=== PATIENT | female | born 1980 ===

== ENCOUNTER 2020-07-10 08:40 | Outpatient (REF) | payer MEDICAID, SELFPAY ==
--- NOTE | 2020-07-10 08:47 | MM_ITS ---
EXAMINATION: MM SCREENING DIGITAL BREAST TOMOSYNTHESIS, BILATERAL CLINICAL INFORMATION: Screening. Asymptomatic. Prior history bilateral reduction mammoplasty. The lifetime risk of breast cancer based on the Tyrer-Cuzick Model is 8%. COMPARISON: Mammography: 06/15/2017 (diagnostic baseline) TECHNIQUE: Digital breast tomosynthesis is performed in both the craniocaudal and mediolateral oblique views along with computer-aided detection (CAD). Synthesized 2D images are generated from the tomosynthesis. FINDINGS: There are scattered areas of fibroglandular density (ACR BI-RADS breast composition Category b). Parenchymal pattern is similar to prior exam. There is minor scarring consistent with prior history reduction mammoplasty. There is no interval mass or architectural abnormality or abnormal calcifications. The axilla and skin contours are unremarkable. MM/MM tomosynthesis screening BI IMPRESSION: No mammographic evidence of malignancy. ASSESSMENT: BI-RADS 2: Benign RECOMMENDATION: Routine annual mammography screening. This patient's information was entered into a reminder system with a target due date for their next mammogram.
== END 2020-07-10 08:41 | disposition home or self-care (01) ==
LOC: HO.MAMMO 08:40
PROVIDERS: PCP Internal Medicine; Visit Provider Internal Medicine
DX: Z12.31 Encounter for screening mammogram for malignant neoplasm of breast (principal)
CPT/HCPCS: 77063; 77067

== ENCOUNTER 2020-09-02 11:02 | Outpatient (REF) | payer MEDICAID, SELFPAY ==
[2020-09-03 11:07] LABS: BV Int Neg Control Negative (Negative); BV Int Pos Control Positive (Positive)
[2020-09-27 12:41] LABS: CT PCR NOT DETECTED (Not Detect.); NG PCR NOT DETECTED (Not Detect.)
== END 2020-09-02 11:03 | disposition home or self-care (01) ==
LOC: HO.LAB 11:02
PROVIDERS: Visit Provider Advanced Practice Midwife
DX: N95.1 Menopausal and female climacteric states (principal); Z20.2 Contact with and (suspected) exposure to infections with a predominantly sexual mode of transmission; R10.2 Pelvic and perineal pain; B37.3 Candidiasis of vulva and vagina
CPT/HCPCS: 81025; 87210; 87480; 87491; 87510; 87591; 87660; 99212

== ENCOUNTER 2020-09-03 12:13 | Outpatient (REF) | payer MEDICAID, SELFPAY ==
[2020-09-03 13:41] LABS: TSH reflex Free T4 1.77 mIU/mL (0.32-4.0)
[2020-09-04 18:02] LABS: Follicle Stimulating Hormone 99.8 mIU/mL
== END 2020-09-03 12:14 | disposition home or self-care (01) ==
LOC: HO.LAB 12:13
PROVIDERS: PCP Internal Medicine; Visit Provider Advanced Practice Midwife
DX: N95.1 Menopausal and female climacteric states (principal)
CPT/HCPCS: 83001; 84443

== ENCOUNTER 2020-09-25 11:03 | Outpatient (REF) | payer MEDICAID, SELFPAY ==
--- NOTE | 2020-09-25 11:07 | US_ITS ---
EXAMINATION:US pelvic complete, US transvaginal CLINICAL INFORMATION: Reason for Exam N95.1 - Menopausal and female climacteric states COMPARISON: No priors available. LMP: 06/04/2019 FINDINGS: UTERUS: The uterus is anteverted. Size: 7.2 x 3.2 x 4.6 cm. Uterine mass: There is no uterine mass. Cervix: There are nabothian cysts otherwise Grossly unremarkable. Endometrium: No ultrasound evidence of endometrial lesion. endometrial thickness measures 0.5 cm this is mildly thickened for postmenopausal patient. ADNEXA: Normal Right ovary: Normal in size. Left ovary: Normal in size. Doppler exam: Normal Doppler flow identified in both ovaries. FREE FLUID: Trace amount of free fluid. OTHER FINDINGS: None US/US transvaginal IMPRESSION: Endometrium is 5 mm, mildly thickened for postmenopausal patient. Follow-up recommended. Ultrasound otherwise normal.
--- NOTE | 2020-09-25 11:07 | US_ITS ---
EXAMINATION:US pelvic complete, US transvaginal CLINICAL INFORMATION: Reason for Exam N95.1 - Menopausal and female climacteric states COMPARISON: No priors available. LMP: 06/04/2019 FINDINGS: UTERUS: The uterus is anteverted. Size: 7.2 x 3.2 x 4.6 cm. Uterine mass: There is no uterine mass. Cervix: There are nabothian cysts otherwise Grossly unremarkable. Endometrium: No ultrasound evidence of endometrial lesion. endometrial thickness measures 0.5 cm this is mildly thickened for postmenopausal patient. ADNEXA: Normal Right ovary: Normal in size. Left ovary: Normal in size. Doppler exam: Normal Doppler flow identified in both ovaries. FREE FLUID: Trace amount of free fluid. OTHER FINDINGS: None US/US pelvic complete IMPRESSION: Endometrium is 5 mm, mildly thickened for postmenopausal patient. Follow-up recommended. Ultrasound otherwise normal.
== END 2020-09-25 11:04 | disposition home or self-care (01) ==
LOC: HO.US 11:03
PROVIDERS: PCP Internal Medicine; Visit Provider Advanced Practice Midwife
DX: N95.1 Menopausal and female climacteric states (principal); R10.2 Pelvic and perineal pain
CPT/HCPCS: 76830; 76856

== ENCOUNTER → 2020-10-09 10:41 | Outpatient (BNVA) | payer MEDICAID, SELFPAY | PROVIDERS: Visit Provider Advanced Practice Midwife | DX: N95.1 Menopausal and female climacteric states (principal) | CPT/HCPCS: 99212 ==

== ENCOUNTER 2020-10-22 10:00 | Outpatient (RCR) | payer MEDICAID, SELFPAY | END 2020-10-22 16:23 | disposition other institution (70) | LOC: HO.OT 10:00 | PROVIDERS: PCP Family Medicine; Visit Provider Family Medicine | DX: M79.641 Pain in right hand (principal) | CPT/HCPCS: 29125; 97018; 97035; 97110; 97165; 97760 ==

== ENCOUNTER 2020-10-22 10:51 | Outpatient (REF) | payer MEDICAID, SELFPAY ==
--- NOTE | 2020-10-22 10:55 | US_ITS ---
EXAMINATION: US PELVIS COMPLETE CLINICAL INFORMATION: Menopausal] female climacteric states. COMPARISON: None. TECHNIQUE: Transabdominal and transvaginal ultrasound the pelvis is performed. FINDINGS: The uterus is anteverted and anteflexed measuring 7.4 cm in length, 3.2 cm in AP and 3.6 cm in transverse dimension. There is a hyperechoic-appearing heterogeneous posterior fundal area with no focal mass visualized. Previously visualized fibroid on 06/04/2019 is not visualized at this time. There are several nabothian cysts seen in the cervix. Right ovary measures 2.7 x 1.4 x 1.1 cm and volume 2.2 mL. There is a dominant anechoic follicle visualized measuring 1.8 x 1.3 cm. The left ovary measures 1.9 x 0.7 x 1.6 cm and volume 1.1 mL. Previously it measured 2.2 x 1.4 x 1.3 cm. There is no free fluid in the cul-de-sac. US/US transvaginal IMPRESSION: No uterine fibroids seen at this time as is noted in 2019. There is a hyperechoic area in the posterior fundal uterus, likely changes secondary to impending menopause status. A dominant right ovarian follicle. Otherwise both ovaries are unremarkable. Small nabothian cysts seen in the cervix.
--- NOTE | 2020-10-22 10:55 | US_ITS ---
EXAMINATION: US PELVIS COMPLETE CLINICAL INFORMATION: Menopausal] female climacteric states. COMPARISON: None. TECHNIQUE: Transabdominal and transvaginal ultrasound the pelvis is performed. FINDINGS: The uterus is anteverted and anteflexed measuring 7.4 cm in length, 3.2 cm in AP and 3.6 cm in transverse dimension. There is a hyperechoic-appearing heterogeneous posterior fundal area with no focal mass visualized. Previously visualized fibroid on 06/04/2019 is not visualized at this time. There are several nabothian cysts seen in the cervix. Right ovary measures 2.7 x 1.4 x 1.1 cm and volume 2.2 mL. There is a dominant anechoic follicle visualized measuring 1.8 x 1.3 cm. The left ovary measures 1.9 x 0.7 x 1.6 cm and volume 1.1 mL. Previously it measured 2.2 x 1.4 x 1.3 cm. There is no free fluid in the cul-de-sac. US/US pelvic complete IMPRESSION: No uterine fibroids seen at this time as is noted in 2019. There is a hyperechoic area in the posterior fundal uterus, likely changes secondary to impending menopause status. A dominant right ovarian follicle. Otherwise both ovaries are unremarkable. Small nabothian cysts seen in the cervix.
== END 2020-10-22 10:52 | disposition home or self-care (01) ==
LOC: HO.US 10:51
PROVIDERS: Visit Provider Advanced Practice Midwife
DX: N95.1 Menopausal and female climacteric states (principal)
CPT/HCPCS: 76830; 76856

== ENCOUNTER → 2020-11-17 11:36 | Outpatient (BNVA) | payer MEDICAID, SELFPAY | PROVIDERS: Visit Provider Obstetrics & Gynecology ==

== ENCOUNTER 2020-12-01 11:24 | Outpatient (REF) | payer MEDICAID, SELFPAY | END 2020-12-01 11:25 | disposition home or self-care (01) | LOC: HO.LAB 11:24 | PROVIDERS: Visit Provider Internal Medicine | DX: Z20.822 Contact with and (suspected) exposure to COVID-19 (principal) | CPT/HCPCS: 36415; C9803; U0003; U0005 ==

== ENCOUNTER 2020-12-10 12:58 | Outpatient (REF) | payer MEDICAID, SELFPAY ==
[2020-12-10 14:58] LABS: Glucose Urine UA NEG (NEG); Leukocyte Esterase Urine NEG (NEG); Nitrite Urine NEG (NEG); PH 5.5 (5.0-8.0); Specific Gravity - Urine >= 1.030 (1.005-1.025); Urine Blood NEG (NEG); Urine Ketones 5 MG/DL (NEG); Urine Protein NEG (NEG-TRACE)
[2020-12-10 14:59] LABS: Appearance Urine HAZY; Color Urine YELLOW
[2020-12-14 11:46] LABS: HPV 16 RNA NOT DETECTED (NOT DETECTED); HPV mRNA E6/E7 rflx Detected (Not Detected)
== END 2020-12-10 12:59 | disposition home or self-care (01) ==
LOC: HO.LAB 12:58
PROVIDERS: Visit Provider Obstetrics & Gynecology
DX: Z01.419 Encounter for gynecological examination (general) (routine) without abnormal findings (principal); R10.2 Pelvic and perineal pain; N95.0 Postmenopausal bleeding; Z79.899 Other long term (current) drug therapy
CPT/HCPCS: 36415; 58100; 81003; 81025; 87624; 87625; 88141; 88142; 88305

== ENCOUNTER 2021-03-20 09:32 | Outpatient (REF) | payer MEDICAID, SELFPAY ==
--- NOTE | ~2021-03-20 | MR_ITS ---
EXAMINATION: MR BRAIN WITHOUT CONTRAST CLINICAL INFORMATION: Worsening headaches causing nocturnal awakening. COMPARISON: CT head 09/20/2019 TECHNIQUE: Routine unenhanced MRI of the brain. FINDINGS: The ventricles and sulci are normal in size and configuration. No focal parenchymal lesions of the brain are identified. No intracranial hemorrhage, tumors or acute infarcts are visualized. Susceptibility-weighted images reveal no evidence of acute or chronic intraparenchymal hemorrhage. The craniocervical junction and cerebellar tonsils are normal in configuration. No suspicious marrow abnormalities are visualized. Incidental note is made of minimal anterior endplate osteophytosis within the incidentally visualized cervical spine at the level of C5-C6. Normal flow-related signal intensity is identified in the major intracranial vessels and dural sinuses. The orbits and globes are normal in appearance. No significant mucosal thickening or retained secretions is noted within the paranasal sinuses, mastoid air cells and middle ear cavities. MR/MR head/brain wo con IMPRESSION: Normal unenhanced MRI of the brain.
== END 2021-03-20 09:33 | disposition home or self-care (01) ==
LOC: HO.MRI 09:32
PROVIDERS: PCP Internal Medicine; Visit Provider Internal Medicine
DX: R51.9 Headache, unspecified (principal)
CPT/HCPCS: 70551

== ENCOUNTER 2021-04-02 09:21 | Outpatient (REF) | payer MEDICAID, SELFPAY ==
[2021-04-02 16:10] LABS: CT PCR NOT DETECTED (Not Detect.); NG PCR NOT DETECTED (Not Detect.)
[2021-04-03 08:13] LABS: BV Int Neg Control Negative (Negative); BV Int Pos Control Positive (Positive)
== END 2021-04-02 09:22 | disposition home or self-care (01) ==
LOC: HO.LAB 09:21
PROVIDERS: PCP Internal Medicine; Visit Provider Advanced Practice Midwife
DX: N89.8 Other specified noninflammatory disorders of vagina (principal); Z20.2 Contact with and (suspected) exposure to infections with a predominantly sexual mode of transmission; Z79.899 Other long term (current) drug therapy; Z98.51 Tubal ligation status
CPT/HCPCS: 87480; 87491; 87510; 87591; 87660; 99212

== ENCOUNTER 2021-04-10 11:08 | Emergency (ER) | payer MEDICAID, SELFPAY ==
--- NOTE | 2021-04-10 | ECG_ITS ---
Test Reason : CHEST PAIN Blood Pressure : / mmHG Vent. Rate : 069 BPM Atrial Rate : 069 BPM P-R Int : 164 ms QRS Dur : 084 ms QT Int : 384 ms P-R-T Axes : 047 038 073 degrees QTc Int : 411 ms Normal sinus rhythm Nonspecific T wave abnormality Abnormal ECG When compared with ECG of 05-NOV-2013 18:40, No significant change was found Referred By: Generic ED Physician Electronically Signed By:HUONG SAMANO
--- NOTE | ~2021-04-10 | XR_ITS ---
EXAMINATION: XR LUMBOSACRAL SPINE CLINICAL INFORMATION: Pain COMPARISON: None TECHNIQUE: Three views of the lumbosacral spine. FINDINGS: There is mild curvature of the lumbar spine to the left. Bone alignment is otherwise normal. No fracture or dislocation is seen. Disc spaces are normal. Paraspinal soft tissues are normal. XR/XR lumbar spine 2-3V IMPRESSION: Unremarkable examination.
--- NOTE | ~2021-04-10 | XR_ITS ---
EXAMINATION: XR THORACIC SPINE CLINICAL INFORMATION: Back pain COMPARISON: None TECHNIQUE: 3 views of the thoracic spine were obtained. FINDINGS: There is mild curvature of the lower thoracic and upper lumbar spine to the left. Bone alignment is otherwise normal. No fracture or dislocation is seen. Disc spaces are normal. Paraspinal soft tissues are normal. XR/XR thoracic spine 3V IMPRESSION: Unremarkable examination.
[2021-04-10 12:57] VITALS: BP 141/76; PULSE 65; RESP 16; TEMP 37.2; O2SAT 99; BMI 35.5
[2021-04-10] MEDS: Ketorolac Tromethamine 15 MG/ML VIAL IM ×2 (13:24→13:26)
[2021-04-10 14:02] VITALS: BP 129/78; PULSE 63; RESP 16; TEMP 35.8; O2SAT 100
--- NOTE | 2021-04-10 14:25 | ED_ITS ---
HPI - Back Pain/Injury General Chief Complaint: Back Pain/Injury Stated Complaint: BACK PAIN Time Seen by Provider: 04/10/21 12:55 Source: patient Mode of arrival: ambulatory Limitations: no limitations History of Present Illness HPI Narrative: Patient presents ED for lower back pain for 3 days. Patient denies any flank pain, fever, chills, dysuria, hematuria any recent trauma. Patient states back pain is worse on movement. Patient denies any abdominal pain. To inspect pain radiating to neck and back down to low back pain. Patient denies any chest pain, shortness of breath, pleuritic chest pain, swelling of lower extremities, calf pain, coughing up blood, dizziness, or weakness. Related Data Home Medications Medication Instructions Recorded Confirmed acetaminophen 325 mg tablet 650 mg PO Q6H PRN 09/02/20 04/02/21 clonazepam 1 mg tablet 1 mg PO BID 09/02/20 04/02/21 naratriptan 2.5 mg tablet See Rx Instructions PO .COMPLEX 09/02/20 04/02/21 sertraline 100 mg tablet 100 mg PO DAILY 09/02/20 04/02/21 zolpidem 10 mg tablet 10 mg PO BEDTIME PRN 09/02/20 04/02/21 Previous Rx's Medication Instructions Recorded clotrimazole 1 % vaginal cream 1 appful VAGINAL BEDTIME 7 Days 09/02/20 #45 g medroxyprogesterone 10 mg tablet 10 mg PO DAILY #10 tab 09/02/20 metronidazole 0.75 % vaginal gel 1 appful VAGINAL BID 5 Days #70 g 04/02/21 cyclobenzaprine 10 mg PO TID PRN #18 tab 04/10/21 naproxen 500 mg PO BID PRN #20 tab 04/10/21 Allergies Allergy/AdvReac Type Severity Reaction Status Date / Time passion fruit [PASSION FRUIT] Allergy Intermediate HIVES Verified 04/02/21 09:29 passion fruit Allergy Unknown rash Verified 04/02/21 09:29 Review of Systems Review of Systems: Yes all other systems are reviewed and are negative Constitutional: Constitutional: Reports as per HPI and Reports no additional constitutional complaints Eyes: Eyes: Reports as per HPI and Reports no additional eye complaints ENT: Reports system reviewed and no additional complaints, except as documented and Reports as per HPI Cardiovascular: Cardiovascular: Reports as per HPI and Reports no additional cardiovascular complaints Respiratory: Respiratory: Reports as per HPI and Reports no additional respiratory complaints Gastrointestinal: Gastrointestinal: Reports as per HPI and Reports no additional gastrointestinal complaints Genitourinary: Genitourinary: Reports no additional female genitourinary complaints and Reports as per HPI Musculoskeletal: Musculoskeletal: Reports no additional musculoskeletal complaints and Reports as per HPI Neurologic: Reports system reviewed and no additional complaints, except as documented and Reports as per HPI Psychiatric: Psychiatric: Reports no additional psychiatric complaints and Reports as per HPI [facility] Past Medical History Medical History Anxiety Depressed Insomnia Migraine Pelvic pain Surgical History H/O bilateral breast reduction surgery Hx of tubal ligation Family History Family History Maternal Grandfather Stomach cancer Mother No problems noted. Mother Diabetes Social History Social History Alcohol intake: never Advance Directives: Yes Advance Directives Information Provided: No Advance Directives on File: No Patient : No Physical Exam Vital Signs: Vital Signs: Last Vital Signs Temp 97.9 F 04/10/21 14:55 Pulse 63 04/10/21 14:02 Resp 16 04/10/21 14:02 BP 129/78 04/10/21 14:02 Pulse Ox 100 04/10/21 14:02 Body Mass Index 35.5 Const: General: cooperative, healthy appearing, comfortable, no acute distress, well developed, alert, awake and Physically active HENMT: Head: Yes normal to inspection, Yes No palpable skull fracture present, Yes normocephalic, Yes atraumatic and No abrasion Eyes: General: appearance normal, both eyes and all related structures Neck: Neck: Yes normal visual inspection, Yes full ROM, Yes no lymphadenopathy, Yes no meningeal signs, Yes trachea midline, Yes supple and No tender Chest: Chest palpation & inspection: normal inspection of the chest and normal palpation of entire chest wall Resp: Effort & Inspection: normal respiratory effort and able to speak in complete sentences Auscultation: clear to auscultation bilaterally Cardio: Jugular venous distension: no JVD Heart sounds: S1 normal heart sound present and S2 normal heart sound present GI: Inspection: Yes normal to inspection and No abdominal wall ecchymosis Palpation (GI): Soft to palpation, not firm, nontender, no guarding and not rigid : General: No CVA tenderness and Yes no CVA tenderness Back/Spine/Pelvis: Other: Straight leg test is normal Back: no CVA tenderness, No CVA tenderness and back tenderness (Lower thoracic and lumbar) Skin: General skin exam: no rashes or lesions noted and elasticity normal Neuro: General: patient oriented x3, gait normal, no meningeal signs and CN's II-XI intact bilaterally Cranial nerves: Yes CN's II-XII intact bilaterally Extrem: Other: Bilateral shoulders negative for any swelling, erythema, tenderness, ecchymosis, or deformity. All extremities vascular/motor/neuro exam is intact. General: Yes normal to inspection and Yes full ROM Psych: Appearance: grossly normal, well kempt and not disheveled Course Course Course Narrative: Will send patient for x-rays. Reevaluation(s) Reevaluation #1: X-rays negative for fracture. Patient denies any history of IV drug use or HIV. Not suspecting epidural abscess. Patient denies any flank pain, dysuria, or hematuria. not suspecting kidney stone/pyelonephritis or UTI. not Suspecting any PE or any pulmonary etiology. Not suspecting any cardiac etiology. Time: 14:55 MDM - Back Pain/Injury MDM Narrative Medical decision making narrative: Muscular back pain Discharge Plan Discharge Clinical Impression: Back pain Patient Disposition: Home, Self-Care Instructions: Acute Low Back Pain (ED) Additional Instructions: Neck pain came back negative for any fractures. Return to the ED immediately for any worsening back pain, urinary/bowel incontinence, abdominal pain, flank pain, fever, chills, nausea, vomiting, chest pain, shortness of breath, swelling of extremities, calf pain, hematuria, neck stiffness, headache, or any other concerning symptoms. Have a muscular back pain. Prescriptions: New naproxen 500 mg tablet 500 mg PO BID PRN (Reason: pain) Qty: 20 RF: 0 cyclobenzaprine 10 mg tablet 10 mg PO TID PRN (Reason: muscle spasm) Qty: 18 RF: 0 No Action metronidazole [Metrogel Vaginal] 0.75 % gel 1 appful vaginal BID 5 Days Qty: 70 RF: 4 clonazepam [Klonopin] 1 mg tablet 1 mg PO BID RF: 0 zolpidem [Ambien] 10 mg tablet 10 mg PO BEDTIME PRNRF: 0 sertraline [Zoloft] 100 mg tablet 100 mg PO DAILY RF: 0 naratriptan [Amerge] 2.5 mg tablet See Rx Instructions PO .COMPLEX RF: 0 acetaminophen [Tylenol] 325 mg tablet 650 mg PO Q6H PRNRF: 0 clotrimazole 1 % cream 1 appful vaginal BEDTIME 7 Days Qty: 45 RF: 3 medroxyprogesterone [Provera] 10 mg tablet 10 mg PO DAILY Qty: 10 RF: 12 Referrals: Rosita Clark MD [Primary Care Provider] - 2 days (Muscular back pain) Print Language: Citizen [place]
[2021-04-10] MEDS: oxyCODONE HCl Immed Release 5 MG TABLET PO (14:26)
[2021-04-10 14:55] VITALS: TEMP 36.6
== END 2021-04-10 15:30 | disposition home or self-care (01) ==
PROVIDERS: Emergency Provider Emergency Medicine Emergency Medical Services; PCP Internal Medicine
DX: M54.5 Low back pain (principal); M54.6 Pain in thoracic spine; Z79.899 Other long term (current) drug therapy
CPT/HCPCS: 72072; 72100; 93005; 96372; 99284; J1885

== ENCOUNTER → 2021-05-18 11:58 | Outpatient (BNVA) | payer MEDICAID, SELFPAY | PROVIDERS: PCP Internal Medicine; Visit Provider Obstetrics & Gynecology | DX: Z78.0 Asymptomatic menopausal state (principal) ==

== ENCOUNTER 2021-07-20 10:57 | Outpatient (REF) | payer MEDICAID, SELFPAY ==
--- NOTE | ~2021-07-20 | MM_ITS ---
EXAMINATION: MM SCREENING DIGITAL BREAST TOMOSYNTHESIS, BILATERAL CLINICAL INFORMATION: Screening. Asymptomatic. Prior remote reduction mammoplasty, 1999. The lifetime risk of breast cancer based on the Tyrer-Cuzick Model is 8%. COMPARISON: Mammography: 07/10/2020, 06/15/2017 TECHNIQUE: Digital breast tomosynthesis is performed in both the craniocaudal and mediolateral oblique views along with computer-aided detection (CAD). Synthesized 2D images are generated from the tomosynthesis. FINDINGS: There are scattered areas of fibroglandular density (ACR BI-RADS breast composition Category b). Breast tissue composition borders on predominantly fatty. Background stromal markings are stable. There is no developing density or interval mass or architectural abnormality or abnormal calcifications. There is some minor stable scarring consistent with the remote reduction mammoplasty. MM/MM tomosynthesis screening BI IMPRESSION: No mammographic evidence of malignancy. ASSESSMENT: BI-RADS 2: Benign RECOMMENDATION: Routine annual mammography screening. This patient's information was entered into a reminder system with a target due date for their next mammogram.
== END 2021-07-20 10:58 | disposition home or self-care (01) ==
LOC: HO.MAMMO 10:57
PROVIDERS: Visit Provider Internal Medicine
DX: Z12.31 Encounter for screening mammogram for malignant neoplasm of breast (principal)
CPT/HCPCS: 77063; 77067

== ENCOUNTER 2021-08-27 14:00 | Outpatient (RCR) | payer MEDICAID, SELFPAY | END 2021-08-27 17:45 | disposition home or self-care (01) | LOC: HO.PT 14:00 | PROVIDERS: PCP Internal Medicine; Visit Provider Internal Medicine | DX: M54.9 Dorsalgia, unspecified (principal) | CPT/HCPCS: 97110; 97161; 97530 ==

== ENCOUNTER 2021-09-17 21:10 | Emergency (ER) | payer MEDICAID, SELFPAY ==
[2021-09-17 22:00] VITALS: BP 132/58; PULSE 81; RESP 16; TEMP 37.4; O2SAT 100; BMI 36.7
--- NOTE | 2021-09-18 01:38 | ED.HA ---
HPI - Headache General Chief Complaint: Headache Stated Complaint: migraine Time Seen by Provider: 09/18/21 01:36 Source: patient Limitations: no limitations History of Present Illness HPI Narrative: this is a 41 year female with history of migraine, depression, anxiety, who has had a migraine headache for about 3 days. The patient had been put on magnesium and aB vitamin for her migraines but states these have not worked. She has also tried Ibuprofen and acetaminophen. She has had nausea but no vomiting. She denies any neck stiffness. She feels like her vision is little bit blurred. The headache is frontal, constant. She denies any fever. She does have photophobia. She denies any numbness or weakness in her arms or legs or face. She notes she did have imaging of her brain in the past and was told she might have sinus problems. She states the headache is severe and does not feel like her typical migraine. Onset was gradual Related Data Home Medications Medication Instructions Recorded Confirmed acetaminophen 325 mg tablet 650 mg PO Q6H PRN 09/02/20 04/02/21 (Tylenol) clonazepam 1 mg tablet (Klonopin) 1 mg PO BID 09/02/20 04/02/21 naratriptan 2.5 mg tablet (Amerge) See Rx Instructions PO .COMPLEX 09/02/20 04/02/21 sertraline 100 mg tablet (Zoloft) 100 mg PO DAILY 09/02/20 04/02/21 zolpidem 10 mg tablet (Ambien) 10 mg PO BEDTIME PRN 09/02/20 04/02/21 Previous Rx's Medication Instructions Recorded clotrimazole 1 % vaginal cream 1 appful VAGINAL BEDTIME 7 Days 09/02/20 #45 g medroxyprogesterone 10 mg tablet 10 mg PO DAILY #10 tab 09/02/20 (Provera) metronidazole 0.75 % vaginal gel 1 appful VAGINAL BID 5 Days #70 g 04/02/21 (Metrogel Vaginal) cyclobenzaprine 10 mg tablet 10 mg PO TID PRN #18 tab 04/10/21 naproxen 500 mg tablet 500 mg PO BID PRN #20 tab 04/10/21 Allergies Allergy/AdvReac Type Severity Reaction Status Date / Time passion fruit [PASSION FRUIT] Allergy Intermediate HIVES Verified 04/02/21 09:29 passion fruit Allergy Unknown rash Verified 04/02/21 09:29 Review of Systems Review of Systems: Yes all other systems are reviewed and are negative Constitutional: Constitutional: Reports as per HPI, Denies fever(s) and Reports headache(s) Eyes: Eyes: Reports as per HPI and Reports blurry vision ENT: Reports system reviewed and no additional complaints, except as documented, Reports as per HPI, Reports headache(s), Denies nasal congestion, Denies nasal discharge and Denies sore throat Cardiovascular: Cardiovascular: Reports as per HPI, Denies chest pain and Denies dyspnea Respiratory: Respiratory: Reports as per HPI, Denies cough and Denies dyspnea Gastrointestinal: Gastrointestinal: Reports as per HPI, Denies abdominal pain, Denies diarrhea, Reports nausea and Denies vomiting Genitourinary: Genitourinary: Reports as per HPI, Reports hematuria, Reports urinary frequency and Reports dysuria Musculoskeletal: Musculoskeletal: Reports no additional musculoskeletal complaints and Denies numbness Integumentary/Breasts: Skin/Breast: Reports as per HPI and Denies rash Neurologic: Reports as per HPI, Reports headache(s), Denies focal weakness, Denies numbness and Denies Sensory deficit (Neuro) Psychiatric: Psychiatric: Reports no additional psychiatric complaints and Reports as per HPI Endocrine: Endocrine: Reports no additional endocrine complaints and Reports as per HPI Hematologic/Lymphatic: Hematologic/Lymphatic: Reports no additional hematologic/lymphatic complaints, Reports as per HPI and Reports other (No peripheral edema) [facility]LY [facility] Past Medical History Medical History Anxiety Depressed Insomnia Migraine Pelvic pain Surgical History H/O bilateral breast reduction surgery Hx of tubal ligation Family History Family History Maternal Grandfather Stomach cancer Mother No problems noted. Mother Diabetes Social History Social History Alcohol intake: never Advance Directives: No Patient : No Physical Exam Vital Signs: Vital Signs: Last Vital Signs Temp 99.4 F 09/17/21 22:00 Pulse 81 09/17/21 22:00 Resp 16 09/17/21 22:00 BP 132/58 L 09/17/21 22:00 Pulse Ox 100 12/30/21 22:00 BMI result Body Mass Index 36.7 Const: Other: patient tearful but not ill appearing, no distress General: cooperative, no acute distress and alert Orientation/consciousness: patient oriented x3 HENMT: Head: Yes normal to inspection Eyes: General: appearance normal, both eyes and all related structures Eyelids: Yes eyelids normal Conjunctivae: conjunctivae normal Pupils: Equal, round and reactive pupils present Neck: Neck: Yes normal visual inspection and Yes supple Chest: Chest palpation & inspection: normal inspection of the chest Resp: Effort & Inspection: normal respiratory effort Auscultation: clear to auscultation bilaterally Cardio: Rate: regular rate Rhythm: regular rhythm Heart sounds: S1 normal heart sound present, S2 normal heart sound present, no gallops, no murmurs and no rubs GI: Palpation (GI): Soft to palpation, nontender and Other GI palpation findings present (Non-distended) Auscultation: normal bowel sounds Skin: General skin exam: no rashes or lesions noted Neuro: General: patient oriented x3, no focal motor deficits and CN's II-XI intact bilaterally Cranial nerves: Yes Equal, round and reactive pupils present Cognition (Neuro): normal cognition Motor exam (neuro): 5/5 motor strength present throughout Sensory Exam: No Sensory deficit (Neuro) Extrem: General: Yes normal to inspection and Yes no pedal edema Psych: Appearance: grossly normal Affect: normal affect MDM - Headache MDM Narrative Medical decision making narrative: patient was treated with Toradol, Compazine, and Ativan had some relief of her headache, from a 10/10 down to an 8/10. The patient was subsequently given Dilaudid 0.5 mg IV and droperidol 1.25 mg IV and had further improvement, felt comfortable going home. Discharge Plan Discharge Clinical Impression: Migraine Patient Disposition: Home, Self-Care Instructions: Migraine Headache (ED) Additional Instructions: Follow-up with your primary care physician. Use naproxen to try to abort migraines once they start. Return for any new or worsened symptoms Prescriptions: Continued naproxen 500 mg tablet 500 mg PO BID PRN (Reason: pain) Qty: 20 RF: 0 No Action cyclobenzaprine 10 mg tablet 10 mg PO TID PRN (Reason: muscle spasm) Qty: 18 RF: 0 metronidazole [Metrogel Vaginal] 0.75 % gel 1 appful vaginal BID 5 Days Qty: 70 RF: 4 clonazepam [Klonopin] 1 mg tablet 1 mg PO BID RF: 0 zolpidem [Ambien] 10 mg tablet 10 mg PO BEDTIME PRNRF: 0 sertraline [Zoloft] 100 mg tablet 100 mg PO DAILY RF: 0 naratriptan [Amerge] 2.5 mg tablet See Rx Instructions PO .COMPLEX RF: 0 acetaminophen [Tylenol] 325 mg tablet 650 mg PO Q6H PRNRF: 0 clotrimazole 1 % cream 1 appful vaginal BEDTIME 7 Days Qty: 45 RF: 3 medroxyprogesterone [Provera] 10 mg tablet 10 mg PO DAILY Qty: 10 RF: 12
[2021-09-18] MEDS: Ketorolac Tromethamine 30 MG/ML VIAL 15 MG IVPUSH (01:57)
[2021-09-18] MEDS: Prochlorperazine Edisylate 10 MG/2 ML VIAL IVPUSH (02:00)
--- NOTE | 2021-09-18 02:06 | PC.NURSE ---
pt a&o, no sob or chest pain. Iv placed and pt medicated per Nov. pillow and warm blanket given.
[2021-09-18] MEDS: LORazepam 2 MG/ML VIAL 1 MG IVPUSH (02:09)
[2021-09-18] MEDS: HYDROmorphone HCl 0.5 MG/0.5 ML SYRINGE IVPUSH (03:38)
--- NOTE | 2021-09-18 03:48 | PC.NURSE ---
provider in to assess pt. medicated per mar.
[2021-09-18 04:11] VITALS: BP 122/57; PULSE 81; RESP 14; TEMP 36.5; O2SAT 95
== END 2021-09-18 04:41 | disposition home or self-care (01) ==
PROVIDERS: Emergency Provider Emergency Medicine; PCP Internal Medicine
DX: G43.909 Migraine, unspecified, not intractable, without status migrainosus (principal)
CPT/HCPCS: 96374; 96375; 99284; J1170; J1790; J1885; J2060

== ENCOUNTER → 2021-11-24 10:41 | Outpatient (REF) | payer MEDICAID, SELFPAY | LOC: HO.SL 10:41 | PROVIDERS: PCP Internal Medicine; Visit Provider Internal Medicine | DX: G47.33 Obstructive sleep apnea (adult) (pediatric) (principal) | CPT/HCPCS: 95806 ==

== ENCOUNTER 2022-02-26 09:09 | Outpatient (REF) | payer MEDICAID, SELFPAY ==
--- NOTE | ~2022-02-26 | FL_ITS ---
EXAMINATION: FL BARIUM SWALLOW CLINICAL INFORMATION: Dysphagia. COMPARISON: None. TECHNIQUE: Barium swallow examination is performed using fluoroscopic evaluation in addition to multiple fluoroscopic spot views. The patient is imaged both upright and prone and using both thick and thin sulfate along with effervescent granules. Fluoroscopy time: 1.1 minutes DAP: 1.951 Gy-cm2 Images: 52 FINDINGS: Following oral administration of thick barium, barium-coated turkey in upright view there is normal propagation of bolus from the oral cavity through the pharynx, esophagus into stomach without any evidence of obstruction, narrowing or stricture. The course, caliber and peristalsis of the esophagus is normal. There is mild ventral spurring at C5-C6 and C6-C7 disc levels slightly indenting the cervical esophagus but no obstruction seen. FL/FL barium swallow IMPRESSION: Unremarkable barium swallow except for mild ventral spondylosis at C5-C6 and C6-C7 disc level indenting the posterior cervical esophageal wall without obstruction.
== END 2022-02-26 09:10 | disposition home or self-care (01) ==
LOC: HO.XRAY 09:09
PROVIDERS: PCP Internal Medicine; Visit Provider Internal Medicine
DX: R13.10 Dysphagia, unspecified (principal)
CPT/HCPCS: 74220

== ENCOUNTER → 2022-03-02 09:03 | Outpatient (BNVA) | payer MEDICAID, SELFPAY | PROVIDERS: PCP Internal Medicine; Visit Provider Dietitian, Registered | DX: E66.9 Obesity, unspecified (principal); Z68.38 Body mass index [BMI] 38.0-38.9, adult; E78.00 Pure hypercholesterolemia, unspecified; Z71.3 Dietary counseling and surveillance | CPT/HCPCS: 97802 ==

== ENCOUNTER → 2022-04-15 13:39 | Outpatient (BNVA) | payer MEDICAID, SELFPAY | PROVIDERS: PCP Internal Medicine; Visit Provider Dietitian, Registered | DX: E66.9 Obesity, unspecified (principal); Z68.38 Body mass index [BMI] 38.0-38.9, adult; Z71.3 Dietary counseling and surveillance | CPT/HCPCS: 97803 ==

== ENCOUNTER → 2022-06-17 13:39 | Outpatient (BNVA) | payer MEDICAID, SELFPAY | PROVIDERS: PCP Internal Medicine; Visit Provider Dietitian, Registered | DX: E66.9 Obesity, unspecified (principal); Z68.37 Body mass index [BMI] 37.0-37.9, adult | CPT/HCPCS: 97803 ==

== ENCOUNTER 2022-06-22 14:00 | Outpatient (RCR) | payer MEDICAID, SELFPAY ==
[2022-03-31 13:05] VITALS: BP 110/59; PULSE 78; O2SAT 100
== END 2022-06-23 07:57 | disposition home or self-care (01) ==
LOC: HO.PT 14:00
PROVIDERS: PCP Internal Medicine; Visit Provider Psychiatry & Neurology Neurology
DX: R51.9 Headache, unspecified (principal); G89.29 Other chronic pain
CPT/HCPCS: 97110; 97112; 97140; 97161

== ENCOUNTER 2022-07-16 08:47 | Outpatient (REF) | payer MEDICAID, SELFPAY ==
--- NOTE | ~2022-07-16 | XR_ITS ---
EXAMINATION: XR CERVICAL SPINE CLINICAL INFORMATION: Cervicalgia COMPARISON: Radiographs cervical spine 11/16/2013 TECHNIQUE: Cervical spine is imaged in 7 views: AP, lateral, odontoid x2, Fuchs, and bilateral oblique. FINDINGS: Cervical vertebral bodies are normal in height and there is normal cervical lordosis. No cervical vertebral compression, spondylolisthesis, destructive process, or prevertebral soft tissue swelling. Odontoid is unremarkable. There are progressive degenerative disc changes at both C5-C6 and C6-C7 with disc narrowing and vertebral spurring. Borderline right foraminal spurring at C5-C6. No cervical rib. Lung apices clear. XR/XR cervical spine 4V IMPRESSION: 1. Progressive degenerative disc changes C5-C6 and C6-C7. 2. Borderline right foraminal spurring C5-C6.
== END 2022-07-16 08:48 | disposition home or self-care (01) ==
LOC: HO.XRAY 08:47
PROVIDERS: PCP Internal Medicine; Visit Provider Internal Medicine
DX: M54.2 Cervicalgia (principal)
CPT/HCPCS: 72050

== ENCOUNTER 2022-07-21 13:13 | Outpatient (REF) | payer MEDICAID, SELFPAY ==
--- NOTE | ~2022-07-21 | MM_ITS ---
EXAMINATION: MM SCREENING DIGITAL BREAST TOMOSYNTHESIS, BILATERAL CLINICAL INFORMATION: Screening. Asymptomatic. Prior reduction mammoplasty, 1999. COMPARISON: Mammography: 07/20/2021, 07/10/2020, 06/15/2017 TECHNIQUE: Digital breast tomosynthesis is performed in both the craniocaudal and mediolateral oblique views along with computer-aided detection (CAD). Synthesized 2D images are generated from the tomosynthesis. FINDINGS: The breasts are almost entirely fatty (ACR BI-RADS breast composition Category a). There are no significant masses, abnormal calcifications, or other abnormalities. Background stromal markings are similar to prior studies and there is no developing density or architectural abnormality. No significant changes. MM/MM tomosynthesis screening BI IMPRESSION: No mammographic evidence of malignancy. ASSESSMENT: BI-RADS 1: Negative RECOMMENDATION: Routine annual mammography screening. This patient's information was entered into a reminder system with a target due date for their next mammogram.
== END 2022-07-21 13:14 | disposition home or self-care (01) ==
LOC: HO.MAMMO 13:13
PROVIDERS: PCP Internal Medicine; Visit Provider Internal Medicine
DX: Z12.31 Encounter for screening mammogram for malignant neoplasm of breast (principal)
CPT/HCPCS: 77063; 77067

== ENCOUNTER 2022-09-22 13:07 | Emergency (ER) | payer MEDICAID, SELFPAY ==
--- NOTE | ~2022-09-22 | CT_ITS ---
Indication: Syncope EXAMINATION: CT brain, CT cervical spine. Axial imaging with coronal and sagittal reformatted images. Comparison previous dated 09/20/2019. This CT examination was performed using dose optimization techniques as appropriate, variously including the following: *Automated exposure control *Adjustment of mA and/or kV according to patient size (this includes techniques or standardized protocols for targeted exams where dose is matched to indication/reason for exam; i.e. extremities or head) *Use of iterative reconstruction technique. Radiation dose [address] brain; There is no midline shift. There is no mass effect. There is no hemorrhage. The basal cisterns appear patent. The posterior fossa is grossly within normal limits. There is no extra-axial collection. The gonzalez-white matter is within normal limits. Review of the bone windows does not demonstrate a suspicious bony finding. No fracture. Cervical spine; Reversal of the normal lordosis. This could be due to position or spasm. There is no fracture or dislocation. Some likely calcification which could be in the ligament posterior to C6-C7. Some early degenerative changes are also noted. CT/CT head/brain wo IV con IMPRESSION: Negative acute noncontrast CT of the brain. No fracture or dislocation cervical spine.
--- NOTE | ~2022-09-22 | CT_ITS ---
Indication: Syncope EXAMINATION: CT brain, CT cervical spine. Axial imaging with coronal and sagittal reformatted images. Comparison previous dated 09/20/2019. This CT examination was performed using dose optimization techniques as appropriate, variously including the following: *Automated exposure control *Adjustment of mA and/or kV according to patient size (this includes techniques or standardized protocols for targeted exams where dose is matched to indication/reason for exam; i.e. extremities or head) *Use of iterative reconstruction technique. Radiation dose [address] brain; There is no midline shift. There is no mass effect. There is no hemorrhage. The basal cisterns appear patent. The posterior fossa is grossly within normal limits. There is no extra-axial collection. The gonzalez-white matter is within normal limits. Review of the bone windows does not demonstrate a suspicious bony finding. No fracture. Cervical spine; Reversal of the normal lordosis. This could be due to position or spasm. There is no fracture or dislocation. Some likely calcification which could be in the ligament posterior to C6-C7. Some early degenerative changes are also noted. CT/CT cervical spine wo IV con IMPRESSION: Negative acute noncontrast CT of the brain. No fracture or dislocation cervical spine.
[2022-09-22 13:18] VITALS: BP 119/67; PULSE 75; RESP 16; TEMP 36.6; O2SAT 100; BMI 36.7
[2022-09-22 13:40] VITALS: BP 132/71; PULSE 89; RESP 18; O2SAT 99
--- NOTE | 2022-09-22 14:19 | ECG_ITS ---
Test Reason : Syncope Blood Pressure : / mmHG Vent. Rate : 083 BPM Atrial Rate : 083 BPM P-R Int : 160 ms QRS Dur : 084 ms QT Int : 322 ms P-R-T Axes : 041 013 067 degrees QTc Int : 378 ms Normal sinus rhythm Nonspecific T wave abnormality Abnormal ECG When compared with ECG of 10-APR-2021 12:10, No significant change was found Referred By: Jacinda Bonilla Electronically Signed By:HUONG SAMANO
--- NOTE | 2022-09-22 14:19 | ED_ITS ---
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 Patient states that she was grocery shopping and began to feel dizzy and ?flushed? without palpitations/headache but mild nausea which prompted her to go outside and take some deep breaths and she stated that she felt better afterwards and went back into the store and then ?I do not remember anything else?. At this point I asked the son what happened as he was present, the son states that she was getting something out of her purse and then open quotes fell backwards? and hit her head on the floor. A gentleman in the store came over and helped the patient. Patient states that when she woke up she felt nauseous, sweaty. Currently, she states that her head and neck her Related Data Home Medications Medication Instructions Recorded Confirmed acetaminophen 325 mg tablet 650 mg PO Q6H PRN 09/02/20 04/02/21 (Tylenol) clonazepam 1 mg tablet (Klonopin) 1 mg PO BID 09/02/20 04/02/21 naratriptan 2.5 mg tablet (Amerge) See Rx Instructions PO .COMPLEX 09/02/20 04/02/21 sertraline 100 mg tablet (Zoloft) 100 mg PO DAILY 09/02/20 04/02/21 zolpidem 10 mg tablet (Ambien) 10 mg PO BEDTIME PRN 09/02/20 04/02/21 Previous Rx's Medication Instructions Recorded clotrimazole 1 % vaginal cream 1 appful vaginal BEDTIME 7 days 09/02/20 #45 grams medroxyprogesterone 10 mg tablet 10 mg PO DAILY #10 tabs 09/02/20 (Provera) metronidazole 0.75 % (37.5 mg/5 1 appful vaginal BID 5 days #70 04/02/21 gram) vaginal gel (Metrogel grams Vaginal) cyclobenzaprine 10 mg tablet 10 mg PO TID PRN muscle spasm #18 04/10/21 tabs naproxen 500 mg tablet 500 mg PO BID PRN pain #20 tabs 04/10/21 Allergies Allergy/AdvReac Type Severity Reaction Status Date / Time passion fruit [PASSION FRUIT] Allergy Intermediate HIVES Verified 04/02/21 09:29 passion fruit Allergy Unknown rash Verified 04/02/21 09:29 Review of Systems Review of Systems: Pertinent positives and negatives as stated in HPI. [facility] Past Medical History Source: nursing notes reviewed Medical History Anxiety Depressed Insomnia Migraine Pelvic pain Surgical History H/O bilateral breast reduction surgery Hx of tubal ligation Family History Family History Maternal Grandfather Stomach cancer Mother No problems noted. Mother Diabetes Social History Social History Alcohol intake: never Patient Tobacco Use Status: Never used Tobacco Advance Directives: No Physical Exam Vital Signs: Vital Signs: Last Vital Signs Temp 97.8 F 09/22/22 13:18 Pulse 89 09/22/22 13:40 Resp 18 09/22/22 13:40 BP 132/71 09/22/22 13:40 Pulse Ox 99 09/22/22 13:40 O2 Del Method 09/22/22 13:40 BMI result Body Mass Index 36.7 VITAL SIGNS: Reviewed. GENERAL: Well developed, well nourished, in no acute distress. HEAD: Normocephalic/atraumatic EYES: PERRLA, EOMI EARS: Ext canals without abnormality OROPHARYNX: no oral lesions noted, posterior pharynx clear NECK: C-collar in place without midline cervical spine tenderness LUNGS: Normal breath sounds. No adventitious sounds or accessory muscle use. SpO2<99> CARDIOVASCULAR: Regular rate and rhythm without noted murmurs ABDOMEN: Soft, non-tender, non-distended with bowel sounds. MUSCULOSKELETAL: No tenderness, deformities, or effusions noted on gross inspection. EXTREMITIES: No cyanosis, clubbing or edema. SKIN: Inspection of the skin reveals no rashes NEUROLOGIC: Alert and oriented x 4. Strength and sensation to light touch were grossly intact x 4. Medical Decision Making Medical Decision Making MDM Narrative: 42-year-old female who presents via EMS with what sounds like a vasovagal syncopal episode. Patient denies any use of her Klonopin this morning. 1446: On my review and interpretation of the laboratory studies there is no evidence of acute infection or anemia, electrolytes appear to be grossly stable and no evidence of PAVEL, patient is not and does not have a UTI. Toxicology and viral testing is negative as well. Further supporting the likelihood that this syncopal episode is vasovagal in nature. PERC-negative. 1823: My interpretation is in agreement with radiology's impression imaging studies. After review of CT c-spine imaging that demonstrated no acute findings and exam was without midline tenderness on palpation or on ROM. No focal neurological deficits to suggest spinal cord injury Differential Diagnosis Differential Diagnoses: The differential diagnosis associated with the presentation includes I will rule out infection, anemia, arrhythmia. Lab Data [facility] Lab Attestation statement: I reviewed the patient's lab results. See the discussion above Result Diagrams: 09/22/22 14:46 09/22/22 14:46 Labs: Lab Results 09/22/22 09/22/22 09/22/22 Range/Units 14:37 14:37 14:46 WBC 8.1 (4.8-10.8) X10*3/uL RBC 4.69 (4.20-5.50) X10*6/uL Hgb 13.5 (12.0-16.0) g/dl Hct 41.3 (37.0-47.0) % MCV 88.1 (80.0-98.0) fL MCH 28.8 (27.0-33.0) pg MCHC 32.7 (31.0-35.0) g/dl RDW 11.8 (11.0-16.0) % Plt Count 225 (160-400) X10*3/uL MPV 10.6 (9.4-12.3) fL Immature Gran % (Auto) 0.5 H (0.0-0.4) % Neut % (Auto) 69.7 (45-73) % Lymph % (Auto) 23.7 (20-40) % [place] % (Auto) 5.2 (2-11) % Eos % (Auto) 0.4 (0-4) % Baso % (Auto) 0.5 (0-2) % Lymph # (Auto) 1.9 (1.2-4.9) X10*3/uL [place] # (Auto) 0.4 (0.1-1.2) X10*3/uL Eos # (Auto) 0.0 (0.0-0.4) X10*3/uL Baso # (Auto) 0.0 (0.0-0.2) X10*3/uL Abs Immat Gran (auto) 0.04 H (0.00-0.03) X10*3/uL Absolute Neuts (auto) 5.6 (2.0-8.3) x10*3/uL Absolute Nucleated RBC 0.000 (0.0-0.012) X10*3/uL Nucleated RBC % (auto) 0.0 (0.0-0.2) /100WBC Sodium (135-145) mmol/L Potassium (3.3-5.1) mmol/L Chloride (96-108) mmol/L Carbon Dioxide (22-29) mmol/L Anion Gap (12-20) BUN (9-16) mg/dL Creatinine (0.5-1.4) mg/dL Estim Creat Clear Calc Estimated GFR Random Glucose (60-115) mg/dL Calcium (8.4-10.2) mg/dL Total Bilirubin (0.0-1.0) mg/dL AST (5-31) U/L ALT (0-31) U/L Alkaline Phosphatase (39-117) U/L Total Protein (6.5-8.0) g/dL Albumin (3.5-5.0) g/dL Beta HCG, Quant mIU/mL Urine Color Urine Appearance Urine pH (5.0-9.0) Ur Specific [place] (1.005-1.025) Urine Protein (Neg-Trace) mg/dL Urine Glucose (UA) (Negative) mg/dL Urine Ketones (Negative) mg/dL Urine Blood (Negative) Urine Nitrite (Negative) Ur Leukocyte Esterase (Negative) Urine Opiates Screen (Not Detect) Urine Fentanyl Screen (Not Detect) Ur Barbiturates Screen (Not Detect) Ur Phencyclidine Scrn (Not Detect) Ur Amphetamines Screen (Not Detect) U Benzodiazepines Scrn (Not Detect) Urine Cocaine Screen (Not Detect) U Marijuana (THC) Screen (Not Detect) COVID-19 (DIVINE) Negative (Negative) COVID-19 Clin Com See Note Influenza Type A (LIN) Negative (Negative) Influenza Type B (LIN) Negative (Negative) Influenza A & B Note See Note 09/22/22 09/22/22 09/22/22 Range/Units 14:46 16:54 16:54 WBC (4.8-10.8) X10*3/uL RBC (4.20-5.50) X10*6/uL Hgb (12.0-16.0) g/dl Hct (37.0-47.0) % MCV (80.0-98.0) fL MCH (27.0-33.0) pg MCHC (31.0-35.0) g/dl RDW (11.0-16.0) % Plt Count (160-400) X10*3/uL MPV (9.4-12.3) fL Immature Gran % (Auto) (0.0-0.4) % Neut % (Auto) (45-73) % Lymph % (Auto) (20-40) % [place] % (Auto) (2-11) % Eos % (Auto) (0-4) % Baso % (Auto) (0-2) % Lymph # (Auto) (1.2-4.9) X10*3/uL [place] # (Auto) (0.1-1.2) X10*3/uL Eos # (Auto) (0.0-0.4) X10*3/uL Baso # (Auto) (0.0-0.2) X10*3/uL Abs Immat Gran (auto) (0.00-0.03) X10*3/uL Absolute Neuts (auto) (2.0-8.3) x10*3/uL Absolute Nucleated RBC (0.0-0.012) X10*3/uL Nucleated RBC % (auto) (0.0-0.2) /100WBC Sodium 139 (135-145) mmol/L Potassium 4.8 (3.3-5.1) mmol/L Chloride 110 H (96-108) mmol/L Carbon Dioxide 21 L (22-29) mmol/L Anion Gap 13 (12-20) BUN 15 (9-16) mg/dL Creatinine 0.74 (0.5-1.4) mg/dL Estim Creat Clear Calc 92.1 Estimated GFR > 60 Random Glucose 117 H (60-115) mg/dL Calcium 9.3 (8.4-10.2) mg/dL Total Bilirubin 0.3 (0.0-1.0) mg/dL AST 22 (5-31) U/L ALT 16 (0-31) U/L Alkaline Phosphatase 83 (39-117) U/L Total Protein 7.1 (6.5-8.0) g/dL Albumin 4.2 (3.5-5.0) g/dL Beta HCG, Quant < 2 mIU/mL Urine Color Yellow Urine Appearance Clear Urine pH 5.5 (5.0-9.0) Ur Specific [place] 1.010 (1.005-1.025) Urine Protein Negative (Neg-Trace) mg/dL Urine Glucose (UA) Negative (Negative) mg/dL Urine Ketones Negative (Negative) mg/dL Urine Blood Negative (Negative) Urine Nitrite Negative (Negative) Ur Leukocyte Esterase Negative (Negative) Urine Opiates Screen Not Detected (Not Detect) Urine Fentanyl Screen Not Detected (Not Detect) Ur Barbiturates Screen Not Detected (Not Detect) Ur Phencyclidine Scrn Not Detected (Not Detect) Ur Amphetamines Screen Not Detected (Not Detect) U Benzodiazepines Scrn Not Detected (Not Detect) Urine Cocaine Screen Not Detected (Not Detect) U Marijuana (THC) Screen Not Detected (Not Detect) COVID-19 (DIVINE) (Negative) COVID-19 Clin Com Influenza Type A (LIN) (Negative) Influenza Type B (LIN) (Negative) Influenza A & B Note Independent Interpretation I performed an independent interpretation of an: EKG Interpretation: Normal sinus rhythm, HR-83, no STEMI, DE/QRS/QTC is within normal limits. Radiology Impression Radiologist Impression: My interpretation is in agreement with radiology's impression of the imaging studies. External Record Review External record reviewed: Outpatient record and Prior outpatient labs Discharge Plan Discharge Clinical Impression: Syncope, vasovagal Patient Disposition: Home, Self-Care Instructions: Syncope (ED) Additional Instructions: 1. Reanudar parece que carbone tenido un episodio de desmayo que a veces puede kulwinder sido si no carbone comido o no carbone bebido lo suficiente cecy el d?a, a veces puede ser de naturaleza emocional. Sin embargo, [place] evaluaci?n es negativa en kathleen momento. 2. Reanude joselito medicamentos caseros seg?n lo prescrito. 3. Recomendar que realice un seguimiento con [place] proveedor de atenci?n primaria en los pr?ximos 1 a 2 d?as para cuauhtemoc reevaluaci?n y un manejo ambulatorio adicional. Regrese a la lior de emergencias si los s?ntomas empeoran. 1. Resume it appears that you have had a ?fainting episode? which can sometimes have been if you have not eaten or may be have not had enough to drink throughout the day, sometimes it can be emotional in nature. However, your w orkup is negative at this time. 2. Resume your home medications as prescribed. 3. Recommend that you follow-up with your primary care provider in the next 1-2 days for re-evaluation and further outpatient management. Return to the ER for any worsening symptoms. Prescriptions: No Action naproxen 500 mg tablet 500 mg PO BID PRN (Reason: pain) Qty: 20 0RF cyclobenzaprine 10 mg tablet 10 mg PO TID PRN (Reason: muscle spasm) Qty: 18 0RF Rx Instructions: Side effect of drowsiness. Do not take at work or while driving. metronidazole [Metrogel Vaginal] 0.75 % gel 1 appful vaginal BID 5 Days Qty: 70 4RF clonazepam [Klonopin] 1 mg tablet 1 mg PO BID zolpidem [Ambien] 10 mg tablet 10 mg PO BEDTIME PRN sertraline [Zoloft] 100 mg tablet 100 mg PO DAILY naratriptan [Amerge] 2.5 mg tablet See Rx Instructions PO .COMPLEX Rx Instructions: take 1 tab at onset of headache; if no relief may repeat 1 tab after at least 4 hrs; max = 2 tabs/24 hrs PO acetaminophen [Tylenol] 325 mg tablet 650 mg PO Q6H PRN clotrimazole 1 % cream 1 appful vaginal BEDTIME 7 Days Qty: 45 3RF medroxyprogesterone [Provera] 10 mg tablet 10 mg PO DAILY Qty: 10 12RF Rx Instructions: take prn for missed menses Referrals: [facility] [Primary Care Provider] - Print Language: Tajik
[2022-09-22 14:52] LABS: MANUAL DIFF FLAG NO
[2022-09-22 14:55] LABS: Basophils Percent Auto 0.5 % (0-2); Eosinophils Percent Auto 0.4 % (0-4); Hematocrit 41.3 % (37.0-47.0); Hemoglobin 13.5 g/dl (12.0-16.0); Imm Gran Abs Auto 0.04 X10*3/uL (0.00-0.03); Imm Gran Pct Auto 0.5 % (0.0-0.4); Lymphocytes Absolute Auto 1.9 X10*3/uL (1.2-4.9); Lymphocytes Percent Auto 23.7 % (20-40); Mean Corpuscular HGB Conc 32.7 g/dl (31.0-35.0); Mean Corpuscular Hemoglobin 28.8 pg (27.0-33.0); Mean Corpuscular Volume 88.1 fL (80.0-98.0); Mean Platelet Volume 10.6 fL (9.4-12.3); Monocytes Absolute Auto 0.4 X10*3/uL (0.1-1.2); Monocytes Percent Auto 5.2 % (2-11); Neutrophils Absolute Auto 5.6 x10*3/uL (2.0-8.3); Neutrophils Percent Auto 69.7 % (45-73); Platelet Count 225 X10*3/uL (160-400); Red Blood Count 4.69 X10*6/uL (4.20-5.50); Red Cell Distribution Width 11.8 % (11.0-16.0); White Blood Count 8.1 X10*3/uL (4.8-10.8)
[2022-09-22 15:05] LABS: COVID-19 Test Negative (Negative); IDNOW Serial# BCCEAD1C
[2022-09-22 15:08] LABS: IDNOW Serial# 16C4AD1C; Influenza A Negative (Negative); Influenza B2 Negative (Negative)
[2022-09-22 15:11] LABS: Alanine Aminotransferase 16 U/L (0-31); Albumin Level 4.2 g/dL (3.5-5.0); Alkaline Phosphatase 83 U/L (39-117); Anion Gap 13 (12-20); Aspartate Amino Transferase 22 U/L (5-31); Bilirubin Total 0.3 mg/dL (0.0-1.0); Blood Urea Nitrogen 15 mg/dL (9-16); Calcium 9.3 mg/dL (8.4-10.2); Carbon Dioxide 21 mmol/L (22-29); Chloride 110 mmol/L (96-108); Creatinine Clr Calc Pharmacy 92.1; Estimated Glomerular Filt Rate > 60; Glucose Random 117 mg/dL (60-115); Potassium 4.8 mmol/L (3.3-5.1); Sodium 139 mmol/L (135-145); Total Protein 7.1 g/dL (6.5-8.0)
[2022-09-22 15:17] LABS: HCG Quantitative < 2 mIU/mL
[2022-09-22 17:06] LABS: Appearance Urine Clear; Color Urine Yellow; Glucose Urine UA Negative (Negative); Leukocyte Esterase Urine Negative (Negative); Nitrite Urine Negative (Negative); PH 5.5 (5.0-9.0); Urine Blood Negative (Negative); Urine Ketones Negative (Negative); Urine Protein Negative (Neg-Trace)
[2022-09-22 17:24] LABS: Amphetamine Screen Urine Not Detected (Not Detect); Barbiturates, Urine Not Detected (Not Detect); Benzodiazepines Screen Urine Not Detected (Not Detect); Cannabinoid Screen Urine Not Detected (Not Detect); Cocaine Screen Urine Not Detected (Not Detect); Fentanyl, urine Not Detected (Not Detect); Opiate Screen Urine Not Detected (Not Detect); Phencyclidine Screen Urine Not Detected (Not Detect)
[2022-09-22] MEDS: Acetaminophen 325 MG TABLET 975 MG PO (19:01)
[2022-09-22] MEDS: Ibuprofen 400 MG TABLET PO (19:01)
== END 2022-09-22 19:08 | disposition home or self-care (01) ==
PROVIDERS: Emergency Provider Student in an Organized Health Care Education/Training Program
DX: R55 Syncope and collapse (principal); Z20.822 Contact with and (suspected) exposure to COVID-19; E66.9 Obesity, unspecified; Z68.36 Body mass index [BMI] 36.0-36.9, adult; Z79.899 Other long term (current) drug therapy
CPT/HCPCS: 70450; 72125; 80053; 80307; 81003; 84702; 85025; 87502; 87635; 93005; 99284; 99285

== ENCOUNTER 2022-10-05 07:56 | Outpatient (REF) | payer MEDICAID, SELFPAY ==
--- NOTE | ~2022-10-05 | XR_ITS ---
EXAMINATION: XR cervical spine 5V CLINICAL INFORMATION: Pain COMPARISON: None TECHNIQUE: 5 views of the cervical spine were obtained. FINDINGS: The cervical spine is visualized to the level of C7 on the lateral view. Vertebral body alignment is maintained. Vertebral body heights are maintained. Lateral masses of C1 are well aligned on C2. Visualized portion of the dens is intact. Mild degenerative disc disease at C5/C6, manifested by disc space narrowing and osteophytosis. Bilateral neuroforamina appear patent. No prevertebral soft tissue swelling. XR/XR cervical spine 5V IMPRESSION: Mild spondylosis of the cervical spine, as above detailed. No significant spondylolisthesis.
== END 2022-10-05 07:57 | disposition home or self-care (01) ==
LOC: HO.XRAY 07:56
PROVIDERS: PCP Registered Nurse; Visit Provider Registered Nurse
DX: M54.2 Cervicalgia (principal)
CPT/HCPCS: 72050

== ENCOUNTER → 2022-10-12 12:19 | Outpatient (BNVA) | payer MEDICAID, SELFPAY | PROVIDERS: PCP Registered Nurse; Visit Provider Dietitian, Registered | DX: E66.9 Obesity, unspecified (principal); Z68.37 Body mass index [BMI] 37.0-37.9, adult; Z71.3 Dietary counseling and surveillance | CPT/HCPCS: 97803 ==

== ENCOUNTER 2022-11-23 12:19 | Outpatient (REF) | payer MEDICAID, SELFPAY ==
--- NOTE | ~2022-11-23 | XR_ITS ---
EXAMINATION: XR HAND, RIGHT CLINICAL INFORMATION: Status post fall, pain. Prior right third finger COMPARISON: None TECHNIQUE: PA, lateral, and oblique views of the right hand. FINDINGS: The bones and soft tissues are normal. No fracture. Alignment is anatomic. Joint spaces are maintained. No erosions or soft tissue calcifications. XR/XR hand RT min 3V IMPRESSION: Unremarkable right hand.
== END 2022-11-23 12:20 | disposition home or self-care (01) ==
LOC: HO.XRAY 12:19
PROVIDERS: PCP Registered Nurse; Visit Provider Registered Nurse
DX: M79.644 Pain in right finger(s) (principal)
CPT/HCPCS: 73130

== ENCOUNTER → 2022-12-15 09:13 | Outpatient (BNVA) | payer MEDICAID, SELFPAY | PROVIDERS: PCP Registered Nurse; Referring Provider Registered Nurse; Visit Provider Internal Medicine Cardiovascular Disease | DX: R55 Syncope and collapse (principal) | CPT/HCPCS: 99202 ==

== ENCOUNTER → 2022-12-22 08:34 | Outpatient (REF) | payer MEDICAID, SELFPAY ==
--- NOTE | 2022-12-22 08:37 | HM_ITS ---
* Total monitoring time 2 days. * Underlying rhythm is sinus. Average ventricular rate 76/Min. Range 56 to 143/Min. * Very rare PACs with minimal burden. * No significant pauses or AV blocks. * No patient markers or events in diary. MTDD
--- NOTE | 2022-12-22 08:37 | CA_ITS ---
Transthoracic Echocardiogram Patient (Last, First, Middle): Laura Velázquez P Gender: Female Date of : 1980 Age: 42 Procedure Date: 12/22/2022 Procedure Type: Transthoracic Echocardiogram Location: OP Height: 149.86 cm Weight: 85.28 kg BSA: 1.80 m2 Heart Rate: bpm BP: 118 / 70 mmHg Senior Devops Engineer: TO Referring MD: Cale Pena MD Field Application Engineer: Cale Pena MD Symptoms: R55 - Syncope and collapse Study Quality: Fair ECG Rhythm: Sinus Conclusions: - 1. Low normal LV systolic function with LVEF of 50-55% 2. Normal cardiac valvular Dopplers 3. Normal RV systolic pressure 4. No gross pericardial effusion Findings Left Ventricle Normal left ventricular cavity size. There is normal left ventricular wall thickness. The left ventricular systolic function is low normal. The visually estimated ejection fraction is between 50-55%. Spectral Doppler is indicative of a normal filling pattern. Peak GLS is -14.7%, which is reduced. Right Ventricle Normal right ventricular cavity size and systolic function. Atria Both atria are normal in size. There is no evidence of interatrial shunt. Aortic Valve Normal aortic valve structure and function. There is no aortic valve stenosis. There is no aortic valve regurgitation. Mitral Valve Normal mitral valve structure and function. There is trace mitral valve regurgitation. There is no mitral valve stenosis. Pulmonic Valve The pulmonic valve is likely normal. There is trace pulmonic valve regurgitation. Tricuspid Valve Normal tricuspid valve structure. There is trace tricuspid valve regurgitation. The right ventricular systolic pressure is normal. The right ventricular systolic pressure is 15 mmHg. Normal right atrial pressure. There is no evidence of pulmonary hypertension. Great Vessels All visible segments of the aorta are normal in size. The pulmonary artery was not well visualized. Venous The inferior vena cava is normal in size and collapses greater than 50% with inspiration. Pericardium/Pleural There is no evidence of pericardial effusion. Prior Study Comparison No prior study available for comparison. Measurements 2D Linear Measurements IVSd: 0.95 0.6-0.9/0.6-1.0 cm LVIDd: 4.43 3.9-5.3/4.2-5.9 cm LVIDd Index: 2.46 2.4-3.2/2.2-3.1 cm/m2 LVIDs: 3.15 2.0-3.6 cm LVPWd: 0.81 0.7-1.1 cm LA Diam: 3.00 2.7-3.8/3.0-4.0 cm LAIDs Index: 1.67 1.5-2.3 cm/m2 LV Mass: 155.29 67-162/88-224 g LV Mass Index: 86.27 43-95/49-115 g/m2 LVOT Diam: 2.10 3.0+(-)1.3 cm 2D Systolic Function EF 4C: 47.50 >55% EF 2C: 54.50 >55% EF BiP: 51.40 >55% Mitral Valve MV Pk E: 0.58 MV PK A: 0.38 MV Decel Time: 199.00 E/A: 1.50 E'Lateral: 11.10 E'Medial: 7.83 E/E' Med: 7.40 E/E' Lat: 5.30 PHT: 58.00 MVA PHT: 3.79 Decel [place]: 2.93 Aortic Valve AoV Pk Mendoza: 1.15 AoV Mn Mendoza: 0.82 AoV VTI: 0.22 AoV Pk Grad: 5.00 Aov Mn Grad: 3.00 RAUL Cont.VTI: 2.51 LVOT LVOT Pk Mendoza: 0.80 LVOT Mn Mendoza: 0.59 LVOT VTI: 0.16 LVOT Pk Grad: 3.00 LVOT Mn Grad: 1.00 LVOT Diam: 2.10 LVOT Area: 3.46 Diastolic Function MV Pk E: 0.58 MV Pk A: 0.38 E/A: 1.50 E'Medial: 7.83 E/E' Med: 7.40 E' Laterial: 11.10 E/E' Lat: 5.30 Right Ventricle TAPSE (mm): 18.10 TVS' Emndoza: 10.40 Tricuspid Valve TR Pk Mendoza: 1.70 TR Pk Grad: 12.00 RA Press: 3.00 RVSP: 15.00 Great Vessels Aorta Sinus of Valsalva: 3.03 2.0-3.[address] [place]: 2.53 1.7-3.4 cm Ao Asc: 2.80 2.1-3.4 cm Ao Arch: 2.40 Updated in Other Vendor System with Status of Final Cale Pena MD electronically signed on 12/23/2022 2:50:25 PM with status of Final
== END ==
LOC: HO.CARD 08:34
PROVIDERS: PCP Registered Nurse; Visit Provider Internal Medicine Cardiovascular Disease
DX: R55 Syncope and collapse (principal)
CPT/HCPCS: 93225; 93306; 93356

== ENCOUNTER → 2023-01-17 11:21 | Outpatient (BNVA) | payer MEDICAID, SELFPAY | PROVIDERS: PCP Registered Nurse; Visit Provider Dietitian, Registered | DX: E66.9 Obesity, unspecified (principal); Z68.37 Body mass index [BMI] 37.0-37.9, adult | CPT/HCPCS: 97803 ==

== ENCOUNTER → 2023-01-28 13:39 | Outpatient (BNVA) | payer MEDICAID, SELFPAY | PROVIDERS: PCP Registered Nurse; Visit Provider Nurse Practitioner Family | DX: R55 Syncope and collapse (principal) | CPT/HCPCS: 99212 ==

== ENCOUNTER 2023-04-08 10:49 | Outpatient (RCR) | payer MEDICAID, SELFPAY | END 2023-05-09 09:07 | disposition home or self-care (01) | LOC: HO.PT 10:49 | PROVIDERS: PCP Registered Nurse; Visit Provider Psychiatry & Neurology Neurology | DX: M54.9 Dorsalgia, unspecified (principal) | CPT/HCPCS: 97161; 97530 ==

== ENCOUNTER 2023-04-14 11:43 | Outpatient (REF) | payer MEDICAID, SELFPAY ==
[2023-04-15 02:41] LABS: CT PCR NOT DETECTED (Not Detect.); NG PCR NOT DETECTED (Not Detect.)
[2023-04-15 07:46] LABS: Syphilis Screen Nonreactive (Nonreactive)
[2023-04-15 13:21] LABS: BV Int Neg Control Negative (Negative); BV Int Pos Control Positive (Positive)
[2023-04-16 13:28] LABS: HIV RNA PCR Qn Copies NOT DETECTED copies/mL (NOT DETECTED); HIV RNA PCR Qn Log Copies NOT DETECTED (NOT DETECTED)
[2023-04-16 20:14] LABS: HCV Log PCR <1.18 NOT DETECTED Log IU/mL (NOT DETECTED); HepC Viral Load <15 NOT DETECTED IU/mL (NOT DETECTED)
== END 2023-04-14 11:44 | disposition home or self-care (01) ==
LOC: HO.HHCL 11:43
PROVIDERS: Visit Provider Registered Nurse
DX: Z11.3 Encounter for screening for infections with a predominantly sexual mode of transmission (principal); N94.9 Unspecified condition associated with female genital organs and menstrual cycle
CPT/HCPCS: 0353U; 36415; 86780; 87480; 87510; 87522; 87536; 87660

== ENCOUNTER 2023-04-20 12:44 | Outpatient (AMB) | payer MEDICAID, SELFPAY ==
[2023-04-20 13:02] VITALS: BMI 38.5
--- NOTE | 2023-04-20 13:02 | A.OFFVIS_ITS ---
Intake VS Expanded 04/20/23 13:02 Height 4 ft 11 in Weight 190 lb 11.198 oz BMI 38.5 Intake Visit Reasons: obesity Allergies passion fruit [PASSION FRUIT] Allergy (Intermediate, Verified 01/28/23 13:55) Hives, Rash HPI Nutrition Presentation Details Pt presents for MNT for obesity. Pt reports PCP is Bertha Jacinto , ASSOCIATE SPA DIRECTOR Pt reports increasing in snacks with salt to prevent syncope symptoms. Reports doing well thus far, however noticing weight gain. physical activity:limited to prevent syncope sx Most Recent Diabetes Results: No Data to Display PFSH Medical History Anxiety Depressed Insomnia Migraine Pelvic pain Surgical History H/O bilateral breast reduction surgery Hx of tubal ligation Family History Maternal Grandfather Stomach cancer Mother No problems noted. Mother Diabetes Social History Alcohol intake: never Patient Tobacco Use Status: Never used Tobacco Female Reproductive History Menstrual Age of Menarche: 11 Assessment & Plan Assessment & Plan (1) Obesity (BMI 30-39.9): Comment: and elevated cholesterol LDL 145 mg/dl Chol 219 mg/dl Code(s): E66.9 - Obesity, unspecified Plan: Educate Pt on 1400- 1600 mike meal plan ? Pt's set goal (Date: 03/02/22 ): have 3 scheduled meals a day at follow up (Date: 04/15/22 ): met 25% , follow up (06/17/22 - met 50% Used wt : 84 kg Est kcal as per MSJ: 1688-250 = 1438 (40% carb, 30% fat/prot) Est fluid needs: 2100 ml/d (25 ml/kg bw) Rec fiber: increase to 8-10 g per day and gradually increase to 25 g/d or as tolerated Rec Na: < 2000 mg /d Educate patient on: (R= Reviewed, V = verbalizes understanding N/R= Needs review N/A= not applicable) * Food sources of carbohydrates and serving adequate serving sizes : R, V * Difference between complex carbohydrates and simple carbohydrates, role of fiber: R , V * Differences between fats (MUFA/PUFA/saturated fats, trans fats) and food sourc es of various fats: R, V * Food sources of sodium and salt and healthy modifications for heart health and kidney health: R * Vitamins and minerals: R * How to interpret food labels: R (serving/calories/sodium) * Healthy Plate method concept: R V * Physical activity: benefits and precaution: R Patient Instructions: Work on having small frequent meals throughout the day Compare calories per serving and amount of sodium (snack on 1 low fat string cheese and kiwi vs chips for lower calorie options )- see list of options keep hydrated Coding Level of Care Code Nutr Indiv Subseq (72695) Diagnoses Obesity (BMI 30-39.9) E66.9 Time Spent (min) 20
== END 2023-04-20 13:48 | disposition home or self-care (01) ==
PROVIDERS: PCP Registered Nurse; Visit Provider Dietitian, Registered
DX: E66.9 Obesity, unspecified (principal)

== ENCOUNTER → 2023-04-20 12:44 | Outpatient (BNVA) | payer MEDICAID, SELFPAY | PROVIDERS: Visit Provider Dietitian, Registered | DX: E66.9 Obesity, unspecified (principal); Z68.38 Body mass index [BMI] 38.0-38.9, adult | CPT/HCPCS: 97803 ==

== ENCOUNTER 2023-05-31 14:10 | Outpatient (REF) | payer MEDICAID, SELFPAY ==
[2023-05-31 16:31] LABS: Alanine Aminotransferase 14 U/L (0-31); Albumin Level 4.3 g/dL (3.5-5.0); Alkaline Phosphatase 84 U/L (39-117); Aspartate Amino Transferase 22 U/L (5-31); Bilirubin Direct 0.1 mg/dL (0.0-0.5); Bilirubin Total 0.4 mg/dL (0.0-1.0); Lipase 36 U/L (8-78); Total Protein 7.7 g/dL (6.5-8.0)
[2023-05-31 16:47] LABS: TSH reflex Free T4 0.96 uIU/mL (0.32-4.0)
[2023-06-02 15:04] LABS: Transglutaminase Ab IgG <1.0 U/mL; Transglutaminase IgA <1.0 U/mL
[2023-06-03 13:44] LABS: H Pylori Breath Test Negative (Negative)
== END 2023-05-31 14:11 | disposition home or self-care (01) ==
LOC: HO.LAB 14:10
PROVIDERS: PCP Registered Nurse; Visit Provider Nurse Practitioner Family
DX: R10.9 Unspecified abdominal pain (principal); R13.12 Dysphagia, oropharyngeal phase; K21.9 Gastro-esophageal reflux disease without esophagitis; K59.01 Slow transit constipation
CPT/HCPCS: 36415; 80076; 83013; 83690; 84443; 86364; 99212

== ENCOUNTER 2023-05-31 14:10 | Outpatient (AMB) | payer MEDICAID, SELFPAY ==
--- NOTE | 2023-05-31 14:12 | A.OFFVIS_ITS ---
Intake Vital Signs 05/31/23 14:17 Height 4 ft 11 in Weight 187 lb 6.287 oz BMI 37.8 BP 131/74 Blood Pressure Location Lt brachial Position Sitting Pulse 72 Intake Visit Reasons: Dysphagia/GERD Intake Note: Laura presents in the office as a new patient dysphagia and GERD. CC: She states that she is having issues with her swallowing, acid reflux at times. Sometimes she will have constipation and diarrhea. Director Of Group Sales Required: Yes Director Of Group Sales Name: [id number] Irasema Allergies passion fruit [PASSION FRUIT] Allergy (Intermediate, Verified 05/31/23 14:18) Hives, Rash HPI Dysphagia/GERD HPI Details 43-year-old female with past medical his tory obesity, depression, insomnia, and anxiety is here today for initial consultation. Patient will send to us for several different GI complaints. Patient reports to have trouble swallowing solids and liquids. Trouble swallowing, feeling like there is something stuck in her throat. Patient reports postprandial epigastric discomfort with dyspepsia. Patient reports that she is not moving her bowels every day. When she has bowel movements she does not feel like she empties completely. Patient denies any nausea or vomiting. Patient denies any abdominal pain or discomfort except for epigastric pain and burning postprandially. Patient denies any diarrhea. Patient reports that her symptoms been going on for the past few months. [facility] Medical History Pelvic pain Migraine Insomnia Anxiety Depressed Surgical History Hx of tubal ligation H/O bilateral breast reduction surgery Family History Maternal Grandfather Stomach cancer Mother No problems noted. Mother Diabetes Social History Alcohol intake: never Patient Tobacco Use Status: Never used Tobacco Female Reproductive History Menstrual Age of Menarche: 11 Review of Systems Const Denies weight gain and Denies weight loss ENT Reports no additional complaints, Reports dysphagia and Denies odynophagia Card Reports no additional complaints Resp Reports no additional complaints GI Denies abdominal pain, Denies belching, Denies melena, Reports bloating, Reports constipation, Reports dysphagia, Denies excessive flatus, Denies dyspepsia, Reports heartburn, Denies diarrhea, Reports loose stools, Denies nausea, Denies odynophagia and Denies vomiting Reports no additional complaints Musc Reports no additional complaints Neuro Reports no additional complaints Psych Reports no additional complaints Endo Reports no additional complaints Physical Exam Vital Signs: Last Vital Signs Pulse 72 05/31/23 14:17 BP 131/74 05/31/23 14:17 BMI result Body Mass Index 37.8 Const General: healthy appearing, no acute distress and well developed Nutritional Appearance: obese Orientation/consciousness: patient oriented x3 HEENT Head: Yes normal to inspection, Yes normocephalic and Yes atraumatic Face and sinus: Yes normal facial exam Mouth: Normal oral and palatal mucosa present Throat: Yes posterior oropharynx normal, Yes tonsils normal and Yes uvula midline Eyes General: appearance normal, both eyes and all related structures Neck Neck: Yes normal visual inspection, Yes full ROM and Yes trachea midline Thyroid: diffusely enlarged, nontender and no warm Resp Effort & Inspection: normal respiratory effort, able to speak in complete sentences, no tracheal deviation and symmetric chest movement Auscultation: clear to auscultation bilaterally Cardio Rate: regular rate Heart sounds: S1 normal heart sound present and S2 normal heart sound present GI Inspection: Yes normal to inspection, No distended and Yes obesity Palpation (GI): Soft to palpation, not firm, nontender and No hepatosplenomegaly present Auscultation: normal bowel sounds General: Yes no CVA tenderness Back/Spine/Pelvis Back: no CVA tenderness Skin General skin exam: elasticity normal, turgor normal and dry skin Neuro General: patient oriented x3 Psych Appearance: grossly normal Mental Status: mental status grossly normal Assessment & Plan Assessment & Plan (1) Dysphagia: Code(s): R13.10 - Dysphagia, unspecified Qualifiers: Dysphagia type: oropharyngeal phase Qualified Code(s): R13.12 - Dysphagia, oropharyngeal phase Plan: Patient reports dysphagia. Will send her for soft tissue neck x-ray. Enlarged thyroid, ? Goiter seen. Will check thyroid studies well. Patient will be sent for barium swallow. I will start her on pantoprazole daily. Patient was encouraged to avoid dietary triggers and late night snacking. Staying upright for minimum 3 hours after meals discussed with patient. (2) GERD (gastroesophageal reflux disease): Code(s): K21.9 - Gastro-esophageal reflux disease without esophagitis Qualifiers: Esophagitis presence: esophagitis presence not specified Qualified Code(s): K21.9 - Gastro-esophageal reflux disease without esophagitis Plan: Patient will be started on pantoprazole. Will do H pylori study today, will treat empirically if positive. Patient will be sent for upper endoscopy in the near future. Will check transglutaminase to rule out celiac, lipase, liver panel. (3) Constipation: Code(s): K59.00 - Constipation, unspecified Qualifiers: Constipation type: slow transit constipation Qualified Code(s): K59.01 - Slow transit constipation Plan: Patient reports constipation. Will send her script for Senokot. Patient was also encouraged to increase fluid intake and activity to promote better bowel motility. I will see patient in 5 weeks, sooner on as needed basis. Patient is agreeable to this plan and verbalizes understanding of instructions. She was given the opportunity to ask questions and all questions answered. Thank you for allowing me to participate in her care Orders: Orders H Pylori Breath Test 05/31/23 Lipase 05/31/23 R10.9 - Unspecified abdominal pain TSH reflex Free T4 05/31/23 K59.00 - Constipation, unspecified Transglutaminase Ab IgG 05/31/23 R10.9 - Unspecified abdominal pain Transglutaminase IgA 05/31/23 R10.9 - Unspecified abdominal pain XR soft tissue neck 06/02/23 R13.10 - Dysphagia, unspecified Liver Panel 05/31/23 R10.9 - Unspecified abdominal pain Medications: New pantoprazole take one tablet half an hour before breakfast 40 mg PO DAILY 30 tabs 2RF K21.9 - Gastro-esophageal reflux disease without esophagitis sennosides (Natural Senna Laxative) 17.2 mg (2 x 8.6 mg) PO BEDTIME 60 tabs 3RF constipation K59.00 - Constipation, unspecified Coding Level of Care Code New Pt Level 4 (55032) Diagnoses Oropharyngeal dysphagia R13.12 Dysphagia type: oropharyngeal phase Gastroesophageal reflux disease, unspecified whether esophagitis present K21.9 Esophagitis presence: esophagitis presence not specified Slow transit constipation K59.01 Constipation type: slow transit constipation Time Spent (min) 45 Comment 30 minutes spent with patient and additional 15 minutes spent reviewing her records
[2023-05-31 14:17] VITALS: BP 131/74; PULSE 72; BMI 37.8
== END 2023-05-31 15:47 | disposition home or self-care (01) ==
PROVIDERS: PCP Registered Nurse; Visit Provider Nurse Practitioner Family
DX: R13.12 Dysphagia, oropharyngeal phase (principal); K21.9 Gastro-esophageal reflux disease without esophagitis; K59.01 Slow transit constipation
CPT/HCPCS: 99204

== ENCOUNTER 2023-06-02 12:38 | Outpatient (REF) | payer MEDICAID, SELFPAY ==
--- NOTE | ~2023-06-02 | XR_ITS ---
EXAMINATION: XR SOFT TISSUE NECK CLINICAL INDICATION: Dysphagia, solids get stuck COMPARISON: None available. TECHNIQUE: 2 views of the soft tissue neck were obtained. FINDINGS: Degenerative changes in the imaged cervical spine with moderate loss of disc space height and hypertrophic change at C5-C6 and C6-C7. No radiopaque foreign body appreciated. XR/XR soft tissue neck IMPRESSION: Degenerative changes in the imaged cervical spine notable at C5-C6 and C6-C7. No radiopaque foreign body appreciated. Additional imaging with CT scan or MRI should be considered for better visualization as these modalities are much more sensitive for detection of foreign body, soft tissue anomalies or other pathology.
== END 2023-06-02 12:39 | disposition home or self-care (01) ==
LOC: HO.XRAY 12:38
PROVIDERS: PCP Registered Nurse; Visit Provider Nurse Practitioner Family
DX: R13.10 Dysphagia, unspecified (principal)
CPT/HCPCS: 70360

== ENCOUNTER 2023-07-06 13:09 | Outpatient (AMB) | payer MEDICAID, SELFPAY ==
--- NOTE | 2023-07-06 13:15 | MHC.OFFVIS ---
Intake Vital Signs 07/06/23 13:16 Height 4 ft 11 in Weight 182 lb BMI 36.8 BP 126/74 Blood Pressure Location Lt brachial Position Sitting Pulse 74 Intake Visit Reasons: 5 week f/u Intake Note: Patient 2 weeks follow up Patient cc: acid reflex on and off, diarrhea, and denies any other GI issues. Industrial Safety And Health Specialist Required: Yes Accompanied by: Self / Same As Patient Allergies passion fruit [PASSION FRUIT] Allergy (Intermediate, Verified 07/06/23 13:14) Hives, Rash HPI 5 week f/u HPI Details LAST VISIT: Dysphagia Patient reports dysphagia. Will send her for soft tissue neck x-ray. Enlarged thyroid, ? Goiter seen. Will check thyroid studies well. Patient will be sent for barium swallow. I will start her on pantoprazole daily. Patient was encouraged to avoid dietary triggers and late night snacking. Staying upright for minimum 3 hours after meals discussed with patient. GERD (gastroesophageal reflux disease) Patient will be started on pantoprazole. Will do H pylori study today, will treat empirically if positive. Patient will be sent for upper endoscopy in the near future. Will check transglutaminase to rule out celiac, lipase, liver panel. Constipation Patient reports constipation. Will send her script for Senokot. Patient was also encouraged to increase fluid intake and activity to promote better bowel motility. I will see patient in 5 weeks, sooner on as needed basis. Patient is agreeable to this plan and verbalizes understanding of instructions. She was given the opportunity to ask questions and all questions answered. TODAY'S VISIT Patient is here today for follow-up and to discuss lab results. Patient had normal liver enzymes. Normal transglutaminase, normal lipase. H pylori negative. Patient reports that she has been feeling much better since she started taking pantoprazole in the morning. Patient tries to avoid dietary triggers. Patient denies eating late at night. Denies dyspepsia, dysphagia or odynophagia. Patient also reports that she is taking Senokot every night and she is moving her bowels better. Patient denies abdominal pain, cramping or bloating. Patient denies melena, hematochezia, unintentional weight loss or ribbon like stools. ? PFSH Medical History Pelvic pain Migraine Insomnia Anxiety Depressed Surgical History Hx of tubal ligation H/O bilateral breast reduction surgery Family History Maternal Grandfather Stomach cancer Mother No problems noted. Mother Diabetes Social History Alcohol intake: never Patient Tobacco Use Status: Never used Tobacco Female Reproductive History Menstrual Age of Menarche: 11 Physical Exam Vital Signs: Last Vital Signs Pulse 74 07/06/23 13:16 BP 126/74 07/06/23 13:16 BMI result Body Mass Index 36.8 Const General: healthy appearing, no acute distress and well developed Nutritional Appearance: obese Orientation/consciousness: patient oriented x3 HEENT Head: Yes normal to inspection, Yes normocephalic and Yes atraumatic Face and sinus: Yes normal facial exam Mouth: Normal oral and palatal mucosa present Throat: Yes posterior oropharynx normal, Yes tonsils normal and Yes uvula midline Eyes General: appearance normal, both eyes and all related structures Neck Neck: Yes normal visual inspection, Yes full ROM and Yes trachea midline Thyroid: Thyroid normal Resp Effort & Inspection: normal respiratory effort, able to speak in complete sentences, no tracheal deviation and symmetric chest movement Auscultation: clear to auscultation bilaterally Cardio Rate: regular rate Heart sounds: S1 normal heart sound present and S2 normal heart sound present GI Inspection: Yes normal to inspection, No distended and Yes obesity Palpation (GI): Soft to palpation, not firm, nontender and No hepatosplenomegaly present Auscultation: normal bowel sounds General: Yes no CVA tenderness Back/Spine/Pelvis Back: no CVA tenderness Skin General skin exam: elasticity normal, turgor normal and dry skin Neuro General: patient oriented x3 Psych Appearance: grossly normal Mental Status: mental status grossly normal Speech and movement: Normal speech and movement present Assessment & Plan Assessment & Plan (1) Dysphagia: Code(s): R13.10 - Dysphagia, unspecified Qualifiers: Dysphagia type: pharyngoesophageal phase Qualified Code(s): R13.14 - Dysphagia, pharyngoesophageal phase (2) GERD (gastroesophageal reflux disease): Code(s): K21.9 - Gastro-esophageal reflux disease without esophagitis Qualifiers: Esophagitis presence: esophagitis presence not specified Qualified Code(s): K21.9 - Gastro-esophageal reflux disease without esophagitis (3) Constipation: Code(s): K59.00 - Constipation, unspecified Qualifiers: Constipation type: slow transit constipation Qualified Code(s): K59.01 - Slow transit constipation Plan Patient will continue current treatment with pantoprazole. Avoid dietary triggers in late night snacking. Staying upright for minimum 3 hours after meals discussed with patient. Patient can take Senokot daily. Patient was encouraged to increase fluid intake and activity to promote better bowel motility. I will see her in 3 months, sooner on as needed basis. Patient is agreeable to this plan and verbalizes understanding of instructions. She was given the opportunity to ask questions and all questions answered. Thank you for allowing to participate in her care Medications: Refilled sennosides (Natural Senna Laxative) 17.2 mg (2 x 8.6 mg) PO BEDTIME 60 tabs 3RF constipation K59.00 - Constipation, unspecified pantoprazole take one tablet half an hour before breakfast 40 mg PO DAILY 90 tabs 1RF K21.9 - Gastro-esophageal reflux disease without esophagitis Coding Level of Care Code Est Pt Level 3 (31832) Diagnoses Pharyngoesophageal dysphagia R13.14 Dysphagia type: pharyngoesophageal phase Gastroesophageal reflux disease, unspecified whether esophagitis present K21.9 Esophagitis presence: esophagitis presence not specified Slow transit constipation K59.01 Constipation type: slow transit constipation Time Spent (min) 25 Comment 15 minutes spent with patient and additional 10 minutes spent reviewing her records
[2023-07-06 13:16] VITALS: BP 126/74; PULSE 74; BMI 36.8
== END 2023-07-06 14:11 | disposition home or self-care (01) ==
PROVIDERS: PCP Registered Nurse; Visit Provider Nurse Practitioner Family
DX: R13.14 Dysphagia, pharyngoesophageal phase (principal); K21.9 Gastro-esophageal reflux disease without esophagitis; K59.01 Slow transit constipation
CPT/HCPCS: 99213

== ENCOUNTER → 2023-07-06 13:09 | Outpatient (BNVA) | payer MEDICAID, SELFPAY | PROVIDERS: PCP Registered Nurse; Visit Provider Nurse Practitioner Family | DX: K21.9 Gastro-esophageal reflux disease without esophagitis (principal); K59.01 Slow transit constipation; R13.14 Dysphagia, pharyngoesophageal phase | CPT/HCPCS: 99212 ==

== ENCOUNTER 2023-07-27 13:15 | Outpatient (REF) | payer MEDICAID, SELFPAY ==
--- NOTE | ~2023-07-27 | MM_ITS ---
EXAMINATION: MM SCREENING DIGITAL BREAST TOMOSYNTHESIS, BILATERAL CLINICAL INFORMATION: Screening. Asymptomatic. COMPARISON: Mammography: This study is compared with prior exams dating back to 2017. TECHNIQUE: Digital breast tomosynthesis is performed in both the craniocaudal and mediolateral oblique views along with computer-aided detection (CAD). Synthesized 2D images are generated from the tomosynthesis. FINDINGS: The breasts are almost entirely fatty (ACR BI-RADS breast composition Category a). There are no significant masses, abnormal calcifications, or other abnormalities. MM/MM tomosynthesis screening BI IMPRESSION: No mammographic evidence of malignancy. ASSESSMENT: BI-RADS BI-RADS 1 - Negative RECOMMENDATION: Routine annual mammography screening. 1 year F/U This examination should not preclude the clinical evaluation of a suspicious palpable abnormality. This patient's information was entered into a reminder system with a target due date for their next mammogram.
== END 2023-07-27 13:16 | disposition home or self-care (01) ==
LOC: HO.MAMMO 13:15
PROVIDERS: PCP Registered Nurse; Visit Provider Internal Medicine
DX: Z12.31 Encounter for screening mammogram for malignant neoplasm of breast (principal)
CPT/HCPCS: 77063; 77067

== ENCOUNTER → 2023-07-27 13:15 | Outpatient (BNV) | payer MEDICAID, SELFPAY | PROVIDERS: PCP Registered Nurse; Visit Provider Radiology Diagnostic Radiology | DX: Z12.31 Encounter for screening mammogram for malignant neoplasm of breast (principal) | CPT/HCPCS: 77063; 77067 ==

== ENCOUNTER 2023-08-02 14:07 | Outpatient (AMB) | payer MEDICAID, SELFPAY ==
--- NOTE | 2023-08-02 14:14 | A.OFFVIS_ITS ---
Intake Vital Signs 08/02/23 14:15 Height 4 ft 11 in Weight 187 lb 6.287 oz BMI 37.8 BP 120/80 Blood Pressure Location Lt brachial Position Sitting Pulse 84 Intake Visit Reasons: 6 month follow up Intake Note: 6 month follow-up c/o quick stabbing pain lasting a second most days General Superintendent Required: Yes General Superintendent Name: Janina leo Allergies passion fruit [PASSION FRUIT] Allergy (Intermediate, Verified 07/06/23 13:14) Hives, Rash Medication List - Last Reconciled 08/02/23 by Cale Pena MD acetaminophen (Tylenol) 650 mg PO Q6H PRN clonazepam (Klonopin) 1 mg PO BID cyclobenzaprine 10 mg PO TID PRN ibuprofen 800 mg PO TID PRN pantoprazole 40 mg PO DAILY sennosides (Natural Senna Laxative) 17.2 mg (2 x 8.6 mg) PO BEDTIME sertraline (Zoloft) 100 mg PO DAILY zolpidem (Ambien) 10 mg PO BEDTIME PRN HPI HPI Comments History of Present Illness Details Laura was advised a 6 month follow-up. History was obtained with help of teaching supervisor. She continues to episodes of lightheadedness. However today she says these episode even happen while she is lying down. She has not had any syncopal episodes. Workup so far in the past has been benign. Including head-up tilt-table test within normal limits with no evidence of vasovagal tendency. Holter and echo have been within normal limits. PFSH Medical History Pelvic pain Migraine Insomnia Anxiety Depressed Surgical History Hx of tubal ligation H/O bilateral breast reduction surgery Family History Maternal Grandfather Stomach cancer Mother No problems noted. Mother Diabetes Social History Alcohol intake: never Patient Tobacco Use Status: Never used Tobacco Female Reproductive History Menstrual Age of Menarche: 11 Review of Systems Const Denies chills, Denies fatigue, Denies fever(s), Denies frequent falls, Denies weakness, Denies weight gain and Denies weight loss ENT Denies dizziness Card Denies chest pain, Denies leg edema, Denies lightheadedness, Denies palpitations, Denies dyspnea, Denies dyspnea on exertion, Denies orthopnea and Denies other (loss of consciousness) Resp Denies cough, Denies dyspnea and Denies dyspnea on exertion GI Denies hematochezia and Denies change in stool character Musc Denies abnormal gait, Denies muscle weakness, Denies numbness, Denies radiating pain into limb and Denies tingling Neuro Denies abnormal gait, Denies dizziness, Denies frequent falls, Denies numbness, Denies tingling and Denies weakness Endo Denies fatigue and Denies palpitations Physical Exam Vital Signs: Last Vital Signs Pulse 84 08/02/23 14:15 BP 120/80 08/02/23 14:15 BMI result Body Mass Index 37.8 Const General: cooperative, healthy appearing, comfortable and no acute distress Orientation/consciousness: patient oriented x3 Neck Neck: Yes normal visual inspection and Yes no JVD Resp Effort & Inspection: normal respiratory effort Auscultation: clear to auscultation bilaterally, no crackles, no rales, no rhonchi and no wheezes Cardio Jugular venous distension: no JVD Rate: regular rate Rhythm: regular rhythm Heart sounds: S1 normal heart sound present, S2 normal heart sound present, no gallops, no murmurs and no rubs GI Inspection: Yes normal to inspection Neuro General: patient oriented x3 Extrem General: Yes normal to inspection and No no pedal edema Psych Appearance: grossly normal Mental Status: mental status grossly normal Speech and movement: Normal speech and movement present Assessment & Plan Assessment & Plan (1) Lightheadedness: Code(s): R42 - Dizziness and giddiness Plan: Patient with very atypical symptoms lightheadedness including when she is lying down. This is unlikely to be cardiac in origin. Her echocardiogram showed normal structure of the heart. Holter monitor was unremarkable for any arrhythmias and head-up tilt-table test showed no vasovagal tendencies. At this point time advised to increase her fluid and salt intake and maintain it. Unclear as to the cause of lightheadedness while lying down. Should pursue further workup through your office and consider neural workup. Will follow up in the clinic if need be. Coding Level of Care Code Est Pt Level 3 (37372) Diagnoses Lightheadedness R42
[2023-08-02 14:15] VITALS: BP 120/80; PULSE 84; BMI 37.8
== END 2023-08-02 14:31 | disposition home or self-care (01) ==
PROVIDERS: Visit Provider Internal Medicine Cardiovascular Disease
DX: R42 Dizziness and giddiness (principal)
CPT/HCPCS: 99213

== ENCOUNTER → 2023-08-02 14:07 | Outpatient (BNVA) | payer MEDICAID, SELFPAY | PROVIDERS: Visit Provider Internal Medicine Cardiovascular Disease | DX: R42 Dizziness and giddiness (principal) | CPT/HCPCS: 99212 ==

== ENCOUNTER 2023-11-11 10:03 | Outpatient (REF) | payer MEDICAID, SELFPAY ==
[2023-11-11 11:25] LABS: MANUAL DIFF FLAG NO
[2023-11-11 11:46] LABS: Basophils Absolute Auto 0.1 X10*3/uL (0.0-0.2); Basophils Percent Auto 0.9 % (0-2); Eosinophils Absolute Auto 0.1 X10*3/uL (0.0-0.4); Eosinophils Percent Auto 1.5 % (0-4); Hematocrit 38.8 % (37.0-47.0); Hemoglobin 12.5 g/dl (12.0-16.0); Imm Gran Abs Auto 0.01 X10*3/uL (0.00-0.03); Imm Gran Pct Auto 0.2 % (0.0-0.4); Lymphocytes Absolute Auto 2.4 X10*3/uL (1.2-4.9); Mean Corpuscular HGB Conc 32.2 g/dl (31.0-35.0); Mean Corpuscular Hemoglobin 29.2 pg (27.0-33.0); Mean Corpuscular Volume 90.7 fL (80.0-98.0); Mean Platelet Volume 11.2 fL (9.4-12.3); Monocytes Absolute Auto 0.4 X10*3/uL (0.1-1.2); Monocytes Percent Auto 7.7 % (2-11); Neutrophils Absolute Auto 2.4 x10*3/uL (2.0-8.3); Neutrophils Percent Auto 44.7 % (45-73); Platelet Count 224 X10*3/uL (160-400); Red Blood Count 4.28 X10*6/uL (4.20-5.50); White Blood Count 5.3 X10*3/uL (4.8-10.8)
[2023-11-11 12:10] LABS: Alanine Aminotransferase 14 U/L (0-31); Albumin Level 3.8 g/dL (3.5-5.0); Alkaline Phosphatase 81 U/L (39-117); Anion Gap 15 (12-20); Aspartate Amino Transferase 24 U/L (5-31); Bilirubin Total 0.2 mg/dL (0.0-1.0); Blood Urea Nitrogen 14 mg/dL (9-16); Calcium 9.1 mg/dL (8.4-10.2); Carbon Dioxide 22 mmol/L (22-29); Chloride 111 mmol/L (96-108); Estimated Glomerular Filt Rate > 60; Glucose Random 95 mg/dL (60-115); Potassium 4.4 mmol/L (3.3-5.1); Sodium 144 mmol/L (135-145); Total Protein 7.1 g/dL (6.5-8.0)
[2023-11-11 12:11] LABS: HCG Quantitative < 2 mIU/mL; Thyroid Stimulating Hormone 1.29 uIU/mL (0.32-4.0)
== END 2023-11-11 10:04 | disposition home or self-care (01) ==
LOC: HO.HHCL 10:03
PROVIDERS: Visit Provider Student in an Organized Health Care Education/Training Program
DX: R55 Syncope and collapse (principal)
CPT/HCPCS: 36415; 80053; 84443; 84702; 85025

== ENCOUNTER 2024-01-19 15:15 | Outpatient (REF) | payer MEDICAID, SELFPAY | END 2024-01-19 15:16 | disposition home or self-care (01) | LOC: HO.SH 15:15 | PROVIDERS: PCP Registered Nurse; Visit Provider Registered Nurse | DX: Z01.118 Encounter for examination of ears and hearing with other abnormal findings (principal); H93.293 Other abnormal auditory perceptions, bilateral | CPT/HCPCS: 92550; 92557 ==

== ENCOUNTER 2024-01-31 10:17 | Outpatient (AMB) | payer MEDICAID, SELFPAY ==
--- NOTE | 2024-01-31 10:18 | A.OFFVIS_ITS ---
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 States she has swelling, itchiness and pain. Occasional cramps when walking. Accompanied by: Self / Same As Patient Allergies passion fruit [PASSION FRUIT] Allergy (Intermediate, Verified 01/31/24 10:21) Hives, Rash [facility] referral for VV: Details: Pleasant 43-year-old female patient presents for painful varicose veins. Complaints include pain over varicosities, swelling of lower extremities, cramping, fatigue, and heaviness of the lower extremities. 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 It is noted more so in left leg. Patient denies any previous venous surgery or injections. Patient denies any history of DVT/ PE. Patient denies any history of phlebitis. Trial of compression includes - [id number] They now present for vascular evaluation regarding their varicose veins. [facility] Medical History Pelvic pain Migraine Insomnia Anxiety Depressed Surgical History Hx of tubal ligation H/O bilateral breast reduction surgery Family History Maternal Grandfather Stomach cancer Mother No problems noted. Mother Diabetes Social History Alcohol intake: never Patient Tobacco Use Status: Never used Tobacco Female Reproductive History Menstrual Age of Menarche: 11 Review of Systems Const Reports as per HPI ENT Reports no additional complaints Card Denies chest pain, Denies chest pain at rest and Denies chest pain with activity Resp Denies chest congestion and Denies cough GI Reports no additional complaints Musc Details: pain over varicosities, aching of lower extremities, swelling, cramping, heaviness and tiredness, itching Denies abnormal gait Skin/Breast Reports pruritus and Denies wounds Neuro Reports no additional complaints and Denies abnormal gait Psych Denies no additional complaints Physical Exam Const General: cooperative, healthy appearing and comfortable Orientation/consciousness: oriented to person, oriented to place and oriented to time Neck Carotids: no bruits Chest Chest palpation & inspection: normal inspection of the chest and normal palpation of entire chest wall Resp Effort & Inspection: normal respiratory effort and able to speak in complete sentences Cardio Rate: regular rate Heart sounds: S1 normal heart sound present and S2 normal heart sound present Peripheral pulses: Peripheral pulses 2+ throughout GI Inspection: Yes normal to inspection Skin Other: +2 edema, large rope-like varicosities greater than 4 mm CEAP Classification C4 - skin color changes Ep - Etiology Primary As - superficial veins P - reflux General skin exam: dry skin Neuro General: oriented to person, oriented to place and oriented to time Extrem Right lower extremity: full ROM, normal capillary refill and edema Left lower extremity: full ROM, normal capillary refill and edema Psych Mental Status: mental status grossly normal Assessment & Plan Assessment & Plan (1) Varicose veins of right lower extremity with inflammation: Code(s): I83.11 - Varicose veins of right lower extremity with inflammation Category: Medical Plan: In short, the patient has evidence of venous insufficiency. I have discussed the pathophysiology with the patient. In addition I have provided informational material regarding venous disease to the patient. We have discussed conservative measures including compression, elevation, and exercise. I have also provided a handout regarding appropriate use of compression stockings and where to purchase good compression stockings as well. I have taken the liberty of ordering venous insufficiency testing with the patient. They will follow up with me after testing. The patient had an opportunity to ask questions regarding the treatment plan. All questions were answered. Imaging studies, laboratory studies and physical exam results were discussed and reviewed in detail. No major barriers to understanding were identified. The patient expressed understanding and agreement with the above treatment plan. The patient is aware they should contact our office by phone for worsening of the current condition or the fahad earance of new symptoms. Thank you for allowing me to participate in the vascular care of this patient. If you have any questions or concerns regarding the treatment for the above condition please do not hesitate to contact me. The office telephone contact is [phone]. This note is constructed using voice recognition software. While every effort has been made to ensure accuracy, electrician third errors may have been included. Thank you for allowing me to participate in the care of your patient. Yours sincerely, Archie Reyes MD, FACS, R.P.V.I. Orders: Orders US venous duplex LE BI 1 Week I83.11 - Varicose veins of right lower extremity with inflammation Coding Level of Care Code New Pt Level 4 (72091) Diagnoses Varicose veins of right lower extremity with inflammation I83.11
== END 2024-01-31 10:43 | disposition home or self-care (01) ==
PROVIDERS: PCP Registered Nurse; Referring Provider Registered Nurse; Visit Provider Surgery Vascular Surgery
DX: I83.11 Varicose veins of right lower extremity with inflammation (principal)
CPT/HCPCS: 99203

== ENCOUNTER → 2024-01-31 10:17 | Outpatient (BNVA) | payer MEDICAID, SELFPAY | PROVIDERS: PCP Registered Nurse; Visit Provider Surgery Vascular Surgery | DX: I83.11 Varicose veins of right lower extremity with inflammation (principal) | CPT/HCPCS: 99202 ==

== ENCOUNTER 2024-02-14 12:54 | Outpatient (REF) | payer MEDICAID, SELFPAY ==
--- NOTE | ~2024-02-14 | US_ITS ---
EXAMINATION: US LOWER EXTREMITY VENOUS (REFLUX EXAM), BILATERAL CLINICAL INDICATION: Chronic venous insufficiency with lower extremity varicose veins with inflammation COMPARISON: None. TECHNIQUE: Color flow triplex imaging and compression Doppler was performed to evaluate both the deep and the superficial systems bilaterally. To evaluate the superficial system, the examination was performed in the upright position. Color-flow Doppler ultrasound and compression ultrasound were utilized. In addition, maneuvers were utilized to demonstrate reflux. FINDINGS: 1. DEEP VENOUS ULTRASOUND OF THE RIGHT LOWER EXTREMITY: Common Femoral Vein: Compressible, normal respiratory variation and augmented flow. Femoral Vein: Compressible, normal color flow and augmentation. Popliteal Vein: Compressible, normal augmentation. Deep Reflux: There is no evidence of reflux in the deep system in either the common femoral vein, superficial femoral or the popliteal vein. There is no evidence of a Vogel's cyst. 2. SUPERFICIAL ULTRASOUND WITH DOPPLER OF RIGHT LOWER EXTREMITY: GREAT SAPHENOUS VEIN: Saphenofemoral Junction: 1.1 cm; Reflux: 0 ms Proximal Thigh: 0.7 cm; Reflux: 0 ms Mid Thigh: 0.4 cm; Reflux: 0 ms Above Knee: 0.4 cm; Reflux: 0 ms At Knee: 0.6 cm; Reflux: 0 ms Below Knee: 0.2 cm; Reflux: 0 ms Mid Calf: 0.1 cm; Reflux: 0 ms Ankle: 0.1 cm; Reflux: 0 ms DUPLICATED MEDIAL GREAT SAPHENOUS VEIN: Diameter: None imaged Reflux: NA DUPLICATED LATERAL GREAT SAPHENOUS VEIN: Diameter: 0.2 cm Reflux: None SMALL SAPHENOUS VEIN: Saphenopopliteal Junction: Not well visualized Proximal: 0.1 cm; Reflux: 0 ms Distal: 0.2 cm; Reflux: 0 ms VEIN OF GIACOMINI: Size: NA Reflux: NA PERFORATORS: Location: None significant Size: NA Reflux: NA VARICOSITIES: Location: Medial proximal calf Size: 0.3 cm Reflux: None 3. DEEP VENOUS ULTRASOUND OF THE LEFT LOWER EXTREMITY: Common Femoral Vein: Compressible, normal respiratory variation and augmented flow. Femoral Vein: Compressible, normal color flow and augmentation. Popliteal Vein: Compressible, normal augmentation. Deep Reflux: There is no evidence of reflux in the deep system in either the common femoral vein, superficial femoral or the popliteal vein. There is no evidence of a Vogel's cyst. 4. SUPERFICIAL ULTRASOUND WITH DOPPLER OF LEFT LOWER EXTREMITY: GREAT SAPHENOUS VEIN: Saphenofemoral Junction: 0.9 cm; Reflux: 0 ms Proximal Thigh: 0.4 cm; Reflux: 0 ms Mid Thigh: 0.2 cm; Reflux: 0 ms Above Knee: 0.4 cm; Reflux: 0 ms At Knee: 0.4 cm; Reflux: 0 ms Below Knee: 0.2 cm; Reflux: 1212 ms Mid Calf: 0.1 cm; Reflux: 2108 ms Ankle: 0.2 cm; Reflux: 1408 ms DUPLICATED MEDIAL GREAT SAPHENOUS VEIN: Diameter: None imaged Reflux: NA DUPLICATED LATERAL GREAT SAPHENOUS VEIN: Diameter: 0.4 cm Reflux: None SMALL SAPHENOUS VEIN: Saphenopopliteal Junction: 0.4 cm; Reflux: 0 ms Mid: 0.1 cm; Reflux: 0 ms Distal: 0.2 cm; Reflux: 0 ms VEIN OF GIACOMINI: Size: NA Reflux: NA PERFORATORS: Location: None significant Size: NA Reflux: NA VARICOSITIES: Location: Medial proximal thigh and medial proximal calf off the great saphenous vein Size: 0.3 cm Reflux: None US/US venous duplex LE BI IMPRESSION: Right: No significant venous insufficiency or reflux in the great saphenous vein or small saphenous vein. There are small varicose veins in the medial proximal calf without significant reflux Left: Focal segmental areas of reflux within the great saphenous vein within the calf which is otherwise normal in size. Small varicose veins in the medial proximal thigh and medial proximal calf without significant reflux
== END 2024-02-14 12:55 | disposition home or self-care (01) ==
LOC: HO.US 12:54
PROVIDERS: PCP Registered Nurse; Visit Provider Surgery Vascular Surgery
DX: I83.11 Varicose veins of right lower extremity with inflammation (principal)
CPT/HCPCS: 93970

== ENCOUNTER 2024-03-23 09:44 | Outpatient (REF) | payer MEDICAID, SELFPAY ==
[2024-03-23 14:40] LABS: HCG Quantitative < 2 mIU/mL
[2024-03-24 03:55] LABS: HIV AB/AG Nonreactive (Nonreactive); HIV Num 1 0.07 S/CO (0.00-0.99)
[2024-03-26 06:44] LABS: HCV Log PCR <1.18 NOT DETECTED Log IU/mL (NOT DETECTED); HepC Viral Load <15 NOT DETECTED IU/mL (NOT DETECTED)
[2024-03-26 10:07] LABS: RPR Rapid Plasma Reagin NON-REACTIVE (NON-REACTIVE)
== END 2024-03-23 09:45 | disposition home or self-care (01) ==
LOC: HO.CHCLDS 09:44
PROVIDERS: Visit Provider Registered Nurse
DX: Z11.3 Encounter for screening for infections with a predominantly sexual mode of transmission (principal)
CPT/HCPCS: 36415; 84702; 86592; 87389; 87522

== ENCOUNTER 2024-03-28 10:49 | Outpatient (REF) | payer MEDICAID, SELFPAY | END 2024-03-28 10:50 | disposition home or self-care (01) | LOC: HO.HHCL 10:49 | PROVIDERS: Visit Provider Registered Nurse | DX: Z13.89 Encounter for screening for other disorder (principal) ==

== ENCOUNTER 2024-03-30 09:05 | Outpatient (REF) | payer MEDICAID, SELFPAY ==
[2024-03-30 14:41] LABS: CT PCR NOT DETECTED (Not Detect.); NG PCR NOT DETECTED (Not Detect.)
== END 2024-03-30 09:06 | disposition home or self-care (01) ==
LOC: HO.HHCL 09:05
PROVIDERS: Visit Provider Registered Nurse
DX: Z11.3 Encounter for screening for infections with a predominantly sexual mode of transmission (principal)
CPT/HCPCS: 87491; 87591

== ENCOUNTER 2024-05-08 09:10 | Outpatient (AMB) | payer MEDICAID, SELFPAY ==
--- NOTE | 2024-05-08 09:11 | MHC.OFFVIS ---
Vital Signs 05/08/24 09:16 Height 4 ft 11 in Weight 185 lb BMI 37.4 BP 118/84 Blood Pressure Location Rt brachial Position Sitting Intake Visit Reasons: Follow Up 02/13 [facility] Intake Note: Pt presents to the office today for a follow up [facility] 02/13. Pt states she still has itching in her legs and has pain especially after walking longer periods of time. Allergies passion fruit [PASSION FRUIT] Allergy (Intermediate, Verified 05/08/24 09:13) Hives, Rash HPI HPI Follow Up 02/13 [facility]: Details: Very pleasant 44-year-old female presents for follow-up regarding venous insufficiency. She reports pain and discomfort more so behind the knee. It has been affecting her activity. She now presents for follow-up with venous insufficiency testing. PFSH Medical History Pelvic pain Migraine Insomnia Anxiety Depressed Surgical History Hx of tubal ligation H/O bilateral breast reduction surgery Family History Maternal Grandfather Stomach cancer Mother No problems noted. Mother Diabetes Social History Alcohol intake: never Patient Tobacco Use Status: Never used Tobacco Female Reproductive History Menstrual Age of Menarche: 11 Review of Systems Const All systems reviewed & are unremarkable except as noted in HPI and below Reports no additional complaints ENT Reports Normal hearing present Card Denies chest pain, Denies chest pain at rest, Denies chest pain with activity and Denies pedal edema Resp Denies cough GI Denies abdominal pain Musc Denies abnormal gait, Denies muscle cramps and Denies radiating pain into limb Skin/Breast Denies skin ulcer and Denies wounds Neuro Reports Normal hearing present and Denies abnormal gait Psych Reports no additional complaints Physical Exam Vital Signs: Last Vital Signs BP 118/84 05/08/24 09:16 BMI result Body Mass Index 37.4 Const General: cooperative, healthy appearing and comfortable Orientation/consciousness: oriented to person, oriented to place and oriented to time HEENT Head: Yes normal to inspection Neck Neck: Yes normal visual inspection Carotids: no bruits Chest Chest palpation & inspection: normal inspection of the chest Resp Effort & Inspection: normal respiratory effort and able to speak in complete sentences Auscultation: clear to auscultation bilaterally, no crackles, no rales, no rhonchi and no wheezes Cardio Rate: regular rate Rhythm: regular rhythm Heart sounds: S1 normal heart sound present and S2 normal heart sound present Bruits: no carotid bruits Peripheral pulses: Peripheral pulses 2+ throughout GI Inspection: Yes normal to inspection Skin Wounds: no wounds Hair: normal Neuro General: oriented to person, oriented to place and oriented to time Cranial nerves: Yes CN's II-XII intact bilaterally and Yes Normal hearing present Cognition (Neuro): normal cognition Motor exam (neuro): 5/5 motor strength present throughout Extrem Other: venous exam: No significant superficial varicosities or spider telangiectasias, minimal edema General: No clubbing, No cyanosis and No edema Psych Appearance: grossly normal Mental Status: mental status grossly normal Speech and movement: Normal speech and movement present Results Reviewed Results Reviewed: Brief summary of venous insufficiency testing is as follows: right great saphenous vein: negative right small saphenous vein: negative right accessory vein: none present left great saphenous vein: negative left small saphenous vein: negative left accessory vein: none present Please note there is no evidence of any venous aneurysms or significant tortuosity Assessment & Plan Assessment & Plan (1) Varicose veins of right lower extremity with inflammation: Code(s): I83.11 - Varicose veins of right lower extremity with inflammation Category: Medical Plan: In short patient has as no significant venous insufficiency. I do believe that the pain is more musculoskeletal in nature and this was discussed in detail with the patient. We did discuss routine conservative measures including compression elevation and exercise. She will follow up with us on an as-needed basis. Thank you for allowing us to assist in her care. Coding Level of Care Code Est Pt Level 4 (38809) Diagnoses Varicose veins of right lower extremity with inflammation I83.11
[2024-05-08 09:16] VITALS: BP 118/84; BMI 37.4
== END 2024-05-08 09:39 | disposition home or self-care (01) ==
PROVIDERS: PCP Registered Nurse; Visit Provider Surgery Vascular Surgery
DX: I83.11 Varicose veins of right lower extremity with inflammation (principal)
CPT/HCPCS: 99213

== ENCOUNTER → 2024-05-08 09:10 | Outpatient (BNVA) | payer MEDICAID, SELFPAY | PROVIDERS: PCP Registered Nurse; Visit Provider Surgery Vascular Surgery | DX: I83.11 Varicose veins of right lower extremity with inflammation (principal) | CPT/HCPCS: 99212 ==

== ENCOUNTER 2024-05-24 09:27 | Outpatient (REF) | payer MEDICAID, SELFPAY ==
[2024-05-24 11:35] LABS: Basophils Absolute Auto 0.1 X10*3/uL (0.0-0.2); Basophils Percent Auto 0.9 % (0-2); Eosinophils Absolute Auto 0.1 X10*3/uL (0.0-0.4); Eosinophils Percent Auto 1.5 % (0-4); Hematocrit 38.2 % (37.0-47.0); Hemoglobin 12.6 g/dl (12.0-16.0); Imm Gran Abs Auto 0.01 X10*3/uL (0.00-0.03); Imm Gran Pct Auto 0.1 % (0.0-0.4); Lymphocytes Absolute Auto 4.2 X10*3/uL (1.2-4.9); Lymphocytes Percent Auto 61.8 % (20-40); MANUAL DIFF FLAG SCAN; Mean Corpuscular Hemoglobin 29.1 pg (27.0-33.0); Mean Corpuscular Volume 88.2 fL (80.0-98.0); Mean Platelet Volume 11.3 fL (9.4-12.3); Monocytes Absolute Auto 0.5 X10*3/uL (0.1-1.2); Monocytes Percent Auto 6.8 % (2-11); Neutrophils Percent Auto 28.9 % (45-73); Platelet Count 249 X10*3/uL (160-400); Red Blood Count 4.33 X10*6/uL (4.20-5.50); Red Cell Distribution Width 12.2 % (11.0-16.0); SCAN SMEAR FLAG 1; White Blood Count 6.8 X10*3/uL (4.8-10.8)
[2024-05-24 11:59] LABS: Rheumatoid Factor < 13.0 IU/mL (<15.0); SLIDE REVIEW VERIFIED
[2024-05-24 12:13] LABS: Erythrocyte Sedimentation Rate 7 MM/HR (0-20)
[2024-05-24 12:16] LABS: Alanine Aminotransferase 14 U/L (0-31); Alkaline Phosphatase 71 U/L (39-117); Anion Gap 13 (12-20); Aspartate Amino Transferase 18 U/L (5-31); Bilirubin Total 0.4 mg/dL (0.0-1.0); Blood Urea Nitrogen 15 mg/dL (9-16); C Reactive Protein 0.33 mg/dL (< or = 0.50); Calcium 9.4 mg/dL (8.4-10.2); Carbon Dioxide 22 mmol/L (22-29); Chloride 109 mmol/L (96-108); Cholesterol 187 mg/dL (<200); Estimated Glomerular Filt Rate > 60; Glucose Random 90 mg/dL (60-115); HDL Cholesterol 41 mg/dL (>40); LDL Cholesterol Calculated 124 mg/dL (<100); Potassium 3.6 mmol/L (3.3-5.1); Sodium 140 mmol/L (135-145); TSH reflex Free T4 2.06 uIU/mL (0.32-4.0); Total Protein 7.1 g/dL (6.5-8.0); Triglycerides 113 mg/dL (<150); Vitamin D 25-OH Total 81.4 ng/mL (>30)
[2024-05-24 12:17] LABS: Estimated Average Glucose 103 mg/dL; Hemoglobin A1c % 5.2 % (<6.0)
[2024-05-30 10:38] LABS: Anti Nuclear Antibody Screen NEGATIVE (NEGATIVE)
== END 2024-05-24 09:28 | disposition home or self-care (01) ==
LOC: HO.HHCL 09:27
PROVIDERS: Visit Provider Registered Nurse
DX: Z00.00 Encounter for general adult medical examination without abnormal findings (principal); R52 Pain, unspecified
CPT/HCPCS: 36415; 80053; 80061; 82306; 83036; 84443; 85025; 85652; 86038; 86140; 86431

== ENCOUNTER 2024-06-03 07:41 | Emergency (ER) | payer MEDICAID, SELFPAY ==
--- NOTE | ~2024-06-03 | XR_ITS ---
EXAMINATION: XR SHOULDER, RIGHT CLINICAL INFORMATION: Pain. Poor range of motion. COMPARISON: None available. TECHNIQUE: Three views of the right shoulder. FINDINGS: Visualized portions of the proximal humerus demonstrate no fracture. Humeral head demonstrates good articulation with the glenoid fossa. No significant degenerative changes of the shoulder. Visualized ribs and lung parenchyma are unremarkable. XR/XR shoulder RT min 2V IMPRESSION: Unremarkable radiographs of the right shoulder. Electronically signed by: Naawf Brandt MD 06/03/2024 08:19 AM EDT
[2024-06-03 07:47] VITALS: BP 143/71; PULSE 83; RESP 16; TEMP 36.8; O2SAT 100; BMI 38.4
--- NOTE | 2024-06-03 08:24 | ED.EXTPRO ---
HPI - Extremity Problem General Chief complaint: Extremity Injury, Upper Stated complaint: r arm pain Time Seen by Provider: 06/03/24 08:20 Source: patient Mode of arrival: ambulatory Limitations: no limitations History of Present Illness ED Provider: Esteban Mcnulty PA-C HPI Narrative: 44-year-old Japanese speaking right hand dominant female with history of migraines, depression, anxiety who presents to the ER for evaluation right shoulder pain that started 2 days ago and has been progressing since. She states that it started the day after her physical therapist gave her a massage in the area. She denies any specific injury or falls. She has been going to PT for her ?mandible. She states she woke up on Tuesday with intermittent pains in the right shoulder, it has progressed to constant pain in the right shoulder that radiates down the entire arm. It is worse with movement, pain is mostly in the back of the right shoulder. She denies any repetitive movements that she can think of. She denies any numbness or tingling but she feels that arm is weaker due to pain and limited range of motion. She reports intermittent pain in the left shoulder as well but not as bad as the right. She denies any chest pain, abdominal pain. She has mild neck pain but denies any neck injury. No head aches. She has taken Tylenol with minimal relief MD Complaint: extremity pain Onset (ago): day(s) Pain Consistency: constant Location: right and upper extremity Severity scale (1-10): 9 Quality: stabbing and aching Radiation: distal Relieving factors: nothing Exacerbating factors: range of motion and palpation Associated symptoms: denies other symptoms Related Data Home Medications ?Medication ?Instructions ?Recorded ?Confirmed acetaminophen 325 mg tablet 650 mg PO Q6H PRN 09/02/20 08/02/23 (Tylenol) clonazepam 1 mg tablet (Klonopin) 1 mg PO BID 09/02/20 08/02/23 sertraline 100 mg tablet (Zoloft) 100 mg PO DAILY 09/02/20 08/02/23 zolpidem 10 mg tablet (Ambien) 10 mg PO BEDTIME PRN 09/02/20 08/02/23 ibuprofen 800 mg tablet 800 mg PO TID PRN heartburn 12/15/22 08/02/23 Previous Rx's ?Medication ?Instructions ?Recorded cyclobenzaprine 10 mg tablet 10 mg PO TID PRN muscle spasm #18 04/10/ tabs pantoprazole 40 mg tablet,delayed 40 mg PO DAILY #90 tabs 07/06/23 release sennosides 8.6 mg tablet (Natural 17.2 mg (2 x 8.6 mg) PO BEDTIME 09/29/23 Senna Laxative) constipation #60 tabs cyclobenzaprine 10 mg tablet 10 mg PO TID PRN muscle spasm #10 06/03/24 tabs lidocaine 5 % topical patch 1 patch topical DAILY #15 ea 06/03/24 naproxen 500 mg tablet,delayed 500 mg PO BID PRN pain #20 tabs 06/03/24 release Allergies Allergy/AdvReac Type Severity Reaction Status Date / Time passion fruit [PASSION FRUIT] Allergy Intermediate Hives, Rash Verified 06/03/24 07:50 Review of Systems Review of Systems: Yes all other systems are reviewed and are negative [facility] Past Medical History Medical History Pelvic pain Migraine Insomnia Anxiety Depressed Surgical History Hx of tubal ligation H/O bilateral breast reduction surgery Family History Family History Maternal Grandfather Stomach cancer Mother No problems noted. Mother Diabetes Social History Social History Alcohol intake: never Patient Tobacco Use Status: Never used Tobacco Do you have a plan to hurt others: No Plan Physical Exam Vital Signs: Vital Signs: Last Vital Signs Temp 98.6 F 06/03/24 08:45 Pulse 80 06/03/24 08:45 Resp 12 06/03/24 08:45 BP 120/67 06/03/24 08:45 Pulse Ox 100 06/03/24 08:45 O2 Del Method Room Air 06/03/24 08:45 BMI result Body Mass Index 38.4 Appearance: Alert. Oriented X3. No acute distress. HEENT: normal inspection Neck: Normal inspection, no midline tenderness. Normal range of motion. Some pain with left lateral rotation CVS: Normal heart rate and rhythm. Pulses normal. Respiratory: No respiratory distress. Skin: Skin warm and dry. Normal skin color. Normal skin turgor. No rashes. Extremities: Normal inspection of bilateral upper extremities. Right arm held in flexion and adduction. Tenderness of the posterior shoulder. Limited passive and active range of motion of the shoulder due to pain. Positive empty can test. Normal passive range of motion of the right elbow and wrist. Neuro: Oriented X 3. No motor deficit. No sensory deficit. Medications Administered Discontinued Medications Generic Name Dose Route Start Last Admin Trade Name Ranulfo PRN Reason Stop Dose Admin Ketorolac Tromethamine 30 mg 06/03/24 08:45 06/03/24 09:05 Ketorolac Tromethamine 30 Mg/Ml Vial IM 06/03/24 08:46 30 mg ONCE ONE Administration Lidocaine 1 patch 06/03/24 08:47 06/03/24 09:04 Lidocaine 4 % Patch Adh..Patch TRANSDERMA 06/03/24 08:48 1 patch ONCE ONE Administration Protocol Oxycodone HCl 5 mg 06/03/24 08:45 06/03/24 09:04 Oxycodone Hcl Immed Release 5 Mg Tablet PO 06/03/24 08:46 5 mg ONCE ONE Administration Medical Decision Making Medical Decision Making MDM Narrative: 44 yo female presenting with right shoulder pain, limited ROM for the last 2 days. Pain started intermittent and is now constant. Start him the posterior right shoulder and radiates down the entire right arm. Worse with movement and palpation. Limited range of motion on examination. Her x-ray today is normal. Pain was worse after a massage in the area from her physical therapist, she may have a tendinopathy. Will plan to start her on NSAIDs, short course of muscle relaxer and have her follow-up with her PCP, ortho if pain persists. Low clinical suspicion for any gallbladder disease or cardiac etiology. At this time she is stable for discharge home with symptomatic treatment and outpatient follow-up. Differential Diagnosis Differential Diagnoses: The differential diagnosis associated with the presentation includes Rotator cuff injury, shoulder strain/sprain, AC joint separation, bursitis, tendinopathy, cervical radiculopathy Independent Interpretation I performed an independent interpretation of an: Plain X-Ray Interpretation: No acute fracture or dislocation, no significant soft tissue swelling, agrees radiology read Radiology Impression Discussion of test interpretation with radiology: I have reviewed the radiologist's reading. Radiologist Impression: XR/XR shoulder RT min 2V IMPRESSION: Unremarkable radiographs of the right shoulder. External Record Review External record reviewed: Outpatient record, Prior outpatient labs and Prior outpatient radiology Prescription Management I considered prescription management with: Pain Medication Critical Care Time Critical Care Time Critical Care Time: No Discharge Plan Discharge Clinical Impression: Acute pain of right shoulder Patient Disposition: Home, Self-Care Instructions: Shoulder Pain (ED) Additional Instructions: Your x-ray today was normal. Use ice several times per day for the next 48 hours. Take the prescribed medications as directed. Follow up with Orthopedics next week if you have ongoing pain. If you develop new or worsening symptoms call 911 or come back to the ER for further evaluation. Prescriptions: New naproxen 500 mg tablet,delayed release (DR/EC) 500 mg PO BID PRN (Reason: pain) Qty: 20 0RF cyclobenzaprine 10 mg tablet 10 mg PO TID PRN (Reason: muscle spasm) Qty: 10 0RF lidocaine 5 % adhesive patch,medicated 1 patch topical DAILY Qty: 15 0RF Rx Instructions: leave on most painful area for up to 12 hrs No Action sennosides [Natural Senna Laxative] 8.6 mg tablet 17.2 mg PO BEDTIME Qty: 60 3RF cyclobenzaprine 10 mg tablet 10 mg PO TID PRN (Reason: muscle spasm) Qty: 18 0RF Rx Instructions: Side effect of drowsiness. Do not take at work or while driving. clonazepam [Klonopin] 1 mg tablet 1 mg PO BID zolpidem [Ambien] 10 mg tablet 10 mg PO BEDTIME PRN sertraline [Zoloft] 100 mg tablet 100 mg PO DAILY acetaminophen [Tylenol] 325 mg tablet 650 mg PO Q6H PRN ibuprofen 800 mg tablet 800 mg PO TID PRN (Reason: heartburn) pantoprazole 40 mg tablet,delayed release (DR/EC) 40 mg PO DAILY Qty: 90 1RF Rx Instructions: take one tablet half an hour before breakfast Referrals: [facility] [Provider Group] (right shoulder pain) Print Language: Japanese
[2024-06-03 08:45] VITALS: BP 120/67; PULSE 80; RESP 12; TEMP 37; O2SAT 100
[2024-06-03] MEDS: Lidocaine 4 % Patch ADH..PATCH 1 PATCH TRANSDERMA (09:04)
[2024-06-03] MEDS: oxyCODONE HCl Immed Release 5 MG TABLET PO (09:04)
[2024-06-03] MEDS: Ketorolac Tromethamine 30 MG/ML VIAL IM (09:05)
[2024-06-03 09:37] VITALS: BP 120/67; PULSE 80; RESP 12; TEMP 37; O2SAT 100
--- OUTSIDE RECORDS SUMMARY | 2024-06-03 09:44 | XMS_ITS | Continuity of Care Document ---
Author Organization [facility] Address Unknown Care Team Providers Care Electric Motor Repairer Name Role Phone Rosita Clark MD Primary Care Physician [phone] Encounter [facility] Date(s): 07/23/21 - 08/22/21 [facility]
--- OUTSIDE RECORDS SUMMARY | 2024-06-03 09:44 | XMS_ITS | Continuity of Care Document ---
Author Organization [facility] Address Unknown Care Team Providers Care Scrap Metal Processing Worker Name Role Phone Rosita Clark MD Primary Care Physician Encounter [facility] AC[facility] R [id number] Date(s): 01/28/22 - 02/27/22 [facility] Attending Physician: Ranjit Howell Admitting Physician: Ranjit Howell Referring Physician: Ranjit Howell Medications clonazePAM 1 mg oral tablet TAKE 1 TABLET BY MOUTH TWICE DAILY Start Date: 09/02/21 Status: Ordered magnesium oxide 400 mg oral tablet TAKE 1 TABLET BY MOUTH EVERY DAY Start Date: 09/02/21 Status: Ordered magnesium oxide 400 mg oral tablet TAKE 1 TABLET BY MOUTH EVERY DAY Start Date: 09/02/21 Status: Ordered medroxyPROGESTERone 10 mg oral tablet TAKE 1 TABLET BY MOUTH EVERY DAY NEEDED FOR la perdida de menstruacion Start Date: 09/02/21 Status: Ordered sertraline 100 mg oral tablet TAKE 2 TABLETS BY MOUTH EVERY MORNING Start Date: 09/02/21 Status: Ordered Vitamin B2 100 mg oral tablet TAKE 4 TABLETS BY MOUTH EVERY DAY Start Date: 09/02/21 Status: Ordered zolpidem 10 mg oral tablet TAKE 1 TABLET BY MOUTH AT BEDTIME Start Date: 09/02/21 Status: Ordered
--- OUTSIDE RECORDS SUMMARY | 2024-06-03 09:44 | XMS_ITS | Continuity of Care Document ---
Author Organization [facility] Address Unknown Care Team Providers Care Manager Trading Name Role Phone Rosita Clark MD Primary Care Physician [phone] [id number] Attending Physician: Richard Vargas MD Admitting Physician: Richard Vargas MD Referring Physician: Rosita Clark MD Medications clonazePAM 1 mg oral tablet TAKE [...]
--- OUTSIDE RECORDS SUMMARY | 2024-06-03 09:44 | XMS_ITS | Continuity of Care Document ---
Author Organization [facility] Address Unknown Care Team Providers Care Business Area Manager Name Role Phone Rosita Clark MD [facility] Physician [id number] - [facility]27/22 [facility] Attending Physician: Azar Arellano Admitting Physician: Azra Arellano Referring Physician: Rosita Clark MD Medications clonazePAM [...]
--- OUTSIDE RECORDS SUMMARY | 2024-06-03 09:44 | XMS_ITS | Continuity of Care Document ---
Author Organization [facility] Address Unknown Care Team Providers Care Bridal Stylist Sales Consultant Name Role Phone Eduardo SANTANA, Rosita Primary Care Physician [place] [facility] [place] 04/23/21 - 08/21/21 [facility] Attending Physician: Richard Vargas MD Admitting Physician: Richard Vargas MD Referring Physician: Rosita Clark MD
--- OUTSIDE RECORDS SUMMARY | 2024-06-03 09:44 | XMS_ITS | Continuity of Care Document ---
Author Organization [facility] Address Unknown Care Team Providers Care Car Top Bolter Name Role Phone Rosita Clark MD Primary Care Physician [place] [facility] [place] [id number] Date(s): 12/22/21 - 01/21/22 [facility] Medications clonazePAM 1 mg oral tablet TAKE [...]
--- OUTSIDE RECORDS SUMMARY | 2024-06-03 09:44 | XMS_ITS | Continuity of Care Document ---
Author Organization [facility] Address Unknown Care Team Providers Care Bottle Sorter Name Role Phone Eduardo SANTANA, Rosita Primary Care Physician Encounter [facility] [place] Date(s): 06/01/21 - 08/21/21 [facility] Attending Physician: Richard Vargas MD Admitting Physician: Richard Vargas MD Referring Physician: Rosita Clark MD
--- OUTSIDE RECORDS SUMMARY | 2024-06-03 09:44 | XMS_ITS | Continuity of Care Document ---
Author Organization [facility] Address Unknown Care Team Providers Care Liquor Clerk Name Role Phone Rosita Clark MD Primary Care Physician [phone] [id number] Date(s): 09/21/21 - 10/21/21 [facility] Medications clonazePAM 1 mg oral tablet [...]
--- OUTSIDE RECORDS SUMMARY | 2024-06-03 09:44 | XMS_ITS | Continuity of Care Document ---
Author Organization [facility] Address Unknown Care Team Providers Care Inventory Control Specialist Name Role Phone Rosita Clark MD Primary Care Phys[id number] Date(s[facility] 11/06/21 - 12/06/21 [facility] Medications clonazePAM 1 mg oral [...]
== END 2024-06-03 10:00 | disposition home or self-care (01) ==
PROVIDERS: Emergency Provider Emergency Medicine
DX: M25.511 Pain in right shoulder (principal); M79.601 Pain in right arm; Z79.899 Other long term (current) drug therapy
CPT/HCPCS: 73030; 96372; 99283; 99284; J1885

== ENCOUNTER 2024-08-03 13:37 | Outpatient (REF) | payer MEDICAID, SELFPAY ==
--- NOTE | ~2024-08-03 | MM_ITS ---
EXAMINATION: MM SCREENING DIGITAL BREAST TOMOSYNTHESIS, BILATERAL CLINICAL INFORMATION: Screening. Asymptomatic. COMPARISON: Mammography: Comparison is made with available priors TECHNIQUE: Digital breast mammography with tomosynthesis is performed in both the craniocaudal and mediolateral oblique views along with computer-aided detection (CAD). FINDINGS: There are scattered areas of fibroglandular density (ACR BI-RADS breast composition Category b). There are no significant masses, abnormal calcifications, or other abnormalities. MM/MM tomosynthesis screening BI IMPRESSION: No mammographic evidence of malignancy. ASSESSMENT: BI-RADS BI-RADS 1 - Negative RECOMMENDATION: Routine annual mammography screening. 1 year F/U This examination should not preclude the clinical evaluation of a suspicious palpable abnormality. This patient's information was entered into a reminder system with a target due date for their next mammogram. Electronically signed by: Dianne Lockwood DO 08/14/2024 10:57 AM ROSALIND
== END 2024-08-03 13:38 | disposition home or self-care (01) ==
LOC: HO.MAMMO 13:37
PROVIDERS: PCP Registered Nurse; Visit Provider Registered Nurse
DX: Z12.31 Encounter for screening mammogram for malignant neoplasm of breast (principal)
CPT/HCPCS: 77063; 77067

== ENCOUNTER → 2024-08-03 14:00 | Outpatient (BNV) | payer MEDICAID, SELFPAY | PROVIDERS: PCP Registered Nurse; Visit Provider Internal Medicine | DX: Z12.31 Encounter for screening mammogram for malignant neoplasm of breast (principal) | CPT/HCPCS: 77063; 77067 ==

== ENCOUNTER 2024-09-19 12:32 | Emergency (ER) | payer MEDICAID, SELFPAY ==
[2024-09-19 12:51] VITALS: BP 133/77; PULSE 86; RESP 18; TEMP 36.8; O2SAT 100; BMI 38.6
--- NOTE | 2024-09-19 12:51 | ED.GENADULT ---
HPI - General Adult General Chief complaint: General Medical Stated complaint: high blood pressure Time Seen by Provider: 09/19/24 14:39 Source: patient, RN notes reviewed, old records reviewed and slitter cut off operator Mode of arrival: ambulatory Limitations: language barrier History of Present Illness ED Provider: Jennifer HPI narrative: Patient is a 44-year-old Cameroonian-speaking female with history of migraines, insomnia, depression and anxiety presenting to the emergency department with complaint of headache, lightheadedness, nausea, vomiting and chills/body aches since this morning. States her headache feels different from her typical migraines. Took her blood pressure at home and noted that it was elevated. Denies chest pain or palpitations. Denies recent falls or other trauma. Took Tylenol which did improve headache some. Denies blurred vision, double vision or other visual changes. Denies diarrhea, constipation, abdominal pain, hematemesis. MD complaint: headache, chills, nausea and vomiting Onset (ago): hour(s) Related Data Home Medications ?Medication ?Instructions ?Recorded ?Confirmed acetaminophen 325 mg tablet 650 mg PO Q6H PRN 09/02/20 08/02/23 (Tylenol) clonazepam 1 mg tablet (Klonopin) 1 mg PO BID 09/02/20 08/02/23 sertraline 100 mg tablet (Zoloft) 100 mg PO DAILY 09/02/20 08/02/23 zolpidem 10 mg tablet (Ambien) 10 mg PO BEDTIME PRN 09/02/20 08/02/23 ibuprofen 800 mg tablet 800 mg PO TID PRN heartburn 12/15/22 08/02/23 Previous Rx's ?Medication ?Instructions ?Recorded cyclobenzaprine 10 mg tablet 10 mg PO TID PRN muscle spasm #18 04/10/21 tabs cyclobenzaprine 10 mg tablet 10 mg PO TID PRN muscle spasm #10 06/03/24 tabs lidocaine 5 % topical patch 1 patch topical DAILY #15 ea 06/03/24 naproxen 500 mg tablet,delayed 500 mg PO BID PRN pain #20 tabs 06/03/24 release sennosides 8.6 mg tablet (Natural 17.2 mg (2 x 8.6 mg) PO BEDTIME 07/03/24 Senna Laxative) constipation #60 tabs pantoprazole 40 mg tablet,delayed 40 mg PO DAILY #90 tabs 08/06/24 release ondansetron 4 mg disintegrating 4 mg PO Q8H PRN nausea and 09/19/24 tablet vomiting #10 tabs Allergies Allergy/AdvReac Type Severity Reaction Status Date / Time passion fruit [PASSION FRUIT] Allergy Intermediate Hives, Rash Verified 09/19/24 12:55 Review of Systems Review of Systems: As per HPI Yes all other systems are reviewed and are negative Constitutional: Constitutional: Reports as per HPI [facility] Past Medical History Medical History Pelvic pain Migraine Insomnia Anxiety Depressed Surgical History Hx of tubal ligation H/O bilateral breast reduction surgery Family History Family History Maternal Grandfather Stomach cancer Mother No problems noted. Mother Diabetes Social History Social History Alcohol intake: never Patient Tobacco Use Status: Never used Tobacco Smoked in Last 30 Days: No Use of substances other than those prescribed or required for medical reasons: No Advance Directives: No Advance Directives Information Provided: No Advance Directives on File: No Do you have a plan to hurt others: No Plan Physical Exam ED Vital Signs: Vital Signs - 24 hr 09/19/24 12:51 09/19/24 16:41 09/19/24 17:00 Temperature 98.2 F 98 F Pulse Rate 86 104 H 115 H Respiratory Rate 18 20 20 Blood Pressure 133/77 118/63 126/67 Pulse Oximetry 100 100 100 Oxygen Delivery Method Room Air Room Air Room Air BMI result Body Mass Index 38.6 Vital signs have been reviewed and appear to be correct. Blood pressure normal. Heart rate normal. Respiratory rate normal. Temperature normal. Oxygen saturation normal. Const General: cooperative, healthy appearing and no acute distress Orientation/consciousness: oriented to person, oriented to place, oriented to time and patient oriented x3 Limitations: no limitations HENMT Head: Yes normocephalic and Yes atraumatic Ears: external ears normal General nose exam: Normal external nose present Face and sinus: Yes face symmetric Mouth: oropharynx normal and moist mucous membranes Throat: Yes uvula midline Eyes Pupils: Equal, round and reactive pupils present Neck Neck: Yes normal visual inspection and Yes supple Resp Effort & Inspection: normal respiratory effort and able to speak in complete sentences Auscultation: clear to auscultation bilaterally Cardio Rate: regular rate Rhythm: regular rhythm Heart sounds: S1 normal heart sound present and S2 normal heart sound present GI Palpation (GI): Soft to palpation and nontender Auscultation: normoactive bowel sounds General: Yes no CVA tenderness Back/Spine/Pelvis Back: no CVA tenderness Skin General skin exam: elasticity normal and turgor normal Neuro General: oriented to person, oriented to place, oriented to time, patient oriented x3, moves all extremities, no focal motor deficits and CN's II-XI intact bilaterally Cranial nerves: Yes Equal, round and reactive pupils present Cognition (Neuro): normal cognition Extrem General: Yes full ROM, Yes no pedal edema and Yes no calf tenderness Psych Mental Status: mental status grossly normal Affect: normal affect Thought process: Normal thought process present Course Course Course Narrative: RME, this is a rapid medical exam performed by Jon Torres please refer to primary provider for complete H&P- 44 year old female presents for evaluation of headache, dizziness, nausea and vomiting. She checked her blood pressure today and it was 138/85. She does have high blood pressure. Plan for labs, EKG for the dizziness and viral swabs. Medications Administered Discontinued Medications Generic Name Dose Route Start Last Admin Trade Name Kikoq PRN Reason Stop Dose Admin Diphenhydramine HCl 25 mg 09/19/24 16:01 09/19/24 16:27 Diphenhydramine Hcl 50 Mg/Ml Vial IVPUSH 09/19/24 16:02 25 mg ONCE ONE Administration Sodium Chloride 1,000 mls @ 999 mls/hr 09/19/24 16:15 09/19/24 16:30 Ns IV 09/19/24 17:15 999 mls/hr .Q1H1M LUIS FELIPE Administration Ketorolac Tromethamine 15 mg 09/19/24 16:01 09/19/24 16:27 Ketorolac Tromethamine 15 Mg/Ml Vial IVPUSH 09/19/24 16:02 15 mg ONCE ONE Administration Metoclopramide HCl 10 mg 09/19/24 16:01 09/19/24 16:27 Metoclopramide Hcl 10 Mg/2 Ml Vial IVPUSH 09/19/24 16:02 10 mg ONCE ONE Administration Medical Decision Making Medical Decision Making [facility] Narrative: Patient is a 44-year-old Cameroonian-speaking female with history of migraines, insomnia, depression and anxiety presenting to the emergency department with complaint of headache, lightheadedness, nausea, vomiting and chills/body aches since this morning. On exam patient is awake, A+Ox3, VS WNL, afebrile, normal neurological exam without focal deficits, physical exam findings as above. Given reported symptoms and physical exam findings, initial differential includes but is not limited to viral illness, covid, flu, RSV, gastritis, electrolyte abnormality, migraine, tension headache. Labs notable for no leukocytosis, no anemia, no significant electrolyte abnormalities, negative HCG. Viral serology negative. Urinalysis notable for moderate leukocytes, negative nitrites, trace bacteria, 3-5 epithelials, likely contamination. Patient currently rating headache at 3/10, she is not hypertensive here, no red flag findings concerning for ICH/SAH, acute glaucoma, carotid artery dissection, CO poisoning, encephalitis, meningitis, preeclampsia, pseudotumor, temporal arteritis/giant cell arteritis. Will treat with IV fluids, reglan, benadryl, toradol. Patient reports feeling anxious after reglan, discussed that this is a known adverse effect of this medication. Patient able to complete IV fluids and reports improvement in anxiety as well as resolution of headache. Feel patient is stable for discharge home, patient is in agreement with this. Will send prescription for Zofran. Instructed patient follow-up with PCP. Return precautions discussed at bedside. Patient verbalized understanding of and agreement with plan. Differential Diagnosis Differential Diagnoses: The differential diagnosis associated with the presentation includes As per [facility] Lab Data [facility] Lab Attestation statement: I reviewed the patient's lab results. as per [facility] 09/19/24 13:17 09/19/24 13:17 Labs: Lab Results 09/19/24 09/19/24 09/19/24 Range/Units 13:17 16:31 16:56 WBC 6.8 (4.8-10.8) X10*3/uL RBC 4.47 (4.20-5.50) X10*6/uL Hgb 13.0 (12.0-16.0) g/dl Hct 38.7 (37.0-47.0) % MCV 86.6 (80.0-98.0) fL MCH 29.1 (27.0-33.0) pg MCHC 33.6 (31.0-35.0) g/dl RDW 12.1 (11.0-16.0) % Plt Count 228 (160-400) X10*3/uL MPV 10.5 (9.4-12.3) fL Immature Gran % (Auto) 0.3 (0.0-0.4) % Neut % (Auto) 47.0 (45-73) % Lymph % (Auto) 44.0 H (20-40) % Bowman % (Auto) 6.8 (2-11) % Eos % (Auto) 1.2 (0-4) % Baso % (Auto) 0.7 (0-2) % Lymph # (Auto) 3.0 (1.2-4.9) X10*3/uL Bowman # (Auto) 0.5 (0.1-1.2) X10*3/uL Eos # (Auto) 0.1 (0.0-0.4) X10*3/uL Baso # (Auto) 0.1 (0.0-0.2) X10*3/uL Abs Immat Gran (auto) 0.02 (0.00-0.03) X10*3/uL Absolute Neuts (auto) 3.2 (2.0-8.3) x10*3/uL Absolute Nucleated RBC 0.000 (0.0-0.012) X10*3/uL Nucleated RBC % (auto) 0.0 (0.0-0.2) /100WBC Sodium 142 (135-145) mmol/L Potassium 4.2 (3.3-5.1) mmol/L Chloride 110 H (96-108) mmol/L Carbon Dioxide 23 (22-29) mmol/L Anion Gap 13 (12-20) BUN 14 (9-16) mg/dL Creatinine 0.75 (0.5-1.4) mg/dL Estim Creat Clear Calc 91.5 Estimated GFR > 60 POC Glucose 90 (60-115) mg/dL Random Glucose 106 (60-115) mg/dL Calcium 8.8 D (8.4-10.2) mg/dL Total Bilirubin 0.4 (0.0-1.0) mg/dL AST 28 (5-31) U/L ALT 19 (0-31) U/L Alkaline Phosphatase 72 (39-117) U/L Total Protein 7.1 (6.5-8.0) g/dL Albumin 3.9 (3.5-5.0) g/dL Lipase 29 (8-78) U/L Beta HCG, Quant < 2 mIU/mL Urine Color Yellow Urine Appearance Clear Urine pH 7.5 (5.0-9.0) Ur Specific Admire <= 1.005 (1.005-1.025) Urine Protein Negative (Neg-Trace) mg/dL Urine Glucose (UA) Negative (Negative) mg/dL Urine Ketones Negative (Negative) mg/dL Urine Blood Negative (Negative) Urine Nitrite Negative (Negative) Ur Leukocyte Esterase Moderate (2+) H (Negative) Urine RBC 0-2 (0-2) /HPF Urine WBC 6-10 (0-5) /HPF Ur Squamous Epith Cells 3-5 (0-2) /HPF Urine Bacteria Trace (None Seen) Hyaline Casts 0-2 (0-2) /LPF Influenza Type A (PCR) NEGATIVE (Negative) Influenza Type B (PCR) NEGATIVE (Negative) RSV RNA Qual (PCR) NEGATIVE (Negative) SARS-CoV-2 RNA (RT-PCR) NEGATIVE (Negative) External Record Review External record reviewed: Inpatient record, Office record and Outpatient record Prescription Management I considered prescription management with: Other Discharge Plan Discharge Clinical Impression: Headache, Nausea & vomiting Patient Disposition: Home, Self-Care Instructions: Acute Headache (DC), Acute Nausea and Vomiting (ED) Additional Instructions: You were evaluated in the emergency department today for headache, nausea and vomiting. Your labs and urinalysis were normal. You tested negative for flu, Covid, and RSV. Your symptoms are likely due to a viral infection. Be sure to get adequate rest and adequate fluid intake. You are being prescribed ondansetron for nausea which you can take every 8 hours as needed. Follow-up with your primary care provider. You can take Tylenol or ibuprofen as needed for fever or discomfort. Return to the emergency department with new or concerning symptoms. Prescriptions: New ondansetron 4 mg tablet,disintegrating 4 mg PO Q8H PRN (Reason: nausea and vomiting) Qty: 10 0RF No Action sennosides [Natural Senna Laxative] 8.6 mg tablet 17.2 mg PO BEDTIME Qty: 60 3RF pantoprazole 40 mg tablet,delayed release (DR/EC) 40 mg PO DAILY Qty: 90 1RF Rx Instructions: take one tablet half an hour before breakfast cyclobenzaprine 10 mg tablet 10 mg PO TID PRN (Reason: muscle spasm) Qty: 18 0RF Rx Instructions: Side effect of drowsiness. Do not take at work or while driving. naproxen 500 mg tablet,delayed release (DR/EC) 500 mg PO BID PRN (Reason: pain) Qty: 20 0RF cyclobenzaprine 10 mg tablet 10 mg PO TID PRN (Reason: muscle spasm) Qty: 10 0RF lidocaine 5 % adhesive patch,medicated 1 patch topical DAILY Qty: 15 0RF Rx Instructions: leave on most painful area for up to 12 hrs clonazepam [Klonopin] 1 mg tablet 1 mg PO BID zolpidem [Ambien] 10 mg tablet 10 mg PO BEDTIME PRN sertraline [Zoloft] 100 mg tablet 100 mg PO DAILY acetaminophen [Tylenol] 325 mg tablet 650 mg PO Q6H PRN ibuprofen 800 mg tablet 800 mg PO TID PRN (Reason: heartburn) Print Language: Cameroonian
--- NOTE | 2024-09-19 12:52 | ECG_ITS ---
Test Reason : SOB Blood Pressure : / mmHG Vent. Rate : 079 BPM Atrial Rate : 079 BPM P-R Int : 154 ms QRS Dur : 086 ms QT Int : 382 ms P-R-T Axes : -12 019 059 degrees QTc Int : 438 ms Normal sinus rhythm Nonspecific T wave abnormality Abnormal ECG When compared to the previous EKG of No significant changes seen Referred By: King Torres Electronically Signed By:GOOD CALABRESE MD
[2024-09-19 13:25] LABS: Basophils Absolute Auto 0.1 X10*3/uL (0.0-0.2); Basophils Percent Auto 0.7 % (0-2); Eosinophils Absolute Auto 0.1 X10*3/uL (0.0-0.4); Eosinophils Percent Auto 1.2 % (0-4); Hematocrit 38.7 % (37.0-47.0); Imm Gran Abs Auto 0.02 X10*3/uL (0.00-0.03); Imm Gran Pct Auto 0.3 % (0.0-0.4); MANUAL DIFF FLAG NO; Mean Corpuscular HGB Conc 33.6 g/dl (31.0-35.0); Mean Corpuscular Hemoglobin 29.1 pg (27.0-33.0); Mean Corpuscular Volume 86.6 fL (80.0-98.0); Mean Platelet Volume 10.5 fL (9.4-12.3); Monocytes Absolute Auto 0.5 X10*3/uL (0.1-1.2); Monocytes Percent Auto 6.8 % (2-11); Neutrophils Absolute Auto 3.2 x10*3/uL (2.0-8.3); Platelet Count 228 X10*3/uL (160-400); Red Blood Count 4.47 X10*6/uL (4.20-5.50); Red Cell Distribution Width 12.1 % (11.0-16.0); White Blood Count 6.8 X10*3/uL (4.8-10.8)
[2024-09-19 13:48] LABS: Alanine Aminotransferase 19 U/L (0-31); Albumin Level 3.9 g/dL (3.5-5.0); Alkaline Phosphatase 72 U/L (39-117); Anion Gap 13 (12-20); Aspartate Amino Transferase 28 U/L (5-31); Bilirubin Total 0.4 mg/dL (0.0-1.0); Blood Urea Nitrogen 14 mg/dL (9-16); Calcium 8.8 mg/dL (8.4-10.2); Carbon Dioxide 23 mmol/L (22-29); Chloride 110 mmol/L (96-108); Creatinine Clr Calc Pharmacy 91.5; Estimated Glomerular Filt Rate > 60; Glucose Random 106 mg/dL (60-115); HCG Quantitative < 2 mIU/mL; Lipase 29 U/L (8-78); Potassium 4.2 mmol/L (3.3-5.1); Sodium 142 mmol/L (135-145); Total Protein 7.1 g/dL (6.5-8.0)
[2024-09-19 14:01] LABS: Influenza A PCR NEGATIVE (Negative); Influenza B PCR NEGATIVE (Negative); Resp Syncy Virus RNA Qual PCR NEGATIVE (Negative); SARS COV2 PCR INHOUSE NEGATIVE (Negative)
[2024-09-19] MEDS: Metoclopramide HCl 10 MG/2 ML VIAL IVPUSH (16:27)
[2024-09-19] MEDS: Ketorolac Tromethamine 15 MG/ML VIAL IVPUSH (16:27)
[2024-09-19] MEDS: diphenhydrAMINE HCL 50 MG/ML VIAL 25 MG IVPUSH (16:27)
[2024-09-19] MEDS: 0.9 % Sodium Chloride 1,000 ML 999 ML IV (16:30)
--- NOTE | 2024-09-19 16:35 | PC.NURSE ---
Pt has steady gait and reports improvement in headache and dizziness. No vomiting. unlabored resp.
[2024-09-19 16:41] VITALS: BP 118/63; PULSE 104; RESP 20; TEMP 36.6; O2SAT 100
[2024-09-19 16:41] LABS: Appearance Urine Clear; Color Urine Yellow; Glucose Urine UA Negative (Negative); Leukocyte Esterase Urine Moderate (2+) (Negative); Nitrite Urine Negative (Negative); PH 7.5 (5.0-9.0); Specific Gravity - Urine <= 1.005 (1.005-1.025); UMIC TRIGGER UACC YES; Urine Blood Negative (Negative); Urine Ketones Negative (Negative); Urine Protein Negative (Neg-Trace)
[2024-09-19 16:52] LABS: Bacteria Urine Trace (None Seen); Hyaline Casts Urine 0-2 /LPF (0-2); RBC Urine 0-2 /HPF (0-2); UACC Culture Trigger YES
--- NOTE | 2024-09-19 16:56 | PC.NURSE ---
Pt reports feeling ill (nausea, shaky) after reglan administered. Reglan was in 50cc bag and administered slowly. Skin PWD> axox3. attempted to get out of bed and felt weak and sat down cross legged on floor. Assisted to bed and able to bear weight. Provider aware.
[2024-09-19 17:00] VITALS: BP 126/67; PULSE 115; RESP 20; O2SAT 100
[2024-09-19 17:00] LABS: Glucose, Whole Blood 90 mg/dL (60-115)
--- NOTE | 2024-09-19 17:31 | PC.NURSE ---
ambulatory to/from BR and less shaky.
[2024-09-19 18:16] VITALS: BP 126/67; PULSE 104; RESP 20; TEMP 36.8; O2SAT 100
== END 2024-09-19 18:16 | disposition home or self-care (01) ==
PROVIDERS: Physician Assistant; Emergency Provider Emergency Medicine
DX: R51.9 Headache, unspecified (principal); R11.2 Nausea with vomiting, unspecified; R68.83 Chills (without fever); Z03.818 Encounter for observation for suspected exposure to other biological agents ruled out
CPT/HCPCS: 0241U; 36415; 80053; 81001; 82947; 83690; 84702; 85025; 87086; 93005; 96374; 96375; 99284; 99285; J1200; J1885; J2765

== ENCOUNTER → 2024-09-19 12:52 | Outpatient (BNV) | payer MEDICAID, SELFPAY | PROVIDERS: Emergency Provider Emergency Medicine; Visit Provider Internal Medicine Cardiovascular Disease | DX: R94.31 Abnormal electrocardiogram [ECG] [EKG] (principal) | CPT/HCPCS: 93010 ==

== ENCOUNTER 2025-01-22 10:08 | Outpatient (REF) | payer MEDICAID, SELFPAY ==
--- NOTE | 2025-01-22 10:12 | EMG_ITS ---
Bilateral median and ulnar motor and sensory studies were performed. Bilateral radial sensory studies were performed. Bilateral median and lateral antecubital brachial sensory studies were performed and paraspinal muscles were tested with a needle. 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 MD USHA Rangel/MARY KAY / [phone]
--- OUTSIDE RECORDS SUMMARY | 2025-01-22 11:36 | XMS_ITS | Encounter Summary ---
Author Organization [employer] [facility] Address [address] [place] [address] Care Team Providers Care Seating Upholsterer Name Role Phone Rosita Clark MD Primary Care Provider Bertha Shetty Primary Care Provider [phone] Eugenio Rudolph MD Unavailable Cale Pena MD Unavailable Josseline Gan Unavailable Archie Reyes MD Unavailable Encounter Details Date Type Department Care Team (Latest Contact Info) Description 08/22/2019 Abstract [facility] CONVERSIONS Dental, Provider, DDS Social History Tobacco Use Types Packs/Day Years Used Date Smoking Tobacco: Never Assessed Comments Unknown Sex and Gender Information Value Date Recorded Sex Assigned at Female 07/19/2022 10:15 AM EDT Legal Sex Female 10:15 AM EDT Gender Identity Female 07/19/2022 10:15 AM EDT Sexual Orientation Straight 07/19/2022 10 :15 AM EDT documented as of this encounter Plan of Treatment Upcoming Encounters Date Type Department Care Team ( st Contact Info) Description 03/19/2025 9:30 AM EDT Office Visit [facility] CHC MED & PEDS [address] [place], [place] [phone] Suzie Rubin MD [address] [place], [place] [phone] 04/03/2025 11:15 AM EDT Office Visit [facility] MEDICINE [address] [place] [address] Bertha Jacinto FNP [address] [place], [place] [phone] 05/16/2025 10:00 AM EDT Office Visit [facility] ADULT DENTAL [address] [place] [address] Clau Aquino documented as of this encounter Visit Diagnoses Not on filedocumented in this encounter Care Teams Seating Upholsterer Relationship Specialty Start Date End Date Rosita Clark MD PCP - General Family Medicine 07/31/19 08/08/22 Bertha Jacinto FNP [address] [place] [address] PCP - General Family Medicine 09/28/22 Eugenio Rudolph MD [address] [place] [address], [address] [place] [address] Neurology 09/30/24 Cale Pena MD [address] [place] [address] Cardiology 09/30/24 Josseline Gan [address] [place] [address] Gastroenterology 09/30/24 Archie Reyes MD [address] [place] [address] Vascular Surgery 09/30/24 documented as of this encounter
--- OUTSIDE RECORDS SUMMARY | 2025-01-22 11:36 | XMS_ITS | Encounter Summary ---
Author Organization [facility] [facility] Address [address] 7t [place] [address] Care Team Providers Care Avionics Systems Repairer Name Role Phone Bertha Jacinto Primary Care Provider Eugenio Rudolph MD Unavailable [phone] Cale Pena MD Unavailable Josseline Gan Unavailable Archie Reyes MD Unavailable Reason for Visit * Reason Onset Date Comments PT1 11/17/2022 Encounter Details Date Type Department Care Team (Late st Contact Info) Description 11/17/2022 Telephone [facility] MEDICINE [address] [place] [address] Bertha Jacinto FNP [address] [place], [place] [phone] PT1 Social History Tobacco Use Types Packs/Day Years Used Date Smoking Tobacco: Never Smokeless Tobacco: Never Alcohol Use Standard Drinks/Week Comments Never 0 (1 standard drink = 0.6 oz pur e alcohol) Comments Unknown Sex and Gender Information Value Date Recorded Sex Assigned at Female 07/19/2022 10:15 AM EDT Legal Sex Female 10:15 AM EDT Gender Identity Female 07/19/2022 10:15 AM EDT Sexual Orientation Straight 07/19/2022 10 :15 AM EDT COVID-19 Exposure Response Date Recorded In the last 10 days, have yo u been in contact with someone who was confirmed or suspected to have Coronavirus/COVID-19? No / Unsure 11/09/2022 3:01 PM EST documented as of this encounter Miscellaneous Notes * Telephone Encounter - Edward Miller - 01/06/2023 2:32 PM EDT Tc from pt requesting to Renew PT1 order that expires on January [address] [place] [address], [id number]. Pt Is also requesting status on PT1 orders previously sent. Pt would like to request some PT1 forms: PT1 Name of facility: Specialty: Heart Appt Location: [address] [place] [address] Date: 01/20/2023 Time: 1:00 pm fax: n/a Phone: n/a wheelchair: n/a Gasoline Tractor Operator: n/a PT1 Name of facility: Specialty: Location: [address] [place] [address] Date: January 17, 2023 Time: 11:30 am fax: n/a Phone: n/a wheelchair: n/a Gasoline Tractor Operator: n/a PT1 Name of facility: [facility] Specialty: Future Appt Location: [address] [place] [address] Date: n/a Time: n/a fax: n/a Phone: n/a wheelchair: n/a Gasoline Tractor Operator: n/a For all future appt in all three locations. Please contact pt at [phone] Bolivian Speaker * Telephone Encounter - Catarino Shine - 12/20/2022 3:48 PM EDT TC from pt asking for update on PT1 to see if application was submitted for [address] [address] Specialty: X ray Gasoline Tractor Operator: n/a *pt stated contacted insurance and they advised to contact pcp office . * Telephone Encounter - Anahi Marie - 12/16/2022 3:21 PM EDT Tc from pt requesting a PT1 [address] [address] Specialty: cardiogram Time: 9 am Date: 11/21/22 Gasoline Tractor Operator: n/a If any information needed please contact pt at [phone] Patient requested this adress since 11/17/22 * Telephone Encounter - Edward Miller - 11/17/2022 3:38 PM EST Tc from pt requesting a PT1 [facility] [address] [place] [address] Specialty: X ray Time: 1:30 pm Date: 11/18/2022 Gasoline Tractor Operator: n/a If any information needed please contact pt at [phone] documented in this encounter Plan of Treatment Upcoming Encounters Date Type Department Care Team ([facility] st Contact Info) Description 03/19/2025 9:30 AM EDT Office Visit [facility] MED & PEDS [address] [place] [address] Suzie Rubin MD [address] [place] [address] 04/03/2025 11:15 AM EDT Office Visit [facility] MEDICINE [address] [place] [address] Bertha Jacinto FNP 505 [place] [address] 05/16/2025 10:00 AM EDT Office Visit [facility] ADULT DENTAL [address] [place] [address] Clau Aquino documented as of this encounter Visit Diagnoses Not on filedocumented in this encounter Care Teams Avionics Systems Repairer Relationship Specialty Start Date End Date Bertha Jacinto FNP [address] [place] [address] PCP - General Family Medicine 09/28/22 Eugenio Rudolph MD [address] [place] [address], [address] [place] [address] Neurology 09/30/24 Cale Pena MD [address] 3rd [place] [address] Cardiology 09/30/24 Josseline Gan [address] 3rd [place] [address] Gastroenterology 09/30/24 Archie Reyes MD [address] [place] [address] Vascular Surgery 09/30/24 documented as of this encounter
--- OUTSIDE RECORDS SUMMARY | 2025-01-22 11:36 | XMS_ITS | Encounter Summary ---
Author Organization [employer] [facility] Address [address] 7t [place] [address] Care Team Providers Care Delinquency Prevention Social Worker Name Role Phone Bertha Jacinto Primary Care Provider Eugenio Rudolph MD Unavailable [phone] Cale Pena MD Unavailable Josseline Gan Unavailable Archie Reyes MD Unavailable Reason for Visit * Reason Onset Date Comments PT1 01/13/2023 Encounter Details Date Type Department Care Team (Late st Contact Info) Description 01/13/2023 Telephone [facility] MEDICINE [address] [place] [address] Bertha Jacinto FNP [address] [place], [place] [phone] PT1 Social History Tobacco Use Types Packs/Day Years Used Date Smoking Tobacco: Never Smokeless Tobacco: Never Alcohol Use Standard Drinks/Week Comments Never 0 (1 standard drink = 0.6 oz pur e alcohol) Depression Answer Date Recorded Patient Health Questionnaire-9 Score 0 01/10/2023 Depression Answer Date Recorded Patient Health Questionnaire-2 Score 0 01/10/2023 Comments Unknown Sex and Gender Information Value [...] suspected to have Coronavirus/COVID-19? No / Unsure 01/10/2023 9:02 AM EDT documented as of this encounter Miscellaneous Notes * Telephone Encounter - Elizabeth Black - 02/22/2023 11:02 AM EDT PT1 submitted and approved on 02/16/2023. Good through 02/17/2024 * Telephone Encounter - Edward Miller - 01/13/2023 1:12 PM EDT Tc from pt requesting a PT1 PT1 Name of facility: [facility] Specialty: MRI Location: [address] [place] [address] Date: n/a Time: n/a fax: n/a Phone: n/a wheelchair: n/a Sql Server Architect: n/a All future appts documented in this encounter Plan of Treatment Upcoming Encounters Date Type Department Care Team (Late st Contact Info) Description 03/19/2025 9:30 AM EDT Office Visit [facility] MED & PEDS [address] [place] [address] Suzie Rubin MD 505 [place] [address] 04/03/2025 11:15 AM EDT Office Visit [facility] MEDICINE [address] [place] [address] Bertha Jacinto FNP [address] [place] [address] 05/16/2025 10:00 AM EDT Office Visit [facility] ADULT DENTAL [address] [place] [address] Clau Aquino documented as of this encounter Visit Diagnoses Not on filedocumented in this encounter Additional Health Concerns Assessment Noted Time PHQ-9 Depression Total Score: 0 01/11/20 9:12 AM EDT documented as of this encounter Care Teams Delinquency Prevention Social Worker Relationship Specialty Start Date End Date Bertha Jacinto FNP [address] [place] [address] PCP - General Family Medicine 09/28/22 Eugenio Rudolph MD [address] [place] [address], [address] [place] [address] Neurology 09/30/24 Cale Pena MD [address] 3rd [place] [address] Cardiology 09/30/24 Josseline Gan [address] [place] [address] Gastroenterology 09/30/24 Archie Reyes MD [address] [place] [address] Vascular Surgery 09/30/24 documented as of this encounter
--- OUTSIDE RECORDS SUMMARY | 2025-01-22 11:36 | XMS_ITS | Encounter Summary ---
Author Organization [facility] Address [address] 7t [place] [address] Care Team Providers Care Public Health Aide Name Role Phone Bertha Jacinto Primary Care Provider [phone] Eugenio Rudolph MD Unavailable Cale Pena MD Unavailable Josseline Gan Unavailable Archie Reyes MD Unavailable Encounter Details Date Type Department Care Team (Latest Contact Info) Description 08/16/2022 Abstract [facility] CON[facility] Dental, Provider, DDS Social [...] Description 03/19/2025 9:30 AM EDT Office Visit [facility] MED & PEDS 505 [place], [place] [phone] Suzie Rubin MD 505 [place], [place] [phone] 04/03/2025 11:15 AM EDT Office Visit [facility] MEDICINE [address] [place], [place] [phone] Bertha Jacinto FNP 505 [place], [place] [phone] 05/16/2025 10:00 AM EDT Office Visit [facility] ADULT DENTAL [address] [place] [address] Clau Aquino documented as of this encounter Visit Diagnoses Not on filedocumented in this encounter Care Teams Public Health Aide Relationship Specialty Start Date End Date Bertha Jacinto FNP [address] [place] [address] PCP - General Family Medicine 09/28/22 Eugenio Rudolph MD [address] [place] [address], [address] [place] [address] Neurology 09/30/24 Cale Pena MD [address] 3rd [place] [address] Cardiology 09/30/24 Josseline Gan [address] 3rd [place] [address] Gastroenterology 09/30/24 Archie Reyes MD [address] [place] [address] Vascular Surgery 09/30/24 documented as of this encounter
--- OUTSIDE RECORDS SUMMARY | 2025-01-22 11:36 | XMS_ITS | Encounter Summary ---
Author Organization [facility] Address [address] 7t [place] [address] Care Team Providers Care Jewelry Sales Representative Name Role Phone Rosita Clark MD Primary Care Provider Bertha Shetty Primary Care Provider [phone] Eugenio Rudolph MD Unavailable [phone] Cale Pena MD Unavailable Josseline Gan Unavailable Archie Reyes MD Unavailable Encounter Details Date Type Department Care Team (Latest Contact Info) Description 04/15/2021 Abstract [facility] CONVERSIONS Dental, Provider, DDS Social [...] Description 03/19/2025 9:30 AM EDT Office Visit [facility] CHC MED & PEDS [address] [place], [place] [phone] Suzie Rubin MD [address] [place], [place] [phone] 04/03/2025 11:15 AM EDT Office Visit [facility] MEDICINE [address] [place], [place] [phone] Bertha Jacinto FNP [address] [place], [place] [phone] 05/16/2025 10:00 AM EDT Office Visit [facility] ADULT DENTAL [address] [place] [address] Clau Aquino documented as of this encounter Visit Diagnoses Not on filedocumented in this encounter Care Teams Jewelry Sales Representative Relationship Specialty Start Date End Date Rosita Clark MD PCP - General Family Medicine 07/31/19 08/08/22 Bertha Jacinto FNP [address] [place] [address] PCP - General Family Medicine 09/28/22 Eugenio Rudolph MD [address] [place] [address], [address] [place] [address] Neurology 09/30/24 Cale Pena MD [address] 3rd [place] [address] Cardiology 09/30/24 Josseline Gan [address] 3rd [place] [address] Gastroenterology 09/30/24 Archie Reyes MD [address] [place] [address] Vascular Surgery 09/30/24 documented as of this encounter
--- OUTSIDE RECORDS SUMMARY | 2025-01-22 11:36 | XMS_ITS | Encounter Summary ---
Author Organization [employer] [facility] Address [address] 7t [place] [address] Care Team Providers Care Crab Fisher Name Role Phone Bertha Jacinto Primary Care Provider [phone] Eugenio Rudolph MD Unavailable [phone] Cale Pena MD Unavailable Josseline Gan Unavailable Archie Reyes MD Unavailable Reason for Visit * Reason Onset Date Comments PT1 11/12/2022 Encounter Details Date Type Department Care Team (Late st Contact Info) Description 11/12/2022 Telephone [facility] MEDICINE [address] [place] [address] Bertha Jacinto FNP [address] [place], [place] [phone] PT1 Social History Tobacco Use Types Packs/Day [...] * Telephone Encounter - Elizabeth Black - 02/15/2023 12:10 PM EDT PT1 submitted and approved for [facility]. Approved through 01/11/2024 * Telephone Encounter - Edward Miller - 11/12/2022 3:06 PM EST Tc from pt requesting a PT1 [address] [address] Specialty: X ray Time: 8:00 am Date: 11/15/2022 Cabinet Installer: n/a If any information needed please contact pt at [phone] documented in this encounter Plan of Treatment Upcoming Encounters Date Type Department Care Team ([facility] st Contact Info) Description 03/19/2025 9:30 AM EDT Office Visit [facility] CHC MED & PEDS [address] [place] [address] Suzie Rubin MD 505 [place] [address] 04/03/2025 11:15 AM EDT Office Visit [facility] MEDICINE [address] [place] [address] Bertha Jacinto FNP [address] [place] [address] 05/16/2025 10:00 AM EDT Office Visit [facility] ADULT DENTAL [address] [place] [address] Clau Aquino documented as of this encounter Visit Diagnoses Not on filedocumented in this encounter Care Teams Crab Fisher Relationship Specialty Start Date End Date Bertha Jacinto FNP [address] [place] [address] PCP - General Family Medicine 09/28/22 Eugenio Rudolph MD [address] [place] [address], [address] [place] [address] Neurology 09/30/24 Cale Pena MD [address] 3rd [place] [address] Cardiology 09/30/24 Josseline Gan [address] 3rd [place] [address] Gastroenterology 09/30/24 Archie Reyes MD [address] [place] [address] Vascular Surgery 09/30/24 documented as of this encounter
--- OUTSIDE RECORDS SUMMARY | 2025-01-22 11:36 | XMS_ITS | Encounter Summary ---
Author Organization [employer] Address [address] 7t [place] [address] Care Team Providers Care Supervisor Pairing And Inspecting Name Role Phone Bertha Jacinto Primary Care Provider Eugenio Rudolph MD Unavailable Cale Pena MD Unavailable Josseline Gan Unavailable Archie Reyes MD Unavailable Reason for Visit * Reason Onset Date Comments PT1 12/17/2022 Encounter Details Date Type Department Care Team (Late st Contact Info) Description 12/17/2022 Telephone [facility] MEDICINE [address] [place] [address] Bertha Jacinto FNP [address] [place], [place] [phone] PT1 Social History Tobacco Use Types Packs/Day [...] Telephone Encounter - Elizabeth Black - 02/22/2023 10:54 AM EDT Patient will recieve approval / denial letter via mail. PT-1 Request [id number] [address] [place] [address] * Telephone Encounter - Kalli Eden - 12/17/2022 2:24 PM EDT Tc from pt requesting a PT1 for Location:[address] [place] [address] [facility] Date&Time: 12/23/22 @ 1:45pm Loan Adviser: no No wheel chair or cane documented in this encounter Plan of Treatment Upcoming Encounters Date Type Department Care Team (Late st Contact Info) Description 03/19/2025 9:30 AM EDT Office Visit [facility] CHC MED & PEDS [address] [place] [address] Suzie Rubin MD [address] [place] [address] 04/03/2025 11:15 AM EDT Office Visit [facility] MEDICINE [address] [place] [address] Bertha Jacinto FNP [address] [place] [address] 05/16/2025 10:00 AM EDT Office Visit [facility] ADULT DENTAL [address] [place] [address] Clau Aquino documented as of this encounter Visit Diagnoses Not on filedocumented in this encounter Care Teams Supervisor Pairing And Inspecting Relationship Specialty Start Date End Date Bertha Jacinto FNP [address] [place] [address] PCP - General Family Medicine 09/28/22 Eugenio Rudolph MD [address], [address] [place] [address] Neurology 09/30/24 Cale Pena MD [address] 3rd [place] [address] Cardiology 09/30/24 Josseline Gan [address] 3rd [place] [address] Gastroenterology 09/30/24 Archie Reyes MD [address] [place] [address] Vascular Surgery 09/30/24 documented as of this encounter
--- OUTSIDE RECORDS SUMMARY | 2025-01-22 11:37 | XMS_ITS | Clinical Summary ---
Author Organization [employer] Address [address] [place] [address] Care Team Providers Care Scada Engineer Name Role Phone Bertha Jacinto Primary Care Provider [phone] Eugenio Rudolph MD Unavailable Cale Pena MD Unavailable Josseline Gan Unavailable Archie Reyes MD Unavailable Allergies Active Allergy Reactions Criticality Noted Date Comments Passion Fruit Flavoring Agen t (Non-Screening) Hives Medium 04/14/2023 Medications * This document contains information received from the source organization and may not represent a complete record from that organization. clonazePAM (KlonoPIN) 1 MG tablet Take 1 tablet by mouth every 12 (twelve) hours. 09/02/20 21 Active zolpidem (Ambien) 10 MG tablet Take 10 mg by mouth at bedtime. 09/09/20 22 Active sertraline (Zoloft) 100 MG tablet TAKE 2 TABLETS BY MOUTH ONCE DAILY IN THE MORNING 09/09/20 22 Active hydrocortisone 1 % lotion Apply topically 2 times daily. Use for up to 1 week. 60 g 1 12/12/19 24 Active amitriptyline (Elavil) 10 MG tablet TAKE 1 TABLET BY MOUTH AT BEDTIME NEEDED. MAY INCREASE BY 1 TABLET EVERY WEEK DIRECTED UP TO 4 TABLETS AT BEDTIME 12/21/19 24 Active lidocaine (Lidoderm) 5 % patchIndicatio ns:Acute bilateral thoracic back pain Apply 1 patch topically Once per day. Remove & discard patch within 12 hours or as directed by MD. 30 patch 3 04/16/20 24 Active pantoprazole (ProtoNix) 40 MG EC tabletIndicati ons:Gastroesop hageal reflux disease without esophagitis TAKE 1 TABLET BY MOUTH 1/2 HOUR BEFORE BREAKFAST Active Multiple Vitamin (multivitamin) tabletIndicati ons:Encounter for routine history and physical examination of adult,[facility] re maintenance Take 1 tablet by mouth Once per day. OTC Active fluticasone (Flonase) 50 MCG/ACT nasal spray Administer 1-2 sprays into each nostril Once per day. 16 g 3 05/18/20 24 Active Ketotifen Fumarate 0.035 % solution Administer 1 drop into affected eye(s) if needed in the morning and at bedtime (eye redness, itching). 10 mL 06/15/20 24 Active acetaminophen (Tylenol) 500 MG tablet Take 2 tablets (1,000 mg) by mouth every 6 (six) hours if needed for mild pain. 30 tablet 06/15/20 24 Active ibuprofen 800 MG tabletIndicati ons:Pain TAKE 1 TABLET BY MOUTH THREE TIMES DAILY NEEDED FOR PAIN OR FEVER OR FOR HEADACHE 90 tablet 2 06/27/20 24 Active senna (Senokot) 8.6 MG tablet TAKE 2 TABLETS BY MOUTH AT BEDTIME FOR CONSTIPATION 120 tablet 1 10/10/19 25 Active hydrOXYzine pamoate (Vistaril) 25 MG capsule TAKE 1 CAPSULE BY MOUTH EVERY TWELVE HOURS NEEDED FOR ANXIETY 30 capsule 1 12/06/19 25 Active clotrimazole (Lotrimin) 1 % creamIndicatio ns:Tinea pedis of right foot Apply topically 2 times daily for 28 days. 30 g 1 01/03/20 25 2024 Active hydrocortisone 2.5 % creamIndicatio ns:Pruritic rash Apply pea sized amount to skin bid for 1 week 15 g 01/03/20 25 Active cyclobenzaprin e (Flexeril) 10 MG tabletIndicati ons:Muscle spasm TAKE 1 TABLET BY MOUTH THREE TIMES DAILY IN THE MORNING, AT NOON, AND AT BEDTIME NEEDED FOR MUSCLE SPASMS 45 tablet 01/05/20 25 Active cyclobenzaprin e (Flexeril) 10 MG tabletIndicati ons:Muscle spasm TAKE 1 TABLET BY MOUTH THREE TIMES DAILY IN THE MORNING, AT NOON, AND AT BEDTIME NEEDED FOR MUSCLE SPASMS 45 tablet 10/09/19 25 2024 Discontinued propranolol (Inderal) 10 MG tablet Take 1 tablet (10 mg) by mouth Once daily as needed (stressful event). Take 30-60 minutes before stressful event. 30 tablet 3 11/22/19 25 2024 Discontinued(S pam effects) Active Problems Problem Noted Date Diagnosed Date Severe anxiety 11/21/2024 Assessment & Plan (01/03/2025 8:46 AM EDT): During IBH Consult Laura presenting with excessive worry/anxiety, difficulty controlling worry, anxiety/worry associated to restlessness and/or feeling keyed-up/On edge , easily fatigued , difficulty concentrating and/or mind going blank , irritability, muscle tension , and sleep disturbance difficulty falling asleep and difficulty staying asleep , Fear , and sense of dread , Recurrent panic attacks (abrupt surge of intese cary or discomfort that reaches peak within minutes and during which time the following occur (4 or more) palpitations, sweating, trembling/shaking, sensation of shortness of breath/smothering, Chest pain/discomfort, nausea/abdominal distress, dizzy/unsteady/light-headed/faint, Chills/heat sensation, numbness/tingling, fear of losing control, fear of dying ; for a period of 18+ mo, for most or all symptoms in the context of unable to identify significant stressors. Patient reports sxs are present mostly everyday. She reported practicing coping skills discussed during last appointment. She is connected with psychiatrist services with [facility]. Medication helps manage sxs. Chronic pain is associated with anxiety mood due to experiencing fibromyalgia sxs. Pt is also worried about her housing situation. She will be referred to to assist with resources and housing opening in the area. Assessment & Plan (11/22/2024 7:52 PM EST): Continue following with N-therapist and psych prescriber BE completed following appointment today Start propranolol 10 mg 30 to 60 minutes before stress inducing event. Reviewed med safety and side effects Assessment & Plan (11/21/2024 11:57 AM EST): During IBH Consult Celeste presenting with excessive worry/anxiety, difficulty controlling worry, anxiety/worry associated to restlessness and/or feeling keyed-up/On edge , easily fatigued , difficulty concentrating and/or mind going blank , irritability, muscle tension , and sleep disturbance difficulty falling asleep, Fear , and sense of dread and Recurrent panic attacks (abrupt surge of intese cary or discomfort that reaches peak within minutes and during which time the following occur (4 or more) palpitations, sweating, trembling/shaking, sensation of shortness of breath/smothering, Chest pain/discomfort, nausea/abdominal distress, dizzy/unsteady/light-headed/faint, Chills/heat sensation, numbness/tingling, fear of losing control, fear of dying; for a period of 6-12 mo, for most or all symptoms in the context of unable to identify significant stressors. Patient reports sxs are present mostly everyday. Her anxiety/panic symptoms lead to ER visits. Medical providers ruled out: medical conditions. Presentation of sxs have no specific trigger associated with. Pt has current services with [facility] - therapy sessions biweekly and psychiatrist every three months-. We explored different coping strategies and practiced them during today's session. clinician provided active/reflective listening. Reviewed and assessed for risk, current stressors and protective factors using open-ended questions. Pt will continue current services with [facility]. clinician will provide additional support during her next medical appointment to assess on intervention. Pt agreed with plan. Panic attacks 11/21/2024 Assessment & Plan (11/21/2024 11:57 AM EST): During IBH Consult Celeste presenting with excessive worry/anxiety, difficulty controlling worry, anxiety/worry associated to restlessness and/or feeling keyed-up/On edge , easily fatigued , difficulty concentrating and/or mind going blank , irritability, muscle tension , and sleep disturbance difficulty falling asleep, Fear , and sense of dread and Recurrent panic attacks (abrupt surge of intese cary or discomfort that reaches peak within minutes and during which time the following occur (4 or more) palpitations, sweating, trembling/shaking, sensation of shortness of breath/smothering, Chest pain/discomfort, nausea/abdominal distress, dizzy/unsteady/light-headed/faint, Chills/heat sensation, numbness/tingling, fear of losing control, fear of dying; for a period of 6-12 mo, for most or all symptoms in the context of unable to identify significant stressors. Patient reports sxs are present mostly everyday. Her anxiety/panic symptoms lead to ER visits. Medical providers ruled out: medical conditions. Presentation of sxs have no specific trigger associated with. Pt has current services with [facility] - therapy sessions biweekly and psychiatrist every three months-. We explored different coping strategies and practiced them during today's session. clinician provided active/reflective listening. Reviewed and assessed for risk, current stressors and protective factors using open-ended questions. Pt will continue current services with [facility]. clinician will provide additional support during her next medical appointment to assess on intervention. Pt agreed with plan. Atypical chest pain 10/30/2024 Fibromyalgia 06/18/2024 Assessment & Plan (01/04/2025 8:23 PM EDT): Generalized aches and pains of body - bilateral upper and lower extremities as well as torso. Onset: > 1 year Associated with fatigue KATRIN, RF, ESR, CRP - normal May 2024. H/H and TSH WNL May 2024. Following with Rx amitriptyline through Neuro Encouraged to continue with holistic approach to care Assessment & Plan (06/24/2024 7:08 PM EDT): Generalized aches and pains of body - bilateral upper and lower extremities as well as torso. Onset: > 1 year Associated with fatigue KATRIN, RF, ESR, CRP - normal May 2024. H/H and TSH WNL May 2024. Following with Rx amitriptyline through Neuro Reviewed diagnosis and generalized approach to tx including pharmacologic and lifestyle interventions. May consider [facility] acupuncture clinic. 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 Reyes) in January 2024. Symptomatic with swelling, discomfort, and itching - 02/14/24: US venous bilateral demonstrated Right: small varicose veins in the medial proximal calf without significant reflux. Left: Focal segmental areas of reflux within the great saphenous vein within the calf which is otherwise normal in size. Small varicose veins in the medial proximal thigh and medial proximal calf without significant reflux - DME rx for compression socks generated December 2023 - 05/08/24: [facility] Vascular - Dr. Reyes. Results after venous testing: pt has no significant venous insufficiency. Suspected MSK in nature. Follow up PRN. Assessment & Plan (03/23/2024 5:48 AM EDT): - Consult with Vascular (Dr. Reyes) in January 2024. Symptomatic with swelling, discomfort, and itching - 02/14/24: US venous bilateral demonstrated Right: small varicose veins in the medial proximal calf without significant reflux. Left: Focal segmental areas of reflux within the great saphenous vein within the calf which is otherwise normal in size. Small varicose veins in the medial proximal thigh and medial proximal calf without significant reflux - DME rx for compression socks generated December 2023 Healthcare maintenance 05/12/2023 Overview (01/04/2025): Pap: NILM, HPV POS 12/10/20 at [facility] [employer]. Mammo: BIRADS 1 on 08/03/24 Colonoscopy: routine screening starting at 45 y/o Last PE: 05/18/24 OPH: CEE 11/29/24 at [facility] Assessment & Plan (05/19/2023 4:08 PM EDT): Pap: positive high rish HPV 12/07 at [facility] [place] [employer]. Reports recent screening - possibly Dr. Aquino at [facility] that was normal. Records requested. Mammo: BIRADS 1 in Jul 2022 Colonoscopy: routine screening starting at 45 y/o Vaccines: eligible for COVID bivalent booster History of syncope 10/30/2022 Overview (03/25/2024): Three syncopal episodes in the past few years - suspected vasovagal syncope (Sep 2022, last Oct 2023) Pt denied any chest pain, difficulty breathing, palpitations, hx low blood sugar/diabetes, hx of hypotension TSH, BMP, A1C, Vit D unremarkable Sep 2022 Continue following with Neurology: [facility] Neurology for history of NGUYEN. Continue following with Cardiology TTE 12/2022 low normal LV systolic function w EF 50-55 % ,normal valves Holter 48 hours 12/2022 : No relevant cardiac findings From cardiology note obtained from 07/2023 Pt did have a Tilt test done reported as well as normal and advised pt hydration Audiology eval WNL 01/19/24 - normal hearing and excellent speech discrimination bilaterally ED precautions reviewed Assessment & Plan (03/25/2024 6:15 PM EDT): PAIN MEDICINE PHYSICIAN eval pending Assessment & Plan (12/20/2023 11:20 AM EDT): PAIN MEDICINE PHYSICIAN eval pending Dizziness 10/05/2022 Overview (12/20/2023): -Check BP at home when episodes occur, encouraged to move slowly when changing from seated to standing position -Encouraged adequate water intake -Previously referred to PT for vestibular rehab Assessment & Plan (09/30/2024 5:59 PM EST): - Symptom onset prior to ED visit, currently resolved - Follow up precautions reviewed Assessment & Plan (12/20/2023 11:21 AM EDT): Denies any noted changes in hearing, but interested in eval through audiology for further eval, will place. 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 Reports following with [facility] for OBGYN care, request most recent notes Assessment & Plan (05/19/2023 4:06 PM EDT): -Following with [place] [facility]. Request most recent records of pap and [employer] visit Mild intermittent asthma 01/24/2017 Assessment & Plan (05/21/2024 10:41 AM EDT): -Cont albuterol PRN -Well controlled Migraine 03/14/2014 Overview (03/25/2024): Continue following with [facility] Neurology - Dr. Rudolph Rx for Nurtec sent through Neuro on Jun 2023, pt reports not approved by insurance Cont amitriptyline 10mg daily Previous med trials: divalproex Plan for potential botox if current medication not therapeutic. Assessment & Plan (05/19/2023 4:08 PM EDT): ?? Continue following with [facility] Neurology ?? Reports recently initiated new medication, unsure of name. Plan for potential botox if current medication not therapeutic. Assessment & Plan (01/23/2023 10:13 AM EDT): ?? Continue following with [facility] Neu[facility] ?? Reports recently initiated new medication, unsure of name. Plan for potential botox if current medication not therapeutic. Allergic rhinitis 08/30/2013 Overview (05/19/2023): ?? Continues with flonase PRN Mixed anxiety and depressive disorder 08/30/2013 Assessment & Plan (11/22/2024 7:54 PM EST): Continue following with psych - med management through Dr. Martins Continues with sertraline, zolpidem, and clonazepam through their office Denies SI/HI/thoughts of self harm Assessment & Plan (06/24/2024 7:06 PM EDT): Continue following with psych - med management through Dr. Martins Continues with sertraline, zolpidem, and clonazepam through their office Denies SI/HI/thoughts of self harm Assessment & Plan (05/21/2024 10:27 AM EDT): Continue following with psych - med management through Dr. Martins Continues with sertraline, zolpidem, and clonazepam through their office Denies SI/HI/thoughts of self harm Assessment & Plan (05/19/2023 4:10 PM EDT): ?? Continue following with psych - med management through Dr. Martins ?? Continues with sertraline, zolpidem, and clonazepam through their office ?? Denies SI/HI/thoughts of self harm Resolved Problems Problem Noted Date Diagnosed Date Resolved Date Viral URI 10/30/2024 11/21/2024 Syncope 11/10/2023 12/20/2023 Assessment & Plan (11/10/2023 5:20 AM EST): Pt on zolpidem ,sertraline ,clonazepam ,cyclobenzaprine prn no taking in last week .Denies to be taking any new meds,denies hx of seizures,denies any previous associated resp,CV nor neurologic complaints prior event Today her capillary glucose 109 , orthostatic VS are neg -EKG NST,HR 67 QTC 426, intra atrial conduction delay -request today records of neurology and angle furnaceman to [place] to check already workup performed for previous syncope ( would need to check if had EEG, MIMI, Tilt test) -check CBC,chem,TSH -f w PCP in 2 to 3 weeks to f symptoms and labs -warm compresses back and tylenol prn -may need compression stockings if neg workup -advised pt to change slowly from positions ,keep hydrated -alarm signs and symptoms advised Obesity (BMI 30-39.9) 01/24/20172023 Assessment & Plan (05/19/2023 4:05 PM EDT): ?? Encouraged healthy food consumption and routine physical activity Encounters * This document contains information received from the source organization and may not represent a complete record from that organization. Date Type Department Care Team Description 01/04/2025 Refill [facility] [address] [place] [address] Bertha Jacinto FNP Muscle spasm 01/02/2025 9:45 AM EDT Office Visit [facility] [address] [place] [phone] Bertha Jacinto FNP Pain of left upper extremity (Primary Dx); Healthcare maintenance; Fibromyalgia; Left forearm pain; Numbness and tingling of both upper extremities; Tinea pedis of right foot; Pruritic rash; Dysphagia, unspecified type 01/02/2025 Travel 01/01/2025 Telephone [facility] [address] [place] [address] Bertha Jacinto FNP Chart Prep 12/05/2024 Telephone [facility] [address] [place] [phone] Bertha Jacinto FNP pt1 12/05/2024 Refill [facility] [address] [place] [phone] Rosi Mariscal FNP 11/30/2024 Population Health Risk Score [facility] () Department [address] [place] [phone] Provider, Population Health Generic 11/21/2024 10:00 AM EST Office Visit [facility] [address] [place] [phone] Bertha Jacinto FNP Dizziness (Primary Dx); Mixed anxiety and depressive disorder; Skin tag; Severe anxiety; Left forearm pain 11/21/2024 Travel 11/19/2024 Telephone [facility] [address] [place] [address] Vamshi Sands MA Chart Prep 11/15/2024 11:00 AM EST Office Visit [facility] AD[facility] DENTAL [address] [place] [phone] Clau Aquino Normal oral exam (Primary Dx); Dental calculus; Dental plaque 11/13/2024 Patient Outreach [facility] [address] [place] [address] Bertha Jacinto FNP Pre-visit Planning (SDOH Screening negative and Tobacco screening negative) 11/06/2024 Telephone [facility] [address] [place] [phone] Bertha Jacinto FNP Nurse Triage 10/31/2024 Telephone [facility] [address] [place] [phone] Bertha Jacinto FNP Nurse Triage 10/30/2024 3:00 PM EST Office Visit [facility] [address] [place] [address] [phone] Whit Hinojosa MD Atypical chest pain (Primary Dx); Viral URI; Mixed anxiety and depressive disorder 10/30/2024 Telephone [facility] [address] [place] [address] [phone] Bertha Jacinto FNP Nurse Triage from Last 3 Months Immunizations Name Administration Dates Next Due Hep B, Adolescent or Pediatric 07/12/1996,1995,12/29/1995 Hep B, adult 05/24/2008 INFLUENZA INJECTABLE QUADRIV ALANT CCIIV4 MDCK Multi-dose vial 08/08/2019 Influenza Injectable Quadriv alant Preservative Free IIV4 MDCK 07/26/2023,07/30/2022 Influenza injectable quadriv alent IIV4 with preservative 07/11/2018,06/02/2015 Influenza injectable quadriv alent preservative free 07/18/2021,09/06/2020,06/20/2017 Influenza, IIV3, injectable 07/30/2014,1 ,07/13/2007,10/12,07/02/2005,07/10/2002,07/11/2001 Influenza, Split (incl. gerardo fied surface antigen) 07/10/2013 Pneumococcal Conjugate PCV 20 03/23/2024 Pneumococcal Polysaccharide PPSV23 07/28/2010 Rubella 03/18/2003 TD (adult), 2 Lf tetanus tox oid, preservative free, adsorbed 04/07/2006,03/19/1993 Tdap 03/23/2024,03/14/2014 Family History Medical History Relation Name Comments Stomach cancer Maternal Grandfather Stomach cancer Maternal Grandmother Diabetes Mother Hyperlipidemia Mother Migraines Mother Relation Name Status Comments Father Maternal Grandfather Maternal Grandmother Mother Social History Tobacco Use Types Packs/Day Years Used Date Smoking Tobacco: Never Passive Smoke Exposure: Never Smokeless Tobacco: Never Tobacco Cessation:Counseling Given: Not Answered Alcohol Use Standard Drinks/Week Comments Never 0 (1 standard drink = 0.6 oz pur e alcohol) Alcohol Answer Date Recorded Frequency of Alcohol Consumption Not on file 05/18/2024 Average Number of Drinks Not on file 024 Frequency of Binge Drinking Not on file 04/21 Score 0 05/18/2024 Depression Answer Date Recorded Patient Health Questionnaire-9 Score 9 11/21/2024 Patient Health Questionnaire-9 Score 9 11/21/2024 Last PHQ-9: Questionnaire Data Not on file 0 11/21/2024 Housing Stability Answer Date Recorded What is your housing situation today? I have luis pina 05/18/[address] you li ve. Do you have problems with any of the following? None of the above 05/18/2024 Food Insecurity Answer Date Recorded Within the past 12 months, y ou worried that your food would run out before you got money to buy more: Never True 03/23/2024 Within the past 12 months,th e food you bought just didn't last and you didn't have enough money to get more: Never True 01/2024 Transportation Answer Date Recorded In the past 12 months, has l ack of transportation kept you from medical appts, meetings, work or from getting things needed for daily living? No 03/23/2024 Utilities Answer Date Recorded In the past 12 months, has t he electric, gas, oil or water company threatened to shut off services in your home? No 03/23/2024 Depression Answer Date Recorded Patient Health Questionnaire-2 Score 2 11/21/2024 Internet Access Answer Date Recorded Internet Access Q1 Yes 05/18/2024 Internet Access Q2 Not on file 05/18/2024 Comments Unknown Sex and Gender Information Value Date Recorded Sex Assigned at Female 07/19/2022 10:15 AM EDT Legal Sex Female 10:15 AM EDT Gender Identity Female 07/19/2022 10:15 AM EDT Sexual Orientation Straight 07/19/2022 10 :15 AM EDT Last Filed Vital Signs Vital Sign Reading Time Taken Comments Blood Pressure 133/77 01/02/2025 9:44 AM EDT Pulse 91 01/02/2025 9:44 AM EDT Temperature 36.1 ??C (96.9 ??F) 01/02/2025 9:44 AM ED T Respiratory Rate 18 01/02/2025 9:44 AM EDT Oxygen Saturation 98% 01/02/2025 9:44 AM EDT Inhaled Oxygen Concentration - - Weight 88.7 kg (195 lb 8 oz) 01/02/2025 9:44 AM EDT Height 149.9 cm (4' 11 ) 01/02/2025 9:44 AM EDT Body Mass Index 39.49 01/02/2025 9:44 AM EDT Plan of Treatment Upcoming Encounters Date Type Department Care Team (Late st Contact Info) Description 03/19/2025 9:30 AM EDT Office Visit [facility] [address] [place] [address] Suzie Rubin MD [address] [place] [address] 04/03/2025 11:15 AM EDT Office Visit [facility] [address] [place] [address] Bertha Jacinto FNP [address] [place], [place] [phone] 05/16/2025 10:00 AM EDT Office Visit [facility] AD[facility] DENT[facility] [address] [place] [address] Clau Aquino Health Maintenance Due Date Last Done Comments Family Planning (PISQ) 1995 Pap Smear 2001 Dental Oral Exam 05/16/2025 11/15/2024, , 04/13/2021, Additional history exists Dental Prophylaxis 05/16/2025 11/15/2024, 1 10/16/2021, 11/16/2021, Additional history exists Alcohol/Substance Use Screening 05/18/2025 05/18/2024 COVID-19 Vaccine ( season) 2025 02/02/2021, 12/31/2020 Postponed from 05/20/2024 (Patient Refused) Mammogram 08/03/2025 08/03/2024, 04/2023, 07/21/2022, Additional history exists SDOH Screening 11/13/2025 11/13/2024 Dental X-Ray: Bitewings 11/16/2025 11/15/19 25, 08/16/2022, 04/13/2021, Additional history exists Depression Screening 11/21/2025 11/21/2024, 11/22/19 Cervical Cancer Screening 12/10/2025 HPV/Cotest 12/10/2025 12/10/2020, 12/10/2020 Tobacco Screening 01/02/2026 01/02/2025 Dental X-Ray: Full Mouth 11/16/2027 025, 05/01/2024, 04/13/2021, Additional history exists Zoster Vaccines (1 of 2) 2030 DTaP/Tdap/Td Vaccines (4 - Td or Tdap) 03/23/2034 03/23/2024, 03/14/2014, 04/07/2006, Additional history exists RSV Patients and Patients Aged 60 years or older (1 - 1-dose 75+ series) 2055 Hepatitis B Vaccines Completed 05/24/2008, 07/12/1996, 01/30/1996, Additional history exists HIV Screening Completed 03/23/2024, 04/14/2023 Hepatitis C Screening Completed 03/23/2024, 023 Pneumococcal Vaccine: Pediatrics (0 to 5 Years) and At-Risk Patients (6 to 49) Years) Completed 03/23/2024, 07/28/2010 Influenza Vaccine Completed 07/05/2024, , 07/30/2022, Additional history exists HIB Vaccines Aged Out No longer eligi ble based on patient's age to complete this topic HPV Vaccines Aged Out No longer eligi ble based on patient's age to complete this topic Hepatitis A Vaccines Aged Out No long er eligible based on patient's age to complete this topic IPV Vaccines Aged Out No longer eligi ble based on patient's age to complete this topic Meningococcal Vaccine Aged Out No ayde soila eligible based on patient's age to complete this topic RSV under 20 months Aged Out No longe r eligible based on patient's age to complete this topic Rotavirus Vaccines Aged Out No longer eligible based on patient's age to complete this topic Procedures Procedure Name Priority Date/Time Associated Diagnosis Comments ORAL HYGIENE INSTRUCTIONS Routine 11/15/2024 11:00 AM EST Dental calculus Dental plaque INTRAORAL - COMPLETE SERIES OF RADIOGRAPHIC IMAGES Routine 11/15/2024 11:00 AM EST CASE PRESENTATION, DETAILED AND EXTENSIVE TREATMENT PLANNING Routine 11/15/2024 11:00 AM EST PROPHYLAXIS - ADULT Routine 11/15/2024 1 1:00 AM EST Dental calculus Dental plaque PERIODIC ORAL EVALUATION - ESTABLISHED PATIENT Routine 11/15/2024 11:00 AM EST POCT RAPID COVID ANTIGEN Routine 10/30/2024 2:20 PM EST Viral URI BI MAMMOGRAM SCREENING TOMOSYNTHESIS BILATERAL Routine 08/03/2024 1:41 PM EST HEPATITIS C VIRAL RNA, QUANTITATIVE, REAL-TIME PCR Routine 03/23/2024 9:51 AM EDT Screening examination for STI HIV 1/2 ANTIGEN/ANTIBODY, FOURTH GENERATION W/RFL Routine 03/23/2024 9:51 AM EDT Screening examination for STI ZZZ HISTORICAL HPV E6/E7 RFLX ARYAN 16 18/45 Routine 12/10/2020 1:49 PM EDT from Last 3 Months or Most Recently Relevant to Health Maintenance Results * POCT Rapid COVID Ag (10/30/2024 2:20 PM EST) Rapid COVID Ag Negative Swab 10/30/2024 2:20 PM EST Whit Hinojosa MD POINT OF CARE TEST ENTER/EDIT OR DERABLES Final Result * BI Mammogram Screening Tomosynthesis Bilateral (08/03/2024 1:41 PM EST) Anatomical Region Laterality Modality Breast Bilateral Mammography 08/03/2024 1:41 PM EST Narrative 08/14/2024 11:01 AM EST ? [facility] ? [address] ?[place], [place] [address] ? Mammography Report ? Signed ? Patient: Eber Rivera,Laura P ?MR ?? #: [id number] ? : 1980 ?Acct:[id number] ? Age/Sex: 44 / F ?ADM Date: 08/03/24 ? Loc: HO.MAMMO ? Attending Dr: Bertha Jacinto SALES PROJECT COORDINATOR ? Ordering Physician: Bertha Jacinto SALES PROJECT COORDINATOR ?Results: 1Negat ?? andrey ? Date of Service: 08/03/24 ?Follow Up: 1 Year From Orig ?? inal Mammogram ? Procedure(s): MM tomosynthesis screening BI ?? Accession Number(s): [id number] ? cc: Bertha Jacinto SALES PROJECT COORDINATOR ? EXAMINATION: ?? MM SCREENING DIGITAL BREAST TOMOSYNTHESIS, BILATERAL ? CLINICAL INFORMATION: ? Screening. Asymptomatic. ? COMPARISON: ?? Mammography: Comparison is made with available priors ? TECHNIQUE: ?? Digital breast mammography with tomosynthesis is performed in both the ?? craniocaudal and mediolateral oblique views along with computer-aided ?? detection (CAD). ? FINDINGS: ?? There are scattered areas of fibroglandular density (ACR BI-RADS breast ?? composition Category b). ? There are no significant masses, abnormal calcifications, or other ?? abnormalities. ? MM/MM tomosynthesis screening BI ?? IMPRESSION: ?? No mammographic evidence of malignancy. ? ASSESSMENT: ? BI-RADS BI-RADS 1 - Negative ? RECOMMENDATION: ?? Routine annual mammography screening. ? 1 year F/U ? This examination should not preclude the clinical evaluation of a ?? suspicious palpable abnormality. ? This patient's information was entered into a reminder system with a ?? target due date for their next mammogram. ? Electronically signed by: ??Dianne Lockwood DO ??08/14/2024 10:57 AM EST ? Dictated By: ?Dianne Lockwood DO ? Signed By: ?<Electronically signed by Dianne Lockwood, DO in OV> ? 08/14/24 1057 ? DD/ 1341 ? TD/TT: 08/03/24 1355 ? Finisher Fine Diamond Dies: ? Procedure Note Celeste, Image - 08/14/2024 [facility] [address] [place] [address] Mammography Report Signed Patient: Laura Clay PMR #: [id number] : 1980Acct:[id number] Age/Sex: 44 / FADM Date: 08/03/24 Loc: HO.MAMMO Attending Dr: Bertha Jacinto SALES PROJECT COORDINATOR Ordering Physician: Bertha Jacinto FNPResults: 1Negat andrey Date of Service: 08/03/24Follow Up: 1 Year From Orig inal Mammogram Procedure(s): MM tomosynthesis screening BI Accession Number(s): [id number] cc: Bertha Jacinto SALES PROJECT COORDINATOR EXAMINATION: MM SCREENING DIGITAL BREAST TOMOSYNTHESIS, BILATERAL CLINICAL INFORMATION: Screening. Asymptomatic. COMPARISON: Mammography: Comparison is made with available priors TECHNIQUE: Digital breast mammography with tomosynthesis is performed in both the craniocaudal and mediolateral oblique views along with computer-aided detection (CAD). FINDINGS: There are scattered areas of fibroglandular density (ACR BI-RADS breast composition Category b). There are no significant masses, abnormal calcifications, or other abnormalities. MM/MM tomosynthesis screening BI IMPRESSION: No mammographic evidence of malignancy. ASSESSMENT: BI-RADS BI-RADS 1 - Negative RECOMMENDATION: Routine annual mammography screening. 1 year F/U This examination should not preclude the clinical evaluation of a suspicious palpable abnormality. This patient's information was entered into a reminder system with a target due date for their next mammogram. Electronically signed by: Dianne Lockwood DO 08/14/2024 10:57 AM EST Dictated By: Dianne Lockwood DO Signed By: <Electronically signed by Dianne Lockwood DO in OV> 08/14/24 1057 DD/ 1341 TD/TT: 08/03/24 1355 Finisher Fine Diamond Dies: us Berhta [facility] IMG BI PROCEDURES Final Result * Hepatitis C Viral RNA, Quantitative, Real-Time PCR (03/23/2024 9:51 AM EDT) Hepatitis C Viral Load <15 NOT DETECTED NOT DETECTED IU/mL [facility] HCV Log PCR <1.18 NOT DETECTED NOT DETECTED Log IU/mL [facility] Comment:For additional infor mation, please refer tohttp://education.HauteLook/faq/BBH54p0(This link is being provided for informational/educational purposes only.)THIS TEST WAS PERFORMED AT:[facility] [place] [phone] VELAZCO MD Blood 03/23/2024 9:51 AM EDT 03/23/2024 2:07 PM EDT us Bertha [facility] LAB BLOOD ORDERABLES Final Res ult [facility] [address] [place] [phone] * HIV-1/2 Antigen and Antibodies, Fourth Generation, with Reflexes (03/23/2024 9:51 AM EDT) Pathologist [facility] HIV AB/AG Nonreactive Nonreactive [facility] Comment:HIV-1 p24 Ag and/or HIV-1/HIV-2 Ab not detected.A test result that is nonreactive does not exclude thepossibility of exposure to or infection with HIV-1 and/orHIV-2. Nonreactive results in this assay for individualswith prior exposure to HIV-1 and/or HIV-2 may be due toantigen and antibody levels that are below the limit ofdetection of this assay.The [employer] HIV Ag/Ab Combo assay result andsupplemental assay results should be interpreted inconjunction with the patient's clinical presentation,history and other laboratory results. If the results areinconsistent with clinical evidence, additional testing issuggested to confirm the result. Blood Venous blood specimen / Unknown 03/23/2024 9:51 AM EDT 03/23/2024 2:07 PM EDT us Bertha Jacinto [facility] BLOOD ORDERABLES Final Res ult [facility] [address] [place] [phone] * (ABNORMAL) HPV E6/E7 RFLX ARYAN 16 18/45 (12/10/2020 1:49 PM EDT) [facility] [place] HPV 16 RNA NOT DETECTED NOT DETECTED [facility] HPV 18/45 RNA NOT DETECTED NOT DETECTED [facility] Comment: Methodology: Tapper Hand Mediated Amplification The analytical performance characteristics of this assay have been determined by [employer]. The modifications have not been cleared or approved by the FDA. This assay has been validated pursuant to the CLIA regulations and is used for clinical purposes. THIS TEST WAS PERFORMED AT: [facility] [address] [facility] [address] [place], [place] ??[phone] MART VELAZCO MD HPV mRNA E6/E7 rflx Detected(A) Not Detected [facility] Comment: Methodology: Tapper Hand-Mediated Amplification This assay detects E6/E7 viral messenger RNA (mRNA) from 14 high-risk HPV types (16,18,31,33,35,39,45,51,52,56,58,59,66,68). The analytical performance characteristics of this assay have been determined by [employer]. The modifications have not been cleared or approved by the FDA. This assay has been validated pursuant to the CLIA regulations and is used for clinical purposes. For additional information, please refer to http://education.HauteLook/faq/EUK131c3 (This link if provided for information/ educational purposes only.) THIS TEST WAS PERFORMED AT: [facility] [address] [place] [address] [address] [place], [place] ??[phone] MART VELAZCO MD 12/10/2020 1:49 PM EDT Jonnathan Holley MD HISTORICAL/NON ORDERABLE LABS Fi nal Result [facility] [address] from Last 3 Months or Most Recently Relevant to Health Maintenance [facility] ADULT Care Teams Scada Engineer Relationship Specialty Start Date End Date Bertha Jacinto FNP [address] [place] [phone] PCP - General Family Medicine 09/28/22 Eugenio Rudolph MD [address] [place] [address], [address] [place] [address] Neurology 09/30/24 Cale Pena MD [address] 3rd [place] [address] Cardiology 09/30/24 Josseline Gan [address] 3rd [place] [address] Gastroenterology 09/30/24 Archie Reyes MD [address] [place] [address] Vascular Surgery 09/30/24
--- OUTSIDE RECORDS SUMMARY | 2025-01-22 11:37 | XMS_ITS | Encounter Summary ---
Author Organization [employer] Address [address] 7[address] [place] [address] Care Team Providers Care Software Licensing Executive Name Role Phone Bertha Jacinto Primary Care Provider [phone] Eugenio Rudolph MD Unavailable [phone] Cale Pena MD Unavailable Josseline Gan Unavailable Archie Reyes MD Unavailable Encounter Details Date Type Department Care Team (Late st Contact Info) Description 02/06/2024 Telephone [facility] P[facility] [address] [place], [place] [phone] Bertha Jacinto FNP [address] [place], [place] [phone] Social History Tobacco Use Types Packs/Day Years Used Date Smoking Tobacco: Never Passive Smoke Exposure: Never Smokeless Tobacco: Never Alcohol Use Standard Drinks/Week Comments Never 0 (1 standard drink = 0.6 oz pur e alcohol) Depression Answer Date Recorded Patient Health Questionnaire-9 Score 0 01/10/2023 Housing Stability Answer Date Recorded What is your housing situation today? I have luiscandice pina 07/06/[address] you li ve. Do you have problems with any of the following? None of the above 07/06/2023 Food Insecurity Answer Date Recorded Within the past 12 months, y ou worried that your food would run out before you got money to buy more: Never True 07/06/2023 Within the past 12 months,th e food you bought just didn't last and you didn't have enough money to get more: Never True Transportation Answer Date Recorded In the past 12 months, has l ack of transportation kept you from medical appts, meetings, work or from getting things needed for daily living? No 07/06/2023 Utilities Answer Date Recorded In the past 12 months, has t he electric, gas, oil or water company threatened to shut off services in your home? No 07/06/2023 Depression Answer Date Recorded Patient Health Questionnaire-2 Score 0 01/10/2023 Comments Unknown Sex and Gender Information Value Date Recorded Sex Assigned at Female 07/19/2022 10:15 AM EDT Legal Sex Female 10:15 AM EDT Gender Identity Female 07/19/2022 10:15 AM EDT Sexual Orientation Straight 07/19/2022 10 :15 AM EDT documented as of this encounter Miscellaneous Notes * Telephone Encounter - Kalli Eden - 02/06/2024 10:02 AM EDT documented in this encounter Plan of Treatment Upcoming Encounters Date Type Department Care Team (Late st Contact Info) Description 03/19/2025 9:30 AM EDT Office Visit [facility] MED & PEDS [address] [place] [address] Suzie Rubin MD [address] [place] [address] 04/03/2025 11:15 AM EDT Office Visit [facility] MEDICINE [address] [place] [address] Bertha Jacinto FNP [address] [place] [address] 05/16/2025 10:00 AM EDT Office Visit [facility] ADULT DENTAL [address] [place] [address] Clau Aquino documented as of this encounter Visit Diagnoses Not on filedocumented in this encounter Additional Health Concerns Assessment Noted Time PHQ-9 Depression Total Score: 0 01/11/20 23 9:12 AM EDT documented as of this encounter Care Teams Software Licensing Executive Relationship Specialty Start Date End Date Bertha Jacinto FNP [address] [place] [address] PCP - General Family Medicine 09/28/22 Eugenio Rudolph MD [address] [place] [address], [address] [place] [address] Neurology 09/30/24 Cale Pena MD [address] [place] [address] Cardiology 09/30/24 Josseline Gan [address] 3rd [place] [address] Gastroenterology 09/30/24 Archie Reyes MD [address] [place] [address] Vascular Surgery 09/30/24 documented as of this encounter
--- OUTSIDE RECORDS SUMMARY | 2025-01-22 11:37 | XMS_ITS | Encounter Summary ---
Author Organization [employer] [facility] Address [address] [place] [address] Care Team Providers Care Bullet Casting Operator Name Role Phone Bertha Jacinto Primary Care Provider Eugenio Rudolph MD Unavailable [phone] Cale Pena MD Unavailable Josseline Gan Unavailable Archie Reyes MD Unavailable Reason for Visit * Reason Onset Date Comments PT-1 12/28/2023 Encounter Details Date Type Department Care Team (Late st Contact Info) Description 12/28/2023 Telephone [facility] MEDICINE [address] [place] [address] Bertha Jacinto FNP [address] [place], [place] [phone] PT-1 Social History Tobacco Use Types Packs/Day Years Used Date Smoking Tobacco: Never Passive Smoke Exposure: Never Smokeless Tobacco: Never Alcohol Use Standard Drinks/Week Comments Never 0 (1 standard drink = 0.6 oz pur e alcohol) Depression Answer Date Recorded Patient Health Questionnaire-9 Score 0 01/10/2023 Housing Stability Answer Date Recorded What is your housing situation today? I have luis yovani 07/06/[address] you li [...] encounter Miscellaneous Notes * Telephone Encounter - Iris Newell - 12/28/2023 11:52 AM EDT PT-1 submitted for patient. They will receive a letter of approval or denial in the mail. * Telephone Encounter - Giacomo Bird - 12/28/2023 11:43 AM EDT Patient calling requesting PT1 Home Address verified: Y/N: Yes Provider name [facility] facility name[facility] Address: [address] [place] [address] Escort needed: no Do you have a wheelchair: Y/N: No If yes- Manual or electric: No Visits: 6 documented in this encounter Plan of Treatment Upcoming Encounters Date Type Department Care Team (Late st Contact Info) Description 03/19/2025 9:30 AM EDT Office Visit [facility] PEDS [address] [place], [place] [phone] Suzie Rubin MD [address] [place] [address] 04/03/2025 11:15 AM EDT Office Visit [facility] MEDICINE [address] [place], [place] [phone] Bertha Jacinto FNP [address] [place] [address] 05/16/2025 10:00 AM EDT Office Visit [facility] ADULT DENTAL [address] [place] [address] Aquino Clau documented as of this encounter Visit Diagnoses Not on filedocumented in this encounter Additional Health Concerns Assessment Noted Time PHQ-9 Depression Total Score: 0 01/11/20 23 9:12 AM EDT documented as of this encounter Care Teams Bullet Casting Operator Relationship Specialty Start Date End Date Bertha Jacinto FNP [address] [place] [address] PCP - General Family Medicine 09/28/22 Eugenio Rudolph MD [address] [place] [address], [address] [place] [address] Neurology 09/30/24 Cale Pena MD [address]rd [place] [address] Cardiology 09/30/24 Josseline Gan [address]rd [place] [address] Gastroenterology 09/30/24 Archie Reyes MD [address] [place] [address] Vascular Surgery 09/30/24 documented as of this encounter
--- OUTSIDE RECORDS SUMMARY | 2025-01-22 11:37 | XMS_ITS | Data Portability ---
Author Organization [place] - [facility], Allergy Address [address] [place] [address] Care Team Providers Care Prosthetics Assistant Name Role Phone REEMA LY Referring Provider Assessment Encounter Date Assessment Date Assessment LastModified by Organization Details LastModified Time 04/17/2024 04/17/2024 Patient presents with non-pulsatile tinnitus. We reviewed that unfortunately there is no known medical nor surgical cure. I have recommended the use of hearing protection as needed. They should also use masking techniques with background noises that modulate to decrease perception of non-pulsatile tinnitus. Other therapies to improve tolerance of tinnitus were reviewed, to include biofeedback, sound retraining, and cognitive behavioral therapy. We discussed that high stress, low sleep and high caffeine intake can also be contributing factors. A brochure was provided to patient to read at home. Reassured patient that problems in the inner ear do not cause syncope. The ears are healthy and hearing is normal. Neurologic and vestibular exam is also normal. [email or web address] Not available 04/17/2024 17:15:52 Plan of Treatment Reminders Order Date Submit Date Provider Last Modified By Organization Details Last Modified Time Details Appointments None record ed. Lab None record ed. Referral None record ed. Procedures None record ed. Surgeries None record ed. Imaging None record ed. Medication Orders None record ed. Patient TargetsNo targets recorded. Patient InstructionsNo instructions recorded. Reason for Referral None Reported. Results Created Date Observation Date Name Description Value Unit Range Abnormal Flag Note LastModifiedBy Organization Detail LastModifiedTime 04/18/20 24 audio gram No observ ation record ed. [email or web address] Not Available 2023 15:54:54 05/09/20 24 01/13/2023 imagi ng/di agnos tic resul t No observ ation record ed. [email or web address] Not Available 17:18:20 05/09/20 24 01/13/2023 imagi ng/di agnos tic resul t No observ ation record ed. [email or web address] Not Available 17:18:23 05/09/20 24 02/26/2022 imagi ng/di agnos tic resul t No observ ation record ed. [email or web address] Not Available 17:18:26 Result Notes None recorded. Problems Name Problem SNOMED Code Status Onset Date Resolution Date Notes Provider Name and Address Organization Details Recorded Time Gastroeso phageal reflux disease without esophagit is 368469605 Active 2021 Gastro-e sophagea l reflux disease without esophagi tis; Note: Date Diagnose d: 08/05/20 22 3:13 PM (K21.9) Not Available [facility] 4 02:21:12 Respirato ry finding 509950287 Active 2022 Feeling of foreign body in throat; Note: Date Diagnose d: 02/17/2023 1:06 PM (R09.89) Not Available [facility] 4 02:21:09 Cardiovas cular finding 107586568 Active 2022 Feeling of foreign body in throat; Note: Date Diagnose d: 02/17/2023 1:06 PM (R09.89) Not Available [facility] 4 02:21:10 Dysphagia 78404089 Active 2021 Other dysphagi a; Note: Date Diagnose d: 08/05/20 22 2:51 PM (R13.19) Not Available [facility] 4 02:21:00 Bilateral tinnitus 387472355931 2 Active 2023 JACE DELGADO MA, CCC-A [address] [facility],[place] [address], [place], [address] , [place] - [facility] 4 14:54:40 Dizziness 602446561 Active 2023 ALONDRA ROBERSON PA-C [address] [facility],[place] [address], [place], [address] , [facility] - [facility] 15:25:46 Syncope 940667314 Active 2023 ALONDRA ROBERSON PA-C [address] [facility],[place] [address], [facility] [place], [phone] , [place] - [facility] 17:14:19 Problem Notes None recorded. Procedures Surgical History Date Name Laterality Status Provider Name and Address Organization Details Recorded Time 04/17/2024 Air & Speech Audio with Tymps - 58360, 89623 & 15073 completed JACE DELGADO MA, CCC-A [address] [facility] [address], [place], [address], [facility] - [facility] 04/17/2024 14:54:26 Imaging Results Imaging Date Name Status LastModified by Organiz ation Details LastModified Time 04/18/2024 audiogram completed [email or web address] Information no t available 04/18/2024 15:54:54 01/13/2023 imaging/diagno stic result completed Information not available 05/09/2024 17:18:20 01/13/2023 imaging/diagno stic result completed Information not available 05/09/2024 17:18:23 02/26/2022 imaging/diagno stic result completed Information not available 05/09/2024 17:18:26 Procedure Notes None recorded. Medical Equipment None Reported. Allergies No known drug allergies Medications Name Sig Start Date Stop Date Status Note LastModified by Organization Details LastModified Time cyclobenza serafin 10 mg tablet TAKE 1 TABLET BY MOUTH THREE TIMES DAILY NEEDED FOR MUSCLE SPASMS active Not Available Not Available No t Available ibuprofen 800 mg tablet TAKE 1 TABLET BY MOUTH THREE TIMES DAILY NEEDED FOR PAIN OR FEVER OR FOR HEADACHE active Not Available Not Available No t Available senna 8.6 mg tablet TAKE 2 TABLETS BY MOUTH EVERY DAY AT BEDTIME NEEDED FOR CONSTIPAT ION active Not Available Not Available No t Available hydrocorti sone 1 % lotion APPLY TOPICALLY TO THE AFFECTED AREA(S) TWICE DAILY DIRECTED FOR 7 DAYS active Not Available Not Available No t Available sertraline 100 mg tablet TAKE 2 TABLETS BY MOUTH EVERY MORNING active Not Available Not Available No t Available clonazepam 1 mg tablet TAKE 1 TABLET BY MOUTH TWICE DAILY DIRECTED active Not Available Not Available No t Available omeprazole 40 mg capsule,de layed release Take 1 capsule once a day 2021 active Medicatio n ID: [id number] Du ration Value: 30 Brand Name: omeprazol e Send Method: E-Prescri bed Subs Allowed: subs OK Specia l Instructi on: TAKE ONE CAPSULE BY MOUTH ONCE A DAY 30 MINUTES BEFORE BREAKFAST Medicati onGeneric Name: omeprazol e Not Available Not Available Not Available acetaminop hen 500 mg tablet TAKE 2 TABLETS BY MOUTH EVERY 6 HOURS NEEDED FOR MILD PAIN active Not Available Not Available No t Available amitriptyl ine 10 mg tablet TAKE 1 TABLET BY MOUTH AT BEDTIME NEEDED. MAY INCREASE BY 1 TABLET EVERY WEEK DIRECTED UP TO 4 TABLETS AT BEDTIME active Not Available Not Available No t Available pantoprazo le 40 mg tablet,del ayed release TAKE 1 TABLET BY MOUTH 1/2 HOUR BEFORE BREAKFAST active Not Available Not Available No t Available zolpidem 10 mg tablet TAKE 1 TABLET BY MOUTH AT BEDTIME active Not Available Not Available No t Available metronidaz ole 0.75 % topical gel APPLY TOPICALLY TO NOSE TWICE DAILY DIRECTED active Not Available Not Available No t Available omeprazole 20 mg tablet,del ayed release by mouth active Medicatio n ID: [id number] Pr escribed By Name: EARL Fregoso Name: omeprazol e Send Method: E-Prescri bed Subs Allowed: subs OK Specia l Instructi on: Take 1 tablet by mouth every day before breakfast Medicati onGeneric Name: omeprazol e Not Available Not Available Not Available Vitals Date Recorded Body height Body mass index (BMI) Body weight Provider Name and Address Organization Details Last Updated DateTime 04/17/2024 149.86 cm 37.4 kg/m2 87279.59 g Nancy Crain [place] - [facility] 04/17/2024 15:09:56 Social History None recorded. Functional Status None recorded. Mental Status None recorded. Family History Nothing Reported. Medical History No medical history recorded. Gynecological HistoryNo gynecological history recorded. Obstetrics History GPAL:G 0 P 0 0 0 0 Past Encounters Encounter ID Performer Location Encounter Start Date Encounter Closed Date Diagnosis/Indication Diagnosis SNOMED-CT Code Diagnosis ICD10 Code Diagnosis Note [id number] ALNODRA ROBERSON PA-C [facility] [address] [place] [address] 04/17/2024 14:18:29 04/17/2024 15:33:05 Bilateral tinnitus 2168414174 102 H93.13 Audiologic al evaluation results:Ri ght ear:{{Norm al* Normal through 2 kHz Mild M oderate Mo derately-s evere Katia re Profoun d}} {{hearing* sloping to a mild slopi ng to a moderate s loping to moderately severe slo ping to severe slo ping to profound f lat high frequency low frequency mid frequency cookie bite benson curve}} {{with* se nsorineura l hearing loss with condu ctive hearing loss with mixed hearing loss with}} {{excellen t* good fa ir poor no measurable }} word recognitio n.Left ear:{{Norm al* Normal through 2 kHz Mild M oderate Mo derately-s evere Katia re Profoun d}} {{hearing* sloping to a mild slopi ng to a moderate s loping to moderately severe slo ping to severe slo ping to profound f lat high frequency low frequency mid frequency cookie bite benson curve}} {{with* se nsorineura l hearing loss with condu ctive hearing loss with mixed hearing loss with}} {{excellen t* good fa ir poor no measurable }} word recognitio n. Tympanomet ry:Right Ear:{{Type A* Type As Type Ad Type C Type C, shallow & rounded Ty pe B Type B with large volume Cou ld not maintain a hermetic seal}}Left Ear:{{Type A* Type As Type Ad Type C Type C, shallow & rounded Ty pe B Type B with large volume Cou ld not maintain a hermetic seal}} Dizziness 908508061 R42 Syncope 350015181 R55 Health Concerns Section Related Observation LastModified by Organization Detai ls LastModified Time None Recorded Concern Status LastModified by Organization Details LastModified Time None Recorded Advance Directives Directive None Recorded Payers Encounter Date Sequence Insurance Name Policy Number Policy Rosen Covered Member ID Rosen Member ID Guarantor Name 04/17/2024 1 [place] [facility] Laura Velázquez [id number] Laura Velázquez Notes Date Note Type Note Provider Name and Address Organization Details Recorded Time 04/17/2024 text/html 44 year old marilin benz presents for evaluation of the ears and hearing. Has had tinnitus for a long time, bilateral, non-pulsatile. Getting worse over time. Sometimes the ears seem blocked, feels like they need to pop. Auto insufflation helps briefly. Unsure if she had recurrent otitis or ear surgeries as a child. She feels that her hearing is good though she has been told that she speaks loudly. Never any otorrhea. History of allergies with pollen in the spring. Takes flonase. Had two episodes of syncope and PCP has asked her to have ENT evaluation to see if that was the cause. There was no prodrome. Both were when she was overheated. She does still have some dizziness every day described as unsteadiness or it feels like the world is moving but not spinning. She was told to track her blood pressure and eat more salt, wear compression stockings, and drink more water. JADA GUAMAN MD [address] [place] [address], [phone], [facility] - [facility] 04/18/2024 07:51:43 OBGyn Episode No OBEpisode recorded.
--- OUTSIDE RECORDS SUMMARY | 2025-01-22 11:37 | XMS_ITS | Encounter Summary ---
Author Organization [employer] Address [address] [place] [address] Care Team Providers Care Carton And Can Supply Supervisor Name Role Phone Bertha Jacinto Primary Care Provider [phone] Eugenio Rudolph MD Unavailable [phone] Cale Pena MD Unavailable Josseline Gan Unavailable Archie Reyes MD Unavailable Encounter Details Date Type Department Care Team (Late st Contact Info) Description 03/28/2024 Orders Only [facility] MED & PEDS [address] [place], [place] [phone] Bertha Jacinto FNP [address] [place], [place] [phone] Social History Tobacco Use Types Packs/Day Years Used Date Smoking Tobacco: Never Passive Smoke Exposure: Never Smokeless Tobacco: Never Alcohol Use Standard Drinks/Week Comments Never 0 (1 standard drink = 0.6 oz pur e alcohol) Depression Answer Date Recorded Patient Health Questionnaire-9 Score 0 01/10/2023 Housing Stability Answer Date Recorded What is your housing situation today? I have luiscandice pina 03/23/[address] you li ve. Do you have problems with any of the following? Water leaks 03/23/2024 Food Insecurity Answer Date Recorded Within the [...] Description 03/19/2025 9:30 AM EDT Office Visit [facility] MED & PEDS [address] [place] [address] Suzie Rubin MD 505 [place] [address] 04/03/2025 11:15 AM EDT Office Visit [facility] MEDICINE [address] [place] [address] Bertha Jacinto FNP [address] [place] [address] 05/16/2025 10:00 AM EDT Office Visit [facility] ADULT DENTAL [address] [place] [address] Clau Aquino documented as of this encounter Visit Diagnoses Not on filedocumented in this encounter Additional Health Concerns Assessment Noted Time PHQ-9 Depression Total Score: 0 01/11/20 23 9:12 AM EDT documented as of this encounter Care Teams Carton And Can Supply Supervisor Relationship Specialty Start Date End Date Bertha Jacinto FNP [address] [place] [address] PCP - General Family Medicine 09/28/22 Eugenio Rudolph MD [address] [place] [address], [address] [place] [address] Neurology 09/30/24 Cale Pena MD [address]rd [place] [address] Cardiology 09/30/24 Josseline Gan [address]rd [place] [address] Gastroenterology 09/30/24 Archie Reyes MD [address] [place] [address] Vascular Surgery 09/30/24 documented as of this encounter
--- OUTSIDE RECORDS SUMMARY | 2025-01-22 11:37 | XMS_ITS | Encounter Summary ---
Author Organization [employer] Address [address] [place] [address] Care Team Providers Care Turf Sales Person Name Role Phone Bertha Jacinto Primary Care Provider Eugenio Rudolph MD Unavailable [phone] Cale Pena MD Unavailable Josseline Gan Unavailable Archie Reyes MD Unavailable Reason for Visit * Reason Onset Date Comments PT1 07/08/2023 Encounter Details Date Type Department Care Team (Late st Contact Info) Description 07/08/2023 Telephone [facility] MEDICINE [address] [place] [address] Bertha Jacinto FNP [address] [place], [place] [phone] PT1 Social History Tobacco Use Types Packs/Day [...] enough money to get more: Never True 10/ Transportation Answer Date Recorded In the past [...] * Telephone Encounter - Iris Newell - 07/08/2023 12:53 PM EDT PT-1 submitted for patient. They will receive a letter of approval or denial in the mail. * Telephone Encounter - Yocasta Dinh - 07/08/2023 11:54 AM EDT Tc from pt requesting renewal on two PT1 Date: n/a Time: n/a Visits: n/a Address: [address] [facility] Facility: [facility] Wheel Chair: no Steam Setter Needed: no Date: 08/10 Time: 10:30 AM Visits: n/a Address: [address] [facility] Facility: [facility] primary care Wheel Chair: no Steam Setter Needed: no Pick-up location confirmed: [address] [place] [address] documented in this encounter Plan of Treatment Upcoming Encounters Date Type Department Care Team ([facility] [address] Contact Info) Description 03/19/2025 9:30 AM EDT Office Visit [facility] CHC MED & PEDS [address] [place] [address] Suzie Rubin MD 505 [place] [address] 04/03/2025 11:15 AM EDT Office Visit [facility] MEDICINE [address] [place] [address] Bertha Jacinto FNP 505 [place] [address] 05/16/2025 10:00 AM EDT Office Visit [facility] ADULT DENTAL [address] [place] [address] Clau Aquino documented as of this encounter Visit Diagnoses Not on filedocumented in this encounter Additional Health Concerns Assessment Noted Time PHQ-9 Depression Total Score: 0 01/11/20 23 9:12 AM EDT documented as of this encounter Care Teams Turf Sales Person Relationship Specialty Start Date End Date Bertha Jacinto FNP [address] [place] [address] PCP - General Family Medicine 09/28/22 Eugenio Rudolph MD [address] [place] [address], [address] [place] [address] Neurology 09/30/24 Cale Pena MD [address]rd [place] [address] Cardiology 09/30/24 Josseline Gan [address] [place] [address] Gastroenterology 09/30/24 Archie Reyes MD [address] [place] [address] Vascular Surgery 09/30/24 documented as of this encounter
--- OUTSIDE RECORDS SUMMARY | 2025-01-22 11:37 | XMS_ITS | Encounter Summary ---
Author Organization [employer] [facility] Address [address] [place] [address] Care Team Providers Care Pulping Machine Operator Name Role Phone Bertha Jacinto Primary Care Provider Eugenio Rudolph MD Unavailable [phone] Cale Pena MD Unavailable Josseline Gan Unavailable Archie Reyes MD Unavailable Reason for Visit * Reason Onset Date Comments PT-1 10/18/2023 Encounter Details Date Type Department Care Team (Late st Contact Info) Description 10/18/2023 Telephone [facility] MEDICINE [address] [place] [address] Bertha Jacinto FNP [address] [place], [place] [phone] PT-1 Social History Tobacco Use Types Packs/Day [...] encounter Miscellaneous Notes * Telephone Encounter - Jovanna Larry - 10/20/2023 9:26 AM EST PT 1 [address] [place] [address] no specialty provided in message nor for [address] [place] [address] * Telephone Encounter - Jovanna Larry - 10/20/2023 9:21 AM EST Trailer Mechanic Name Practice Name Trailer Mechanic Address Trailer Mechan[facility] Trailer Mechanic [facility] Treatment Type Status Expiration [facility] [address] [place] [id number] [id number] Approved 02/17/2024 isn't due yet [address] [place] [address] PT 1 Initiated * Telephone Encounter - Giacomo Bird - 10/18/2023 2:10 PM EST PT1 needed Date: N/A Time: N/A Visits: 6 Address: [address] [place] [address] Facility: [facility] Wheel Chair: no Shipping Inspector Needed: no PT1 needed Date: N/A Time: N/A Visits: 6 Address: [address] [place] [address] Facility: [facility] Wheel Chair: no Shipping Inspector Needed: no PT1 needed Date: N/A Time: N/A Visits: 6 Address: [address] [place] [address] Facility: [facility] Wheel Chair: no Shipping Inspector Needed: no documented in this encounter Plan of Treatment Upcoming Encounters Date Type Department Care Team (Late st Contact Info) Description 03/19/2025 9:30 AM EDT Office Visit [facility] CHC MED & PEDS [address] [place] [address] Suzie Rubin MD 505 [place] [address] 04/03/2025 11:15 AM EDT Office Visit [facility] MEDICINE [address] [place] [address] Bertha Jacinto FNP 505 [place] [address] 05/16/2025 10:00 AM EDT Office Visit [facility] ADULT DENTAL [address] [place] [address] Clau Aquino documented as of this encounter Visit Diagnoses Not on filedocumented in this encounter Additional Health Concerns Assessment Noted Time PHQ-9 Depression Total Score: 0 01/11/20 23 9:12 AM EDT documented as of this encounter Care Teams Pulping Machine Operator Relationship Specialty Start Date End Date Bertha Jacinto FNP [address] [place] [address] PCP - General Family Medicine 09/28/22 Eugenio Rudolph MD [address] [place] [address], [address] [place] [address] Neurology 09/30/24 Cale Pena MD [address] [place] [address] Cardiology 09/30/24 Josseline Gan [address] [place] [address] [place] [address] Gastroenterology 09/30/24 Archie Reyes MD [address] [place] [address] Vascular Surgery 09/30/24 documented as of this encounter
--- OUTSIDE RECORDS SUMMARY | 2025-01-22 11:37 | XMS_ITS | Encounter Summary ---
Author Organization [facility] Address [address] [place] [address] Care Team Providers Care Dipper Clock And Watch Hands Name Role Phone Bertha Jacinto Primary Care Provider [phone] Eugenio Rudolph MD Unavailable Cale Pena MD Unavailable Josseline Gan Unavailable Archie Reyes MD Unavailable Reason for Visit * Reason Onset Date Comments PT1 06/24/2023 Encounter Details Date Type Department Care Team (Late st Contact Info) Description 06/24/2023 Telephone [facility] MEDICINE [address] [place] [address] Bertha Jacinto FNP [address] [place], [place] [phone] PT1 Social History Tobacco Use Types Packs/Day [...] Miscellaneous Notes * Telephone Encounter - Iris Colon - 06/28/2023 12:09 PM EDT PT-1 submitted for patient. They will receive a letter of approval or denial in the mail. 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) # visits: n/a permaculture designer: no Wheelchair: no documented in this encounter Plan of Treatment Upcoming Encounters Date Type Department Care Team ([facility] st Contact Info) Description 03/19/2025 9:30 AM EDT Office Visit [facility] CHC MED & PEDS [address] [place] [address] Suzie Rubin MD [address] [place] [address] 04/03/2025 11:15 AM EDT Office Visit [facility] MEDICINE [address] [place] [address] Bertha Jacinto FNP [address] [place] [address] 05/16/2025 10:00 AM EDT Office Visit [facility] ADULT DENTAL [address] [place] [address] Clau Aquino documented as of this encounter Visit Diagnoses Not on filedocumented in this encounter Additional Health Concerns Assessment Noted Time PHQ-9 Depression Total Score: 0 01/11/20 23 9:12 AM EDT documented as of this encounter Care Teams Dipper Clock And Watch Hands Relationship Specialty Start Date End Date Bertha Jacinto FNP [address] [place] [address] PCP - General Family Medicine 09/28/22 Eugenio Rudolph MD [address] [place] [address], [address] [place] [address] Neurology 09/30/24 Cale Pena MD [address]rd [place] [address] Cardiology 09/30/24 Josseline Gan [address] 3rd [place] [address] Gastroenterology 09/30/24 Archie Reyes MD [address] [place] [address] Vascular Surgery 09/30/24 documented as of this encounter
--- OUTSIDE RECORDS SUMMARY | 2025-01-22 11:37 | XMS_ITS | Encounter Summary ---
Author Organization [employer] [facility] Address [address] 7t [place] [address] Care Team Providers Care Clerk Entry Level Name Role Phone Bertha Jacinto Primary Care Provider [phone] Eugenio Rudolph MD Unavailable [phone] Cale Pena MD Unavailable Josseline Gan Unavailable Archie Reyes MD Unavailable Reason for Visit * Reason Onset Date Comments PT-1 10/19/2024 Encounter Details Date Type Department Care Team (Late st Contact Info) Description 10/19/2024 Telephone [facility] MEDICINE [address] [place] [address] Bertha Jacinto FNP [address] [place], [place] [phone] PT-1 Social History Tobacco Use Types Packs/Day [...] Answer Date Recorded Patient Health Questionnaire-9 Score 7 05/18/2024 Patient Health Questionnaire-9 Score 7 05/18/2024 Last PHQ-9: Questionnaire Data Not on file 0 05/18/2024 Housing Stability Answer Date Recorded What is [...] Date Recorded Patient Health Questionnaire-2 Score 2 05/18/2024 Internet Access Answer Date Recorded Internet Access [...] encounter Miscellaneous Notes * Telephone Encounter - Kerwin Mancilla - 10/19/2024 1:07 PM EST Patient calling requesting PT1 Home Address verified: Y/N: Yes Provider name or facility name: [address] [address] Escort needed: Y/N: No Do you have a wheelchair: Y/N: No If yes- Manual or electric: N/A Visits: (amount of visits) ( x monthly, weekly, daily) 2 times a month documented in this encounter Plan of Treatment Upcoming Encounters Date Type Department Care Team ([facility] st Contact Info) Description 03/19/2025 9:30 AM EDT Office Visit [facility] CHC MED & PEDS [address] [place] [address] Suzie Rubin MD [address] [place], [place] [phone] 04/03/2025 11:15 AM EDT Office Visit [facility] MEDICINE [address] [place] [address] Bertha Jacinto FNP 505 [place], [place] [phone] 05/16/2025 10:00 AM EDT Office Visit [facility] ADULT DENTAL [address] [place] [address] Clau Aquino documented as of this encounter Visit Diagnoses Not on filedocumented in this encounter Additional Health Concerns Assessment Noted Time PHQ-9 Depression Total Score: 7 05/18/20 24 3:50 PM EDT documented as of this encounter Care Teams Clerk Entry Level Relationship Specialty Start Date End Date Bertha Jacinto FNP [address] [place] [address] PCP - General Family Medicine 09/28/22 Eugenio Rudolph MD [address] [place] [address], [address] [place] [address] Neurology 09/30/24 Cale Pena MD [address] [place] [address] Cardiology 09/30/24 Josseline Gan [address] 3rd [place] [address] Gastroenterology 09/30/24 Archie Reyes MD [address] [place] [address] Vascular Surgery 09/30/24 documented as of this encounter
--- OUTSIDE RECORDS SUMMARY | 2025-01-22 11:37 | XMS_ITS | Encounter Summary ---
Author Organization [employer] [facility] Address [address] 7[address] [place] [address] Care Team Providers Care Budget Engineer Name Role Phone Bertha Jacinto Primary Care Provider Eugenio Rudolph MD Unavailable [phone] Cale Pena MD Unavailable Josseline Gan Unavailable Archie Reyes MD Unavailable Reason for Visit * Reason Onset Date Comments PT1 06/07/2024 Encounter Details Date Type Department Care Team ([facility] st Contact Info) Description 06/07/2024 Telephone [facility] MED & PEDS [address] [place], [place] [phone] Bertha Jacinto FNP [address] [place], [place] [phone] PT1 Social History Tobacco Use Types Packs/Day [...] * Telephone Encounter - Kalli Eden - 06/07/2024 9:14 AM EDT Patient calling requesting PT1 Home Address verified: Y/N: Yes Provider name or facility name: Dr. Kong BAILON Facility Address: [address] [place] [address] Escort needed: Y/N: No Do you have a wheelchair: Y/N: No If yes- Manual or electric: Visits: 1-2 a month documented in this encounter Plan of Treatment Upcoming Encounters Date Type Department Care Team (Late st Contact Info) Description 03/19/2025 9:30 AM EDT Office Visit [facility] CHC MED & PEDS [address] [place] [address] Suzie Rubin MD 505 [place] [address] 04/03/2025 11:15 AM EDT Office Visit [facility] MEDICINE [address] [place] [address] Bertha Jacinto FNP [address] [place] [address] 05/16/2025 10:00 AM EDT Office Visit [facility] ADULT DENTAL [address] [place] [address] Clau Aquino documented as of this encounter Visit Diagnoses Not on filedocumented in this encounter Additional Health Concerns Assessment Noted Time PHQ-9 Depression Total Score: 7 05/18/20 24 3:50 PM EDT documented as of this encounter Care Teams Budget Engineer Relationship Specialty Start Date End Date Bertha Jacinto FNP [address] [place] [address] PCP - General Family Medicine 09/28/22 Eugenio Rudolph MD [address] [place] [address], [address] [place] [address] Neurology 09/30/24 Cale Pena MD [address] [place] [address] Cardiology 09/30/24 Josseline Gan [address] [place] [address] Gastroenterology 09/30/24 Archie Reyes MD [address] [place] [address] Vascular Surgery 09/30/24 documented as of this encounter
--- OUTSIDE RECORDS SUMMARY | 2025-01-22 11:37 | XMS_ITS | Encounter Summary ---
Author Organization [facility] Address [address] 7t [place] [address] Care Team Providers Care Supervisor Shuttle Preparation Name Role Phone Bertha Jacinto Primary Care Provider Eugenio Rudolph MD Unavailable Cale Pena MD Unavailable Josseline Gan Unavailable Archie Reyes MD Unavailable Encounter Details Date Type Department Care Team (Late Contact Info) Description 05/25/2023 Abstract [facility] MEDICINE [address] [place] [address] Bertha Jacinto FNP 505 [place] [address] Social History Tobacco Use Types Packs/Day Years [...] Upcoming Encounters Date Type Department Care Team ([facility] Contact Info) Description 03/19/2025 9:30 AM EDT Office Visit [facility] CHC MED & PEDS 505 [place] [address] Suzie Rubin MD 505 [place] [address] 04/03/2025 11:15 AM EDT Office Visit [facility] MEDICINE [address] [place] [address] Bertha Jacinto FNP [address] [place], [place] [phone] 05/16/2025 10:00 AM EDT Office Visit [facility] ADULT DENTAL [address] [place] [address] Clau Aquino documented as of this encounter Visit Diagnoses Not on filedocumented in this encounter Additional Health Concerns Assessment Noted Time PHQ-9 Depression Total Score: 0 01/11/20 9:12 AM EDT documented as of this encounter Care Teams Supervisor Shuttle Preparation Relationship Specialty Start Date End Date Bertha Jacinto FNP [address] [place] [address] PCP - General Family Medicine 09/28/22 Eugenio Rudolph MD [address] [place] [address], [address] [place] [address] Neurology 09/30/24 Cale Pena MD [address] 3rd [place] [address] Cardiology 09/30/24 Josseline Gan [address] [place] [address] Gastroenterology 09/30/24 Archie Reyes MD [address] [place] [address] Vascular Surgery 09/30/24 documented as of this encounter
--- OUTSIDE RECORDS SUMMARY | 2025-01-22 11:37 | XMS_ITS | Encounter Summary ---
Author Organization [employer] [facility] Address [address] [place] [address] Care Team Providers Care Java Lead Developer Name Role Phone Bertha Jacinto Primary Care Provider [phone] Eugenio Rudolph MD Unavailable [phone] Cale Pena MD Unavailable Josseline Gan Unavailable Archie Reyes MD Unavailable Encounter Details Date Type Department Care Team ([facility] Contact Info) Description 10/06/2022 Telephone [facility] MEDICINE [address] [place] [address] Bertha Jacinto FNP [address] [place] [address] Social History Tobacco Use Types Packs/Day Years [...] suspected to have Coronavirus/COVID-19? No / Unsure 09/28/2022 1:58 PM EST documented as of this encounter Plan of Treatment Upcoming Encounters Date Type Department Care Team ([facility] Contact Info) Description 03/19/2025 9:30 AM EDT Office Visit [facility] CHC MED & PEDS [address] [place] [address] Suzie Rubin MD 505 [place] [address] 04/03/2025 11:15 AM EDT Office Visit [facility] MEDICINE [address] [place] [address] Bertha Jacinto FNP 505 [place], [place] [phone] 05/16/2025 10:00 AM EDT Office Visit [facility] ADULT DENTAL [address] [place] [address] Clau Aquino documented as of this encounter Visit Diagnoses Not on filedocumented in this encounter Care Teams Java Lead Developer Relationship Specialty Start Date End Date Bertha Jacinto FNP [address] [place] [address] PCP - General Family Medicine 09/28/22 Eugenio Rudolph MD [address] [place] [address], [address] [place] [address] Neurology 09/30/24 Cale Pena MD [address] 3rd [place] [address] Cardiology 09/30/24 Josseline Gan [address] 3rd [place] [address] Gastroenterology 09/30/24 Archie Reyes MD [address] [place] [address] Vascular Surgery 09/30/24 documented as of this encounter
--- OUTSIDE RECORDS SUMMARY | 2025-01-22 11:37 | XMS_ITS | Encounter Summary ---
Author Organization [employer] [facility] Address [address] 7t [place] [address] Care Team Providers Care Firer Locomotive Crane Name Role Phone Bertha Jacinto Primary Care Provider [phone] Eugenio Rudolph MD Unavailable [phone] Cael Pena MD Unavailable Josseline Gan Unavailable Archie Reyes MD Unavailable Reason for Visit * Reason Onset Date Comments PT-1 10/19/2024 Encounter Details Date Type Department Care Team (Late st Contact Info) Description 10/19/2024 Telephone [facility] MEDICINE [address] [place] [address] Bertha Jacinto FNP [address] [place], [place] [phone] PT-1 Social History Tobacco Use Types Packs/Day [...] Telephone Encounter - Kerwin Mancilla - 10/19/2024 1:01 PM EST Patient calling requesting PT1 Home Address verified: Y/N: Yes Provider name or facility name: [address] [place] [address] Escort needed: Y/N: No Do you have a wheelchair: Y/N: No If yes- Manual or electric: N/A Visits: (amount of visits) ( x monthly, weekly, daily) Once a month documented in this encounter Plan of Treatment Upcoming Encounters Date Type Department Care Team ([facility] st Contact Info) Description 03/19/2025 9:30 AM EDT Office Visit [facility] CHC MED & PEDS [address] [place] [address] Suzie Rubin MD 505 [place], [place] [phone] 04/03/2025 11:15 AM EDT Office Visit [facility] MEDICINE 230 [place] [address] Bertha Jacitno FNP 505 [place], [place] [phone] 05/16/2025 10:00 AM EDT Office Visit [facility] ADULT DENTAL 230 [place] [address] Clau Aquino documented as of this encounter Visit Diagnoses Not on filedocumented in this encounter Additional Health Concerns Assessment Noted Time PHQ-9 Depression Total Score: 7 05/18/20 24 3:50 PM EDT documented as of this encounter Care Teams Firer Locomotive Crane Relationship Specialty Start Date End Date Bertha Jacinto FNP [address] [place] [address] PCP - General Family Medicine 09/28/22 Eugenio Rudolph MD [address] [place] [address], [address] [place] [address] Neurology 09/30/24 Cale Pena MD [address] 3rd [place] [address] Cardiology 09/30/24 Josseline Gan [address] 3rd [place] [address] Gastroenterology 09/30/24 Archie Reyes MD [address] [place] [address] Vascular Surgery 09/30/24 documented as of this encounter
--- OUTSIDE RECORDS SUMMARY | 2025-01-22 11:37 | XMS_ITS | Encounter Summary ---
Author Organization [facility] Address [address] 7t [place] [address] Care Team Providers Care Delicatessen Store Manager Name Role Phone Bertha Jacinto Primary Care Provider [phone] Eugenio Rudolph MD Unavailable [phone] Cale Pena MD Unavailable Josseline Gan Unavailable Archie Reyes MD Unavailable Reason for Visit * Reason Onset Date Comments PT1 12/26/2023 Encounter Details Date Type Department Care Team (Late st Contact Info) Description 12/26/2023 Telephone [facility] MEDICINE [address] [place] [address] Bertha Jacinto FNP [address] [place], [place] [phone] PT1 Social History Tobacco Use Types Packs/Day [...] * Telephone Encounter - Iris Newell - 12/27/2023 11:49 AM EDT PT-1 submitted for patient. They will receive a letter of approval or denial in the mail. * Telephone Encounter - Ermelinda Juarez - 12/26/2023 9:49 AM EDT Patient calling requesting PT1 Home Address verified: Y/N: Yes Provider name or facility name: [facility] Facility Address: [address] [address] Escort needed: Y/N: No Do you have a wheelchair: Y/N: No If yes- Manual or electric: n/a Visits: n/a Patient calling requesting PT1 Home Address verified: Y/N: Yes Provider name or facility name: [facility] Facility Address: [address] [address] Escort needed: Y/N: No Do you have a wheelchair: Y/N: No If yes- Manual or electric: n/a Visits: n/a documented in this encounter Plan of Treatment Upcoming Encounters Date Type Department Care Team (Late st Contact Info) Description 03/19/2025 9:30 AM EDT Office Visit [facility] CHC MED & PEDS 505 [place] [address] Suzie Rubin MD 505 [place] [address] 04/03/2025 11:15 AM EDT Office Visit [facility] MEDICINE [address] [place] [address] Bertha Jacinto FNP 505 [place] [address] 05/16/2025 10:00 AM EDT Office Visit [facility] ADULT DENTAL [address] [place] [address] Clau Aquino documented as of this encounter Visit Diagnoses Not on filedocumented in this encounter Additional Health Concerns Assessment Noted Time PHQ-9 Depression Total Score: 0 01/11/20 23 9:12 AM EDT documented as of this encounter Care Teams Delicatessen Store Manager Relationship Specialty Start Date End Date Bertha Jacinto FNP [address] [place] [address] PCP - General Family Medicine 09/28/22 Eugenio Rudolph MD [address] [place] [address], [facility] [address] [place] [address] Neurology 09/30/24 Cale Pena MD [address] 3rd [place] [address] Cardiology 09/30/24 Josseline Gan [address] 3rd [place] [address] Gastroenterology 09/30/24 Archie Reyes MD [address] [place] [address] Vascular Surgery 09/30/24 documented as of this encounter
== END 2025-01-22 10:09 | disposition home or self-care (01) ==
LOC: HO.NEURO 10:08
PROVIDERS: PCP Registered Nurse; Visit Provider Registered Nurse
DX: M79.602 Pain in left arm (principal)
CPT/HCPCS: 95886; 95913

== ENCOUNTER 2025-03-25 10:02 | Outpatient (RCR) | payer MEDICAID, SELFPAY ==
--- NOTE | 2025-02-13 09:55 | MHC.OT.EP ---
[address] [phone] Occupational Therapy Plan of Care Patient Name: Laura Rivera Date of Evaluation: 02/13/25 Diagnosis: Forearm Pain Pain Location: Left wrist radiating up to shoulder, feels like shock or current Occurs at rest or with some activities Reports sensitivity with wearing watch over left wrist Pain Score: 8 Pain Scale Used: Numeric (0 - 10) Aggravating Factors: Alleviating Factors: Rubbing/massaging, ice or heat compresses, Motrin Assessment: 44 yo female referred to OT with left forearm pain, radiating up to arm, starting about two months ago. EMG shows mild bilateral median neuropathy at carpal tunnel. She has completed course of OT several years ago for B/L hand pain and did well at that time. On assessment today, she reports pain and numbness/tingling at nighttime and other unspecified times during the day. She is unable to lift and hold heavier objects and has difficulty w/ gripping and fine motor tasks. She has weak strength B/L'ly and postive Tinel's over carpal tunnel bilaterally, otherwise negative for provocative testing of tendinopathy. We will continue outpatient hand therapy services for treatment of B/L early carpal tunnel syndrome as well as overall conditioning for functional strength and daily activities. Frequency and Duration: The patient will be seen 2x/wk for 4 weeks Short Term Goals: Ind w/ HEP Ind w/ nighttime orthosis wear Progress to strengthening program Delivery Driver/Customer Service Goals: Pain free hands at rest Pt to report ease w/ light bimanual tasks Pt to report ease w/ sleping through the night QuickDASH score <50 pts Good follow through w/ joint protection Treatment Plan: Therapeutic Exercise Therapeutic Activity Home Exercise Program Splinting Neuro Re-ed Patient Education Edema Control ADL Training Ultrasound Paraffin Fluidotherapy MHP Cold Packs Joint Mobilization Soft Tissue Mobilization Kinesiotaping Nighttime orthoses Electronically Signed By: SILVINO Pappas/L CHT Please Sign and return to therapist. Thank you once again for your referral.
--- NOTE | 2025-04-11 13:53 | MHC.OT.DC ---
[address] [phone] F: [phone] Occupational Therapy Discharge Note Patient Name: Laura Rocha Eber Rivera Provider: JUSTIN Paulson Diagnosis: Forearm Pain Date of Surgery: Date of Evaluation: 02/13/25 Date of Discharge: Treatments to Date: 8 Cancellations to Date: No Shows to Date: Discharge Status: Independent with HEP Recommend MD Follow-up Discharge Summary: Laura was referred to OT w/ forearm pain. She has good follow through w/ orthoses wear at nighttime but denies improvement and relief w/ wear. Pt reports good follow through with home exercises, but unable to progress to strengthening due to persistent fatigue and pain. She will continue home program and progress as able, advised to follow up with ortho or rheumatology if no improvements made over the next 1-2 months w/ exercises and modifications at home. Electronically Signed By: Talia Pearl OTR/L CHT Please Sign and return to therapist, thank you for your referral.
== END 2025-04-11 13:53 | disposition home or self-care (01) ==
LOC: HO.OT 10:02
PROVIDERS: PCP Registered Nurse; Visit Provider Registered Nurse
DX: M79.632 Pain in left forearm (principal)
CPT/HCPCS: 29125; 97110; 97140; 97165; 97760

== ENCOUNTER 2025-04-09 14:21 | Outpatient (AMB) | payer MEDICAID, SELFPAY ==
--- NOTE | 2025-04-09 14:25 | MHC.OFFVIS ---
Vital Signs 04/09/25 14:34 Height 4 ft 11 in Weight 193 lb BMI 39.0 BP 104/66 Blood Pressure Location Rt brachial Position Sitting Pulse 92 Pulse Source Pulse Oximeter Pulse Oximetry (%) 96 Oxygen Delivery Method Room Air Intake Visit Reasons: ERIC w/ 2022 for CIC. Eval for GERD Intake Note: Est pt for eval of GERD. Hx of CIC. CC; C.O. dysphagia and mild esophageal irritation. Pt states that her GERD/Heartburn seems to be controlled but frequently has issues with food getting stuck. Mobile Sales Expert Required: Yes Mobile Sales Expert Services: Mobile Sales Expert Present Mobile Sales Expert Name: Bro ([id number]) + [facility] Information Interpreted: clinical only Accompanied by: Self / Same As Patient Allergies passion fruit (PASSION FRUIT) Allergy (Intermediate, Verified 04/09/25 14:25) Hives, Rash HPI HPI ERIC w/ 2022 for CIC. Eval for GERD: Details: LAST VISIT Dysphagia GERD (gastroesophageal reflux disease) Constipation Plan Patient will continue current treatment with pantoprazole. Avoid dietary triggers in late night snacking. Staying upright for minimum 3 hours after meals discussed with patient. Patient can take Senokot daily. Patient was encouraged to increase fluid intake and activity to promote better bowel motility. I will see her in 3 months, sooner on as needed basis. Patient is agreeable to this plan and verbalizes understanding of instructions. She was given the opportunity to ask questions and all questions answered. ? Thank you for allowing to participate in her care Refilled sennosides (Natural Senna Laxative) 17.2 mg (2 x 8.6 mg) PO BEDTIME 60 tabs 3RF constipation K59.00 pantoprazole take one tablet half an hour before breakfast 40 mg PO DAILY 90 tabs 1RF K21.9 TODAY'S VISIT: Patient is here today for requested visit. Patient was last seen in June of 2023. Patient reports that she has been experiencing worsening upper GI symptoms. Patient reports that she does not necessarily feels the reflux, however she feels like all the food is being stuck in the upper part of her esophagus. Patient reports that it happens with both solid and liquids. Patient feels like the pantoprazole is not working for her. She is moving her bowels using Senokot as needed. Patient denies dyspepsia or odynophagia. Denies melena, hematochezia, unintentional weight loss or ribbon like stools. Patient reports that she is not following any specific diet. [facility] Medical History Pelvic pain Migraine Insomnia Anxiety Depressed Surgical History Hx of tubal ligation H/O bilateral breast reduction surgery Family History Maternal Grandfather Stomach cancer Mother No problems noted. Mother Diabetes Social History Alcohol intake: never Patient Tobacco Use Status: Never used Tobacco Female Reproductive History Menstrual Age of Menarche: 11 Review of Systems Const Denies weight gain and Denies weight loss ENT Reports no additional complaints, Reports dysphagia and Denies odynophagia Card Reports no additional complaints Resp Reports no additional complaints GI Denies abdominal pain, Denies belching, Denies melena, Denies bloating, Denies change in bowel habits, Reports dysphagia, Denies excessive flatus, Denies dyspepsia, Denies heartburn, Denies diarrhea, Denies loose stools, Denies nausea, Denies odynophagia and Denies vomiting Reports no additional complaints Musc Reports no additional complaints Neuro Reports no additional complaints Psych Reports no additional complaints Endo Reports no additional complaints Physical Exam Vital Signs: Last Vital Signs Pulse 92 04/09/25 14:34 BP 104/66 04/09/25 14:34 Pulse Ox 96 04/09/25 14:34 Oxygen Delivery Method Room Air 04/09/25 14:34 BMI result Body Mass Index 39.0 Const General: healthy appearing, no acute distress and well developed Nutritional Appearance: well nourished Orientation/consciousness: patient oriented x3 Resp Effort & Inspection: normal respiratory effort, able to speak in complete sentences, no tracheal deviation and symmetric chest movement Auscultation: clear to auscultation bilaterally Cardio Rate: regular rate Heart sounds: S1 normal heart sound present and S2 normal heart sound present GI Inspection: Yes normal to inspection and No distended Palpation (GI): Soft to palpation, not firm, nontender and No hepatosplenomegaly present Auscultation: normal bowel sounds General: Yes no CVA tenderness Back/Spine/Pelvis Back: no CVA tenderness Skin General skin exam: elasticity normal, turgor normal and dry skin Neuro General: patient oriented x3 Psych Appearance: grossly normal Mental Status: mental status grossly normal Speech and movement: Normal speech and movement present Assessment & Plan Assessment & Plan (1) Dysphagia: Code(s): R13.10 - Dysphagia, unspecified Qualifiers: Dysphagia type: pharyngoesophageal phase Qualified Code(s): R13.14 - Dysphagia, pharyngoesophageal phase (2) Gastroesophageal reflux disease: Code(s): K21.9 - Gastro-esophageal reflux disease without esophagitis Qualifiers: Esophagitis presence: esophagitis presence not specified Qualified Code(s): K21.9 - Gastro-esophageal reflux disease without esophagitis (3) Constipation: Code(s): K59.00 - Constipation, unspecified Qualifiers: Constipation type: slow transit constipation Qualified Code(s): K59.01 - Slow transit constipation Plan Patient will stop pantoprazole and start Nexium in the morning. Avoid dietary triggers and late night snacking. Staying upright for minimum 3 hours after meals discussed with patient. Patient was encouraged to eat more often and smaller meals. Will send her for upper GI with barium swallow. Patient will return in 3 months. She is also due to go for colonoscopy. Patient agrees to go for colonoscopy will send her for endoscopy at the same time. She is agreeable to current plan of care and verbalizes understanding of instructions. She was given the opportunity to ask questions and all questions answered. Thank you for allowing me to participate in her care Orders: Orders [place] upper GI w Ba Swallow Today K21.9 - Gastro-esophageal reflux disease without esophagitis Medications: New esomeprazole magnesium (Nexium) 40 mg PO DAILY 30 caps 3RF K21.9 - Gastro-esophageal reflux disease without esophagitis Discontinued pantoprazole Discontinued Reason: Doctor's Order 40 mg PO QAM 90 tabs 1RF K21.9 - Gastro-esophageal reflux disease without esophagitis Coding Level of Care Code Est Pt Level 3 (63719) Diagnoses Pharyngoesophageal dysphagia R13.14 Dysphagia type: pharyngoesophageal phase Gastroesophageal reflux disease, unspecified whether esophagitis present K21.9 Esophagitis presence: esophagitis presence not specified Slow transit constipation K59.01 Constipation type: slow transit constipation Time Spent (min) 30 Comment 20 minutes spent with patient and additional 10 minutes spent reviewing her records
[2025-04-09 14:34] VITALS: BP 104/66; PULSE 92; O2SAT 96; BMI 39.0
--- OUTSIDE RECORDS SUMMARY | 2025-04-09 15:35 | XMS_ITS | Data Portability ---
Author Organization [place] - [facility], Allergy Address [address] [address] Care Team Providers Care Dissolver Operator Name Role Phone REEMA LY Referring Provider [...] Flag Note LastModifiedBy Organization Detail LastModifiedTime 04/18/20 audio gram No observ ation record ed. [...] Gastroeso phageal reflux disease without esophagit is 369202933 Active 2021 Gastro-e sophagea l reflux disease without esophagi tis; Note: Date Diagnose d: 08/05/20 22 3:13 PM (K21.9) Not Available [facility] 4 02:21:12 Dysphagia 41323544 Active 2021 Other dysphagi a; Note: Date Diagnose d: 08/05/20 22 2:51 PM (R13.19) Not Available [facility] 4 02:21:00 Respirato ry finding 151580994 Active 2022 Feeling of foreign body in throat; Note: Date Diagnose d: 02/17/2023 1:06 PM (R09.89) Not [facility] 4 02:21:09 Cardiovas cular finding 940698051 Active 2022 Feeling of foreign body in throat; Note: Date Diagnose d: 02/17/2023 1:06 PM (R09.89) Not [facility] 4 02:21:10 Bilateral tinnitus 712928930959 2 Active 2023 JACE DELGADO [place], CCC-A [address] [facility],[place] [address], [place], [address] , [facility] - [facility] 4 14:54:40 Dizziness 544319325 Active 2023 ALONDRA ROBERSON PA-C [address] [place] [address],[place] [address], [place], [address] , [facility] - [facility] [place] 4 15:25:46 Syncope 324581145 Active 2023 ALONDRA ROBERSON PA-C [address] [facility],[place] [address], [place], [address] , [facility] - [facility] 4 17:14:19 Problem Notes None recorded. Procedures Surgical History Date Name Laterality Status Provider Name and Address Organization Details Recorded Time 04/17/2024 Air & Speech Audio with Tymps - 55193, 50986 & 38469 completed JACE DELGADO MA, CCC-A [facility] 100, [place], [address], [facility] - [facility] 04/17/2024 14:54:26 Imaging Results None recorded. Procedure Notes None recorded. Medical Equipment None [...] a day 2021 active Medicatio n ID: [id number] Du ration Value: 30 Brand Name: omeprazol [...] release by mouth active Medicatio n ID: [id number] Pr escribed By Name: EARL Fregoso Name: [...] Updated DateTime 04/17/2024 149.86 cm 37.4 kg/m2 07841.59 g Nancy Crain [place] - [facility] 04/17/2024 15:09:56 Social History None recorded. Functional Status None recorded. Mental Status None recorded. Family History Nothing Reported. Medical History No medical history recorded. Gynecological HistoryNo gynecological history recorded. Obstetrics History GPAL:G 0 P 0 0 0 0 Past Encounters Encounter ID Performer Location Encounter Start Date Encounter Closed Date Diagnosis/Indication Diagnosis SNOMED-CT Code Diagnosis ICD10 Code Diagnosis Note [id number] ALONDRA ROBERSON PA-C [facility] [address] [address] 04/17/2024 14:18:29 04/17/2024 15:33:05 Bilateral tinnitus 6882821018 102 H93.13 Audiologic al evaluation results:Ri ght ear:Normal hearing with excellent word recognitio n.Left ear:Normal hearing with excellent word recognitio n. Tympanomet ry:Right Ear:Type ALeft Ear:Type A Dizziness 854044922 R42 Syncope 234424450 R55 Health Concerns Section Related Observation LastModified by Organization Detai ls LastModified Time None Recorded Concern Status LastModified by Organization Details LastModified Time None Recorded Advance Directives Directive None Recorded Payers Insurance Date Sequence Insurance Name Policy Number Policy Rosen Covered Member ID Rosen Member ID Guarantor Name 04/20/2024 1 [place] [facility] Laura Velázquez [id number] Laura Velázquez Notes Date Note Type Note [...] and drink more water. JADA GUAMAN MD [address] [place] [address], [phone], [place] - [facility] 04/18/2024 07:51:43 OBGyn Episode No OBEpisode recorded.
--- OUTSIDE RECORDS SUMMARY | 2025-04-09 15:35 | XMS_ITS | Encounter Summary ---
Author Organization [employer] Address [address] [facility] 7t [place] [address] Care Team Providers Care Ticket Broker Name Role Phone Bertha Jacinto Primary Care Provider [phone] Eugenio Rudolph MD Unavailable Cale Pena MD Unavailable Josseline Gan Unavailable Archie Reyes MD Unavailable Reason for Visit * Reason Onset Date Comments Home Care Services 04/04/2025 I called the patient, regarding a PCP order form for AFC services, from [facility]. I reached a voicemail, and left a message asking her to return my call at ext [phone]. Encounter Details Date Type Department Care Team (Late st Contact Info) Description 04/04/2025 Telephone [facility] MEDICINE [address] [place] [address] Bertha Jacinto FNP [address] [place], [place] [id number] Home Care Services (I called the patient, regarding a PCP order form for AFC services, from [facility]. I reached a voicemail, and left a message asking her to return my call at ext [phone].) Social History Tobacco Use Types Packs/Day Years [...] encounter Miscellaneous Notes * Telephone Encounter - Maxwell Ortiz - 04/04/2025 11:27 AM EDT Tc from pt retuning call. * Telephone Encounter - Jeanette Mancilla MA - 04/04/2025 9:21 AM EDT I called the patient, regarding a PCP order form for AFC services, from [facility]. I reached a voicemail, and left a message asking her to return my call at ext [phone]. documented in this encounter Plan of Treatment Upcoming Encounters Date Type Department Care Team (Late st Contact Info) Description 04/10/2025 10:45 AM EDT Office Visit [facility] MEDICINE [address] [place] [address] Bertha Jacinto FNP [address] [place] [address] 04/23/2025 10:15 AM EDT Office Visit [facility] CHC MED & PEDS 505 [place] [address] Suzie Rubin MD 505 [place] [address] 05/16/2025 10:00 AM EDT Office Visit [facility] ADULT DENTAL [address] [place] [address] Kenia Clau 05/22/2025 9:15 AM EDT Office Visit [facility] MEDICINE [address] [place] [address] Bertha Jacinto FNP [address] [place] [address] documented as of this encounter Visit Diagnoses Not on filedocumented in this encounter Additional Health Concerns Assessment Noted Time PHQ-9 Depression Total Score: 9 11/22/19 25 11:43 AM EST documented as of this encounter Care Teams Ticket Broker Relationship Specialty Start Date End Date Bertha Jacinto FNP [address] [place] [address] PCP - General Family Medicine 09/28/22 Eugenio Rudolph MD [address] [place] [address], [address] [place] [address] Neurology 09/30/24 Cale Pena MD [address] [place] [address] Cardiology 09/30/24 oJsseline Gan [address]rd [place] [address] Gastroenterology 09/30/24 Archie Reyes MD [address] [place] [address] Vascular Surgery 09/30/24 documented as of this encounter
== END 2025-04-09 15:03 | disposition home or self-care (01) ==
LOC: HO.HGI 14:22
PROVIDERS: PCP Registered Nurse; Visit Provider Nurse Practitioner Family
DX: R13.14 Dysphagia, pharyngoesophageal phase (principal); K21.9 Gastro-esophageal reflux disease without esophagitis; K59.01 Slow transit constipation
CPT/HCPCS: 99213

== ENCOUNTER → 2025-04-09 14:21 | Outpatient (BNVA) | payer MEDICAID, SELFPAY | PROVIDERS: PCP Registered Nurse; Visit Provider Nurse Practitioner Family | DX: R13.14 Dysphagia, pharyngoesophageal phase (principal); K21.9 Gastro-esophageal reflux disease without esophagitis; K59.01 Slow transit constipation | CPT/HCPCS: 99212 ==

== ENCOUNTER 2025-06-19 08:40 | Outpatient (AMB) | payer MEDICAID, SELFPAY ==
--- NOTE | 2025-06-19 08:47 | A.OFFVIS_ITS ---
Vital Signs 06/19/25 08:56 Height 4 ft 11 in Weight 186 lb BMI 37.6 BP 128/92 H Blood Pressure Location Lt brachial Position Sitting Respiration 16 Pulse 95 Pulse Oximetry (%) 97 Intake Visit Reasons: ENP: Hx of syncope/Migraines Manager Solar Required: Yes Manager Solar Services: Manager Solar Present Manager Solar Name: [id number] Information Interpreted: non-clinical & clinical Allergies passion fruit (PASSION FRUIT) Allergy (Intermediate, Verified 06/19/25 08:58) Hives, Rash Medication List - Last Reconciled 06/19/25 by Susanna Lorenzana CNP clonazepam (Klonopin) 1 mg PO BID cyclobenzaprine 10 mg PO TID PRN fluticasone propionate 50 mcg/actuation 1 - 2 sprays intranasal DAILY lidocaine 5% 1 patch topical DAILY ondansetron 4 mg PO Q8H PRN rimegepant (Nurtec ODT) 75 mg PO Q OTHER DAY 30 days sennosides (Natural Senna Laxative) 17.2 mg (2 x 8.6 mg) PO BEDTIME sertraline (Zoloft) 100 mg PO DAILY sumatriptan succinate take 1 tab at onset of headache; if no relief may repeat 1 tab after at least 2 hrs; max = 4 tabs/24 hr PO zolpidem (Ambien) 10 mg PO BEDTIME PRN HPI Comments Details: kevin is a 45-year-old female patient with a past medical history of anxiety and syncope who is being referred to the clinic today for headaches. It appears that she does have a history of dizziness and syncopal episodes as well. It appears that primary care has started her on amitriptyline 10 mg nightly and sumatriptan 25 mg for acute therapy. The patient today tells me that she has had migraine for many years. She started to experience dizziness episodes and syncope about 2 years ago. She was previously followed by in [place] but was referred here after his senior living. She was initially treated with oral therapies such as topiramate and more recently was started on the amitriptylien but she feels that these therapies after some time became ineffective and gave her some adverse effects. Currently, she is experiencing about 4-5 migraine days per week but some weeks can be worse than others. Each migraine episode can last hours up to a couple of days. She has associated light and sound sensitivity as well as nausea and dizziness. Her pain location can vary including the temporal, frontal, and occipital areas. Her pain is often throbbing and pulsating but more recently is felt as a burning sensation which is new for her. Palpation to the area makes the burning sensation worse. The burning is primarily to the occipital areas. Her dizziness is occurring sporadically. She can have dizzy episodes daily but is not having frequent syncopal episodes. She had a syncopal episode for the first time about 2 years ago in the store and went to the ER where she was told that she had synope . About 1 year ago she fell at home and had a beif loc for only seconds. This occurred after standing quickly. She has not had any firther syncopal episodes that she is aware of. She has not had further episodes of syncope becuase she rests when she has an episode of dizziness. Her symptoms tend to be worse in the summer when it is very hot. Headache characteristics: Time of onset: >10 years Location:Variable Radiation:No Positional component:No Character:Throbbing and burning pain Severity:Can reach 10/10 Duration:Hours up to a couple of days Frequency:4-5 days per week Acute aggravating factors:Light and sound Acute relieving factors:Dark and quiet Associated symptoms:Light and sound sensitivity, nausea, and dizziness Aura:Sensation of eye heaviness and blurred vision Headache triggers:Light and noise Relation to menses: No. Has very irregular periods. Other related background information: Sleep:Takes ambien for sleep. With ambien feels that she is sleeping better but some nights can still wake up every hour. She does not believe that she snores. Hydration:About 5 bottles per day Caffeine intake:Drinks coffee rarely. Not every day Alcohol intake:None Substance use:None Tobacco use:None Last eye exam: Within the last year Last dental visit:Within the last year. Denies clenching and grinding History of head injury:No Family planning considerations:No plans to become Past medication/therapy trials: Topiramate- No longer helping. No currently taking Amitriptyline 10mg still taking with only some benefit Sumatriptan 25mg- Slightly helpful Physical therapy-Some benefit Prior workup: 09/2022 EXAMINATION: CT brain, CT cervical spine. Axial imaging with coronal and sagittal reformatted images. Comparison previous dated 09/20/2019. This CT examination was performed using dose optimization techniques as appropriate, variously including the following: *Automated exposure control *Adjustment of mA and/or kV according to patient size (this includes techniques or standardized protocols for targeted exams where dose is matched to indication/reason for exam; i.e. extremities or head) *Use of iterative reconstruction technique. Radiation dose [address] brain; There is no midline shift. There is no mass effect. There is no hemorrhage. The basal cisterns appear patent. The posterior fossa is grossly within normal limits. There is no extra-axial collection. The gonzalez-white matter is within normal limits. Review of the bone windows does not demonstrate a suspicious bony finding. No fracture. Cervical spine; Reversal of the normal lordosis. This could be due to position or spasm. There is no fracture or dislocation. Some likely calcification which could be in the ligament posterior to C6-C7. Some early degenerative changes are also noted. CT/CT head/brain wo IV con IMPRESSION: Negative acute noncontrast CT of the brain. No fracture or dislocation cervical spine. [facility] Medical History Pelvic pain Migraine Insomnia Anxiety Depressed Surgical History Hx of tubal ligation H/O bilateral breast reduction surgery Family History Maternal Grandfather Stomach cancer Mother No problems noted. Mother Diabetes Social History Alcohol intake: never Patient Tobacco Use Status: Never used Tobacco Female Reproductive History Menstrual Age of Menarche: 11 Review of Systems Const All systems reviewed & are unremarkable except as noted in HPI and below Physical Exam Vital Signs: Last Vital Signs Pulse 95 06/19/25 08:56 Resp 16 06/19/25 08:56 BP 128/92 H 06/19/25 08:56 Pulse Ox 97 06/19/25 08:56 BMI result Body Mass Index 37.6 Const General: cooperative, healthy appearing, comfortable and no acute distress Nutritional Appearance: well nourished Orientation/consciousness: patient oriented x3 Limitations: no limitations HEENT Head: Yes normal to inspection and Yes normocephalic Eyes General: appearance normal, both eyes and all related structures Visual Smith: normal visual smith by confrontation Alignment and Position: alignment normal Periorbital: periorbital findings normal Eyelids: Yes eyelids normal Conjunctivae: conjunctivae normal Sclerae: sclerae normal Neck Neck: Yes normal visual inspection and Yes full ROM Back/Spine/Pelvis Other: L>R upper trapezius trigger points and overall tight trapezius muscles bilaterally Neuro General: patient oriented x3, tone normal and deep tendon reflexes 2+ bilaterally Cranial nerves: Yes CN's II-XII intact bilaterally and Yes Facial sensation intact/muscles of mastication intact Cognition (Neuro): normal cognition Gait exam (Neuro): Normal gait present Motor exam (neuro): 5/5 motor strength present throughout and no tremor noted Sensory Exam: double simultaneous stimulation for sensation normal Romberg Test: Negative Pupils: Normal pupillary reactivity/response: bilateral Psych Appearance: grossly normal Mental Status: mental status grossly normal Speech and movement: Normal speech and movement present and Clear speech present Affect: normal affect Attitude: cooperative Thought process: Normal thought process present Thought content: Normal thought content present Insight: Good insight present (Psych) Judgement: Good judgement present (Psych) Assessment & Plan Assessment & Plan (1) Chronic migraine without aura without status migrainosus, not intractable: Code(s): G43.709 - Chronic migraine without aura, not intractable, without status migrainosus Category: Medical (2) Trigger point of shoulder region: Code(s): M25.519 - Pain in unspecified shoulder Category: Medical (3) Myofascial pain: Code(s): M79.18 - Myalgia, other site Category: Medical Plan kevin is a 45-year-old female patient with a past medical history of anxiety and syncope who is being referred to the clinic today for headaches. Headaches are consistent with migraine but likely with a component of chronic tension-type given her exam which was normal aside from L>R trigger points of the shoulder region. She has tried amitriptyline at low dose without any significant benefit. I am hesitant to increase the dose given her concurrent use of higher dose sertraline. She has also not had any benefit with topiramate in the past. I am hesitant to try antihypertensive medications given her reports of syncope especially in hot weather and she has had some documented borderline low blood pressures. I think reasonably, we should start with an anti CGRP therapy. I did review the options with her in depth. She unfortunately has a strong aversion to needles and in the past has had worsening of her dizziness with needle sticks in the past. I am recommending we try an oral preventive GEPANT for migraine prevention. Sumatriptan has worked somewhat in the past for acute therapy and therefore I will increase dose from 25 mg to 50 mg for better efficacy. In the meantime, she was advised to apply heat and massage to her trapezius areas to loosen the muscles in that area. Her dizziness reports are consistent with likely orthostasis/low blood pressure possibly related to getting up quickly and extreme heat. I have advised her to increase her hydration and salt intake and to avoid extreme temperatures. We will start there and if these episodes continue we can investigate further. -Increase hydration and salt intake. Avoid extreme temperatures -Heat and massage at home -Start trial of nurtec 75mg [id number] -Increase sumatriptan to 50mg for acute therapy -Follow-up in 2 months or sooner if needed Medications: New rimegepant (Nurtec ODT) 75 mg PO Q OTHER DAY 15 tabs 5RF 30 days sumatriptan succinate take 1 tab at onset of headache; if no relief may repeat 1 tab after at least 2 hrs; max = 4 tabs/24 hr PO 14 tabs 3RF Coding Level of Care Code New Pt Level 4 (11072) Diagnoses Chronic migraine without aura without status migrainosus, not intractable G43.709 Trigger point of shoulder region M25.519 Myofascial pain M79.18
[2025-06-19 08:56] VITALS: BP 128/92; PULSE 95; RESP 16; O2SAT 97; BMI 37.6
--- OUTSIDE RECORDS SUMMARY | 2025-06-19 09:13 | XMS_ITS | Encounter Summary ---
Author Organization [employer] [facility] Address [address] [place] [address] 7 [place] [address] Care Team Providers Care Pathologist Name Role Phone Rosita Clark MD Primary Care Provider Bertha Shetty Primary Care Provider Eugenio Rudolph MD Unavailable [phone] Cale Pena MD Unavailable Josseline Gan Unavailable Archie Reyes MD Unavailable Encounter Details Date Type Department Care Team (Latest Contact Info) Description 08/22/2019 Abstract [facility] CONVERSIONS Dental, Provider, DDS Social [...] Care Team (Late st Contact Info) Description 07/09/2025 11:00 AM EDT Office Visit [facility] CHC MED & PEDS [address] [place], [place] [phone] Suzie Rubin MD [address] [place], [place] [phone] 11/28/2025 8:00 AM EDT Office Visit [facility] ADULT DENTAL [address] [place] [address] Clau Aquino documented as of this encounter Visit Diagnoses Not on filedocumented in this encounter Care Teams Pathologist Relationship Specialty Start Date End Date Rosita Clark MD PCP - General Family Medicine 07/31/19 08/08/22 Bertha Jacinto FNP [address] [place] [address] PCP - General Family Medicine 09/28/22 Eugenio Rudolph MD [address] [place] [address], [address] [place] [address] Neurology 09/30/24 Cale Pena MD [address] 3rd [place] [address] Cardiology 09/30/24 Josseline Gan [address] [place] [address] Gastroenterology 09/30/24 Archie Reyes MD [address] [place] [address] Vascular Surgery 09/30/24 documented as of this encounter
--- OUTSIDE RECORDS SUMMARY | 2025-06-19 09:13 | XMS_ITS | Encounter Summary ---
Author Organization [employer] [facility] Address [address] [facility] [address] 7[address] [place] [address] Care Team Providers Care Slab Stripper Name Role Phone Bertha Jacinto Primary Care Provider Eugenio Rudolph MD Unavailable [phone] Cale Pena MD Unavailable Josseline Gan Unavailable Archie Reyes MD Unavailable Reason for Visit * Reason Onset Date Comments PT1 01/13/2023 Encounter Details Date Type Department Care Team (Late st Contact Info) Description 01/13/2023 Telephone [facility] MEDICINE [address] [place] [address] Bertha Jacinto FNP [address] [place], [place] [phone] PT1 Social History Tobacco Use Types Packs/Day [...] requesting a PT1 PT1 Name of facility: [facility] Specialty: MRI Location: [address] [place] [address] Date: n/a Time: n/a fax: n/a Phone: n/a wheelchair: n/a Telecom Engineer: n/a All future appts documented in this encounter Plan of Treatment Upcoming Encounters Date Type Department Care Team (Late st Contact Info) Description 07/09/2025 11:00 AM EDT Office Visit [facility] CHC MED & PEDS [address] [place] [address] Suzie Rubin MD [address] [place] [address] 11/28/2025 8:00 AM EDT Office Visit [facility] ADULT DENTAL [address] [place] [address] Clau Aquino documented as of this encounter Visit Diagnoses Not on filedocumented in this encounter Additional Health Concerns Assessment Noted Time PHQ-9 Depression Total Score: 0 01/11/20 23 9:12 AM EDT documented as of this encounter Care Teams Slab Stripper Relationship Specialty Start Date End Date Bertha Jacinto FNP [address] [place] [address] PCP - General Family Medicine 09/28/22 Eugenio Rudolph MD [address] [place] [address], [address] [place] [address] Neurology 09/30/24 Cale Pena MD [address] 3rd [place] [address] Cardiology 09/30/24 Josseline Gan [address] 3rd [place] [address] Gastroenterology 09/30/24 Archie Reyes MD [address] [place] [address] Vascular Surgery 09/30/24 documented as of this encounter
--- OUTSIDE RECORDS SUMMARY | 2025-06-19 09:13 | XMS_ITS | Clinical Summary ---
Author Organization [employer] Address [address] [place] [address] Care Team Providers Care Slasher Name Role Phone Bertha Jacinto Primary Care Provider [phone] Eugenio Rudolph MD Unavailable [phone] Cale Pena MD Unavailable Josseline Gan [...] 4 TABLETS AT BEDTIME 12/21/19 24 Active Multiple Vitamin (multivitamin) tabletIndicatio ns:Encounter for routine history and physical examination of adult,Healthcar e maintenance Take 1 tablet by mouth Once per day. OTC Active Ketotifen Fumarate 0.035 % solution Administer 1 drop into affected eye(s) if needed in the morning and at bedtime (eye redness, itching). 10 mL 06/15/20 24 Active acetaminophen (Tylenol) 500 MG tablet Take 2 tablets (1,000 mg) by mouth every 6 (six) hours if needed for mild pain. 30 tablet 06/15/20 24 Active hydrOXYzine pamoate (Vistaril) 25 MG capsule TAKE 1 CAPSULE BY MOUTH EVERY TWELVE HOURS NEEDED FOR ANXIETY 30 capsule 1 12/06/19 25 Active hydrocortisone 2.5 % creamIndication s:Pruritic rash Apply pea sized amount to skin bid for 1 week 15 g 01/03/20 25 Active fluticasone (Flonase) 50 MCG/ACT nasal spray INSTILL 1-2 SPRAYS IN EACH NOSTRIL ONCE DAILY 48 g 11 01/31/20 25 Active ibuprofen 800 MG tabletIndicatio ns:Pain TAKE 1 TABLET BY MOUTH THREE TIMES DAILY NEEDED FOR PAIN OR FEVER OR HEADACHE 90 tablet 2 02/29/20 25 Active lidocaine (Lidoderm) 5 % patchIndication s:Acute bilateral thoracic back pain APPLY 1 PATCH TOPICALLY TO SKIN, LEAVE ON FOR 12 HOURS AND OFF FOR 12 HOURS DIRECTED 30 patch 3 02/29/20 25 Active cyclobenzaprine (Flexeril) 10 MG tabletIndicatio ns:Muscle spasm TAKE 1 TABLET BY MOUTH THREE TIMES DAILY IN THE MORNING, AT NOON, AND AT BEDTIME NEEDED FOR MUSCLE SPASMS 45 tablet 1 03/11/20 25 Active Clotrimazole Anti-Fungal 1 % creamIndication s:Tinea pedis of right foot APPLY TOPICALLY AFFECTED AREA(S) TWICE DAILY FOR 28 DAYS 30 g 1 03/25/20 25 Active senna (Senokot) 8.6 MG tablet TAKE 2 TABLETS BY MOUTH EVERY DAY AT BEDTIME NEEDED FOR CONSTIPATION 180 tablet 1 04/29/20 25 Active SUMAtriptan (Imitrex) 25 MG tabletIndicatio ns:Migraine without status migrainosus, not intractable, unspecified migraine type Take 1 tablet (25 mg) by mouth 1 (one) time if needed for migraine for up to 9 doses. May repeat dose once in 2 hours if no relief. Do not exceed 2 doses in 24 hours. Take with ibuprofen and lie down for 30 mins after taking 9 tablet 05/01/20 25 Active esomeprazole (NexIUM) [address] capsule Take 1 capsule by mouth Once per day. 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 Assessment & Plan (04/11/2025 10:02 AM EDT): - Completed OT with noted improvement. Continues with exercises at home. Using wrist splints at night PRN. Encouraged to cont with symptomatic management. Discussed Ortho referral for further tx options, but she declines at this time. Well managed with current therapy. Severe anxiety 11/21/2024 Assessment & Plan (01/03/2025 [...] She is connected with psychiatrist services with [facility]. Medication helps manage sxs. Chronic pain is associated with anxiety mood due to experiencing fibromyalgia sxs. Pt is also worried about her housing situation. She will be referred to to assist with resources and housing opening in the area. Assessment & Plan (11/22/2024 7:52 PM EST): Continue following with [facility]-therapist and psych prescriber BE completed following appointment [...] associated with. Pt has current services with [facility] - therapy sessions biweekly and psychiatrist every three months-. We explored different coping strategies and practiced them during today's session. clinician provided active/reflective listening. Reviewed and assessed for risk, current stressors and protective factors using open-ended questions. Pt will continue current services with [facility]. clinician will provide additional support during her next medical appointment to assess on intervention. Pt agreed with plan. Panic attacks 11/21/2024 Assessment & Plan (04/11/2025 11:01 AM EDT): During IBH Consult Laura presenting with Recurrent panic attacks (abrupt surge of intese cary or discomfort that reaches peak within minutes and during which time the following occur (4 or more) palpitations, sweating, trembling/shaking, sensation of shortness of breath/smothering, Chest pain/discomfort, nausea/abdominal distress, dizzy/unsteady/light-headed/faint, Chills/heat sensation, fear of dying; for a period of 18+ mo, for most or all symptoms in the context of unable to identify significant stressors. Pt reported continue experiencing sxs described above. Pt associates increase of sxs with her medical condition and lack of [employer] services. She does have MH services with [facility]: Therapy with Yudi and psychiatry with Dr. Martins. Per pt, her medication is helping. She does cope by doing deep breathing exercises, listening to music and yoga. Assessment & Plan (11/21/2024 11:57 AM EST): [...] associated with. Pt has current services with [facility] - therapy sessions biweekly and psychiatrist every three months-. We explored different coping strategies and practiced them during today's session. clinician provided active/reflective listening. Reviewed and assessed for risk, current stressors and protective factors using open-ended questions. Pt will continue current services with [facility]. clinician will provide additional support during her next medical appointment to assess on intervention. Pt agreed with plan. Fibromyalgia 06/18/2024 Assessment & Plan (01/04/2025 8:23 [...] including pharmacologic and lifestyle interventions. May consider [facility] acupuncture clinic. TMJ syndrome 05/01/2024 Assessment & Plan (05/21/2024 [...] medial proximal calf without significant reflux - [facility] rx for compression socks generated December 2023 - 05/08/24: [facility] Vascular - Dr. Reyes. [...] generated December 2023 Healthcare maintenance 05/12/2023 Overview (05/23/2025): Pap: NILM, HPV POS 12/10/20 at [facility] JAVA SUPPORT ENGINEER. Now following with [facility] - Dr Aquino & Lissy Mammo: BIRADS 1 on 08/03/24 Colonoscopy: routine screening starting at 45 y/o - has upcoming appt with [facility] GI Jun 2025 Last PE: 05/22/25 OPH: CEE 11/29/24 at [facility] Assessment & Plan (05/23/2025 9:20 AM EDT): - Encouraged to follow up with [employer] SU[employer]INEER for routine cervical CA screening and JAVA SUPPORT ENGINEER exam - Encouraged to discuss colonoscopy screening during upcoming appt with [facility] GI - Added lipid and A1c to pending labs Assessment & Plan (05/19/2023 4:08 PM EDT): Pap: positive high rish HPV 12/07 at [facility] JAVA SUPPORT ENGINEER. Reports recent screening - possibly Dr. Aquino at [facility] that was normal. Records requested. Mammo: [...] unremarkable Sep 2022 Continue following with Neurology: [facility] Neurology for history of NGUYEN. Continue [...] bilaterally ED precautions reviewed Assessment & Plan (05/23/2025 9:16 AM EDT): [employer]ATOR hours approved for 7h/week [facility]. She will consider if open to idea of person from agency coming to perform those hours. Assessment & Plan (04/11/2025 10:04 AM EDT): [employer] S[employer] COORDINATOR eval pending, message sent to Forms team to see if they may be able to assist/provide insight. Assessment & Plan (03/25/2024 6:15 PM EDT): [employer]ATOR eval pending Assessment & Plan (12/20/2023 11:20 AM EDT): [employer]ATOR eval pending Dizziness 10/05/2022 Overview (12/20/2023): -Check BP at home when episodes occur, encouraged to move slowly when changing from seated to standing position -Encouraged adequate water intake -Previously referred to PT for vestibular rehab Assessment & Plan (05/23/2025 9:16 AM EDT): - Included in updated referral to Neurology Assessment & Plan (09/30/2024 5:59 PM EST): [...] reflux disease without esophagi tis 08/05/2022 Overview (04/11/2025): -Following with [facility] GI - KAYKAY Hinojosao - March 2025-switched from pantoprazole to Nexium. 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 Reports following with [facility] for OBGYN care, request most recent notes Assessment & Plan (05/19/2023 4:06 PM EDT): -Following with [facility]. Request most recent records of pap and JAVA SUPPORT ENGINEER visit Mild intermittent asthma 01/24/2017 Assessment & Plan (05/23/2025 9:15 AM EDT): -Cont albuterol PRN -Well controlled Assessment & Plan (05/21/2024 10:41 AM EDT): -Cont albuterol PRN -Well controlled Migraine 03/14/2014 Overview (05/23/2025): Previously following with [facility] - Dr. Rudolph Rx for [facility] [place] sent through Neuro on Jun 2023, pt reports not approved by insurance Cont amitriptyline 10mg daily Previous med trials: divalproex Plan for potential botox if current medication not therapeutic. Assessment & Plan (05/23/2025 9:20 AM EDT): Referral to new Neurology placed 05/22/25 Assessment & Plan (05/19/2023 4:08 PM EDT): Continue following with [facility] Reports recently initiated new medication, unsure of name. Plan for potential botox if current medication not therapeutic. Assessment & Plan (01/23/2023 10:13 AM EDT): Continue following with [facility] Neurology Reports recently initiated new medication, unsure of name. Plan for potential botox if current medication not therapeutic. Allergic rhinitis 08/30/2013 Overview (05/19/2023): Continues with carla CASONN Mixed anxiety and depressive disorder 08/30/2013 Assessment & Plan (05/23/2025 9:20 AM EDT): Continue following with psych - med management through Dr. Martins Following with therapist - Yudi Parekh through [facility] Continues with sertraline, zolpidem, and clonazepam through their office Denies SI/HI/thoughts of self harm Assessment & Plan (04/11/2025 10:01 AM EDT): Continue following with psych - med management through Dr. Martins Following with therapist - Yudi frank [facility] Continues with sertraline, zolpidem, and clonazepam through their office Denies SI/HI/thoughts of self harm Assessment & Plan (11/22/2024 7:54 PM EST): [...] Assessment & Plan (05/19/2023 4:10 PM EDT): Continue following with psych - med management through Dr. Martins Continues with sertraline, zolpidem, and clonazepam through their office Denies SI/HI/thoughts of self harm Resolved Problems Problem Noted Date Diagnosed Date Resolved Date Excessive attrition of teeth 05/16/2025 05/21/2025 Dental calculus 05/16/2025 05/21/2025 Missing teeth, acquired 05/16/2025 09/0 10/2024 Gingival recession, localized 05/16/2025 05/21/2025 Atypical chest pain 10/30/2024 05/23/20 25 Viral URI 10/30/2024 11/21/2024 BMI 39.0-39.9,adult 05/21/2024 05/21/20 25 Syncope 11/10/2023 12/20/2023 Assessment & Plan (11/10/2023 [...] delay -request today records of neurology and fabrication supervisor to [place] to check already workup performed for previous [...] Assessment & Plan (05/19/2023 4:05 PM EDT): Encouraged healthy food consumption and routine physical activity Encounters * This document contains information received from the source organization and may not represent a complete record from that organization. Date Type Department Care Team Description 05/29/2025 Patient Outreach [facility] [address] [place] [address] Bertha Jacinto FNP Care Coordination (CHW outreach for SDOH PT-1 and food needs-referral completed /) 05/29/2025 Telephone [facility] [address] [place] [address] Bertha Jacinto FNP pt1 05/24/2025 Telephone [facility] [address] [place] [address] Bertha Jacinto FNP Referral 05/22/2025 9:15 AM EDT Office Visit [address] [address] Bertha Jacinto FNP Encounter for routine history and physical examination of adult (Primary Dx); Healthcare maintenance; Gastroesophageal reflux disease without esophagitis; History of syncope; Mild intermittent asthma without complication; Dietary counseling; Exercise counseling; Dizziness; Mixed anxiety and depressive disorder; Migraine without status migrainosus, not intractable, unspecified migraine type 05/22/2025 Telephone [facility] [address] [place] [address] Bertha Jacinto FNP Referral 05/22/2025 Travel 05/21/[address] [address] Bertha Jacinto FNP CHART PREP 05/16/2025 10:00 AM EDT Office Visit [facility] [address] [place] [phone] Clau Aquino Excessive attrition of teeth (Primary Dx); Dental plaque; Missing teeth, acquired; Dental calculus; Gingival recession, localized 05/15/2025 Patient Outreach [address] [address] Bertha Jacinto FNP Care Coordination (CHW outreach for SDOH PT-1 and food needs-referral completed /) 05/15/[address] [address] Bertha Jacinto FNP PT 1 add visit 05/15/2025 Patient Outreach [facility] [address] [place] [address] Bertha Jacinto FNP Pre-visit Planning (SDOH was already completed) 05/07/2025 11:30 AM EDT Office Visit [facility] [address] [place] [address] Suzie Rubin MD Skin tag (Primary Dx) 05/07/2025 Travel 05/01/2025 9:45 AM EDT Office Visit [facility] [address] [place] [phone] Joyce Goldstein NP Migraine without status migrainosus, not intractable, unspecified migraine type (Primary Dx); Elevated blood pressure reading 05/01/2025 Travel 04/30/[address] [address] Nelsy Falcon [place] CHARTPREP 04/29/[address] [address] Cecy Montes De Oca RN Triage 04/28/2025 Refill [facility] [address] [place], [place] [phone] Bertha Jacinto FNP 04/23/2025 10:15 AM EDT Office Visit [facility] [address] [place] [address] Suzie Rubin MD Skin tag (Primary Dx) 04/23/2025 Travel 04/16/[address] [address] Bertha Jacinto FNP Home Care Services (I called the patient, regarding a PCP order form for AFC services, from [facility]. I informed her that her PCP feels that AFC is not appropriate at this time, but she may qualify for [employer] CO[employer]ATOR services. She stated that [facility] had already approved her for 7 hours, through [facility], and her son will be her curb worker. I informed her that I will relay the information to the forms nurse, and will contact her again with any questions. She verbalized understanding.) 04/11/2025 11:00 AM EDT Office Visit [facility] [address] [place] [phone] Zeyad Hernandez MD Dizziness (Primary Dx) 04/11/2025 Travel 04/10/2025 10:45 AM EDT Office Visit [facility] [address] [place] [phone] Bertha Jacinto FNP Bilateral carpal tunnel syndrome (Primary Dx); Gastroesophageal reflux disease without esophagitis; Mixed anxiety and depressive disorder; History of syncope; Elevated blood pressure reading 04/10/2025 Travel 04/09/2025 Telephone [facility] [address] [place] [phone] Bertha Jacinto FNP CHART PREP 04/04/[address] [address] Bertha Jacinto FNP Home Care Services (I called the patient, regarding a PCP order form for AFC services, from [facility]. I reached a voicemail, and left a message asking her to return my call at ext [phone].) 04/02/[address] [address] Bertha Jacinto FNP CHART PREP 03/22/[address] [address] Bertha Jacinto FNP Tinea pedis of right foot 03/19/2025 9:30 AM EDT Office Visit [facility] [address], [place] [phone] Suzie Rubin MD Skin tag (Primary Dx) 03/19/2025 Travel from Last 3 Months Immunizations Immunization Administration Dates Next Due Hep B, Adolescent [...] Relation Name Comments Stomach cancer Maternal Grandfather Diabetes Mother Hyperlipidemia Mother Migraines Mother Relation [...] Answer Date Recorded Patient Health Questionnaire-9 Score 8 04/10/2025 Patient Health Questionnaire-9 Score 8 04/10/2025 Last PHQ-9: Questionnaire Data Not on file 0 04/10/2025 Housing Stability Answer Date Recorded What is [...] Date Recorded Patient Health Questionnaire-2 Score 2 04/10/2025 Internet Access Answer Date Recorded Internet Access [...] Sign Reading Time Taken Comments Blood Pressure 140/90 05/22/2025 9:26 AM EDT Pulse 90 05/22/2025 9:26 AM EDT Temperature 36.9 C (98.5 F) 05/22/2025 9:26 AM EDT Respiratory Rate 16 05/22/2025 9:26 AM EDT Oxygen Saturation 99% 05/22/2025 9:26 AM EDT Inhaled Oxygen Concentration - - Weight 88 kg (194 lb) 05/22/2025 9:26 AM EDT Height 149.9 cm (4' 11 ) 05/07/2025 11:19 AM EDT Body Mass Index 39.18 05/07/2025 11:19 AM EDT Plan of Treatment Upcoming Encounters Date Type Department Care Team (Late st Contact Info) Description 07/09/2025 11:00 AM EDT Office Visit [facility] [address] [place] [address] Suzie Rubin MD [address] [place] [address] 11/28/2025 8:00 AM EDT Office Visit [facility] [address] [place] [address] Clau Aquino Health Maintenance Due Date Last Done Comments CT Colonography 1980 Colonoscopy 1980 Colorectal Cancer Screening 1980 FIT DNA/Cologuard 1980 FIT 1980 FOBT 1980 Sigmoidoscopy 1980 Family Planning (PISQ) 1995 HPV Vaccines (1 - 3-dose series) 1995 Pap Smear 2001 Dental Oral Exam 05/16/2025 11/15/2024, , 04/13/2021, Additional history exists COVID-19 Vaccine ( - season) 2025 02/02/2021, 12/31/2020 Influenza Vaccine (#1) 2025 , 07/26/2023, 07/30/2022, Additional history exists Mammogram 08/03/2025 08/03/2024, 04/2023, 07/21/2022, Additional history exists SDOH Screening 11/13/2025 11/13/2024 Dental X-Ray: Bitewings 11/16/2025 11/15/19 25, 08/16/2022, 04/13/2021, Additional history exists Dental Prophylaxis 11/17/2025 05/16/2025, 0 11/15/2024, 08/16/2022, Additional history exists Cervical Cancer Screening 12/10/2025 HPV/Cotest 12/10/2025 12/10/2020, 12/10/2020 Depression Screening 04/10/2026 04/10/2025, 04/10/20 Disability Screening 04/10/2026 04/10/2025 Alcohol/Substance Use Screening 05/22/2026 05/22/2025 Tobacco Screening 05/22/2026 05/22/2025 Dental X-Ray: Full Mouth 11/16/2027 025, 05/01/2024, [...] Years) and At-Risk Patients (6 to 49) Years Completed 03/23/2024, 07/28/2010 HIB Vaccines Aged Out No longer eligi ble based on patient's age to complete this topic Hepatitis A Vaccines Aged Out No long er eligible based on patient's age to complete this topic IPV Vaccines Aged Out No longer eligi ble based on patient's age to complete this topic Meningococcal B Vaccine Aged Out No l onger eligible based on patient's age to complete [...] Associated Diagnosis Comments ORAL HYGIENE INSTRUCTIONS Routine 05/16/2025 10:00 AM EDT Dental plaque Dental calculus PROPHYLAXIS - ADULT Routine 05/16/2025 1 0:00 AM EDT Dental plaque Dental calculus CASE PRESENTATION, DETAILED AND EXTENSIVE TREATMENT PLANNING Routine 05/16/2025 10:00 AM EDT DESTRUCTION OF LESION Routine 05/07/2025 12:40 PM EDT Skin tag DESTRUCTION OF LESION Routine 04/23/2025 1:39 PM EDT Skin tag DESTRUCTION OF LESION Routine 03/19/2025 12:55 PM EDT Skin tag INTRAORAL - COMPLETE SERIES OF RADIOGRAPHIC IMAGES Routine 11/15/2024 11:00 AM EST PERIODIC ORAL EVALUATION - ESTABLISHED PATIENT Routine 11/15/2024 11:00 AM EST BI MAMMOGRAM SCREENING TOMOSYNTHESIS BILATERAL Routine 08/03/2024 [...] Recently Relevant to Health Maintenance Results * Destruction of lesion (05/07/2025 12:40 PM EDT) Suzie Gage MD - 05/07/2025 12:40 PM EDT Suzie Rubin MD 05/07/2025 12:41 PM Destruction of lesion Date/Time: 05/07/2025 12:40 PM Performed by: Suzie Rubin MD Authorized by: Suzie Rubin MD Consent: Consent obtained: Verbal and written Risks discussed: Infection, pain and poor cosmetic result Alternatives discussed: Observation Agate protocol: Procedure explained and questions answered to patient or proxy's satisfaction: yes Relevant documents present and verified: no Test results available: no Imaging studies available: no Required blood products, implants, devices, and special equipment available: no Site/side marked: no Immediately prior to procedure, a time out was called: yes Patient identity confirmed: Verbally with patient Comments: 14 lesions treated with electrodesiccation as per protocol. The procedure was well tolerated. Suzie Rubin MD DERM PROCEDURE ORDERABLES F inal Result * Destruction of lesion (04/23/2025 1:39 PM EDT) Suzie Gage MD - 04/23/2025 1:39 PM EDT Suzie Rubin MD 04/23/2025 1:41 PM Destruction of lesion Date/Time: 04/23/2025 1:39 PM Performed by: Suzie Rubin MD Authorized by: Suzie Rubin MD Consent: Consent obtained: Written Consent given by: Patient Risks discussed: Infection, pain and poor cosmetic result Alternatives discussed: Observation Agate protocol: Procedure explained and questions answered to patient or proxy's satisfaction: yes Relevant documents present and verified: no Test results available: no Imaging studies available: no Required blood products, implants, devices, and special equipment available: no Site/side marked: no Immediately prior to procedure, a time out was called: yes Patient identity confirmed: Verbally with patient Number of Lesions: 6 Comments: 14 lesions destroyed by Electrodesiccation. Procedure well tolerated. us Suzie Rubin MD DERM PROCEDURE ORDERABLES F inal Result * Destruction of lesion (03/19/2025 12:55 PM EDT) Suzie Gage MD - 03/19/2025 12:55 PM EDT Suzie uRbin MD 03/19/2025 12:57 PM Destruction of lesion Date/Time: 03/19/2025 12:55 PM Performed by: Suzie Rubin MD Authorized by: Suzie Rubin MD Consent: Consent obtained: Written Consent given by: Parent Risks discussed: Pain and poor cosmetic result Alternatives discussed: Observation Agate protocol: Procedure explained and questions answered to patient or proxy's satisfaction: yes Relevant documents present and verified: no Test results available: no Imaging studies available: no Required blood products, implants, devices, and special equipment available: no Site/side marked: no Immediately prior to procedure, a time out was called: yes Number of Lesions: 1 Lesion 1: Initial size (mm): 2 Final defect size (mm): 2 Malignancy: benign lesion Comments: Lesions treated by electrodesiccation. Procedure well-tolerated us Suzie Rubin MD DERM PROCEDURE ORDERABLES F inal Result * BI Mammogram Screening Tomosynthesis Bilateral (08/03/2024 1:41 PM EST) Anatomical Region Laterality Modality Breast Bilateral Mammography 08/03/2024 1:41 PM EST Narrative 08/14/2024 11:01 AM EST [facility] [address] [place] [address] Mammography Report Signed Patient: Laura Clay MR #: [id number] : 1980 Acct:[id number] Age/Sex: 44 / F ADM Date: 08/03/24 Loc: HO.MAMMO Attending Dr: Bertha Jacinto WOOD GRAINER Ordering Physician: Bertha Jacinto Results: 1Negat andrey Date of Service: 08/03/24 Follow Up: 1 Year From Orig inal Mammogram Procedure(s): MM tomosynthesis screening BI Accession Number(s): [id number] cc: Bertha Jacinto WOOD GRAINER EXAMINATION: MM SCREENING DIGITAL BREAST TOMOSYNTHESIS, BILATERAL [...] 08/14/24 1057 DD/ 1341 TD/TT: 08/03/24 1355 Correctional Substance Abuse Counselor: Procedure Note Donotuseinterpreter, Image - 08/14/2024 [facility] [address] [place], [place] [address] Mammography Report Signed Patient: Laura Clay PMR #: [id number] : 1980Acct:[id number] Age/Sex: 44 / FADM Date: 08/03/24 Loc: HO.MAMMO Attending Dr: Bertha Jacinto WOOD GRAINER Ordering Physician: Bertha JacintoPResults: 1Negat andrey Date of Service: 08/03/24Follow Up: 1 Year From Orig inal Mammogram Procedure(s): MM tomosynthesis screening BI Accession Number(s): [id number] cc: Bertha Jacinto EXAMINATION: MM SCREENING DIGITAL BREAST TOMOSYNTHESIS, BILATERAL [...] 08/14/24 1057 DD/ 1341 TD/TT: 08/03/24 1355 Correctional Substance Abuse Counselor: Bertha CHRISTIAN IMG BI PROCEDURES Final Result * Hepatitis C Viral RNA, Quantitative, Real-Time PCR (03/23/2024 9:51 AM EDT) Hepatitis C Viral Load <15 NOT DETECTED NOT DETECTED IU/mL [facility] HCV Log PCR <1.18 NOT DETECTED NOT DETECTED Log IU/mL [facility] Comment:For additional infor luana, please refer tohttp://education.PATHSENSORS/faq/ARG74r3(This link is being provided for informational/educational purposes only.)THIS TEST WAS PERFORMED AT:[facility] [place] [id number] VELAZCO MD Blood 03/23/2024 9:51 AM EDT 03/23/2024 2:07 PM EDT Bertha CHRISTIAN LAB BLOOD ORDERABLES Final Res ult [facility] [address] [place] [phone] * HIV-1/2 Antigen and Antibodies, Fourth Generation, with Reflexes (03/23/2024 9:51 AM EDT) Pathologist [facility] HIV AB/AG Nonreactive Nonreactive [facility] Comment:HIV-1 p24 Ag and/or HIV-1/HIV-2 Ab not detected.A test result that is nonreactive does not exclude thepossibility of exposure to or infection with HIV-1 and/orHIV-2. Nonreactive results in this assay for individualswith prior exposure to HIV-1 and/or HIV-2 may be due toantigen and antibody levels that are below the limit ofdetection of this assay.The [employer] HIV Ag/Ab Combo assay result andsupplemental assay results should be interpreted inconjunction with the patient's clinical presentation,history and other laboratory results. If the results areinconsistent with clinical evidence, additional testing issuggested to confirm the result. Blood Venous blood specimen / Unknown 03/23/2024 9:51 AM EDT 03/23/2024 2:07 PM EDT Bertha Jacinto [facility] BLOOD ORDERABLES Final Res ult [facility] [address] [place] [address] [phone] * (ABNORMAL) HPV E6/E7 RFLX ARYAN 16 18/45 (12/10/2020 1:49 PM EDT) Pathologist [facility] HPV 16 RNA NOT DETECTED NOT DETECTED [facility] HPV 18/45 RNA NOT DETECTED NOT DETECTED [facility] Comment: Methodology: Medical Clinic Manager Mediated Amplification The analytical performance characteristics of this assay have been determined by [employer]. The modifications have not been cleared or approved by the FDA. This assay has been validated pursuant to the CLIA regulations and is used for clinical purposes. THIS TEST WAS PERFORMED AT: [facility] [address] [place] [address] [address]LO[address],[place] [address] MART VELAZCO MD HPV mRNA E6/E7 rflx Detected(A) Not Detected [facility] Comment: Methodology: Medical Clinic Manager-Mediated Amplification This assay detects E6/E7 viral messenger RNA (mRNA) from 14 high-risk HPV types (16,18,31,33,35,39,45,51,52,56,58,59,66,68). The analytical performance characteristics of this assay have been determined by [facility]. The modifications have not been cleared or approved by the FDA. This assay has been validated pursuant to the CLIA regulations and is used for clinical purposes. For additional information, please refer to http://education.PATHSENSORS/faq/QWB315h1 (This link if provided for information/ educational purposes only.) THIS TEST WAS PERFORMED AT: [facility] [address] [place] [address] [address],[place] [address] MART VELAZCO MD 12/10/2020 1:49 PM EDT Jonnathan Holley MD HISTORICAL/NON ORDERABLE LABS Fi nal Result [facility] [address] from Last 3 Months or Most Recently Relevant to Health Maintenance Insurance [facility] C3 [place] AD[place] Care Teams Slasher Relationship Specialty Start Date End Date Bertha Jacinto FNP [address] [place] [address] PCP - General Family Medicine 09/28/22 Eugenio Rudolph MD [address] [place] [address], [address] [place] [address] Neurology 09/30/24 Cale Pena MD [address] 3rd [place] [address] Cardiology 09/30/24 Josseline Gan [address] 3rd [place] [address] Gastroenterology 09/30/24 Archie Reyes MD [address] [place] [address] Vascular Surgery 09/30/24
--- OUTSIDE RECORDS SUMMARY | 2025-06-19 09:13 | XMS_ITS | Encounter Summary ---
Author Organization [employer] Address [address] 7t [place] [address] Care Team Providers Care Cnc Operator Machinist Name Role Phone Bertha Jacinto Primary Care Provider Eugenio Rudolph MD Unavailable [phone] Cale Pena MD Unavailable Josseline Gan Unavailable Archie Reyes MD Unavailable Reason for Visit * Reason Onset Date Comments PT1 12/17/2022 Encounter Details Date Type Department Care Team (Late st Contact Info) Description 12/17/2022 Telephone [facility] MEDICINE 230 [place] [address] Bertha Jacinto FNP [address] [place], [place] [phone] PT1 Social History Tobacco Use Types Packs/Day [...] encounter Miscellaneous Notes * Telephone Encounter - Elizabeht Black - 02/22/2023 10:54 AM EDT Patient will recieve approval / denial letter via mail. PT-1 Request [id number] [address] [place] [address] * Telephone Encounter - Kalli Eden - 12/17/2022 2:24 PM EDT Tc from pt requesting a PT1 for Location:[address] [place] [address] [facility] Date&Time: 12/23/22 @ 1:45pm Reconnaissance Crewmember: no No wheel chair or cane documented in this encounter Plan of Treatment Upcoming Encounters Date Type Department Care Team (Late st Contact Info) Description 07/09/2025 11:00 AM EDT Office Visit [facility] CHC MED & PEDS 505 [place] [address] Suzie Rubin MD 505 [place] [address] 11/28/2025 8:00 AM EDT Office Visit [facility] ADULT DENTAL 230 [place] [address] Clau Aquino documented as of this encounter Visit Diagnoses Not on filedocumented in this encounter Care Teams Cnc Operator Machinist Relationship Specialty Start Date End Date Bertha Jacinto FNP 230 [place] [address] PCP - General Family Medicine 09/28/22 Eugenio Rudolph MD [address] [place] [address], [address] [place] [address] Neurology 09/30/24 Cale Pena MD [address] [place] [address] Cardiology 09/30/24 Josseline Gan [address] [place] [address] Gastroenterology 09/30/24 Archie Reyes MD [address] [place] [address] Vascular Surgery 09/30/24 documented as of this encounter
--- OUTSIDE RECORDS SUMMARY | 2025-06-19 09:13 | XMS_ITS | Encounter Summary ---
Author Organization [facility] Address [address] [place] [address] 7 [place] [address] Care Team Providers Care Exterior Designer Name Role Phone Rosita Clark MD Primary Care Provider Bertha Shetty Primary Care Provider [phone] Eugenio Rudolph MD Unavailable [phone] Cale Pena MD Unavailable Josseline Gan Unavailable Archie Reyes MD Unavailable Encounter Details Date Type Department Care Team (Latest Contact Info) Description 04/15/2021 Abstract [facility] CONVERSIONS Dental, Provider, DDS Social [...] Description 07/09/2025 11:00 AM EDT Office Visit [facility] CHC MED & PEDS 505 [place], [place] [phone] Suzie Rubin MD 505 [place], [place] [phone] 11/28/2025 8:00 AM EDT Office Visit [facility] ADULT DENTAL [address] [place], [place] [phone] Clau Aquino documented as of this encounter Visit Diagnoses Not on filedocumented in this encounter Care Teams Exterior Designer Relationship Specialty Start Date End Date Rosita Clark MD PCP - General Family Medicine 07/31/19 08/08/22 Bertha Jacinto FNP 230 [place] [address] PCP - General Family Medicine 09/28/22 Eugenio Rudolph MD [address] [place] [address], [address] [place] [address] Neurology 09/30/24 Cale Pena MD [address] 3rd [place] [address] Cardiology 09/30/24 Josseline Gan [address] [place] [address] Gastroenterology 09/30/24 Archie Reyes MD [address] [place] [address] Vascular Surgery 09/30/24 documented as of this encounter
--- OUTSIDE RECORDS SUMMARY | 2025-06-19 09:13 | XMS_ITS | Encounter Summary ---
Author Organization [employer] [facility] Address [address] 7t [place] [address] Care Team Providers Care Supervisor Accounts Receivable Name Role Phone Bertha Jacinto Primary Care Provider Eugenio Rudolph MD Unavailable [phone] Cale Pena MD Unavailable Josseline Gan Unavailable Archie Reyes MD Unavailable Reason for Visit * Reason Onset Date Comments PT1 11/17/2022 Encounter Details Date Type Department Care Team (Late st Contact Info) Description 11/17/2022 Telephone [facility] MEDICINE [address] [place] [address] Bertha Jacinto FNP [address] [place], [place] [phone] PT1 Social History Tobacco Use Types Packs/Day [...] order that expires on January [address] [place] [address], [address]. Pt Is also requesting status on PT1 orders previously sent. Pt would like to request some PT1 forms: PT1 Name of facility: Specialty: Heart Appt Location: [address] [place] [address] Date: 01/20/2023 Time: 1:00 pm fax: n/a Phone: n/a wheelchair: n/a Weld Technician: n/a PT1 Name of facility: Specialty: Location: [address] [place] [address] Date: January 17, 2023 Time: 11:30 am fax: n/a Phone: n/a wheelchair: n/a Weld Technician: n/a PT1 Name of facility: [facility] Specialty: Future Appt Location: [address] [place] [address] Date: n/a Time: n/a fax: n/a Phone: n/a wheelchair: n/a Weld Technician: n/a For all future appt in all three locations. Please contact pt at [phone] Taiwanese Speaker * Telephone Encounter - Catarino Shine - 12/20/2022 3:48 PM EDT TC from pt asking for update on PT1 to see if application was submitted for [address] [address] Specialty: X ray Weld Technician: n/a *pt stated contacted insurance and they advised to contact pcp office . * Telephone Encounter - Anahi Marie - 12/16/2022 3:21 PM EDT Tc from pt requesting a PT1 [address] [address] Specialty: cardiogram Time: 9 am Date: 11/21/22 Weld Technician: n/a If any information needed please contact pt at [phone] Patient requested this adress since 11/17/22 * Telephone Encounter - Edward Miller - 11/17/2022 3:38 PM EST Tc from pt requesting a PT1 [facility] [address] [place] [address] Specialty: X ray Time: 1:30 pm Date: 11/18/2022 Weld Technician: n/a If any information needed please contact pt at [phone] documented in this encounter Plan of Treatment Upcoming Encounters Date Type Department Care Team ([facility] st Contact Info) Description 07/09/2025 11:00 AM EDT Office Visit [facility] CHC MED & PEDS 505 [place] [address] Suzie Rubin MD 505 [place] [address] 11/28/2025 8:00 AM EDT Office Visit [facility] ADULT DENTAL 230 [place] [address] Clau Aquino documented as of this encounter Visit Diagnoses Not on filedocumented in this encounter Care Teams Supervisor Accounts Receivable Relationship Specialty Start Date End Date Bertha Jacinto FNP [address] [place] [address] PCP - General Family Medicine 09/28/22 Eugenio Rudolph MD [address] [place] [address], [address] [place] [address] Neurology 09/30/24 Cale Pena MD [address] [address] Cardiology 09/30/24 Josseline Gan [address] 3rd [place] [address] Gastroenterology 09/30/24 Archie Reyes MD [address] [place] [address] Vascular Surgery 09/30/24 documented as of this encounter
--- OUTSIDE RECORDS SUMMARY | 2025-06-19 09:13 | XMS_ITS | Encounter Summary ---
Author Organization [employer] [facility] Address [address] 7t [place] [address] Care Team Providers Care Creel Selector Name Role Phone Bertha Jacinto Primary Care Provider Eugenio Rudolph MD Unavailable [phone] Cale Pena MD Unavailable Josseline Gan Unavailable Archie Reyes MD Unavailable Encounter Details Date Type Department Care Team ([facility] Contact Info) Description 10/06/2022 Telephone [facility] MEDICINE 230 [place] [address] Bertha Jacinto FNP [address] [place] [address] Social History Tobacco Use Types Packs/Day Years [...] Upcoming Encounters Date Type Department Care Team ([facility] Contact Info) Description 07/09/2025 11:00 AM EDT Office Visit [facility] CHC MED & PEDS 505 [place], [place] [phone] Suzie Rubin MD 505 [place], [place] [phone] 11/28/2025 8:00 AM EDT Office Visit [facility] ADULT DENTAL 230 [place] [address] Clau Aquino documented as of this encounter Visit Diagnoses Not on filedocumented in this encounter Care Teams Creel Selector Relationship Specialty Start Date End Date Bertha Jacinto FNP [address] [place] [address] PCP - General Family Medicine 09/28/22 Eugenio Rudolph MD [address] [place] [address], [address] [place] [address] Neurology 09/30/24 Cale Pena MD [address] 3rd [place] [address] Cardiology 09/30/24 Josseline Gan [address] 3rd [place] [address] Gastroenterology 09/30/24 Archie Reyes MD [address] [place] [address] Vascular Surgery 09/30/24 documented as of this encounter
--- OUTSIDE RECORDS SUMMARY | 2025-06-19 09:13 | XMS_ITS | Encounter Summary ---
Author Organization [employer] [facility] Address [address] 7t [place] [address] Care Team Providers Care Puzzle Assembler Name Role Phone Bertha Jacinto Primary Care Provider Eugenio Rudolph MD Unavailable [phone] Cale Pena MD Unavailable Josseline Gan Unavailable Archie Reyes MD Unavailable Encounter Details Date Type Department Care Team (Latest Contact Info) Description 08/16/2022 Abstract [facility] CONVERSIONS Dental, Provider, DDS Social History Tobacco [...] Care Team ( st Contact Info) Description 07/09/2025 11:00 AM EDT Office Visit [facility] MED & PEDS 505 [place] [address] Suzie Rubin MD 505 [place] [address] 11/28/2025 8:00 AM EDT Office Visit [facility] ADULT DENTAL [address] [place] [address] Clau Aquino documented as of this encounter Visit Diagnoses Not on filedocumented in this encounter Care Teams Puzzle Assembler Relationship Specialty Start Date End Date Bertha Jacinto FNP 230 [place] [address] PCP - General Family Medicine 09/28/22 Eugenio Rudolph MD [address], [address] [place] [address] Neurology 09/30/24 Cale Pena MD [address] 3rd [place] [address] Cardiology 09/30/24 Josseline Gan [address] 3rd [place] [address] Gastroenterology 09/30/24 Archie Reyes MD [address] [place] [address] Vascular Surgery 09/30/24 documented as of this encounter
--- OUTSIDE RECORDS SUMMARY | 2025-06-19 09:13 | XMS_ITS | Encounter Summary ---
Author Organization [facility] Address [address] 7t [place] [address] Care Team Providers Care Director Of Billing Name Role Phone Bertha Jacinto Primary Care Provider [phone] Eugenio Rudolph MD Unavailable [phone] Cale Pena MD Unavailable Josseline Gan Unavailable Archie Reyes MD Unavailable Reason for Visit * Reason Onset Date Comments PT1 11/12/2022 Encounter Details Date Type Department Care Team (Late st Contact Info) Description 11/12/2022 Telephone [facility] MEDICINE 230 [place] [address] Bertha Jacinto FNP [address] [place], [place] [phone] PT1 Social History Tobacco Use Types Packs/Day [...] PM EDT PT1 submitted and approved for [facility]. Approved through 01/11/2024 * Telephone Encounter - Edward Miller - 11/12/2022 3:06 PM EST Tc from pt requesting a PT1 [facility] [address] [place] [address] Specialty: X ray Time: 8:00 am Date: 11/15/2022 Building Construction Superintendent: n/a If any information needed please contact pt at [phone] documented in this encounter Plan of Treatment Upcoming Encounters Date Type Department Care Team ([facility] st Contact Info) Description 07/09/2025 11:00 AM EDT Office Visit [facility] CHC MED & PEDS 505 [place] [address] Suzie Rubin MD 505 [place] [address] 11/28/2025 8:00 AM EDT Office Visit [facility] ADULT DENTAL 230 [place] [address] Clau Aquino documented as of this encounter Visit Diagnoses Not on filedocumented in this encounter Care Teams Director Of Billing Relationship Specialty Start Date End Date Bertha Jacinto FNP 230 [place] [address] PCP - General Family Medicine 09/28/22 Eugenio Rudolph MD [address] [place] [address], [address] [place] [address] Neurology 09/30/24 Cale Pena MD [address] 3rd [place] [address] Cardiology 09/30/24 Josseline Gan [address] 3rd [place] [address] Gastroenterology 09/30/24 Archie Reyes MD [address] [place] [address] Vascular Surgery 09/30/24 documented as of this encounter
--- OUTSIDE RECORDS SUMMARY | 2025-06-19 09:14 | XMS_ITS | Encounter Summary ---
Author Organization [employer] [facility] Address [address] 7t [place] [address] Care Team Providers Care Training Assistant Name Role Phone Bertha Jacinto Primary Care Provider Eugenio Rudolph MD Unavailable [phone] Cale Pena MD Unavailable Josseline Gan Unavailable Archie Reyes MD Unavailable Reason for Visit * Reason Onset Date Comments PT1 12/26/2023 Encounter Details Date Type Department Care Team (Late st Contact Info) Description 12/26/2023 Telephone [facility] MEDICINE 230 [place] [address] Bertha Jacinto FNP [address] [place], [place] [phone] PT1 Social History Tobacco Use Types Packs/Day [...] Y/N: Yes Provider name or facility name: [facility] Facility Address: [address] [facility] [address] Escort needed: Y/N: No Do you have a wheelchair: Y/N: No If yes- Manual or electric: n/a Visits: n/a Patient calling requesting PT1 Home Address verified: Y/N: Yes Provider name or facility name: [facility] Facility Address: [address] [facility] [address] Escort needed: Y/N: No Do you have a wheelchair: Y/N: No If yes- Manual or electric: n/a Visits: n/a documented in this encounter Plan of Treatment Upcoming Encounters Date Type Department Care Team (Late st Contact Info) Description 07/09/2025 11:00 AM EDT Office Visit [facility] CHC MED & PEDS 505 [place] [address] Suzie Rubin MD 505 [place] [address] 11/28/2025 8:00 AM EDT Office Visit [facility] ADULT DENTAL 230 [place] [address] Clau Aquino documented as of this encounter Visit Diagnoses Not on filedocumented in this encounter Additional Health Concerns Assessment Noted Time PHQ-9 Depression Total Score: 0 01/11/20 9:12 AM EDT documented as of this encounter Care Teams Training Assistant Relationship Specialty Start Date End Date Bertha Jacinto FNP 230 [place] [address] PCP - General Family Medicine 09/28/22 Eugenio Rudolph MD [address] [place] [address], [address] [place] [address] Neurology 09/30/24 Cale Pena MD [address] 3rd [place] [address] Cardiology 09/30/24 Josseline Gan [address] 3rd [place] [address] Gastroenterology 09/30/24 Archie Reyes MD [address] [place] [address] Vascular Surgery 09/30/24 documented as of this encounter
--- OUTSIDE RECORDS SUMMARY | 2025-06-19 09:14 | XMS_ITS | Encounter Summary ---
Author Organization [facility] Address [address] 7t [place] [address] Care Team Providers Care Pineapple Plantation Manager Name Role Phone Bertha Jacinto Primary Care Provider Eugenio Rudolph MD Unavailable [phone] Cale Pena MD Unavailable Josseline Gan Unavailable Archie Reyes MD Unavailable Reason for Visit * Reason Onset Date Comments PT 1 add visit 05/15/2025 Encounter Details Date Type Department Care Team (Late st Contact Info) Description 05/15/[address] [facility] MEDICINE 230 [place] [address] Bertha Jacinto FNP [address] [place], [place] [phone] PT 1 add visit Social History Tobacco Use Types Packs/Day Years [...] encounter Miscellaneous Notes * Telephone Encounter - Geno Noriega - 05/15/2025 11:18 AM EDT Tc from pt 1 requesting to add visit to active PT1 located in : [address] [place] [address]. Pt ernie like to 4 visit x month Contact pt at [phone] Need sales consulting director documented in this encounter Plan of Treatment Upcoming Encounters Date Type Department Care Team (Late st Contact Info) Description 07/09/2025 11:00 AM EDT Office Visit [facility] CHC MED & PEDS 505 [place], [place] [phone] Suzie Rubin MD 505 [place], [place] [phone] 11/28/2025 8:00 AM EDT Office Visit [facility] ADULT DENTAL 230 [place] [address] Clau Aquino documented as of this encounter Visit Diagnoses Not on filedocumented in this encounter Additional Health Concerns Assessment Noted Time PHQ-9 Depression Total Score: 8 04/10/20 11:19 AM EDT documented as of this encounter Care Teams Pineapple Plantation Manager Relationship Specialty Start Date End Date Bertha Jacinto FNP 230 [place] [address] PCP - General Family Medicine 09/28/22 Eugenio Rudolph MD [address] [place] [address], [address] [place] [address] Neurology 09/30/24 Cale Pena MD [address] 3rd [place] [address] Cardiology 09/30/24 Josseline Gan [address] 3rd [place] [address] Gastroenterology 09/30/24 Archie Reyes MD [address] [place] [address] Vascular Surgery 09/30/24 documented as of this encounter
--- OUTSIDE RECORDS SUMMARY | 2025-06-19 09:14 | XMS_ITS | Encounter Summary ---
Author Organization [facility] Address [address] 7t [place] [address] Care Team Providers Care Assignment Officer Name Role Phone Bertha Jacinto Primary Care Provider [phone] Eugenio Rudolph MD Unavailable [phone] Cale Pena MD Unavailable Josseline Gan Unavailable Archie Reyes MD Unavailable Reason for Visit * Reason Onset Date Comments pt1 05/29/2025 Encounter Details Date Type Department Care Team ([facility] st Contact Info) Description 05/29/2025 Telephone [facility] MED & PEDS [address] [place], [place] [phone] Bertha Jacinto FNP 505 [place], [place] [phone] pt1 Social History Tobacco Use Types Packs/Day Years [...] is your housing situation today? I have lusi pina 05/18/[address] you [...] encounter Miscellaneous Notes * Telephone Encounter - Kyle Madison - 05/29/2025 2:43 PM EDT Patient calling requesting PT1 Home Address verified: Y/N: Yes Provider name or facility name: [address] [facility] [address] Escort needed: Y/N: Yes Do you have a wheelchair: Y/N: No If yes- Manual or electric: \ Visits: 4x Patient calling requesting PT1 Home Address verified: Y/N: Yes Provider name or facility name: [address] [facility] Escort needed: Y/N: Yes Do you have a wheelchair: Y/N: No If yes- Manual or electric: Visits: 3x documented in this encounter Plan of Treatment Upcoming Encounters Date Type Department Care Team (Late st Contact Info) Description 07/09/2025 11:00 AM EDT Office Visit [facility] CHC MED & PEDS 505 [place] [address] Suzie Rubin MD 505 [place] [address] 11/28/2025 8:00 AM EDT Office Visit [facility] ADULT DENTAL 230 [place] [address] Clau Aquino documented as of this encounter Visit Diagnoses Not on filedocumented in this encounter Additional Health Concerns Assessment Noted Time PHQ-9 Depression Total Score: 8 04/10/20 25 11:19 AM EDT documented as of this encounter Care Teams Assignment Officer Relationship Specialty Start Date End Date Bertha Jacinto FNP 230 [place] [address] PCP - General Family Medicine 09/28/22 Eugenio Rudolph MD [address] [place] [address], [address] [place] [address] Neurology 09/30/24 Cale Pena MD [address] 3rd [place] [address] Cardiology 09/30/24 Josseline Gan [address] 3rd [place] [address] Gastroenterology 09/30/24 Archie Reyes MD [address] [place] [address] Vascular Surgery 09/30/24 documented as of this encounter
--- OUTSIDE RECORDS SUMMARY | 2025-06-19 09:14 | XMS_ITS | Encounter Summary ---
Author Organization [facility] Address [address] 7t [place] [address] Care Team Providers Care Beekeeper Farmer Name Role Phone Bertha Jacinto Primary Care Provider [phone] Eugenio Rudolph MD Unavailable [phone] Cale Pena MD Unavailable Josseline Gan Unavailable Archie Reyes MD Unavailable Reason for Visit * Reason Onset Date Comments PT1 06/07/2024 Encounter Details Date Type Department Care Team ([facility] st Contact Info) Description 06/07/2024 Telephone [facility] MED & PEDS 505 [place], [place] [phone] Bertha Jacinto FNP 505 [place], [place] [phone] PT1 Social History Tobacco Use Types Packs/Day [...] facility name: Dr. Kong BAILON Facility Address: [address] [place] [address] Escort needed: Y/N: No Do you have a wheelchair: Y/N: No If yes- Manual or electric: Visits: 1-2 a month documented in this encounter Plan of Treatment Upcoming Encounters Date Type Department Care Team ([facility] st Contact Info) Description 07/09/2025 11:00 AM EDT Office Visit [facility] CHC MED & PEDS 505 [place] [address] Suzie Rubin MD 505 [place] [address] 11/28/2025 8:00 AM EDT Office Visit [facility] ADULT DENTAL 230 [place] [address] Clau Aquino documented as of this encounter Visit Diagnoses Not on filedocumented in this encounter Additional Health Concerns Assessment Noted Time PHQ-9 Depression Total Score: 7 05/18/20 24 3:50 PM EDT documented as of this encounter Care Teams Beekeeper Farmer Relationship Specialty Start Date End Date Bertha Jacinto FNP 230 [place] [address] PCP - General Family Medicine 09/28/22 Eugenio Rudolph MD [address] [place] [address], [address] [place] [address] Neurology 09/30/24 Cale Pena MD [address] 3rd [place] [address] Cardiology 09/30/24 Josseline Gan [address] 3rd [place] [address] Gastroenterology 09/30/24 Archie Reyes MD [address] [place] [address] Vascular Surgery 09/30/24 documented as of this encounter
--- OUTSIDE RECORDS SUMMARY | 2025-06-19 09:14 | XMS_ITS | Encounter Summary ---
Author Organization [facility] Address [address] 7t [place] [address] Care Team Providers Care Inspector Machine Cut Glass Name Role Phone Bertha Jacinto Primary Care Provider [phone] Eugenio Rudolph MD Unavailable [phone] Cale Pena MD Unavailable Josseline Gan Unavailable Archie Reyes MD Unavailable Reason for Visit * Reason Onset Date Comments PT-1 10/19/2024 Encounter Details Date Type Department Care Team (Late st Contact Info) Description 10/19/[address] [facility] MEDICINE 230 [place] [address] Bertha Jacinto FNP [address] [place], [place] [phone] PT-1 Social History Tobacco Use Types Packs/Day [...] Y/N: Yes Provider name or facility name: [address] [address] Escort needed: Y/N: No Do you have a wheelchair: Y/N: No If yes- Manual or electric: N/A Visits: (amount of visits) ( x monthly, weekly, daily) 2 times a month documented in this encounter Plan of Treatment Upcoming Encounters Date Type Department Care Team ([facility] st Contact Info) Description 07/09/2025 11:00 AM EDT Office Visit [facility] CHC MED & PEDS 505 [place] [address] Suzie Rubin MD [address] [place] [address] 11/28/2025 8:00 AM EDT Office Visit [facility] ADULT DENTAL 230 [place] [address] Clau Aquino documented as of this encounter Visit Diagnoses Not on filedocumented in this encounter Additional Health Concerns Assessment Noted Time PHQ-9 Depression Total Score: 7 05/18/20 24 3:50 PM EDT documented as of this encounter Care Teams Inspector Machine Cut Glass Relationship Specialty Start Date End Date Bertha Jacinto FNP 230 [place] [address] PCP - General Family Medicine 09/28/22 Eugenio Rudolph MD [address] [place] [address], [address] [place] [address] Neurology 09/30/24 Cale Pena MD [address] 3rd [place] [address] Cardiology 09/30/24 Josseline Gan [address] 3rd [place] [address] Gastroenterology 09/30/24 Archie Reyes MD [address] [place] [address] Vascular Surgery 09/30/24 documented as of this encounter
--- OUTSIDE RECORDS SUMMARY | 2025-06-19 09:14 | XMS_ITS | Encounter Summary ---
Author Organization [facility] Address [address] 7t [place] [address] Care Team Providers Care Timing Machine Operator Name Role Phone Bretha Jacinto Primary Care Provider Eugenio Rudolph MD Unavailable [phone] Cale Pena MD Unavailable Josseline Gan Unavailable Archie Reyes MD Unavailable Reason for Visit * Reason Onset Date Comments Referral 05/22/2025 Encounter Details Date Type Department Care Team ([facility] st Contact Info) Description 05/22/2025 Telephone [facility] MED & PEDS 505 [place], [place] [phone] Bertha Jacinto FNP 505 [place] [address] Referral Social History Tobacco Use Types Packs/Day Years [...] * Telephone Encounter - Kyle Madison - 05/22/2025 11:39 AM EDT Tc from pt requesting a new referral to a neurologist , [facility] neurologist office closed down Contact pt at [phone] (emirati) documented in this encounter Plan of Treatment Upcoming Encounters Date Type Department Care Team ([facility] st Contact Info) Description 07/09/2025 11:00 AM EDT Office Visit [facility] CHC MED & PEDS 505 [place] [address] Suzie Rubin MD 505 [place] [address] 11/28/2025 8:00 AM EDT Office Visit [facility] ADULT DENTAL 230 [place] [address] lCau Aquino documented as of this encounter Visit Diagnoses Not on filedocumented in this encounter Additional Health Concerns Assessment Noted Time PHQ-9 Depression Total Score: 8 04/10/20 25 11:19 AM EDT documented as of this encounter Care Teams Timing Machine Operator Relationship Specialty Start Date End Date Bertha Jacinto FNP 230 [place] [address] PCP - General Family Medicine 09/28/22 Eugenio Rudolph MD [address] [place] [address], [address] [place] [address] Neurology 09/30/24 Cale Pena MD [address] [place] [address] Cardiology 09/30/24 Josseline Gan [address] [place] [address] Gastroenterology 09/30/24 Archie Reyes MD [address] [place] [address] Vascular Surgery 09/30/24 documented as of this encounter
--- OUTSIDE RECORDS SUMMARY | 2025-06-19 09:14 | XMS_ITS | Encounter Summary ---
Author Organization [employer] Address [address] 7t [place] [address] Care Team Providers Care Card Feeder Name Role Phone Bertha Jacinto Primary Care Provider [phone] Eugenio Rudolph MD Unavailable [phone] Cale Pena MD Unavailable Josseline Gan Unavailable Archie Reyes MD Unavailable Encounter Details Date Type Department Care Team (Late st Contact Info) Description 02/06/2024 Telephone [facility] MED & PEDS 505 [place], [place] [phone] Bertha Jacinto FNP 505 [place], [place] [phone] Social History Tobacco Use Types Packs/Day Years [...] 07/09/2025 11:00 AM EDT Office Visit [facility] CHC MED & PEDS 505 [place] [address] Suzie Rubin MD 505 [place] [address] 11/28/2025 8:00 AM EDT Office Visit [facility] ADULT DENTAL 230 [place] [address] Clau Aquino documented as of this encounter Visit Diagnoses Not on filedocumented in this encounter Additional Health Concerns Assessment Noted Time PHQ-9 Depression Total Score: 0 01/11/20 9:12 AM EDT documented as of this encounter Care Teams Card Feeder Relationship Specialty Start Date End Date Bertha Jacinto FNP 230 [place] [address] PCP - General Family Medicine 09/28/22 Eugenio Rudolph MD [address] [place] [address], [address] [place] [address] Neurology 09/30/24 Cale Pena MD [address] 3rd [place] [address] Cardiology 09/30/24 Josseline Gan [address] 3rd [place] [address] Gastroenterology 09/30/24 Archie Reyes MD [address] [place] [address] Vascular Surgery 09/30/24 documented as of this encounter
--- OUTSIDE RECORDS SUMMARY | 2025-06-19 09:14 | XMS_ITS | Encounter Summary ---
Author Organization [facility] [facility] Address [address] 7t h Floor [place] [id number] Care Team Providers Care Court Bailiff Name Role Phone Bertha Jacinto Primary Care Provider [phone] Eugenio Rudolph MD Unavailable Cale Pena MD Unavailable Josseline Gan Unavailable Archie Reyes MD Unavailable Encounter Details Date Type Department Care Team ([facility] Contact Info) Description 05/25/2023 Abstract [facility] MEDICINE 230 [place] [address] Bertha Jacinto FNP 505 [place] [address] Social History Tobacco Use Types Packs/Day Years [...] Upcoming Encounters Date Type Department Care Team ([facility] Contact Info) Description 07/09/2025 11:00 AM EDT Office Visit [facility] CHC MED & PEDS 505 [place] [address] Suzie Rubin MD 505 [place] [address] 11/28/2025 8:00 AM EDT Office Visit [facility] ADULT DENTAL 230 [place] [address] Clau Aquino documented as of this encounter Visit Diagnoses Not on filedocumented in this encounter Additional Health Concerns Assessment Noted Time PHQ-9 Depression Total Score: 0 01/11/20 23 9:12 AM EDT documented as of this encounter Care Teams Court Bailiff Relationship Specialty Start Date End Date Bertha Jacinto FNP 230 [place] [address] PCP - General Family Medicine 09/28/22 Eugenio Rudolph MD [address] [place] [address], [address] [place] [address] Neurology 09/30/24 Cale Pena MD [address] 3rd [place] [address] Cardiology 09/30/24 Josseline Gan [address] 3rd [place] [address] Gastroenterology 09/30/24 Archie Reyes MD [address] [place] [address] Vascular Surgery 09/30/24 documented as of this encounter
--- OUTSIDE RECORDS SUMMARY | 2025-06-19 09:14 | XMS_ITS | Encounter Summary ---
Author Organization [employer] [facility] Address [address] 7t [place] [address] Care Team Providers Care Network Diagnostic Support Specialist Name Role Phone Bertha Jacinto Primary Care Provider Eugenio Rudolph MD Unavailable [phone] Cale Pena MD Unavailable Josseline Gan Unavailable Archie Reyes MD Unavailable Reason for Visit * Reason Onset Date Comments PT-1 10/19/2024 Encounter Details Date Type Department Care Team (Late st Contact Info) Description 10/19/2024 Telephone [facility] MEDICINE 230 [place] [address] Bertha Jacinto FNP [address] [place], [place] [phone] PT-1 Social History Tobacco Use Types Packs/Day [...] Y/N: Yes Provider name or facility name: [address] [place] [address] Escort needed: Y/N: No Do you have a wheelchair: Y/N: No If yes- Manual or electric: N/A Visits: (amount of visits) ( x monthly, weekly, daily) Once a month documented in this encounter Plan of Treatment Upcoming Encounters Date Type Department Care Team ([facility] Contact Info) Description 07/09/2025 11:00 AM EDT Office Visit [facility] CHC MED & PEDS [address] [place] [address] Suzie Rubin MD [address] [place] [address] 11/28/2025 8:00 AM EDT Office Visit [facility] ADULT DENTAL 230 [place] [address] Kenia Clau documented as of this encounter Visit Diagnoses Not on filedocumented in this encounter Additional Health Concerns Assessment Noted Time PHQ-9 Depression Total Score: 7 05/18/20 24 3:50 PM EDT documented as of this encounter Care Teams Network Diagnostic Support Specialist Relationship Specialty Start Date End Date Bertha Jacinto FNP 230 [place] [address] PCP - General Family Medicine 09/28/22 Eugenio Rudolph MD [address] [place] [address], [address] [place] [address] Neurology 09/30/24 Cale Pena MD [address] 3rd [place] [address] Cardiology 09/30/24 Josseline Gan [address] 3rd [place] [address] Gastroenterology 09/30/24 Archie Reyes MD [address] [place] [address] Vascular Surgery 09/30/24 documented as of this encounter
--- OUTSIDE RECORDS SUMMARY | 2025-06-19 09:14 | XMS_ITS | Encounter Summary ---
Author Organization [employer] Address [address] 7t [place] [address] Care Team Providers Care Account Manager Sales Representative Name Role Phone Bertha Jacinto Primary Care Provider [phone] Eugenio Rudolph MD Unavailable [phone] Cale Pena MD Unavailable Josseline Gan Unavailable Archie Reyes MD Unavailable Reason for Visit * Reason Onset Date Comments PT-1 10/18/2023 Encounter Details Date Type Department Care Team (Late st Contact Info) Description 10/18/2023 Telephone [facility] MEDICINE 230 [place] [address] Bertha Jacinto FNP [address] [place], [place] [phone] PT-1 Social History Tobacco Use Types Packs/Day [...] 9:26 AM EST PT 1 initiated for [address] [place] [address] no specialty provided in message nor for [address] [place] [address] * Telephone Encounter - Jovanna Larry - 10/20/2023 9:21 AM EST Assistant Professor Of English Name Practice Name Assistant Professor Of English Address Assistant Professor Of English [facility] Assistant Professor Of English [facility] [[email or web address] Treatment Type Status Expiration [facility] [address] [place] [id number] Approved 02/17/2024 isn't due yet [address] [place] [address] PT 1 Initiated * Telephone Encounter - Giacomo Bird - 10/18/2023 2:10 PM EST PT1 needed Date: N/A Time: N/A Visits: 6 Address: [address] [place] [address] Facility[place] [facility] Wheel Chair: no Dental Intern Needed: no PT1 needed Date: N/A Time: N/A Visits: 6 Address: [address] [place] [address] Facility: [facility] Wheel Chair: no Dental Intern Needed: no PT1 needed Date: N/A Time: N/A Visits: 6 Address: [address] [place] [address] Facility[place] [facility] Wheel Chair: no Dental Intern Needed: no documented in this encounter Plan of Treatment Upcoming Encounters Date Type Department Care Team (Late st Contact Info) Description 07/09/2025 11:00 AM EDT Office Visit [facility] CHC MED & PEDS 505 [place] [address] Suzie Rubin MD 505 [place] [address] 11/28/2025 8:00 AM EDT Office Visit [facility] ADULT DENTAL 230 [place] [address] Clau Aquino documented as of this encounter Visit Diagnoses Not on filedocumented in this encounter Additional Health Concerns Assessment Noted Time PHQ-9 Depression Total Score: 0 01/11/20 23 9:12 AM EDT documented as of this encounter Care Teams Account Manager Sales Representative Relationship Specialty Start Date End Date Bertha Jacinto FNP 230 [place] [address] PCP - General Family Medicine 09/28/22 Eugenio Rudolph MD [address] [place] [address], [address] [place] [address] Neurology 09/30/24 Cale Pena MD [address] 3rd [place] [address] Cardiology 09/30/24 Josseline Gan [address] 3rd [place] [address] Gastroenterology 09/30/24 Archie Reyes MD [address] [place] [address] Vascular Surgery 09/30/24 documented as of this encounter
--- OUTSIDE RECORDS SUMMARY | 2025-06-19 09:14 | XMS_ITS | Encounter Summary ---
Author Organization [employer] [facility] Address [address] [facility] [address] 7t [place] [address] Care Team Providers Care Rn Security Name Role Phone Bertha Jacinto Primary Care Provider Eugenio Rudolph MD Unavailable [phone] Cale Pena MD Unavailable Josseline Gan Unavailable Archie Reyes MD Unavailable Reason for Visit * Reason Onset Date Comments PT-1 12/28/2023 Encounter Details Date Type Department Care Team (Late st Contact Info) Description 12/28/2023 Telephone [facility] MEDICINE 230 [place] [address] Bertha Jacinto FNP [address] [place], [place] [phone] PT-1 Social History Tobacco Use Types Packs/Day [...] [facility] Address: [address] [place] [address] Escort needed: no Do you have a wheelchair: Y/N: No If yes- Manual or electric: No Visits: 6 documented in this encounter Plan of Treatment Upcoming Encounters Date Type Department Care Team (Late st Contact Info) Description 07/09/2025 11:00 AM EDT Office Visit [facility] CHC MED & PEDS 505 [place], [place] [phone] Suzie Rubin MD 505 [place] [address] 11/28/2025 8:00 AM EDT Office Visit [facility] ADULT DENTAL 230 [place] [address] Clau Aquino documented as of this encounter Visit Diagnoses Not on filedocumented in this encounter Additional Health Concerns Assessment Noted Time PHQ-9 Depression Total Score: 0 01/11/20 23 9:12 AM EDT documented as of this encounter Care Teams Rn Security Relationship Specialty Start Date End Date Bertha Jacinto FNP 230 [place] [address] PCP - General Family Medicine 09/28/22 Eugenio Rudolph MD [address] [place] [address], [address] [place] [address] Neurology 09/30/24 Cale Pena MD [address] 3rd [place] [address] Cardiology 09/30/24 Josseline Gan [address] 3rd [place] [address] Gastroenterology 09/30/24 Archie Reyes MD [address] [place] [address] Vascular Surgery 09/30/24 documented as of this encounter
--- OUTSIDE RECORDS SUMMARY | 2025-06-19 09:14 | XMS_ITS | Encounter Summary ---
Author Organization [employer] Address [address] 7t [place] [address] Care Team Providers Care Marine Painter Name Role Phone Bertha Jacinto Primary Care Provider Eugenio Rudolph MD Unavailable [phone] Cale Pena MD Unavailable Josseline Gan Unavailable Archie Reyes MD Unavailable Encounter Details Date Type Department Care Team (Late st Contact Info) Description 03/28/2024 Orders Only [facility] CHC MED & PEDS 505 [place], [place] [phone] Bertha Jacinto FNP 505 [place], [place] [phone] Social History Tobacco Use Types Packs/Day Years [...] Description 07/09/2025 11:00 AM EDT Office Visit [facility] CHC MED & PEDS 505 [place] [address] Suzie Rubin MD 505 [place] [address] 11/28/2025 8:00 AM EDT Office Visit [facility] ADULT DENTAL 230 [place] [address] Clau Aquino documented as of this encounter Visit Diagnoses Not on filedocumented in this encounter Additional Health Concerns Assessment Noted Time PHQ-9 Depression Total Score: 0 01/11/20 23 9:12 AM EDT documented as of this encounter Care Teams Marine Painter Relationship Specialty Start Date End Date Bertha Jacinto FNP 230 [place] [address] PCP - General Family Medicine 09/28/22 Eugenio Rudolph MD [address] [place] [address], [address] [place] [address] Neurology 09/30/24 Cale Pena MD [address] 3rd [place] [address] Cardiology 09/30/24 Josseline Gan [address] 3rd [place] [address] Gastroenterology 09/30/24 Archie Reyes MD [address] [place] [address] Vascular Surgery 09/30/24 documented as of this encounter
--- OUTSIDE RECORDS SUMMARY | 2025-06-19 09:15 | XMS_ITS | Encounter Summary ---
Author Organization [employer] [facility] Address [address] [facility] [address] [facility] [address] 7t [place] [address] Care Team Providers Care Research Mechanic Name Role Phone Bertha Jacinto Primary Care Provider Eugenio Rudolph MD Unavailable [phone] Cale Pena MD Unavailable Josseline Gan Unavailable Archie Reyes MD Unavailable Reason for Visit * Reason Onset Date Comments PT1 06/24/2023 Encounter Details Date Type Department Care Team (Late st Contact Info) Description 06/24/2023 Telephone [facility] MEDICINE [address] [place] [address] Bertha Jacinto FNP [address] [place], [place] [phone] PT1 Social History Tobacco Use Types Packs/Day [...] a PT1 Date: n/a Time: n/a address: [address] [place] [address] 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) # visits: n/a skin care consultant: no Wheelchair: no documented in this encounter Plan of Treatment Upcoming Encounters Date Type Department Care Team ([facility] st Contact Info) Description 07/09/2025 11:00 AM EDT Office Visit [facility] CHC MED & PEDS 505 [place] [address] Suzie Rubin MD 505 [place] [address] 11/28/2025 8:00 AM EDT Office Visit [facility] ADULT DENTAL 230 [place] [address] Clau Aquino documented as of this encounter Visit Diagnoses Not on filedocumented in this encounter Additional Health Concerns Assessment Noted Time PHQ-9 Depression Total Score: 0 01/11/20 23 9:12 AM EDT documented as of this encounter Care Teams Research Mechanic Relationship Specialty Start Date End Date Bertha Jacinto FNP 230 [place] [address] PCP - General Family Medicine 09/28/22 Eugenio Rudolph MD [address] [facility], [address] [place] [address] Neurology 09/30/24 Cale Pena MD [address] 3rd [place] [address] Cardiology 09/30/24 Josseline Gan [address] 3rd [place] [address] Gastroenterology 09/30/24 Archie Reyes MD [address] [place] [address] Vascular Surgery 09/30/24 documented as of this encounter
--- OUTSIDE RECORDS SUMMARY | 2025-06-19 09:15 | XMS_ITS | Encounter Summary ---
Author Organization [employer] Address [address] [address] 7t [place] [address] Care Team Providers Care Stoner Out Name Role Phone Bertha Jacinto Primary Care Provider Eugenio Rudolph MD Unavailable [phone] Cale Pena MD Unavailable Josseline Gan Unavailable Archie Reyes MD Unavailable Reason for Visit * Reason Onset Date Comments PT1 07/08/2023 Encounter Details Date Type Department Care Team (Late st Contact Info) Description 07/08/2023 Telephone [facility] MEDICINE 230 [place] [address] Bertha Jacinto FNP [address] [place], [place] [phone] PT1 Social History Tobacco Use Types Packs/Day [...] n/a Time: n/a Visits: n/a Address: [address] [facility] Facility: [facility] Wheel Chair: no Recruitment Coordinator Needed: no Date: 08/10 Time: 10:30 AM Visits: n/a Address: [address] [facility] Facility: [facility] primary care Wheel Chair: no Recruitment Coordinator Needed: no Pick-up location confirmed: [address] [place] [address] documented in this encounter Plan of Treatment Upcoming Encounters Date Type Department Care Team ([facility] Contact Info) Description 07/09/2025 11:00 AM EDT Office Visit [facility] CHC MED & PEDS 505 [place] [address] Suzie Rubin MD 505 [place] [address] 11/28/2025 8:00 AM EDT Office Visit [facility] ADULT DENTAL 230 [place] [address] Clau Aquino documented as of this encounter Visit Diagnoses Not on filedocumented in this encounter Additional Health Concerns Assessment Noted Time PHQ-9 Depression Total Score: 0 01/11/20 23 9:12 AM EDT documented as of this encounter Care Teams Stoner Out Relationship Specialty Start Date End Date Bertha Jacinto FNP [address] [place] [address] PCP - General Family Medicine 09/28/22 Eugenio Rudolph MD [address] [place] [address], [address] [place] [address] Neurology 09/30/24 Cale Pena MD [address] 3rd [place] [address] Cardiology 09/30/24 Josseline Gan [address] 3rd [place] [address] Gastroenterology 09/30/24 Archie Reyes MD [address] [place] [address] Vascular Surgery 09/30/24 documented as of this encounter
== END 2025-06-19 09:40 | disposition home or self-care (01) ==
LOC: HO.HSM 08:41
PROVIDERS: PCP Registered Nurse; Visit Provider Nurse Practitioner
DX: G43.709 Chronic migraine without aura, not intractable, without status migrainosus (principal); M25.519 Pain in unspecified shoulder; M79.18 Myalgia, other site
CPT/HCPCS: 99204

== ENCOUNTER → 2025-06-19 08:40 | Outpatient (BNVA) | payer MEDICAID, SELFPAY | PROVIDERS: PCP Registered Nurse; Visit Provider Nurse Practitioner | DX: G43.709 Chronic migraine without aura, not intractable, without status migrainosus (principal); M25.519 Pain in unspecified shoulder; M79.18 Myalgia, other site | CPT/HCPCS: 99202 ==

== ENCOUNTER 2025-08-09 13:37 | Outpatient (REF) | payer MEDICAID, SELFPAY ==
--- NOTE | ~2025-08-09 | MM_ITS ---
EXAMINATION: MM SCREENING DIGITAL BREAST TOMOSYNTHESIS, BILATERAL CLINICAL INFORMATION: Screening. Asymptomatic. COMPARISON: Mammography: Comparison is made with available priors TECHNIQUE: Digital breast mammography with tomosynthesis is performed in both the craniocaudal and mediolateral oblique views along with computer-aided detection (CAD). FINDINGS: The breasts are almost entirely fatty. Bilateral reduction mammoplasty. There are no significant masses, abnormal calcifications, or other abnormalities. MM/MM tomosynthesis screening BI IMPRESSION: No mammographic evidence of malignancy. ASSESSMENT: BI-RADS Category 1: Negative RECOMMENDATION: Routine annual mammography screening. 1 year F/U This examination should not preclude the clinical evaluation of a suspicious palpable abnormality. This patient's information was entered into a reminder system with a target due date for their next mammogram. Electronically signed by: Dianne Lockwood DO 08/13/2025 09:07 AM ROSALIND
--- OUTSIDE RECORDS SUMMARY | 2025-08-09 14:01 | XMS_ITS | Encounter Summary ---
Author Organization [employer] Address [address] [facility] [address] [address] 7t [place] [address] Care Team Providers Care Director Shopper Marketing Name Role Phone Bertha Jacinto Primary Care Provider Eugenio Rudolph MD Unavailable [phone] Cale Pena MD Unavailable Josseline Gan Unavailable Archie Reyes MD Unavailable Reason for Visit * Reason Onset Date Comments PT1 12/17/2022 Encounter Details Date Type Department Care Team (Late st Contact Info) Description 12/17/2022 Telephone [facility] MEDICINE 230 [place] [address] Bertha Jacinto FNP [address] [place], [place] [phone] PT1 Social History Tobacco Use Types Packs/Day [...] / denial letter via mail. PT-1 Request [id number] [address] [place] [address] * Telephone Encounter - Kalli Eden - 12/17/2022 2:24 PM EDT Tc from pt requesting a PT1 for Location:[address] [place] [address] [facility] Date&Time: 12/23/22 @ 1:45pm Laundry Route Driver: no No wheel chair or cane documented in this encounter Plan of Treatment Upcoming Encounters Date Type Department Care Team (Late st Contact Info) Description 09/03/2025 11:30 AM EST Office Visit [facility] CHC MED & PEDS 505 [place] [address] Suzie Rubin MD 505 [place] [address] 11/28/2025 8:00 AM EDT Office Visit [facility] ADULT DENTAL 230 [place] [address] Clau Aquino documented as of this encounter Visit Diagnoses Not on filedocumented in this encounter Care Teams Director Shopper Marketing Relationship Specialty Start Date End Date Bertha Jacinto FNP [address] [place] [address] PCP - General Family Medicine 09/28/22 Eugenio Rudolph MD [address] [place] [address], [address] [place] [address] Neurology 09/30/24 Cale Pena MD [address] [place] [address] Cardiology 09/30/24 Josseline Gan [address] [place] [address] Gastroenterology 09/30/24 Archie Reyes MD [address] [place] [address] Vascular Surgery 09/30/24 documented as of this encounter
--- OUTSIDE RECORDS SUMMARY | 2025-08-09 14:01 | XMS_ITS | Encounter Summary ---
Author Organization [employer] [facility] Address [address] [facility] [address] [facility] [address] 7t [place] [address] Care Team Providers Care Natural Gas Trader Name Role Phone Bertha Jacinto Primary Care Provider Eugenio Rudolph MD Unavailable [phone] Cale Pena MD Unavailable Josseline Gan Unavailable Archie Reyes MD Unavailable Reason for Visit * Reason Onset Date Comments pt1 06/28/2025 Encounter Details Date Type Department Care Team ([facility] st Contact Info) Description 06/28/2025 Telephone [facility] MED & PEDS 505 [place], [place] [phone] Bertha Jacinto FNP 505 [place], [place] [address] pt1 Social History Tobacco Use Types Packs/Day [...] * Telephone Encounter - Kyle Madison - 06/28/2025 9:26 AM EDT Patient calling requesting PT1 Home Address verified: Y/N: Yes Provider name or facility name: [address] Escort needed: Y/N: Yes Do you have a wheelchair: Y/N: No If yes- Manual or electric: Visits: 3x documented in this encounter Plan of Treatment Upcoming Encounters Date Type Department Care Team ([facility] st Contact Info) Description 09/03/2025 11:30 AM EST Office Visit [facility] MED & PEDS 505 [place] [address] Suzie Rubin MD 505 [place] [address] 11/28/2025 8:00 AM EDT Office Visit [facility] ADULT DENTAL 230 [place] [address] Clau Aquino documented as of this encounter Visit Diagnoses Not on filedocumented in this encounter Additional Health Concerns Assessment Noted Time PHQ-9 Depression Total Score: 8 04/10/20 11:19 AM EDT documented as of this encounter Care Teams Natural Gas Trader Relationship Specialty Start Date End Date Bertha Jacinto FNP 230 [place] [address] PCP - General Family Medicine 09/28/22 Eugenio Rudolph MD [address] [place] [address], [address] [place] [address] Neurology 09/30/24 Cale Pena MD [address] 3rd [place] [address] Cardiology 09/30/24 Josseline Gan [address] 3rd [place] [address] Gastroenterology 09/30/24 Archie Reyes MD [address] [place] [address] Vascular Surgery 09/30/24 documented as of this encounter
--- OUTSIDE RECORDS SUMMARY | 2025-08-09 14:01 | XMS_ITS | Encounter Summary ---
Author Organization [employer] [facility] Address [address] 7t [place] [address] Care Team Providers Care Spinner Box Name Role Phone Bertha Jacinto Primary Care Provider [phone] Eugenio Rudolph MD Unavailable [phone] Cale Pena MD Unavailable Josseline Gan Unavailable Archie Reyes MD Unavailable Reason for Visit * Reason Onset Date Comments PT1 11/17/2022 Encounter Details Date Type Department Care Team (Late st Contact Info) Description 11/17/2022 Telephone [facility] MEDICINE 230 [place] [address] Bertha Jacinto FNP [address] [place], [place] [phone] PT1 Social History Tobacco Use Types Packs/Day [...] order that expires on January [address] [place] [address], [id number]. Pt Is also requesting status on PT1 orders previously sent. Pt would like to request some PT1 forms: PT1 Name of facility: Specialty: Heart Appt Location: [address] [place] [address] Date: 01/20/2023 Time: 1:00 pm fax: n/a Phone: n/a wheelchair: n/a Commodity Trader: n/a PT1 Name of facility: Specialty: Location: [address] [place] [address] Date: January 17, 2023 Time: 11:30 am fax: n/a Phone: n/a wheelchair: n/a Commodity Trader: n/a PT1 Name of facility: [facility] Specialty: Future Appt Location: [address] [place] [address] Date: n/a Time: n/a fax: n/a Phone: n/a wheelchair: n/a Commodity Trader: n/a For all future appt in all three locations. Please contact pt at [phone] Portuguese Speaker * Telephone Encounter - Catarino Shine - 12/20/2022 3:48 PM EDT TC from pt asking for update on PT1 to see if application was submitted for [address] [address] Specialty: X ray Commodity Trader: n/a *pt stated contacted insurance and they advised to contact pcp office . * Telephone Encounter - Anahi Marie - 12/16/2022 3:21 PM EDT Tc from pt requesting a PT1 [address] [address] Specialty: cardiogram Time: 9 am Date: 11/21/22 Commodity Trader: n/a If any information needed please contact pt at [phone] Patient requested this adress since 11/17/22 * Telephone Encounter - Edward Miller - 11/17/2022 3:38 PM EST Tc from pt requesting a PT1 [facility] [address] [place] [address] Specialty: X ray Time: 1:30 pm Date: 11/18/2022 Commodity Trader: n/a If any information needed please contact pt at [phone] documented in this encounter Plan of Treatment Upcoming Encounters Date Type Department Care Team ([facility] st Contact Info) Description 09/03/2025 11:30 AM EST Office Visit [facility] CHC MED & PEDS 505 [place] [address] Suzie Rubin MD 505 [place] [address] 11/28/2025 8:00 AM EDT Office Visit [facility] ADULT DENTAL 230 [place] [address] Clau Aquino documented as of this encounter Visit Diagnoses Not on filedocumented in this encounter Care Teams Spinner Box Relationship Specialty Start Date End Date Bertha Jacinto FNP 230 [place] [address] PCP - General Family Medicine 09/28/22 Eugenio Rudolph MD [address] [place] [address], [address] [place] [address] Neurology 09/30/24 Cale Pena MD [address] [address] Cardiology 09/30/24 Josseline Gan [address] 3rd [place] [address] Gastroenterology 09/30/24 Archie Reyes MD [address] [place] [address] Vascular Surgery 09/30/24 documented as of this encounter
--- OUTSIDE RECORDS SUMMARY | 2025-08-09 14:01 | XMS_ITS | Encounter Summary ---
Author Organization [employer] [facility] Address [address] [facility] [address] 7t [place] [address] Care Team Providers Care Metal Milling Machine Operator Name Role Phone Bertha Jacinto Primary Care Provider [phone] Eugenio Rudolph MD Unavailable [phone] Cale Pena MD Unavailable Josseline Gan Unavailable Archie Reyes MD Unavailable Reason for Visit * Reason Onset Date Comments PT1 11/12/2022 Encounter Details Date Type Department Care Team (Late st Contact Info) Description 11/12/2022 Telephone [facility] MEDICINE 230 [place] [address] Bertha Jacinto FNP [address] [place], [place] [phone] PT1 Social History Tobacco Use Types Packs/Day [...] PM EDT PT1 submitted and approved for [facility]. Approved through 01/11/2024 * Telephone Encounter - Edward Miller - 11/12/2022 3:06 PM EST Tc from pt requesting a PT1 [facility] [address] [place] [address] Specialty: X ray Time: 8:00 am Date: 11/15/2022 Final Inspector: n/a If any information needed please contact pt at [phone] documented in this encounter Plan of Treatment Upcoming Encounters Date Type Department Care Team ([facility] st Contact Info) Description 09/03/2025 11:30 AM EST Office Visit [facility] CHC MED & PEDS 505 [place] [address] Suzie Rubin MD 505 [place] [address] 11/28/2025 8:00 AM EDT Office Visit [facility] ADULT DENTAL [address] [place] [address] Clau Aquino documented as of this encounter Visit Diagnoses Not on filedocumented in this encounter Care Teams Metal Milling Machine Operator Relationship Specialty Start Date End Date Bertha Jacinto FNP [address] [place] [address] PCP - General Family Medicine 09/28/22 Eugenio Rudolph MD [address] [place] [address], [address] [place] [address] Neurology 09/30/24 Cale Pena MD [address] 3rd [place] [address] Cardiology 09/30/24 Josseline Gan [address] 3rd [place] [address] Gastroenterology 09/30/24 Archie Reyes MD [address] [place] [address] Vascular Surgery 09/30/24 documented as of this encounter
--- OUTSIDE RECORDS SUMMARY | 2025-08-09 14:01 | XMS_ITS | Encounter Summary ---
Author Organization [employer] [facility] Address [address] [facility] [address] 7t [place] [address] Care Team Providers Care Maintenance And Custodian Supervisor Name Role Phone Bertha Jacinto Primary Care Provider Eugenio Rudolph MD Unavailable [phone] Cale Pena MD Unavailable Josseline Gan Unavailable Archie Reyes MD Unavailable Reason for Visit * Reason Onset Date Comments PT1 01/13/2023 Encounter Details Date Type Department Care Team (Late st Contact Info) Description 01/13/[address] [facility] MEDICINE 230 [place] [address] Bertha Jacinto FNP [address] [place], [place] [phone] PT1 Social History Tobacco Use Types Packs/Day [...] requesting a PT1 PT1 Name of facility: [facility] Specialty: MRI Location: [address] [place] [address] Date: n/a Time: n/a fax: n/a Phone: n/a wheelchair: n/a Executive Director: n/a All future appts documented in this encounter Plan of Treatment Upcoming Encounters Date Type Department Care Team (Late st Contact Info) Description 09/03/2025 11:30 AM EST Office Visit [facility] CHC MED & PEDS 505 [place] [address] Suzie Rubin MD 505 [place] [address] 11/28/2025 8:00 AM EDT Office Visit [facility] ADULT DENTAL 230 [place] [address] Clau Aquino documented as of this encounter Visit Diagnoses Not on filedocumented in this encounter Additional Health Concerns Assessment Noted Time PHQ-9 Depression Total Score: 0 01/11/20 23 9:12 AM EDT documented as of this encounter Care Teams Maintenance And Custodian Supervisor Relationship Specialty Start Date End Date Bertha Jacinto FNP 230 [place] [address] PCP - General Family Medicine 09/28/22 Eugenio Rudolph MD [address] [place] [address], [address] [place] [address] Neurology 09/30/24 Cale Pena MD [address] 3rd [place] [address] Cardiology 09/30/24 Josseline Gan [address] 3rd [place] [address] Gastroenterology 09/30/24 Archie Reyes MD [address] [place] [address] Vascular Surgery 09/30/24 documented as of this encounter
--- OUTSIDE RECORDS SUMMARY | 2025-08-09 14:01 | XMS_ITS | Encounter Summary ---
Author Organization [facility] Address [address] [place] [address] 7t [place] [address] Care Team Providers Care Mill Roll Operator Name Role Phone Bertha Jacinto Primary Care Provider Eugenio Rudolph MD Unavailable [phone] Cale Pena MD Unavailable Josseline Gan Unavailable Archie Reyes MD Unavailable Encounter Details Date Type Department Care Team (Latest Contact Info) Description 08/16/2022 Abstract [facility] Dental, Provider, DDS Social History Tobacco [...] Description 09/03/2025 11:30 AM EST Office Visit [facility] CHC MED & PEDS 505 [place] [address] Suzie Rubin MD 505 [place], [place] [phone] 11/28/2025 8:00 AM EDT Office Visit [facility] ADULT DENTAL [address] [place] [address] Clau Aquino documented as of this encounter Visit Diagnoses Not on filedocumented in this encounter Care Teams Mill Roll Operator Relationship Specialty Start Date End Date Bertha Jacinto FNP 230 [place] [address] PCP - General Family Medicine 09/28/22 Eugenio Rudolph MD [address] [place] [address], [address] [place] [address] Neurology 09/30/24 Cale Pena MD [address] 3rd [place] [address] Cardiology 09/30/24 Josseline Gan [address] [place] [address] Gastroenterology 09/30/24 Archie Reyes MD [address] [place] [address] Vascular Surgery 09/30/24 documented as of this encounter
--- OUTSIDE RECORDS SUMMARY | 2025-08-09 14:02 | XMS_ITS | Encounter Summary ---
Author Organization [employer] Address [address] 7t [place] [address] Care Team Providers Care Thread Singer Name Role Phone Bertha Jacinto Primary Care Provider Eugenio Rudolph MD Unavailable [phone] Cale Pena MD Unavailable Josseline Gan Unavailable Archie Reyes MD Unavailable Reason for Visit * Reason Onset Date Comments PT-1 10/19/2024 Encounter Details Date Type Department Care Team (Late st Contact Info) Description 10/19/2024 Telephone [facility] MEDICINE 230 [place] [address] Bertha Jacinto FNP [address] [place], [place] [phone] PT-1 Social History Tobacco Use Types Packs/Day [...] Y/N: Yes Provider name or facility name: [address] [address] Escort needed: Y/N: No Do you have a wheelchair: Y/N: No If yes- Manual or electric: N/A Visits: (amount of visits) ( x monthly, weekly, daily) 2 times a month documented in this encounter Plan of Treatment Upcoming Encounters Date Type Department Care Team ([facility] st Contact Info) Description 09/03/2025 11:30 AM EST Office Visit [facility] CHC MED & PEDS 505 [place] [address] Suzie Rubin MD [address] [place] [address] 11/28/2025 8:00 AM EDT Office Visit [facility] ADULT DENTAL 230 [place] [address] Clau Aquino documented as of this encounter Visit Diagnoses Not on filedocumented in this encounter Additional Health Concerns Assessment Noted Time PHQ-9 Depression Total Score: 7 05/18/20 24 3:50 PM EDT documented as of this encounter Care Teams Thread Singer Relationship Specialty Start Date End Date Bertha Jacinto FNP 230 [place] [address] PCP - General Family Medicine 09/28/22 Eugenio Rudolph MD [address] [place] [address], [address] [place] [address] Neurology 09/30/24 Cale Pena MD [address] 3rd [place] [address] Cardiology 09/30/24 Josseline Gan [address] 3rd [place] [address] Gastroenterology 09/30/24 Archie Reyes MD [address] [place] [address] Vascular Surgery 09/30/24 documented as of this encounter
--- OUTSIDE RECORDS SUMMARY | 2025-08-09 14:02 | XMS_ITS | Data Portability ---
Author Organization [place] [facility], Allergy Address [address] [address] Care Team Providers Care Hotel Or Motel Cleaning Supervisor Name Role Phone REEMA LY Referring Provider [...] Gastroeso phageal reflux disease without esophagit is 588378002 Active 2021 Gastro-e sophagea l reflux disease without esophagi tis; Note: Date Diagnose d: 08/05/20 22 3:13 PM (K21.9) Not Available [facility] 4 02:21:12 Dysphagia 98105370 Active 2021 Other dysphagi a; Note: Date Diagnose d: 08/05/20 22 2:51 PM (R13.19) Not Available [facility] 4 02:21:00 Respirato ry finding 206499889 Active 2022 Feeling of foreign body in throat; Note: Date Diagnose d: 02/17/2023 1:06 PM (R09.89) Not Available [facility] 4 02:21:09 Cardiovas cular finding 402900735 Active 2022 Feeling of foreign body in throat; Note: Date Diagnose d: 02/17/2023 1:06 PM (R09.89) Not Available [facility] 4 02:21:10 Bilateral tinnitus 566086623447 2 Active 2023 JACE DELGADO [place], [facility] [address] [place] [address], [place], [address] , [place] - [facility] 4 14:54:40 Dizziness 322823811 Active 2023 Marilia best [place] - [facility] 4 15:25:46 Syncope 879357727 Active 2023 Marilia best [place] [facility] 17:14:19 Problem Notes None recorded. Procedures Surgical History Date Name Laterality Status Provider Name and Address Organization Details Recorded Time 04/17/2024 Air & Speech Audio with Tymps - 92825, 08015 & 31928 completed JACE DELGADO [place], [facility] [address] [place] [address],[address], [address], [facility] - [facility] 04/17/2024 14:54:26 Imaging Results None recorded. Procedure [...] a day 2021 active Medicatio n ID: [id number] Du ration Value: 30 Brand Name: omeprazol [...] release by mouth active Medicatio n ID: [id number] Pr escribed By Name: EARL Fregoso Name: [...] Updated DateTime 04/17/2024 149.86 cm 37.4 kg/m2 83621.59 g Nancy Crain [place] - [facility] 04/17/2024 15:09:56 Social History None recorded. Functional Status None recorded. Mental Status None recorded. Family History Nothing Reported. Medical History No medical history recorded. Gynecological HistoryNo gynecological history recorded. Obstetrics History GPAL:G 0 P 0 0 0 0 Past Encounters Encounter ID Performer Location Encounter Start Date Encounter Closed Date Diagnosis/Indication Diagnosis SNOMED-CT Code Diagnosis ICD10 Code Diagnosis IMO Codes Diagnosis Note [id number] MARILIA ROBERSON PA-C [facility] [address] [address] 04/17/2024 14:18:29 04/17/2024 15:33:05 Bilateral tinnitus 5160747967 102 H93.13 Audiologic al evaluation results:Ri ght ear:Normal hearing with excellent word recognitio n.Left ear:Normal hearing with excellent word recognitio n. Tympanomet ry:Right Ear:Type ALeft Ear:Type A Dizziness 395148445 R42 Syncope 196839785 R55 Health Concerns Section Related Observation LastModified by Organization Detai ls LastModified Time None Recorded Concern Status LastModified by Organization Details LastModified Time None Recorded Advance Directives Directive None Recorded Payers Insurance Date Sequence Insurance Name Policy Number Policy Rosen Covered Member ID Rosen Member ID Guarantor Name 04/20/2024 1 [place] [facility] Laura Aj Eber [id number] Laura Velázquez Notes Date Note Type Note Provider Name and Address Organization Details Recorded Time 04/17/2024 text/html ROS as noted in the HPI 44 year old female presents for evaluation of the ears and [...] and drink more water. JADA GUAMAN MD [address] [place] [address], [place], [address], [place] - [facility] 04/18/2024 07:51:43 OBGyn Episode No OBEpisode recorded.
--- OUTSIDE RECORDS SUMMARY | 2025-08-09 14:02 | XMS_ITS | Encounter Summary ---
Author Organization [employer] Address [address] 7t [place] [address] Care Team Providers Care Flower Buncher Or Picker Name Role Phone Bertha Jacinto Primary Care Provider Eugenio Rudolph MD Unavailable Cale Pena MD Unavailable Josseline Gan Unavailable Archie Reyes MD Unavailable Reason for Visit * Reason Onset Date Comments PT1 07/08/2023 Encounter Details Date Type Department Care Team (Late st Contact Info) Description 07/08/2023 Telephone [facility] MEDICINE [address] [place] [address] Bertha Jacinto FNP [address] [place], [place] [phone] PT1 Social History Tobacco Use Types Packs/Day [...] n/a Time: n/a Visits: n/a Address: [address] [facility] Facility: [facility] Wheel Chair: no Director Operations Needed: no Date: 08/10 Time: 10:30 AM Visits: n/a Address: [address] [facility] Facility: [facility] primary care Wheel Chair: no Director Operations Needed: no Pick-up location confirmed: [address] [place] [address] documented in this encounter Plan of Treatment Upcoming Encounters Date Type Department Care Team ([facility] Contact Info) Description 09/03/2025 11:30 AM EST Office Visit [facility] CHC MED & PEDS 505 [place] [address] Suzie Rubin MD 505 [place] [address] 11/28/2025 8:00 AM EDT Office Visit [facility] ADULT DENTAL [address] [place] [address] Clau Aquino documented as of this encounter Visit Diagnoses Not on filedocumented in this encounter Additional Health Concerns Assessment Noted Time PHQ-9 Depression Total Score: 0 01/11/20 23 9:12 AM EDT documented as of this encounter Care Teams Flower Buncher Or Picker Relationship Specialty Start Date End Date Bertha Jacinto FNP [address] [place] [address] PCP - General Family Medicine 09/28/22 Eugenio Rudolph MD [address] [place] [address], [address] [place] [address] Neurology 09/30/24 Cale Pena MD [address] 3rd [place] [address] Cardiology 09/30/24 Josseline Gan [address] 3rd [place] [address] Gastroenterology 09/30/24 Archie Reyes MD [address] [place] [address] Vascular Surgery 09/30/24 documented as of this encounter
--- OUTSIDE RECORDS SUMMARY | 2025-08-09 14:02 | XMS_ITS | Encounter Summary ---
Author Organization [employer] Address [address] 7t [place] [address] Care Team Providers Care American History Teacher Name Role Phone Bertha Jacinto Primary Care Provider Eugenio Rudolph MD Unavailable [phone] Cale Pena MD Unavailable Josseline Gan Unavailable Archie Reyes MD Unavailable Reason for Visit * Reason Onset Date Comments PT-1 10/18/2023 Encounter Details Date Type Department Care Team (Late st Contact Info) Description 10/18/2023 Telephone [facility] MEDICINE [address] [place] [address] Bertha Jacinto FNP [address] [place], [place] [phone] PT-1 Social History Tobacco Use Types Packs/Day [...] 9:26 AM EST PT 1 initiated for [address] [place] [address] no specialty provided in message nor for [address] [place] [address] * Telephone Encounter - Jovanna Larry - 10/20/2023 9:21 AM EST Specimen Collector Name Practice Name Specimen Collector Address Specimen Collector [facility] Specimen Collector [facility] Treatment Type Status Expiration [facility] [address] [place] [id number] Approved 02/17/2024 isn't due yet [address] [place] [address] PT 1 Initiated * Telephone Encounter - Giacomo Bird - 10/18/2023 2:10 PM EST PT1 needed Date: N/A Time: N/A Visits: 6 Address: [address] [place] [address] Facility: [facility] Wheel Chair: no Paint Roller Covers Supervisor Needed: no PT1 needed Date: N/A Time: N/A Visits: 6 Address: [address] [place] [address] Facility: [facility] Wheel Chair: no Paint Roller Covers Supervisor Needed: no PT1 needed Date: N/A Time: N/A Visits: 6 Address: [address] [place] [address] Facility: [facility] Wheel Chair: no Paint Roller Covers Supervisor Needed: no documented in this encounter Plan of Treatment Upcoming Encounters Date Type Department Care Team (Late st Contact Info) Description 09/03/2025 11:30 AM EST Office Visit [facility] CHC MED & PEDS 505 [place] [address] Suzie Rubin MD 505 [place] [address] 11/28/2025 8:00 AM EDT Office Visit [facility] ADULT DENTAL 230 [place] [address] Clau Aquino documented as of this encounter Visit Diagnoses Not on filedocumented in this encounter Additional Health Concerns Assessment Noted Time PHQ-9 Depression Total Score: 0 01/11/20 23 9:12 AM EDT documented as of this encounter Care Teams American History Teacher Relationship Specialty Start Date End Date Bertha Jacinto FNP 230 [place] [address] PCP - General Family Medicine 09/28/22 Eugenio Rudolph MD [address] [place] [address], [address] [place] [address] Neurology 09/30/24 Cale Pena MD [address] 3rd [place] [address] Cardiology 09/30/24 Josseline Gan [address] 3rd [place] [address] Gastroenterology 09/30/24 Archie Reyes MD [address] [place] [address] Vascular Surgery 09/30/24 documented as of this encounter
--- OUTSIDE RECORDS SUMMARY | 2025-08-09 14:02 | XMS_ITS | Encounter Summary ---
Author Organization [employer] [facility] Address [address] 7t [place] [address] Care Team Providers Care Inventory And Pricing Associate Name Role Phone Bertha Jacinto Primary Care Provider [phone] Eugenio Rudolph MD Unavailable [phone] Cale Pena MD Unavailable Josseline Gan Unavailable Archie Reyes MD Unavailable Encounter Details Date Type Department Care Team (Late Contact Info) Description 05/25/[address] [facility] MEDICINE 230 [place] [address] Bertha Jacinto FNP 505 [place] [address] Social History Tobacco Use Types Packs/Day Years [...] Upcoming Encounters Date Type Department Care Team ([facility] Contact Info) Description 09/03/2025 11:30 AM EST Office Visit [facility] CHC MED & PEDS 505 [place] [address] Suzie Rubin MD 505 [place] [address] 11/28/2025 8:00 AM EDT Office Visit [facility] ADULT DENTAL 230 [place] [address] Clau Aquino documented as of this encounter Visit Diagnoses Not on filedocumented in this encounter Additional Health Concerns Assessment Noted Time PHQ-9 Depression Total Score: 0 01/11/20 23 9:12 AM EDT documented as of this encounter Care Teams Inventory And Pricing Associate Relationship Specialty Start Date End Date Bertha Jacinto FNP 230 [place] [address] PCP - General Family Medicine 09/28/22 Eugenio Rudolph MD [address] [place] [address], [address] [place] [address] Neurology 09/30/24 Cale Pena MD [address] 3rd [place] [address] Cardiology 09/30/24 Josseline Gan [address] 3rd [place] [address] Gastroenterology 09/30/24 Archie Reyes MD [address] [place] [address] Vascular Surgery 09/30/24 documented as of this encounter
--- OUTSIDE RECORDS SUMMARY | 2025-08-09 14:02 | XMS_ITS | Encounter Summary ---
Author Organization [employer] [facility] Address [address] 7t [place] [address] Care Team Providers Care Screen Printing Supervisor Name Role Phone Bertha Jacinto Primary Care Provider Eugenio Rudolph MD Unavailable [phone] Cale Pena MD Unavailable Josseline Gan Unavailable Archie Reyes MD Unavailable Reason for Visit * Reason Onset Date Comments PT1 06/24/2023 Encounter Details Date Type Department Care Team (Late st Contact Info) Description 06/24/2023 Telephone [facility] MEDICINE 230 [place] [address] Bertha Jacinto FNP [address] [place], [place] [phone] PT1 Social History Tobacco Use Types Packs/Day [...] a PT1 Date: n/a Time: n/a address: [address] [place] [address] specialty: [facility] (clearance cutter) # visits: n/a head of english: no Wheelchair: no documented in this encounter Plan of Treatment Upcoming Encounters Date Type Department Care Team ([facility] st Contact Info) Description 09/03/2025 11:30 AM EST Office Visit [facility] CHC MED & PEDS 505 [place] [address] Suzie Rubin MD 505 [place] [address] 11/28/2025 8:00 AM EDT Office Visit [facility] ADULT DENTAL 230 [place] [address] Clau Aquino documented as of this encounter Visit Diagnoses Not on filedocumented in this encounter Additional Health Concerns Assessment Noted Time PHQ-9 Depression Total Score: 0 01/11/20 23 9:12 AM EDT documented as of this encounter Care Teams Screen Printing Supervisor Relationship Specialty Start Date End Date Bertha Jacinto FNP 230 [place] [address] PCP - General Family Medicine 09/28/22 Eugenio Rudolph MD [address] [facility], [address] [place] [address] Neurology 09/30/24 Cale Pena MD [address] 3rd [place] [address] Cardiology 09/30/24 Josseline Gan [address] 3rd [place] [address] Gastroenterology 09/30/24 Archie Reyes MD [address] [place] [address] Vascular Surgery 09/30/24 documented as of this encounter
--- OUTSIDE RECORDS SUMMARY | 2025-08-09 14:02 | XMS_ITS | Encounter Summary ---
Author Organization [employer] Address [address] 7t [place] [address] Care Team Providers Care Diesel Truck Mechanic Name Role Phone Bertha Jacinto Primary Care Provider Eugenio Rudolph MD Unavailable [phone] Cale Pena MD Unavailable Josseline Gan Unavailable Archie Reyes MD Unavailable Reason for Visit * Reason Onset Date Comments PT-1 10/19/2024 Encounter Details Date Type Department Care Team (Late st Contact Info) Description 10/19/2024 Telephone [facility] MEDICINE 230 [place] [address] Bertha Jacinto FNP [address] [place], [place] [phone] PT-1 Social History Tobacco Use Types Packs/Day [...] Y/N: Yes Provider name or facility name: [address] [place] [address] Escort needed: Y/N: No Do you have a wheelchair: Y/N: No If yes- Manual or electric: N/A Visits: (amount of visits) ( x monthly, weekly, daily) Once a month documented in this encounter Plan of Treatment Upcoming Encounters Date Type Department Care Team ([facility] Contact Info) Description 09/03/2025 11:30 AM EST Office Visit [facility] CHC MED & PEDS 505 [place] [address] Suzie Rubin MD [address] [place] [address] 11/28/2025 8:00 AM EDT Office Visit [facility] ADULT DENTAL 230 [place] [address] Clau Aquino documented as of this encounter Visit Diagnoses Not on filedocumented in this encounter Additional Health Concerns Assessment Noted Time PHQ-9 Depression Total Score: 7 05/18/20 24 3:50 PM EDT documented as of this encounter Care Teams Diesel Truck Mechanic Relationship Specialty Start Date End Date Bertha Jacinto FNP 230 [place] [address] PCP - General Family Medicine 09/28/22 Eugenio Rudolph MD [address] [place] [address], [address] [place] [address] Neurology 09/30/24 Cale Pena MD [address] 3rd [place] [address] Cardiology 09/30/24 Josseline Gan [address] 3rd [place] [address] Gastroenterology 09/30/24 Archie Reyes MD [address] [place] [address] Vascular Surgery 09/30/24 documented as of this encounter
--- OUTSIDE RECORDS SUMMARY | 2025-08-09 14:02 | XMS_ITS | Encounter Summary ---
Author Organization [facility] Address [address] [facility] 7t [place] [address] Care Team Providers Care Photocopy Operator Name Role Phone Rosita Clark MD Primary Care Provider Bertha Shetty Primary Care Provider Eugenio Rudolph MD Unavailable [phone] Cale Pena MD Unavailable Josseline Gan Unavailable Archie Reyes MD Unavailable Encounter Details Date Type Department Care Team (Latest Contact Info) Description 08/22/2019 Abstract [facility] CONVERSIONS Dental, Provider, DDS Social History Tobacco [...] Description 09/03/2025 11:30 AM EST Office Visit [facility] CHC MED & PEDS 505 [place], [place] [phone] Suzie Rubin MD 505 [place], [place] [phone] 11/28/2025 8:00 AM EDT Office Visit [facility] ADULT DENTAL [address] [place] [address] Clau Aquino documented as of this encounter Visit Diagnoses Not on filedocumented in this encounter Care Teams Photocopy Operator Relationship Specialty Start Date End Date Rosita Clark MD PCP - General Family Medicine 07/31/19 08/08/22 Bertha Jacinto FNP 230 [place] [address] PCP - General Family Medicine 09/28/22 Eugenio Rudolph MD [address] [place] [address], [address] [place] [address] Neurology 09/30/24 Cale Pena MD [address] 3rd [place] [address] Cardiology 09/30/24 Josseline Gan [address] [place] [address] Gastroenterology 09/30/24 Archie Reyes MD [address] [place] [address] Vascular Surgery 09/30/24 documented as of this encounter
--- OUTSIDE RECORDS SUMMARY | 2025-08-09 14:02 | XMS_ITS | Encounter Summary ---
Author Organization [employer] Address [address] 7t [place] [address] Care Team Providers Care Ophthalmologist Retina Specialist Name Role Phone Bertha Jacinto Primary Care Provider Eugenio Rudolph MD Unavailable Cale Pena MD Unavailable Josseline Gan Unavailable Archie Reyes MD Unavailable Encounter Details Date Type Department Care Team (Late st Contact Info) Description 02/06/2024 Telephone [facility] MED & PEDS 505 [place], [place] [phone] Bertha Jacinto FNP 505 [place], [place] [phone] Social History Tobacco Use Types Packs/Day Years [...] Description 09/03/2025 11:30 AM EST Office Visit [facility] CHC MED & PEDS 505 [place] [address] Suzie Rubin MD 505 [place] [address] 11/28/2025 8:00 AM EDT Office Visit [facility] ADULT DENTAL 230 [place] [address] Clau Aquino documented as of this encounter Visit Diagnoses Not on filedocumented in this encounter Additional Health Concerns Assessment Noted Time PHQ-9 Depression Total Score: 0 01/11/20 9:12 AM EDT documented as of this encounter Care Teams Ophthalmologist Retina Specialist Relationship Specialty Start Date End Date Bertha Jacinto FNP 230 [place] [address] PCP - General Family Medicine 09/28/22 Eugenio Rudolph MD [address] [place] [address], [address] [place] [address] Neurology 09/30/24 Cale Pena MD [address] 3rd [place] [address] Cardiology 09/30/24 Josseline Gan [address] 3rd [place] [address] Gastroenterology 09/30/24 Archie Reyes MD [address] [place] [address] Vascular Surgery 09/30/24 documented as of this encounter
--- OUTSIDE RECORDS SUMMARY | 2025-08-09 14:02 | XMS_ITS | Encounter Summary ---
Author Organization [employer] [facility] Address [address] 7t [place] [address] Care Team Providers Care Consultant Intern Name Role Phone Bertha Jacinto Primary Care Provider [phone] Eugenio Rudolph MD Unavailable [phone] Cale Pena MD Unavailable Josseline Gan Unavailable Archie Reyes MD Unavailable Reason for Visit * Reason Onset Date Comments PT1 06/07/2024 Encounter Details Date Type Department Care Team ([facility] st Contact Info) Description 06/07/2024 Telephone [facility] MED & PEDS 505 [place], [place] [phone] Bertha Jacinto FNP 505 [place], [place] [phone] PT1 Social History Tobacco Use Types Packs/Day [...] facility name: Dr. Kong [facility]AIL[facility] Facility Address: [address] [place] [address] Escort needed: Y/N: No Do you have a wheelchair: Y/N: No If yes- Manual or electric: Visits: 1-2 a month documented in this encounter Plan of Treatment Upcoming Encounters Date Type Department Care Team (Late st Contact Info) Description 09/03/2025 11:30 AM EST Office Visit [facility] CHC MED & PEDS 505 [place] [address] Suzie Rubin MD 505 [place] [address] 11/28/2025 8:00 AM EDT Office Visit [facility] ADULT DENTAL 230 [place] [address] Clau Aquino documented as of this encounter Visit Diagnoses Not on filedocumented in this encounter Additional Health Concerns Assessment Noted Time PHQ-9 Depression Total Score: 7 05/18/20 24 3:50 PM EDT documented as of this encounter Care Teams Consultant Intern Relationship Specialty Start Date End Date Bertha Jacinto FNP 230 [place] [address] PCP - General Family Medicine 09/28/22 Eugenio Rudolph MD [address] [place] [address], [address] [place] [address] Neurology 09/30/24 Cale Pena MD [address] 3rd [place] [address] Cardiology 09/30/24 Josseline Gan [address] 3rd [place] [address] Gastroenterology 09/30/24 Archie Reyes MD [address] [place] [address] Vascular Surgery 09/30/24 documented as of this encounter
--- OUTSIDE RECORDS SUMMARY | 2025-08-09 14:02 | XMS_ITS | Encounter Summary ---
Author Organization [employer] [facility] Address [address] 7t [place] [address] Care Team Providers Care Chief Pharmacist Name Role Phone Bertha Jacinto Primary Care Provider [phone] Eugenio Rudolph MD Unavailable [phone] Cale Pena MD Unavailable Josseline Gan Unavailable Archie Reyes MD Unavailable Encounter Details Date Type Department Care Team ([facility] Contact Info) Description 10/06/2022 Telephone [facility] MEDICINE 230 [place] [address] Bertha Jacinto FNP [address] [place] [address] Social History Tobacco Use Types Packs/Day Years [...] Department Care Team ([facility] Contact Info) Description 09/03/2025 11:30 AM EST Office Visit [facility] CHC MED & PEDS [address] [place], [place] [phone] Suzie Rubin MD 505 [place], [place] [phone] 11/28/2025 8:00 AM EDT Office Visit [facility] ADULT DENTAL [address] [place] [address] Clau Aquino documented as of this encounter Visit Diagnoses Not on filedocumented in this encounter Care Teams Chief Pharmacist Relationship Specialty Start Date End Date Bertha Jacinto FNP [address] [place] [address] PCP - General Family Medicine 09/28/22 Eugenio Rudolph MD [address] [place] [address], [address] [place] [address] Neurology 09/30/24 Cale Pena MD [address] 3rd [place] [address] Cardiology 09/30/24 Josseline Gan [address] 3rd [place] [address] Gastroenterology 09/30/24 Archie Reyes MD [address] [place] [address] Vascular Surgery 09/30/24 documented as of this encounter
--- OUTSIDE RECORDS SUMMARY | 2025-08-09 14:02 | XMS_ITS | Encounter Summary ---
Author Organization [employer] [facility] Address [address] [place] [address] Care Team Providers Care Training Technician Name Role Phone Bertha Jacinto Primary Care Provider Eugenio Rudolph MD Unavailable [phone] Cale Pena MD Unavailable Josseline Gan Unavailable Archie Reyes MD Unavailable Reason for Visit * Reason Onset Date Comments pt1 05/29/2025 Encounter Details Date Type Department Care Team ([facility] st Contact Info) Description 05/29/2025 Telephone [facility] MED & PEDS [address] [place], [place] [phone] Bertha Jacinto FNP [address] [place], [place] [phone] pt1 Social History Tobacco Use Types Packs/Day [...] Yes Provider name or facility name: [address] [facility] [address] Escort needed: Y/N: Yes Do you have a wheelchair: Y/N: No If yes- Manual or electric: \ Visits: 4x Patient calling requesting PT1 Home Address verified: Y/N: Yes Provider name or facility name: [address] [facility] Escort needed: Y/N: Yes Do you have a wheelchair: Y/N: No If yes- Manual or electric: Visits: 3x documented in this encounter Plan of Treatment Upcoming Encounters Date Type Department Care Team (Late st Contact Info) Description 09/03/2025 11:30 AM EST Office Visit [facility] MED & PEDS [address] [place] [address] Suzie Rubin MD [address] [place] [address] 11/28/2025 8:00 AM EDT Office Visit [facility] ADULT DENTAL [address] [place] [address] Clau Aquino documented as of this encounter Visit Diagnoses Not on filedocumented in this encounter Additional Health Concerns Assessment Noted Time PHQ-9 Depression Total Score: 8 04/10/20 25 11:19 AM EDT documented as of this encounter Care Teams Training Technician Relationship Specialty Start Date End Date Bertha Jacinto FNP [address] [place] [address] PCP - General Family Medicine 09/28/22 Eugenio Rudolph MD [address] [place] [address], [address] [place] [address] Neurology 09/30/24 Cale Pena MD [address] 3rd [place] [address] Cardiology 09/30/24 Josseline Gan [address] 3rd [place] [address] Gastroenterology 09/30/24 Archie Reyes MD [address] [place] [address] Vascular Surgery 09/30/24 documented as of this encounter
--- OUTSIDE RECORDS SUMMARY | 2025-08-09 14:02 | XMS_ITS | Clinical Summary ---
Author Organization [employer] Address [address] [facility] [address] [place] [address] Care Team Providers Care Receiving Worker Name Role Phone Bertha Jacinto Primary Care Provider [phone] Eugenio Rudolph MD Unavailable [phone] Cale Pena MD Unavailable Josseline Gan [...] tablet by mouth every 12 (twelve) hours. 1 Active zolpidem (Ambien) 10 MG tablet Take 10 mg by mouth at bedtime. 2 Active sertraline (Zoloft) 100 MG tablet TAKE 2 TABLETS BY MOUTH ONCE DAILY IN THE MORNING 2 Active hydrocortisone 1 % lotion Apply topically 2 times daily. Use for up to 1 week. 60 g 1 4 Active amitriptyline (Elavil) 10 MG tablet TAKE 1 TABLET BY MOUTH AT BEDTIME NEEDED. MAY INCREASE BY 1 TABLET EVERY WEEK DIRECTED UP TO 4 TABLETS AT BEDTIME 4 Active Multiple Vitamin (multivitamin) tabletIndicatio ns:Encounter for routine history and physical examination of adult,Healthcar e maintenance Take 1 tablet by mouth Once per day. OTC Active Ketotifen Fumarate 0.035 % solution Administer 1 drop into affected eye(s) if needed in the morning and at bedtime (eye redness, itching). 10 mL 4 Active acetaminophen (Tylenol) 500 MG tablet Take 2 tablets (1,000 mg) by mouth every 6 (six) hours if needed for mild pain. 30 tablet 4 Active hydrOXYzine pamoate (Vistaril) 25 MG capsule TAKE 1 CAPSULE BY MOUTH EVERY TWELVE HOURS NEEDED FOR ANXIETY 30 capsule 1 5 Active hydrocortisone 2.5 % creamIndication s:Pruritic rash Apply pea sized amount to skin bid for 1 week 15 g 5 Active fluticasone (Flonase) 50 MCG/ACT nasal spray INSTILL 1-2 SPRAYS IN EACH NOSTRIL ONCE DAILY 48 g 11 5 Active lidocaine (Lidoderm) 5 % patchIndication s:Acute bilateral thoracic back pain APPLY 1 PATCH TOPICALLY TO SKIN, LEAVE ON FOR 12 HOURS AND OFF FOR 12 HOURS DIRECTED 30 patch 3 07/31/2025 9:29 AM EST 5 Active cyclobenzaprine (Flexeril) 10 MG tabletIndicatio ns:Muscle spasm TAKE 1 TABLET BY MOUTH THREE TIMES DAILY IN THE MORNING, AT NOON, AND AT BEDTIME NEEDED FOR MUSCLE SPASMS 45 tablet 1 5 Active Clotrimazole Anti-Fungal 1 % creamIndication s:Tinea pedis of right foot APPLY TOPICALLY AFFECTED AREA(S) TWICE DAILY FOR 28 DAYS 30 g 1 5 Active senna (Senokot) 8.6 MG tablet TAKE 2 TABLETS BY MOUTH EVERY DAY AT BEDTIME NEEDED FOR CONSTIPATION 180 tablet 1 07/31/2025 9:29 AM EST 5 Active SUMAtriptan (Imitrex) 25 MG tabletIndicatio ns:Migraine [...] for 30 mins after taking 9 tablet 5 Active esomeprazole (NexIUM) [address] capsule Take 1 capsule by mouth Once per day. 5 Active ibuprofen 800 MG tabletIndicatio ns:Pain TAKE 1 TABLET BY MOUTH THREE TIMES DAILY NEEDED FOR PAIN OR FEVER OR HEADACHE 90 tablet 2 07/31/2025 9:29 AM EST 5 Active Active Problems Problem Noted Date Diagnosed Date [...] She is connected with psychiatrist services with N. Medication helps manage sxs. Chronic pain is associated with anxiety mood due to experiencing fibromyalgia sxs. Pt is also worried about her housing situation. She will be referred to CM to assist with resources and housing opening in the area. Assessment & Plan (11/22/2024 7:52 PM EST): Continue following with [facility]-therapist and psych prescriber BE completed following appointment [...] associated with. Pt has current services with [facility] - therapy sessions biweekly and psychiatrist every three months-. We explored different coping strategies and practiced them during today's session. clinician provided active/reflective listening. Reviewed and assessed for risk, current stressors and protective factors using open-ended questions. Pt will continue current services with [facility]. clinician will provide additional support during [...] with her medical condition and lack of PLANT PATHOLOGIST services. She does have MH services with [facility]: Therapy with Yudi and psychiatry with Dr. [...] associated with. Pt has current services with [facility] - therapy sessions biweekly and psychiatrist every three months-. We explored different coping strategies and practiced them during today's session. clinician provided active/reflective listening. Reviewed and assessed for risk, current stressors and protective factors using open-ended questions. Pt will continue current services with [facility]. clinician will provide additional support during [...] including pharmacologic and lifestyle interventions. May consider [facility] acupuncture clinic. TMJ syndrome 05/01/2024 Assessment [...] medial proximal calf without significant reflux - [facility] [place] for compression socks generated December 2023 - 05/08/24: [facility] Vascular - Dr. Reyes. Results after venous [...] (05/23/2025): Pap: NILM, HPV POS 12/10/20 at [facility] SPLITTING MACHINE OPERATOR HELPER. Now following with [facility] - Dr Aquino & Lissy Mammo: BIRADS 1 on 08/03/24 Colonoscopy: routine screening starting at 45 y/o - has upcoming appt with [facility] GI Jun 2025 Last PE: 05/22/25 OPH: CEE 11/29/24 at [facility] Assessment & Plan (05/23/2025 9:20 AM EDT): - Encouraged to follow up with SPLITTING MACHINE OPERATOR HELPER for routine cervical CA screening and SPLITTING MACHINE OPERATOR HELPER exam - Encouraged to discuss colonoscopy screening during upcoming appt with [facility] GI - Added lipid and A1c to pending labs Assessment & Plan (05/19/2023 4:08 PM EDT): Pap: positive high rish HPV 12/07 at [facility] SPLITTING MACHINE OPERATOR HELPER. Reports recent screening - possibly Dr. Aquino at [facility] that was normal. Records requested. Mammo: BIRADS [...] unremarkable Sep 2022 Continue following with Neurology: [facility] Neurology for history of NGUYEN. Continue [...] Assessment & Plan (05/23/2025 9:16 AM EDT): PLANT PATHOLOGIST hours approved for 7h/week [place]. She will consider if open to idea of person from agency coming to perform those hours. Assessment & Plan (04/11/2025 10:04 AM EDT): PLANT PATHOLOGIST eval pending, message sent to Forms team to see if they may be able to assist/provide insight. Assessment & Plan (03/25/2024 6:15 PM EDT): PLANT PATHOLOGIST eval pending Assessment & Plan (12/20/2023 11:20 AM EDT): PLANT PATHOLOGIST eval pending Dizziness 10/05/2022 Overview (12/20/2023): -Check [...] esophagi tis 08/05/2022 Overview (04/11/2025): -Following with [facility] GI - CENTRIFUGE SEPARATOR OPERATOR Elvia - March 2025-switched from pantoprazole to Nexium. 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 Reports following with [facility] for OBGYN care, request most recent notes Assessment & Plan (05/19/2023 4:06 PM EDT): -Following with [facility]. Request most recent records of pap and SPLITTING MACHINE OPERATOR HELPER visit Mild intermittent asthma 01/24/2017 Assessment & Plan (05/23/2025 9:15 AM EDT): -Cont albuterol PRN -Well controlled Assessment & Plan (05/21/2024 10:41 AM EDT): -Cont albuterol PRN -Well controlled Migraine 03/14/2014 Overview (05/23/2025): Previously following with [facility] - Dr. Rudolph Rx for [facility] sent through Neuro on Jun 2023, pt reports not approved by insurance Cont amitriptyline 10mg daily Previous med trials: divalproex Plan for potential botox if current medication not therapeutic. Assessment & Plan (05/23/2025 9:20 AM EDT): Referral to new Neurology placed 05/22/25 Assessment & Plan (05/19/2023 4:08 PM EDT): Continue following with [facility] Reports recently initiated new medication, unsure of name. Plan for potential botox if current medication not therapeutic. Assessment & Plan (01/23/2023 10:13 AM EDT): Continue following with [facility] Reports recently initiated new medication, unsure of name. Plan for potential botox if current medication not therapeutic. Allergic rhinitis 08/30/2013 Overview (05/19/2023): Continues with carla CASONN Mixed anxiety and depressive disorder 08/30/2013 Assessment & Plan (05/23/2025 9:20 AM EDT): Continue following with psych - med management through Dr. Martins Following with therapist - Yudi frank Ronal Continues with sertraline, zolpidem, and clonazepam through their office Denies SI/HI/thoughts of self harm Assessment & Plan (04/11/2025 10:01 AM EDT): Continue following with psych - med management through Dr. Martins Following with therapist - Yudi frank Ronal Continues with sertraline, zolpidem, and clonazepam through [...] delay -request today records of neurology and nuclear operations specialist to [place] to check already workup performed for previous [...] food consumption and routine physical activity Encounters Date Type Department Care Team Description 07/09/2025 11:00 AM EDT Office Visit [facility] MED & PEDS [address] [place] [address] Suzie Rubin MD Skin tag (Primary Dx) 07/09/2025 Travel 06/28/2025 Patient Outreach [facility] MEDICINE [address] [place], [place] [phone] Bertha Jacinto FNP 06/28/2025 Telephone [facility] MED [facility] PEDS [address] [place] [address] Bertha Jacinto FNP pt1 06/26/[address] [address] Bertha Jacinto FNP Pain 05/29/2025 Patient Outreach [address] [address] Bertha Jacinto FNP Care Coordination (CHW outreach for SDOH PT-1 and food needs-referral completed /) 05/29/2025 Telephone [facility] MED & PEDS [address] [place] [address] Bertha Jacinto FNP pt1 05/24/2025 Telephone [facility] MED & PEDS [address] [place] [address] Bertha Jacinto FNP Referral 05/22/2025 9:15 AM EDT Office Visit [address] [address] Bertha Jacinto FNP Encounter for routine history and physical examination of adult (Primary Dx); Healthcare maintenance; Gastroesophageal reflux disease without esophagitis; History of syncope; Mild intermittent asthma without complication; Dietary counseling; Exercise counseling; Dizziness; Mixed anxiety and depressive disorder; Migraine without status migrainosus, not intractable, unspecified migraine type 05/22/2025 Telephone [facility] MED & PEDS [address] [place] [address] Bertha Jacinto FNP Referral 05/22/2025 Travel 05/21/[address] [address] Bertha Jacinto FNP CHART PREP 05/16/2025 10:00 AM EDT Office Visit [facility] ADULT DENTAL [address] [place] [address] Clau Aquino Excessive attrition of teeth (Primary Dx); Dental plaque; Missing teeth, acquired; Dental calculus; Gingival recession, localized 05/15/2025 Patient Outreach [address] [address] Bertha Jacinto FNP Care Coordination (CHW outreach for SDOH PT-1 and food needs-referral completed /) 05/15/2025 Telephone [facility] MEDICINE [address] [place] [address] Bertha Jacinto FNP PT 1 add visit 05/15/2025 Patient Outreach [facility] MED & PEDS [address] [place], [place] [phone] Bertha Jacinto FNP Pre-visit Planning (SDOH was already completed) from Last 3 Months Immunizations Immunization Administration [...] Sign Reading Time Taken Comments Blood Pressure 142/78 07/09/2025 11:10 AM EDT Pulse 84 07/09/2025 11:10 AM EDT Temperature 36.9 C (98.5 F) 05/22/2025 9:26 AM EDT Respiratory Rate 20 07/09/2025 11:10 AM EDT Oxygen Saturation 99% 07/09/2025 11:10 AM EDT Inhaled Oxygen Concentration - - Weight 88.5 kg (195 lb) 07/09/2025 11:10 AM EDT Height 149.9 cm (4' 11 ) 07/09/2025 11:10 AM EDT Body Mass Index 39.39 07/09/2025 11:10 AM EDT Plan of Treatment Upcoming Encounters Date Type Department Care Team (Late st Contact Info) Description 09/03/2025 11:30 AM EST Office Visit [facility] MED & PEDS [address] [place] [address] Suzie Rubin MD [address] [place] [address] 11/28/2025 8:00 AM EDT Office Visit [facility] ADULT DENTAL [address] [place], [place] [phone] Clau Aquino Health Maintenance Due Date Last Done Comments CT Colonography 1980 Colonoscopy 1980 Colorectal Cancer Screening 1980 FIT DNA/Cologuard 1980 FIT 1980 FOBT 1980 Sigmoidoscopy 1980 Family Planning (PISQ) 1995 HPV Vaccines (1 - 3-dose series) 1995 Pap Smear 2001 Dental Oral Exam 05/16/2025 11/15/2024, , 04/13/2021, Additional history exists COVID-19 Vaccine ( season) 2025 02/02/2021, 12/31/2020 Influenza Vaccine (#1) 2025 , 07/26/2023, 07/30/2022, Additional history exists Mammogram 08/03/2025 08/03/2024, 11/0 04/2023, 07/21/2022, Additional history exists SDOH Screening 11/13/2025 11/13/2024 Dental X-Ray: Bitewings 11/16/2025 11/15/19, 08/16/2022, 04/13/2021, Additional history exists Dental Prophylaxis 11/17/2025 05/16/2025, 0 11/15/2024, 08/16/2022, Additional history exists Cervical Cancer Screening 12/10/2025 HPV/Cotest 12/10/2025 12/10/2020, 12/10/2020 Depression Screening 04/10/2026 04/10/2025, 04/10/20 Disability Screening 04/10/2026 04/10/2025 Alcohol/Substance Use Screening 05/22/2026 05/22/2025 Tobacco Screening 07/09/2026 07/09/2025 Dental X-Ray: Full Mouth 11/16/2027 025, 05/01/2024, [...] Procedure Name Priority Date/Time Associated Diagnosis Comments DESTRUCTION OF LESION Routine 07/09/2025 11:25 AM EDT Skin tag AMB REFERRAL TO OB-SPLITTING MACHINE OPERATOR HELPER Routine 05/24/2025 Cervical cancer screening ORAL HYGIENE INSTRUCTIONS Routine 05/16/2025 10:00 AM EDT Dental plaque Dental calculus PROPHYLAXIS - ADULT Routine 05/16/2025 1 0:00 AM EDT Dental plaque Dental calculus CASE PRESENTATION, DETAILED AND EXTENSIVE TREATMENT PLANNING Routine 05/16/2025 10:00 AM EDT INTRAORAL - COMPLETE SERIES OF RADIOGRAPHIC IMAGES [...] Health Maintenance Results * Destruction of lesion (07/09/2025 11:25 AM EDT) Suzie Gage MD - 07/09/2025 11:25 AM EDT Suzie Rubin MD 07/09/2025 11:28 AM Destruction of lesion Date/Time: 07/09/2025 11:25 AM Performed by: Suzie Rubin MD Authorized by: Suzie Rubin MD Consent: Consent obtained: Verbal and written Risks discussed: Bleeding, infection, pain and poor cosmetic result Alternatives discussed: Observation [place] protocol: Procedure explained and questions answered to patient or proxy's satisfaction: yes Relevant documents present and verified: no Test results available: no Imaging studies available: no Required blood products, implants, devices, and special equipment available: no Site/side marked: no Immediately prior to procedure, a time out was called: yes Patient identity confirmed: Verbally with patient Comments: ED &C of multiple skin tags of the neck line. us Suzie Rubin MD DERM PROCEDURE ORDERABLES F inal Result * Referral to Obstetrics / Gynecology (05/24/2025) Bertha VENTURAP OUTPATIENT REFERRAL ORDERABLES Final Result * BI Mammogram Screening Tomosynthesis Bilateral (08/03/2024 1:41 PM EST) Anatomical Region Laterality Modality Breast Bilateral Mammography 08/03/2024 1:41 PM EST Narrative 08/14/2024 11:01 AM EST [facility] [address] [place] [address] Mammography Report Signed Patient: Laura Clay MR #: [id number] : 1980 Acct:[id number] Age/Sex: 44 / F ADM Date: 08/03/24 Loc: HO.MAMMO Attending Dr: Bertha CHRISTIAN Ordering Physician: Bertha Jacinto Results: 1Negat andrey Date of Service: 08/03/24 Follow Up: 1 Year From Orig inal Mammogram Procedure(s): MM tomosynthesis screening BI Accession Number(s): [id number] cc: Bertha Jacinto EXAMINATION: MM SCREENING DIGITAL [...] 08/14/24 1057 DD/ 1341 TD/TT: 08/03/24 1355 Registry Nurse: Procedure Note Donotrahinterpreter, Image - 08/14/2024 [facility] [address] [place] [address] Mammography Report Signed Patient: Laura Clay PMR #: [id number] : 1980Acct:[id number] Age/Sex: 44 / FADM Date: 08/03/24 Loc: HO.MAMMO Attending Dr: Bertha Jacinto ADVERTISING ACCOUNT REPRESENTATIVE Ordering Physician: Bertha JacintoPResults: 1Negat andrey Date of Service: 08/03/24Follow Up: 1 Year From Orig inal Mammogram Procedure(s): MM tomosynthesis screening BI Accession Number(s): [id number] cc: Bertha Jacinto ADVERTISING ACCOUNT REPRESENTATIVE EXAMINATION: MM SCREENING DIGITAL BREAST TOMOSYNTHESIS, BILATERAL [...] 08/14/24 1057 DD/ 1341 TD/TT: 08/03/24 1355 Registry Nurse: Bertha VENTURAP IMG BI PROCEDURES Final Result * Hepatitis C Viral RNA, Quantitative, Real-Time PCR (03/23/2024 9:51 AM EDT) Pathologist [facility] Hepatitis C Viral Load <15 NOT DETECTED NOT DETECTED IU/mL [facility] HCV Log PCR <1.18 NOT DETECTED NOT DETECTED Log IU/mL [facility] Comment:For additional infor mation, please refer tohttp://education.[employer]Sens/faq/XBS36d5(This link is being provided for informational/educational purposes only.)THIS TEST WAS PERFORMED AT:[facility] [place] [id number] VELAZCO MD Blood 03/23/2024 9:51 AM EDT 03/23/2024 2:07 PM EDT Bertha Jacinto [facility] BLOOD ORDERABLES Final Res ult [facility] [address] [place] [address] [phone] * HIV-1/2 Antigen and Antibodies, Fourth Generation, with Reflexes (03/23/2024 9:51 AM EDT) Pathologist [facility] HIV AB/AG Nonreactive Nonreactive [facility] Comment:HIV-1 p24 Ag and/or HIV-1/HIV-2 Ab not detected.A test result that is nonreactive does not exclude thepossibility of exposure to or infection with HIV-1 and/orHIV-2. Nonreactive results in this assay for individualswith prior exposure to HIV-1 and/or HIV-2 may be due toantigen and antibody levels that are below the limit ofdetection of this assay.The [employer] Alinity HIV Ag/Ab Combo assay result andsupplemental assay results should be interpreted inconjunction with the patient's clinical presentation,history and other laboratory results. If the results areinconsistent with clinical evidence, additional testing issuggested to confirm the result. Blood Venous blood specimen / Unknown 03/23/2024 9:51 AM EDT 03/23/2024 2:07 PM EDT Bertha Jacinto ADVERTISING ACCOUNT REPRESENTATIVE LAB BLOOD ORDERABLES Final Res ult [facility] [address] [place] [phone] * (ABNORMAL) HPV E6/E7 RFLX ARYAN 16 18/45 (12/10/2020 1:49 PM EDT) Pathologist [facility] [place] HPV 16 RNA NOT DETECTED NOT DETECTED [facility] HPV 18/45 RNA NOT DETECTED NOT DETECTED [facility] Comment: Methodology: Development Professional Mediated Amplification The analytical performance characteristics of this assay have been determined by [employer]. The modifications have not been cleared or approved by the FDA. This assay has been validated pursuant to the CLIA regulations and is used for clinical purposes. THIS TEST WAS PERFORMED AT: [facility] [address] [place] [address],[facility] [place] [phone] MART VELAZCO MD HPV mRNA E6/E7 rflx Detected(A) Not Detected [facility] Comment: Methodology: Development Professional-Mediated Amplification This assay detects E6/E7 viral messenger RNA (mRNA) from 14 high-risk HPV types (16,18,31,33,35,39,45,51,52,56,58,59,66,68). The analytical performance characteristics of this assay have been determined by [employer]. The modifications have not been cleared or approved by the FDA. This assay has been validated pursuant to the CLIA regulations and is used for clinical purposes. For additional information, please refer to http://education.Targeter App.CN Creative/faq/RYT824z7 (This link if provided for information/ educational purposes only.) THIS TEST WAS PERFORMED AT: [facility] [address] [place] [address],[facility] [place] [address] MART VELAZCO MD 12/10/2020 1:49 PM EDT us Jonnathan Holley MD HISTORICAL/NON ORDERABLE LABS Fi nal Result [facility] [address] from Last 3 Months or Most Recently Relevant to Health Maintenance Insurance [facility] C3 DENTAL-[facility] MEDICAID STAND ADULT Care Teams Receiving Worker Relationship Specialty Start Date End Date Bertha Jacinto FNP [address] [place] [address] PCP - General Family Medicine 09/28/22 Eugenio Rudolph MD [address] [place] [address], [address] [place] [address] Neurology 09/30/24 Cale Pena MD [address] [place] [address] Cardiology 09/30/24 Josseline Gan [address] [place] [address] Gastroenterology 09/30/24 Archie Reyes MD [address] [place] [address] Vascular Surgery 09/30/24
--- OUTSIDE RECORDS SUMMARY | 2025-08-09 14:02 | XMS_ITS | Encounter Summary ---
Author Organization [employer] [facility] Address [address] [place] [address] 7 [place] [address] Care Team Providers Care Director Of Materials Name Role Phone Rosita Clark MD Primary Care Provider Bertha Shetty Primary Care Provider Eugenio Rudolph MD Unavailable Cale Pena MD Unavailable Josseline Gan Unavailable Archie Reyes MD Unavailable Encounter Details Date Type Department Care Team (Latest Contact Info) Description 04/15/2021 Abstract [facility] CONVERSIONS Dental, Provider, DDS Social History Tobacco [...] Description 09/03/2025 11:30 AM EST Office Visit [facility] [address] [place], [place] [phone] Suzie Rubin MD [address] [place], [place] [phone] 11/28/2025 8:00 AM EDT Office Visit [facility] [address] [place] [address] Clau Aquino documented as of this encounter Visit Diagnoses Not on filedocumented in this encounter Care Teams Director Of Materials Relationship Specialty Start Date End Date Rosita Clark MD PCP - General Family Medicine 07/31/19 08/08/22 Bertha Jacinto FNP [address] [place] [address] PCP - General Family Medicine 09/28/22 Eugenio Rudolph MD [address] [place] [address], [address] [place] [address] Neurology 09/30/24 Cale Pena MD [address] 3rd [place] [address] Cardiology 09/30/24 Josseline [address]Gn [address] [place] [address] Gastroenterology 09/30/24 Archie Reyes MD [address] [place] [address] Vascular Surgery 09/30/24 documented as of this encounter
--- OUTSIDE RECORDS SUMMARY | 2025-08-09 14:02 | XMS_ITS | Encounter Summary ---
Author Organization [employer] Address [address] 7t [place] [address] Care Team Providers Care Director Of Special Events Name Role Phone Bertha Jacinto Primary Care Provider Eugenio Rudolph MD Unavailable [phone] Cale Pena MD Unavailable Josseline Gan Unavailable Archie Reyes MD Unavailable Encounter Details Date Type Department Care Team (Late st Contact Info) Description 03/28/2024 Orders Only [facility] [address] [place], [place] [phone] Bertha Jacinto FNP [address] [place], [place] [phone] Social History Tobacco Use Types Packs/Day Years [...] Description 09/03/2025 11:30 AM EST Office Visit [facility] [address] [place] [address] Suzie Rubin MD [address] [place] [address] 11/28/2025 8:00 AM EDT Office Visit [facility] [address] [place] [address] Clau Aquino documented as of this encounter Visit Diagnoses Not on filedocumented in this encounter Additional Health Concerns Assessment Noted Time PHQ-9 Depression Total Score: 0 01/11/20 23 9:12 AM EDT documented as of this encounter Care Teams Director Of Special Events Relationship Specialty Start Date End Date Bertha Jacinto FNP [address] [place] [address] PCP - General Family Medicine 09/28/22 Eugenio Rudolph MD [address] [place] [address], [address] [place] [address] Neurology 09/30/24 Cale Pena MD [address] 3rd [place] [address] Cardiology 09/30/24 Josseline Gan [address] 3rd [place] [address] Gastroenterology 09/30/24 Archie Reyes MD [address] [place] [address] Vascular Surgery 09/30/24 documented as of this encounter
--- OUTSIDE RECORDS SUMMARY | 2025-08-09 14:02 | XMS_ITS | Encounter Summary ---
Author Organization [facility] Address [address] 7t [place] [address] Care Team Providers Care Criminal Justice Social Worker Name Role Phone Bertha Jacinto Primary Care Provider Eugenio Rudolph MD Unavailable [phone] Cale Pena MD Unavailable Josseline Gan Unavailable Archie Reyes MD Unavailable Reason for Visit * Reason Onset Date Comments Referral 05/22/2025 Encounter Details Date Type Department Care Team ([facility] st Contact Info) Description 05/22/2025 Telephone [facility] [address] [place], [place] [phone] Bertha Jacinto FNP [address] [place] [address] Referral Social History Tobacco Use Types Packs/Day [...] a new referral to a neurologist , [facility] last neurologist office closed down Contact pt at [phone] ([email or web address]) documented in this encounter Plan of Treatment Upcoming Encounters Date Type Department Care Team (Late st Contact Info) Description 09/03/2025 11:30 AM EST Office Visit [facility] [address] [place] [address] Suzie Rubin MD [address] [place] [address] 11/28/2025 8:00 AM EDT Office Visit [facility] [address] [place] [address] Clau Aquino documented as of this encounter Visit Diagnoses Not on filedocumented in this encounter Additional Health Concerns Assessment Noted Time PHQ-9 Depression Total Score: 8 04/10/20 25 11:19 AM EDT documented as of this encounter Care Teams Criminal Justice Social Worker Relationship Specialty Start Date End Date Bertha Jacinto FNP [address] [place] [address] PCP - General Family Medicine 09/28/22 Eugenio Rudolph MD [address] [place] [address], [address] [place] [address] Neurology 09/30/24 Cale Pena MD [address] [place] [address] Cardiology 09/30/24 Josseline Gan [address] [place] [address] Gastroenterology 09/30/24 Archie Reyes MD [address] [place] [address] Vascular Surgery 09/30/24 documented as of this encounter
--- OUTSIDE RECORDS SUMMARY | 2025-08-09 14:02 | XMS_ITS | Encounter Summary ---
Author Organization [employer] Address [address] [place] [address] Care Team Providers Care Dump Worker Name Role Phone Bertha Jacinto Primary Care Provider [phone] Eugenio Rudolph MD Unavailable [phone] Clae Pena MD Unavailable Josseline Gan Unavailable Archie Reyes MD Unavailable Reason for Visit * Reason Onset Date Comments PT-1 12/28/2023 Encounter Details Date Type Department Care Team (Late st Contact Info) Description 12/28/2023 Telephone [facility] [address] [place] [address] Bertha Jacinto FNP [address] [place], [place] [phone] PT-1 Social History Tobacco Use Types Packs/Day [...] facility [facility] Address: [address] [place] [address] Escort needed: no Do you have a wheelchair: Y/N: No If yes- Manual or electric: No Visits: 6 documented in this encounter Plan of Treatment Upcoming Encounters Date Type Department Care Team (Late st Contact Info) Description 09/03/2025 11:30 AM EST Office Visit [facility] MED [facility] PED[facility] [address] [place], [place] [phone] Suzie Rubin MD [address] [place] [address] 11/28/2025 8:00 AM EDT Office Visit [facility] ADULT DENT[facility] [address] [place] [address] Clau Aquino documented as of this encounter Visit Diagnoses Not on filedocumented in this encounter Additional Health Concerns Assessment Noted Time PHQ-9 Depression Total Score: 0 01/11/20 23 9:12 AM EDT documented as of this encounter Care Teams Dump Worker Relationship Specialty Start Date End Date Bertha Jacinto FNP [address] [place] [address] PCP - General Family Medicine 09/28/22 Eugenio Rudolph MD [address] [place] [address], [address] [place] [address] Neurology 09/30/24 Cale Pena MD [address] 3rd [place] [address] Cardiology 09/30/24 Josseline Gan [address]rd [place] [address] Gastroenterology 09/30/24 Archie Reyes MD [address] [place] [address] Vascular Surgery 09/30/24 documented as of this encounter
--- OUTSIDE RECORDS SUMMARY | 2025-08-09 14:02 | XMS_ITS | Encounter Summary ---
Author Organization [employer] [facility] Address [address] 7[address] [place] [address] Care Team Providers Care Blood Typer Name Role Phone Bertha Jacinto Primary Care Provider Eugenio Rudolph MD Unavailable [phone] Cale Pena MD Unavailable Josseline Gan Unavailable Archie Reyes MD Unavailable Reason for Visit * Reason Onset Date Comments PT1 12/26/2023 Encounter Details Date Type Department Care Team (Late st Contact Info) Description 12/26/2023 Telephone [facility] [address] [place] [address] Bertha Jacinto FNP [address] [place], [place] [phone] PT1 Social History Tobacco Use Types Packs/Day [...] Y/N: Yes Provider name or facility name: [facility] Facility Address: [address] [address] Escort needed: Y/N: No Do you have a wheelchair: Y/N: No If yes- Manual or electric: n/a Visits: n/a Patient calling requesting PT1 Home Address verified: Y/N: Yes Provider name or facility name: [facility] Facility Address: [address] [address] Escort needed: Y/N: No Do you have a wheelchair: Y/N: No If yes- Manual or electric: n/a Visits: n/a documented in this encounter Plan of Treatment Upcoming Encounters Date Type Department Care Team (Late st Contact Info) Description 09/03/2025 11:30 AM EST Office Visit [facility] [address] [place] [address] Suzie Rubin MD [address] [place] [address] 11/28/2025 8:00 AM EDT Office Visit [facility] [address] [place] [address] Clau Aquino documented as of this encounter Visit Diagnoses Not on filedocumented in this encounter Additional Health Concerns Assessment Noted Time PHQ-9 Depression Total Score: 0 01/11/20 23 9:12 AM EDT documented as of this encounter Care Teams Blood Typer Relationship Specialty Start Date End Date Bertha Jacinto FNP [address] [place] [address] PCP - General Family Medicine 09/28/22 Eugenio Rudolph MD [address] [place] [address], [address] [place] [address] Neurology 09/30/24 Cale Pena MD [address] 3rd [place] [address] Cardiology 09/30/24 Josseline Gan [address] 3rd [place] [address] Gastroenterology 09/30/24 Archie Reyes MD [address] [place] [address] Vascular Surgery 09/30/24 documented as of this encounter
== END 2025-08-09 13:38 | disposition home or self-care (01) ==
LOC: HO.MAMMO 13:37
PROVIDERS: PCP Registered Nurse; Visit Provider Registered Nurse
DX: Z12.31 Encounter for screening mammogram for malignant neoplasm of breast (principal)
CPT/HCPCS: 77063; 77067

== ENCOUNTER → 2025-08-09 13:45 | Outpatient (BNV) | payer MEDICAID, SELFPAY | PROVIDERS: PCP Registered Nurse; Visit Provider Internal Medicine | DX: Z12.31 Encounter for screening mammogram for malignant neoplasm of breast (principal) | CPT/HCPCS: 77063; 77067 ==